=== PATIENT | male | born 1945 | race Caucasian/White ===

== ENCOUNTER 2016-10-03 06:54 | Inpatient (IN) | payer MEDICARE, BC ==
[2016-10-03] MEDS ORDERED: Thrombin (Bovine) 5,000 Unit Kit ONE (07:06)
[2016-10-03] MEDS ORDERED: Neostigmine Methylsulfate 1 MG/ML 5 ML Syringe ONE (07:30)
[2016-10-03] MEDS ORDERED: Rocuronium 50 MG/5 ML Vial ONE ×2 (07:30→09:53)
[2016-10-03] MEDS ORDERED: Propofol 200 MG/20 ML SDV ONE ×6 (07:30→14:09)
[2016-10-03] MEDS ORDERED: Lactated Ringers 1,000 ML IV SCH (07:30)
[2016-10-03] MEDS ORDERED: Dexamethasone 4 MG/ML SDV ONE (07:30)
[2016-10-03] MEDS ORDERED: Ondansetron 4 MG/2 ML SDV ONE (07:30)
[2016-10-03] MEDS ORDERED: ceFAZolin 2 GM in Premix Bag 1 BAG IV ONE (09:00)
[2016-10-03] MEDS ORDERED: Tranexamic Acid 3,000 MG, Sodium Chloride 0.9% 100 ML TOP SCH ×2 (09:00)
[2016-10-03] MEDS ORDERED: Ketamine 500 MG/5 ML MDV IV SCH (09:00)
[2016-10-03] MEDS ORDERED: ceFAZolin 2 GM in Sodium Chloride 0.9% 50 ML IV ONE (09:00)
[2016-10-03] MEDS ORDERED: Gentamicin 40 MG/ML 2 ML Vial ONE (09:49)
[2016-10-03] MEDS ORDERED: Ropivacaine 49.25 ML, Ketorolac 30 MG, EPINEPHrine 0.5 MG, cloNIDine 80 MCG, Sodium Chl... INJECT SCH ×5 (10:30)
[2016-10-03] MEDS ORDERED: Gelatin Sponge,Absorbable Pwd 1 GM Pkt ONE (11:00)
[2016-10-03] MEDS ORDERED: Succinylcholine 200 MG/10 ML MDV ONE (12:02)
[2016-10-03] MEDS ORDERED: Lactated Ringers 1,000 ML ONE ×2 (12:02)
[2016-10-03] MEDS ORDERED: fentaNYL 100 MCG/2 ML SDV ONE ×2 (12:31→14:17)
[2016-10-03] MEDS ORDERED: Sodium Chloride 0.9% 500 ML ONE (12:48)
[2016-10-03] MEDS ORDERED: Magnesium Hydroxide 400 MG/5 ML Susp 30 ML Cup PO PRN (16:00)
[2016-10-03] MEDS ORDERED: Sennosides 8.6 MG Tab PO PRN (16:00)
[2016-10-03] MEDS ORDERED: diphenhydrAMINE 25 MG Cap PO PRN (16:00)
[2016-10-03] MEDS ORDERED: Naloxone 0.4 MG/ML SDV IVPUSH PRN (16:00)
[2016-10-03] MEDS ORDERED: Morphine 4 MG/ML Syringe IVPUSH PRN (16:00)
[2016-10-03] MEDS ORDERED: ceFAZolin 1 GM in Sodium Chloride 0.9% 50 ML IV SCH (16:00)
--- NOTE | 2016-10-03 16:56 | OR ---
DATE OF PROCEDURE: 10/03/2016 PREOPERATIVE DIAGNOSES: 1. Lumbar stenosis, L3 through S1. 2. Lumbar radiculopathy, L3 through S1. 3. Spondylolisthesis, L4-L5. 4. Spondylolisthesis, L5-S1. POSTOPERATIVE DIAGNOSES: 1. Lumbar stenosis, L3 through S1. 2. Lumbar radiculopathy, L3 through S1. 3. Spondylolisthesis, L4-L5. 4. Spondylolisthesis, L5-S1. PROCEDURES: 1. Transforaminal lumbar interbody fusion, L3-L4, L4-L5, and L5-S1. 2. Segmental instrumentation, L3 through S1. 3. Lumbar laminectomy required in addition decompression for central stenosis at L3-L4, L4- L5, and L5-S1. 4. Interbody device placement at L3-L4, L4-L5, and L5-S1. 5. Use of fluoroscopy. 6. Autograft from laminectomy placed in the posterolateral gutter. 7. Magnify from Globus mixed with autograft placed to the posterolateral gutter as well as the interbody space for grafting. ANESTHESIA: General endotracheal intubation. FLUID: Lactated Ringer solution. ESTIMATED BLOOD LOSS: 1700 mL. COMPLICATIONS: None. SPECIMEN: None. DISCHARGE DISPOSITION: Stable to PACU. INSTRUMENTATION: Globus Creo AMP 7.5 x 50 mm screws at S1, L5, and L4. 7.5 x 50 mm screws at L3. Globus Rise implant 10 x 30, 10 to 17 at L3-L4 at L4-L5 and Rise implant 10 x 26, 15 degree at L5-S1. INDICATIONS: The patient is well known to me. He had been seen in clinic. He had failed nonoperative treatment. Preoperative imaging confirmed the above-mentioned diagnosis. Risks and benefits of the procedure were explained to the patient. Informed consent was obtained. DETAILS OF PROCEDURE: The patient was seen preoperatively by myself and the Anesthesia Staff in the preoperative holding area where the operative site was marked. He was brought to the operative suite by Anesthesia staff where general anesthesia was administered. A sterile Freire catheter was placed. The fluoroscopy unit was draped in a sterile manner. Neuromonitoring leads were placed. The patient was then placed into a prone position on a Marcin table. All extremities found to be well padded. Neuromonitoring leads were normal at baseline. The patient was prepped and draped in a sterile manner. Time-out was called after the correct patient, correct procedure, the correct site, and antibiotics had begun within appropriate period of time. The lateral fluoroscopy unit was used to ascertain the location of the L3 through S1 pedicles. Midline incision was made from the spinous process of L2, S1, and down to the deep fascia. Bleeding was controlled during the case with Bovie electrocautery, bipolar electrocautery, and Aquamantys 5.0 unit. Cerebellars were used for initial retraction. I then used a Eric elevator and an ENT Bovie tip and then went over the respective spinous processes of L3 through S1 the respective lamina and the transverse processes of L3, L4, and L5 as well as the ala at S1. I then inserted two 75 mm blades cephalad and then two 55 mm blades caudad and inserted my Versa-Trac frame. I then controlled any extra bleeding. I then cleared all the soft tissue as necessary to identify the transverse processes better on each side as well as the sacral ala. Screws were done on the left and then the right. Screw placement was done as follows by going mid point of the TP and drilling down the facets and then making a starting point and then using the PediGuard from spine guard to create a tract for the pedicle screws followed by pedicle probe confirmation that all four sites were good, followed by tap, followed by screw placement. At the sacrum, I did use lateral fluoroscopy to go and cut at the cephalad fashion through the pedicle. This was saved on the left side and then repeated the process on the right side and saved those pictures. After this had been performed, I concentrated on my laminectomy. I did this in an on-block manner by creating a trough along the lamina of L4, L5, and the cranial portion of S1, caudal portion of L3. I then used a Eric elevator to break this free removing the entire lamina on-block as well as a great deal of ligamentum flavum. After this had been accomplished, I then cleared out the posterolateral gutters using Kerrison and retracted using my suction tip or long ball to protect the dura. No durotomy was encountered during the procedure. After this had been accomplished, I worked at disk preparation. I placed the L3-L4, L4-L5, and then the L5-S1 interbody last technique for this was to identify the disk space using a Orange #4, then used a sharp blade to go through the annulus then inserted sequential gypsy from 7 to 10 removing the disk material with pituitary then used straight upgoing and downgoing curettes. I then cleaned it out again using a pituitary. I then used a bone funnel with bone graft allograft and autograft mixed together and then placed that anteriorly with a bone funnel and then under fluoroscopy, placed my implant anteriorly and then expanded the implant under fluoroscopy. This was performed at L3-L4 and L4-L5. I did do full facetectomies bilaterally at L5-S1 in anticipation that I could obtain a reduction, however, this was not possible. I had placed the rods on in anticipation that I could get a better reduction with the rods on but not yet torqued down. I inserted the final interbody at L5-S1 and expanded it. After this had been accomplished, we then torqued the screws down, I then copiously irrigated with 3 L of gentamicin infused irrigation. I then decorticated the dorsal aspects of the transverse processes at L3, L4, L5, and the sacral ala on the right. I then put the remainder of my graft to the posterolateral gutter. I then applied FloSeal in the epidural spaces and tamped any extra out with a 4x4. After this had been done, I closed the deep fascia with a #2 Vicryl in an interlocking fashion and a #2 Vicryl in a running fashion, followed by gentamicin irrigation, followed by deep 0 subcu Vicryl and then more superficial 2-0 subcu Vicryl and 2-0 Monocryl and Dermabond followed by sterile dressing. Neuromonitoring did show some mild changes in the SSEPs but these returned to normal. Motors were normal during the entire case. The patient was then flipped into the supine position on the hospital bed and taken to the recovery room in good condition. Jacob Canales DO /[id number]
--- NOTE | 2016-10-03 17:31 | PCM.PN ---
- General Info Date of Service: 10/03/16 Functional Status: Reports: Pain Controlled - Review of Systems Musculoskeletal: Reports: Back Pain Neurological: Denies: Paresthesia Systems Review Comment:: no acute events since surgery. Vital signs have been stable. Patient reports very minimal lower back pain at this time and much better than prior to surgery. No complaints of chest pain or shortness of breath. No paresthesias, numbness or tingling. No paresthesias, numbness or tingling in his lower extremities. - Patient Data Vitals - Most Recent: Last Vital Signs Temp 36.4 C 10/03/16 16:45 Pulse 64 10/03/16 16:45 Resp 16 10/03/16 16:45 BP 138/68 10/03/16 16:45 Pulse Ox 93 L 10/03/16 16:45 Weight - Most Recent: 126.297 kg Lab Results Last 24 Hours: Laboratory Results - last 24 hr 10/03/16 10/03/16 10/03/16 Range/Units 07:15 07:15 07:15 WBC 4.2 L (4.5-11.0) K/uL RBC 4.06 L (4.30-5.90) M/uL Hgb 10.1 L (12.0-15.0) g/dL Hct 33.8 L (40.0-54.0) % MCV 83 (80-98) fL MCH 25 L (27-31) pg MCHC 30 L (32-36) % Plt Count 222 (150-400) K/uL PT 11.5 (9.5-12.0) sec INR 1.07 (0.80-1.20) Blood Type O POSITIVE Gel Antibody Screen Negative Crossmatch See Detail Med Orders - Current: Current Medications Allopurinol (Zyloprim) 300 mg PO DAILY [facility] Amiodarone HCl (Cordarone) 200 mg PO DAILY [facility] Carvedilol (Coreg) 12.5 mg PO BID [facility] Diazepam (Valium) 5 mg IVPUSH Q6H PRN PRN Reason: Spasms Diphenhydramine HCl (Benadryl) 25 mg PO Q4H PRN PRN Reason: Itching Cefazolin Sodium/Dextrose 1 gm (/ Premix) 50 mls @ 100 mls/hr IV Q8H [facility] Stop: 10/04/16 09:29 Lactated Ringer's (Ringers, Lactated) 1,000 mls @ 100 mls/hr IV ASDIRECTED [facility] Lisinopril (Prinivil) 5 mg PO DAILY [facility] Magnesium Hydroxide (Milk Of Magnesia) 30 ml PO DAILY PRN PRN Reason: Constipation Metformin HCl (Glucophage) 500 mg PO BIDMEALS [facility] Morphine Sulfate (Morphine) 4 mg IVPUSH Q2H PRN PRN Reason: Pain Naloxone HCl (Narcan) 0.2 mg IVPUSH ONETIME PRN PRN Reason: Oversedation Oxycodone/Acetaminophen (Percocet 325-5 Mg) 1 tab PO Q4H PRN PRN Reason: Pain Senna (Senna) 8.6 mg PO BID PRN PRN Reason: Constipation Simvastatin (Zocor) 10 mg PO BEDTIME [facility] Tramadol HCl (Ultram) 50 mg PO Q6H PRN PRN Reason: Pain Triamcinolone Acetonide (Triamcinolone Acetonide 0.1% Crm) 0 gm TOP TID [facility] Discontinued Medications Allopurinol (Zyloprim) 300 mg PO DAILY [facility] Amiodarone HCl (Cordarone) 200 mg PO DAILY [facility] Carvedilol (Coreg) 12.5 mg PO BID [facility] Tranexamic Acid 3,000 mg/ (Sodium Chloride 100 ml) 0 mg TOP ASDIRECTED [facility] Stop: 10/03/16 09:01 Last Admin: 10/03/16 11:57 Dose: 1 bag Ropivacaine 49.25 ml/Ketorolac Tromethamine 30 mg/Epinephrine HCl 0.5 mg/ Clonidine HCl 80 mcg/ Sodium Chloride 48.45 ml 0 ml INJECT ASDIRECTED [facility] Stop: 10/03/16 10:31 Dexamethasone (Dexamethasone) Confirm Administered Dose 4 mg .ROUTE .STK-MED ONE Stop: 10/03/16 07:31 Fentanyl (Sublimaze) Confirm Administered Dose 100 mcg .ROUTE .STK-MED ONE Stop: 10/03/16 12:32 Fentanyl (Sublimaze) Confirm Administered Dose 100 mcg .ROUTE .STK-MED ONE Stop: 10/03/16 14:18 Fentanyl Citrate (Fentanyl 0.05 Mg/Ml Vial) Confirm Administered Dose 50 mcg .ROUTE .STK-MED ONE Stop: 10/03/16 07:34 Gelatin (Gelfoam) 2 gm .ROUTE .STK-MED ONE Stop: 10/03/16 11:01 Gentamicin Sulfate (Gentamicin) Confirm Administered Dose 240 mg .ROUTE .STK- MED ONE Stop: 10/03/16 09:50 Last Admin: 10/03/16 10:20 Dose: 240 mg Lactated Ringer's (Ringers, Lactated) 1,000 mls @ 0 mls/hr IV ASDIRECTED [facility] PRN Reason: KVO Last Admin: 10/03/16 08:15 Dose: 25 mls/hr Cefazolin Sodium 2 gm/ Sodium (Chloride) 50 mls @ 100 mls/hr IV ONETIME ONE Stop: 10/03/16 09:29 Last Admin: 10/03/16 09:18 Dose: 100 mls/hr Ketamine HCl 100 mg/ Sodium (Chloride) 100 mls @ 23 mls/hr IV ASDIRECTED [facility] Lactated Ringer's (Ringers, Lactated) Confirm Administered Dose 1,000 mls @ as directed .ROUTE .STK-MED ONE Stop: 10/03/16 12:03 Lactated Ringer's (Ringers, Lactated) Confirm Administered Dose 1,000 mls @ as directed .ROUTE .STK-MED ONE Stop: 10/03/16 12:03 Sodium Chloride (Normal Saline) Confirm Administered Dose 500 mls @ as directed .ROUTE .STK-MED ONE Stop: 10/03/16 12:49 Cefazolin Sodium 1 gm/ Sodium (Chloride) 50 mls @ 100 mls/hr IV Q8H [facility] Stop: 10/04/16 08:29 Ketamine HCl (Ketalar) 40 mg IV ASDIRECTED [facility] Lisinopril (Prinivil) 5 mg PO DAILY [facility] Metformin HCl (Glucophage) 500 mg PO BID [facility] Neostigmine Methylsulfate (Neostigmine) Confirm Administered Dose 5 mg .ROUTE .STK-MED ONE Stop: 10/03/16 07:31 Non-Formulary Medication (Simvastatin [Zocor]) 10 mg PO BEDTIME [facility] Ondansetron HCl (Zofran) Confirm Administered Dose 4 mg .ROUTE .STK-MED ONE Stop: 10/03/16 07:31 Propofol (Diprivan 20 Ml) Confirm Administered Dose 200 mg .ROUTE .STK-MED ONE Stop: 10/03/16 07:31 Propofol (Diprivan 20 Ml) Confirm Administered Dose 600 mg .ROUTE .STK-MED ONE Stop: 10/03/16 10:29 Propofol (Diprivan 20 Ml) Confirm Administered Dose 600 mg .ROUTE .STK-MED ONE Stop: 10/03/16 10:29 Propofol (Diprivan 20 Ml) Confirm Administered Dose 600 mg .ROUTE .STK-MED ONE Stop: 10/03/16 11:49 Propofol (Diprivan 20 Ml) Confirm Administered Dose 600 mg .ROUTE .STK-MED ONE Stop: 10/03/16 14:06 Propofol (Diprivan 20 Ml) Confirm Administered Dose 400 mg .ROUTE .STK-MED ONE Stop: 10/03/16 14:10 Rocuronium [place] (Zemuron) Confirm Administered Dose 50 mg .ROUTE .STK-MED ONE Stop: 10/03/16 07:31 Rocuronium [place] (Zemuron) Confirm Administered Dose 50 mg .ROUTE .STK-MED ONE Stop: 10/03/16 09:54 Succinylcholine Chloride (Quelicin) Confirm Administered Dose 200 mg .ROUTE .STK -MED ONE Stop: 10/03/16 12:03 Thrombin (Thrombin-Jmi) Confirm Administered Dose 15,000 unit .ROUTE .STK-MED ONE Stop: 10/03/16 07:07 Last Admin: 10/03/16 10:20 Dose: 15,000 unit - Exam Quality Assessment: No: Supplemental Oxygen General: Alert, Oriented, Cooperative, No Acute Distress HEENT: Other (eyelids are puffy) Neck: Supple Lungs: Clear to Auscultation, Normal Respiratory Effort Cardiovascular: Regular Rate, Regular Rhythm, No Murmurs GI/Abdominal Exam: Normal Bowel Sounds, Soft, Non-Tender, No Distention Extremities: Normal Inspection, No Pedal Edema. No: Increased Warmth Skin: Warm, Dry Psy/Mental Status: Alert, Normal Affect - Problem List & Annotations (1) Spinal stenosis of lumbar region SNOMED Code(s): 23842114 Code(s): M48.06 - SPINAL STENOSIS, LUMBAR REGION Status: Chronic Current Visit: No (2) Coronary artery disease SNOMED Code(s): 90001686 Code(s): I25.10 - ATHSCL HEART DISEASE OF [place] CORONARY ARTERY W/O ANG PCTRS Status: Chronic Current Visit: Yes Qualifiers: Coronary Disease-Associated Artery/Lesion type: [place] artery [place] vs. transplanted heart: [place] heart Associated angina: without angina Qualified Code(s): I25.10 - Atherosclerotic heart disease of [place] coronary artery without angina pectoris (3) Diabetes mellitus type 2 in obese SNOMED Code(s): 90476253 Code(s): E11.69 - TYPE 2 DIABETES MELLITUS WITH OTHER SPECIFIED COMPLICATION ; E66.9 - OBESITY, UNSPECIFIED Status: Chronic Current Visit: Yes (4) History of DVT (deep vein thrombosis) SNOMED Code(s): 872723251 Code(s): Z86.718 - PERSONAL HISTORY OF OTHER VENOUS THROMBOSIS AND EMBOLISM Status: Chronic Current Visit: Yes - Problem List Review Problem List Initiated/Reviewed/Updated: Yes - My Orders Last 24 Hours: My Active Orders 10/03/16 17:30 Lactated Ringers [Ringers, Lactated] 1,000 ml IV ASDIRECTED - Plan Plan:: Assessment and plan - Lumbar spinal stenosis - status post TLIF of L3-S1. He is clinically stable since surgery. There was moderate blood loss during the procedure but he also received compensatory blood transfusion. -Postop cares per surgical team -Continue IV fluids overnight -Careful monitoring of urine output History of DVT - remote history of DVT but fairly severe and he has been on chronic anticoagulation. At this time the risk of restarting anticoagulation quickly outweighs the potential benefits. -Restart warfarin tomorrow -Start bridging systemic anticoagulation on -Daily INR levels Type 2 diabetes mellitus - on only a single oral agent at this time. I plan to continue this medication and will check blood sugars only as needed if there are concerns. -Continue metformin Coronary artery disease - does have a history of a bypass surgery. No active anginal symptoms at this time. -Continue medical management Robby Cancino M.D.
[2016-10-03] MEDS: ceFAZolin 1 GM in Premix Bag 1 BAG IV SCH (17:34)
[2016-10-03] MEDS: metFORMIN 500 MG Tab PO SCH (17:35)
[2016-10-03] MEDS: Lactated Ringers 1,000 ML IV SCH (17:37)
[2016-10-03] MEDS: Acetaminophen/oxyCODONE 325-5 MG Tab PO PRN ×2 (18:24→22:35)
[2016-10-03] MEDS: traMADol 50 MG Tab PO PRN (18:24)
[2016-10-03] MEDS ORDERED: Non-Formulary Medication 1 Each (Simvastatin [Zocor] 10 MG) PO SCH (21:00)
[2016-10-03] MEDS ORDERED: Carvedilol 12.5 MG Tab PO SCH (21:00)
[2016-10-03] MEDS ORDERED: metFORMIN 500 MG Tab PO SCH (21:00)
[2016-10-03] MEDS: Carvedilol 12.5 MG Tab PO SCH (21:22)
[2016-10-03] MEDS: Simvastatin 20 MG Tab PO SCH (21:23)
[2016-10-03] MEDS: Triamcinolone Acetonide 0.1% Crm 15 GM Tube TOP SCH (21:24)
[2016-10-03] MEDS ORDERED: Lactated Ringers 500 ML IV SCH (22:15)
[2016-10-04] MEDS: ceFAZolin 1 GM in Premix Bag 1 BAG IV SCH ×2 (01:04→08:56)
[2016-10-04] MEDS ORDERED: Lactated Ringers 500 ML IV SCH (02:15)
[2016-10-04] MEDS: Acetaminophen/oxyCODONE 325-5 MG Tab PO PRN ×2 (02:32→21:55)
[2016-10-04] MEDS: Lactated Ringers 1,000 ML IV SCH ×2 (06:28→17:18)
[2016-10-04] MEDS: Allopurinol 300 MG Tab PO SCH (08:15)
[2016-10-04] MEDS: metFORMIN 500 MG Tab PO SCH ×2 (08:15→16:40)
[2016-10-04] MEDS: Amiodarone 200 MG Tab PO SCH (08:15)
[2016-10-04] MEDS: Triamcinolone Acetonide 0.1% Crm 15 GM Tube TOP SCH ×3 (08:18→21:42)
[2016-10-04] MEDS: Carvedilol 12.5 MG Tab PO SCH ×2 (08:26→20:24)
[2016-10-04] MEDS ORDERED: Allopurinol 300 MG Tab PO SCH (09:00)
[2016-10-04] MEDS ORDERED: Amiodarone 200 MG Tab PO SCH (09:00)
[2016-10-04] MEDS ORDERED: Lisinopril 5 MG Tab PO SCH (09:00)
[2016-10-04] MEDS: traMADol 50 MG Tab PO PRN ×2 (09:13→17:18)
--- NOTE | 2016-10-04 11:34 | PCM.PN ---
- General Info Date of Service: 10/04/16 Admission Dx/Problem (Free Text): Patient is status pod 2 of a lumbar fusion. He is doing well. He has some weakness in his lower extremities but has improvement. He does note some stiffness and pain in his lower back. Functional Status: Reports: Pain Controlled - Patient Data Vitals - Most Recent: Last Vital Signs Temp 38.0 C 10/04/16 08:10 Pulse 75 10/04/16 09:40 Resp 16 10/04/16 07:25 BP 102/70 10/04/16 10:30 Pulse Ox 95 10/04/16 07:25 Weight - Most Recent: 278 lb 7 oz I&O - Last 24 Hours: Intake & Output 10/03/16 10/04/16 10/04/16 22:59 06:59 14:59 Intake Total 920 2500 400 Output Total 165 190 74 Balance 755 2310 326 Lab Results Last 24 Hours: Laboratory Results - last 24 hr 10/03/16 10/04/16 10/04/16 Range/Units 07:15 06:40 06:40 WBC 8.5 (4.5-11.0) K/uL RBC 3.81 L (4.30-5.90) M/uL Hgb 10.5 L (12.0-15.0) g/dL Hct 32.4 L (40.0-54.0) % MCV 85 (80-98) fL MCH 28 (27-31) pg MCHC 32 (32-36) % Plt Count 183 (150-400) K/uL Neut % (Auto) 79 H (36-66) % Lymph % (Auto) 10 L (24-44) % Coleman % (Auto) 11 H (2-6) % Eos % (Auto) 0 L (2-4) % Baso % (Auto) 0 (0-1) % Sodium 138 L (140-148) mmol/L Potassium 5.2 (3.6-5.2) mmol/L Chloride 106 (100-108) mmol/L Carbon Dioxide 24 (21-32) mmol/L Anion Gap 13.2 (5.0-14.0) mmol/L BUN 18 (7-18) mg/dL Creatinine 1.5 H (0.8-1.3) mg/dL Est Cr Clr Drug Dosing 50.31 mL/min Estimated GFR (MDRD) 46 L (>60) Glucose 167 H (74-106) mg/dL Calcium 7.7 L (8.5-10.1) mg/dL Blood Type O POSITIVE Gel Antibody Screen Negative Crossmatch See Detail Med Orders - Current: Current Medications Allopurinol (Zyloprim) 300 mg PO DAILY [facility] Last Admin: 10/04/16 08:15 Dose: 300 mg Amiodarone HCl (Cordarone) 200 mg PO DAILY [facility] Last Admin: 10/04/16 08:15 Dose: 200 mg Carvedilol (Coreg) 12.5 mg PO BID [facility] Last Admin: 10/04/16 08:26 Dose: 12.5 mg Diazepam (Valium) 5 mg IVPUSH Q6H PRN PRN Reason: Spasms Diphenhydramine HCl (Benadryl) 25 mg PO Q4H PRN PRN Reason: Itching Lactated Ringer's (Ringers, Lactated) 1,000 mls @ 100 mls/hr IV ASDIRECTED [facility] Last Admin: 10/04/16 06:28 Dose: 100 mls/hr Lactated Ringer's (Ringers, Lactated) 500 mls @ 500 mls/hr IV .BOLUS [facility] Last Admin: 10/03/16 22:28 Dose: 500 mls/hr Lactated Ringer's (Ringers, Lactated) 500 mls @ 500 mls/hr IV .BOLUS [facility] Last Admin: 10/04/16 02:08 Dose: 500 mls/hr Lisinopril (Prinivil) 5 mg PO DAILY [facility] Magnesium Hydroxide (Milk Of Magnesia) 30 ml PO DAILY PRN PRN Reason: Constipation Metformin HCl (Glucophage) 500 mg PO BIDMEALS [facility] Last Admin: 10/04/16 08:15 Dose: 500 mg Morphine Sulfate (Morphine) 4 mg IVPUSH Q2H PRN PRN Reason: Pain Naloxone HCl (Narcan) 0.2 mg IVPUSH ONETIME PRN PRN Reason: Oversedation Oxycodone/Acetaminophen (Percocet 325-5 Mg) 1 tab PO Q4H PRN PRN Reason: Pain Last Admin: 10/04/16 02:32 Dose: 1 tab Senna (Senna) 8.6 mg PO BID PRN PRN Reason: Constipation Simvastatin (Zocor) 10 mg PO BEDTIME [facility] Last Admin: 10/03/16 21:23 Dose: 10 mg Tramadol HCl (Ultram) 50 mg PO Q6H PRN PRN Reason: Pain Last Admin: 10/04/16 09:13 Dose: 50 mg Triamcinolone Acetonide (Triamcinolone Acetonide 0.1% Crm) 0 gm TOP TID [facility] Last Admin: 10/04/16 08:18 Dose: Not Given Warfarin Sodium (Coumadin) 7.5 mg PO DAILY@1300 [facility] Discontinued Medications Allopurinol (Zyloprim) 300 mg PO DAILY [facility] Amiodarone HCl (Cordarone) 200 mg PO DAILY [facility] Carvedilol (Coreg) 12.5 mg PO BID [facility] Tranexamic Acid 3,000 mg/ (Sodium Chloride 100 ml) 0 mg TOP ASDIRECTED [facility] Stop: 10/03/16 09:01 Last Admin: 10/03/16 11:57 Dose: 1 bag Ropivacaine 49.25 ml/Ketorolac Tromethamine 30 mg/Epinephrine HCl 0.5 mg/ Clonidine HCl 80 mcg/ Sodium Chloride 48.45 ml 0 ml INJECT ASDIRECTED [facility] Stop: 10/03/16 10:31 Dexamethasone (Dexamethasone) Confirm Administered Dose 4 mg .ROUTE .STK-MED ONE Stop: 10/03/16 07:31 Fentanyl (Sublimaze) Confirm Administered Dose 100 mcg .ROUTE .STK-MED ONE Stop: 10/03/16 12:32 Fentanyl (Sublimaze) Confirm Administered Dose 100 mcg .ROUTE .STK-MED ONE Stop: 10/03/16 14:18 Fentanyl Citrate (Fentanyl 0.05 Mg/Ml Vial) Confirm Administered Dose 50 mcg .ROUTE .STK-MED ONE Stop: 10/03/16 07:34 Gelatin (Gelfoam) 2 gm .ROUTE .STK-MED ONE Stop: 10/03/16 11:01 Gentamicin Sulfate (Gentamicin) Confirm Administered Dose 240 mg .ROUTE .STK- MED ONE Stop: 10/03/16 09:50 Last Admin: 10/03/16 10:20 Dose: 240 mg Lactated Ringer's (Ringers, Lactated) 1,000 mls @ 0 mls/hr IV ASDIRECTED [facility] PRN Reason: KVO Last Admin: 10/03/16 08:15 Dose: 25 mls/hr Cefazolin Sodium 2 gm/ Sodium (Chloride) 50 mls @ 100 mls/hr IV ONETIME ONE Stop: 10/03/16 09:29 Last Admin: 10/03/16 09:18 Dose: 100 mls/hr Ketamine HCl 100 mg/ Sodium (Chloride) 100 mls @ 23 mls/hr IV ASDIRECTED [facility] Lactated Ringer's (Ringers, Lactated) Confirm Administered Dose 1,000 mls @ as directed .ROUTE .[facility] ONE Stop: 10/03/16 12:03 Lactated Ringer's (Ringers, Lactated) Confirm Administered Dose 1,000 mls @ as directed .ROUTE .[facility] ONE Stop: 10/03/16 12:03 Sodium Chloride (Normal Saline) Confirm Administered Dose 500 mls @ as directed .ROUTE .[facility] ONE Stop: 10/03/16 12:49 Cefazolin Sodium 1 gm/ Sodium (Chloride) 50 mls @ 100 mls/hr IV Q8H [facility] Stop: 10/04/16 08:29 Last Admin: 10/03/16 18:45 Dose: Not Given Cefazolin Sodium/Dextrose 1 gm (/ Premix) 50 mls @ 100 mls/hr IV Q8H [facility] Stop: 10/04/16 09:29 Last Admin: 10/04/16 08:56 Dose: 100 mls/hr Ketamine HCl (Ketalar) 40 mg IV ASDIRECTED [facility] Lisinopril (Prinivil) 5 mg PO DAILY [facility] Metformin HCl (Glucophage) 500 mg PO BID [facility] Neostigmine Methylsulfate (Neostigmine) Confirm Administered Dose 5 mg .ROUTE .[facility] ONE Stop: 10/03/16 07:31 Non-Formulary Medication (Simvastatin [Zocor]) 10 mg PO BEDTIME [facility] Ondansetron HCl (Zofran) Confirm Administered Dose 4 mg .ROUTE .ST-MED ONE Stop: 10/03/16 07:31 Propofol (Diprivan 20 Ml) Confirm Administered Dose 200 mg .ROUTE .ST-MED ONE Stop: 10/03/16 07:31 Propofol (Diprivan 20 Ml) Confirm Administered Dose 600 mg .ROUTE .ST-MED ONE Stop: 10/03/16 10:29 Propofol (Diprivan 20 Ml) Confirm Administered Dose 600 mg .ROUTE .ST-MED ONE Stop: 10/03/16 10:29 Propofol (Diprivan 20 Ml) Confirm Administered Dose 600 mg .ROUTE .STK-MED ONE Stop: 10/03/16 11:49 Propofol (Diprivan 20 Ml) Confirm Administered Dose 600 mg .ROUTE .STK-MED ONE Stop: 10/03/16 14:06 Propofol (Diprivan 20 Ml) Confirm Administered Dose 400 mg .ROUTE .STK-MED ONE Stop: 10/03/16 14:10 Rocuronium [place] (Zemuron) Confirm Administered Dose 50 mg .ROUTE .STK-MED ONE Stop: 10/03/16 07:31 Rocuronium [place] (Zemuron) Confirm Administered Dose 50 mg .ROUTE .STK-MED ONE Stop: 10/03/16 09:54 Succinylcholine Chloride (Quelicin) Confirm Administered Dose 200 mg .ROUTE .STK -MED ONE Stop: 10/03/16 12:03 Thrombin (Thrombin-Jmi) Confirm Administered Dose 15,000 unit .ROUTE .STK-MED ONE Stop: 10/03/16 07:07 Last Admin: 10/03/16 10:20 Dose: 15,000 unit - Exam General: Alert, Oriented Extremities: Normal Inspection Skin: Warm, Dry, Intact Wound/Incisions: Healing Well, Dressing Dry and Intact Neurological: No New Focal Deficit, Strength Equal Bilateral, Reflexes Equal Bilateral Psy/Mental Status: Alert - Problem List Review Problem List Initiated/Reviewed/Updated: Yes - Plan Plan:: Assessment and plan - Lumbar spinal stenosis - status post TLIF of L3-S1. He is doing well. Will continue with pain management. PT/OT to assess.
--- NOTE | 2016-10-04 12:15 | PCM.PN ---
- General Info Date of Service: 10/04/16 Functional Status: Reports: Pain Controlled, Tolerating Diet - Review of Systems Pulmonary: Denies: Shortness of Breath Musculoskeletal: Reports: Back Pain Systems Review Comment:: No acute events overnight. He did have urine output that was suboptimal and he did receive 2 500 mL boluses. Clinically he feels better today and is up out of bed and sitting in the chair. He is weak but able to bear weight on both legs. Low-grade temperature elevations probably related to atelectasis. Tolerating diet. Able to wiggle both ankles and toes without paresthesias. Left leg is a little weaker than the right. - Patient Data Vitals - Most Recent: Last Vital Signs Temp 36.4 C 10/04/16 11:53 Pulse 60 10/04/16 11:53 Resp 16 10/04/16 11:53 BP 113/65 10/04/16 11:53 Pulse Ox 96 10/04/16 11:53 Weight - Most Recent: 126.297 kg I&O - Last 24 Hours: Intake & Output 10/03/16 10/04/16 10/04/16 22:59 06:59 14:59 Intake Total 920 2500 1310 Output Total 165 190 143 Balance 755 2310 1167 Lab Results Last 24 Hours: Laboratory Results - last 24 hr 10/03/16 10/04/16 10/04/16 Range/Units 07:15 06:40 06:40 WBC 8.5 (4.5-11.0) K/uL RBC 3.81 L (4.30-5.90) M/uL Hgb 10.5 L (12.0-15.0) g/dL Hct 32.4 L (40.0-54.0) % MCV 85 (80-98) fL MCH 28 (27-31) pg MCHC 32 (32-36) % Plt Count 183 (150-400) K/uL Neut % (Auto) 79 H (36-66) % Lymph % (Auto) 10 L (24-44) % [place] % (Auto) 11 H (2-6) % Eos % (Auto) 0 L (2-4) % Baso % (Auto) 0 (0-1) % Sodium 138 L (140-148) mmol/L Potassium 5.2 (3.6-5.2) mmol/L Chloride 106 (100-108) mmol/L Carbon Dioxide 24 (21-32) mmol/L Anion Gap 13.2 (5.0-14.0) mmol/L BUN 18 (7-18) mg/dL Creatinine 1.5 H (0.8-1.3) mg/dL Est Cr Clr Drug Dosing 50.31 mL/min Estimated GFR (MDRD) 46 L (>60) Glucose 167 H (74-106) mg/dL Calcium 7.7 L (8.5-10.1) mg/dL Blood Type O POSITIVE Gel Antibody Screen Negative Crossmatch See Detail Med Orders - Current: Current Medications Allopurinol (Zyloprim) 300 mg PO DAILY [facility] Last Admin: 10/04/16 08:15 Dose: 300 mg Amiodarone HCl (Cordarone) 200 mg PO DAILY [facility] Last Admin: 10/04/16 08:15 Dose: 200 mg Carvedilol (Coreg) 12.5 mg PO BID [facility] Last Admin: 10/04/16 08:26 Dose: 12.5 mg Diazepam (Valium) 5 mg IVPUSH Q6H PRN PRN Reason: Spasms Diphenhydramine HCl (Benadryl) 25 mg PO Q4H PRN PRN Reason: Itching Lactated Ringer's (Ringers, Lactated) 1,000 mls @ 100 mls/hr IV ASDIRECTED [facility] Last Admin: 10/04/16 06:28 Dose: 100 mls/hr Lactated Ringer's (Ringers, Lactated) 500 mls @ 500 mls/hr IV .BOLUS [facility] Last Admin: 10/03/16 22:28 Dose: 500 mls/hr Lactated Ringer's (Ringers, Lactated) 500 mls @ 500 mls/hr IV .BOLUS [facility] Last Admin: 10/04/16 02:08 Dose: 500 mls/hr Lisinopril (Prinivil) 5 mg PO DAILY [facility] Magnesium Hydroxide (Milk Of Magnesia) 30 ml PO DAILY PRN PRN Reason: Constipation Metformin HCl (Glucophage) 500 mg PO BIDMEALS [facility] Last Admin: 10/04/16 08:15 Dose: 500 mg Morphine Sulfate (Morphine) 4 mg IVPUSH Q2H PRN PRN Reason: Pain Naloxone HCl (Narcan) 0.2 mg IVPUSH ONETIME PRN PRN Reason: Oversedation Oxycodone/Acetaminophen (Percocet 325-5 Mg) 1 tab PO Q4H PRN PRN Reason: Pain Last Admin: 10/04/16 02:32 Dose: 1 tab Senna (Senna) 8.6 mg PO BID PRN PRN Reason: Constipation Simvastatin (Zocor) 10 mg PO BEDTIME [facility] Last Admin: 10/03/16 21:23 Dose: 10 mg Tramadol HCl (Ultram) 50 mg PO Q6H PRN PRN Reason: Pain Last Admin: 10/04/16 09:13 Dose: 50 mg Triamcinolone Acetonide (Triamcinolone Acetonide 0.1% Crm) 0 gm TOP TID [facility] Last Admin: 10/04/16 08:18 Dose: Not Given Warfarin Sodium (Coumadin) 7.5 mg PO DAILY@1300 [facility] Discontinued Medications Allopurinol (Zyloprim) 300 mg PO DAILY [facility] Amiodarone HCl (Cordarone) 200 mg PO DAILY [facility] Carvedilol (Coreg) 12.5 mg PO BID [facility] Tranexamic Acid 3,000 mg/ (Sodium Chloride 100 ml) 0 mg TOP ASDIRECTED [facility] Stop: 10/03/16 09:01 Last Admin: 10/03/16 11:57 Dose: 1 bag Ropivacaine 49.25 ml/Ketorolac Tromethamine 30 mg/Epinephrine HCl 0.5 mg/ Clonidine HCl 80 mcg/ Sodium Chloride 48.45 ml 0 ml INJECT ASDIRECTED [facility] Stop: 10/03/16 10:31 Dexamethasone (Dexamethasone) Confirm Administered Dose 4 mg .ROUTE .STK-MED ONE Stop: 10/03/16 07:31 Fentanyl (Sublimaze) Confirm Administered Dose 100 mcg .ROUTE .STK-MED ONE Stop: 10/03/16 12:32 Fentanyl (Sublimaze) Confirm Administered Dose 100 mcg .ROUTE .STK-MED ONE Stop: 10/03/16 14:18 Fentanyl Citrate (Fentanyl 0.05 Mg/Ml Vial) Confirm Administered Dose 50 mcg .ROUTE .STK-MED ONE Stop: 10/03/16 07:34 Gelatin (Gelfoam) 2 gm .ROUTE .STK-MED ONE Stop: 10/03/16 11:01 Gentamicin Sulfate (Gentamicin) Confirm Administered Dose 240 mg .ROUTE .STK- MED ONE Stop: 10/03/16 09:50 Last Admin: 10/03/16 10:20 Dose: 240 mg Lactated Ringer's (Ringers, Lactated) 1,000 mls @ 0 mls/hr IV ASDIRECTED [facility] PRN Reason: KVO Last Admin: 10/03/16 08:15 Dose: 25 mls/hr Cefazolin Sodium 2 gm/ Sodium (Chloride) 50 mls @ 100 mls/hr IV ONETIME ONE Stop: 10/03/16 09:29 Last Admin: 10/03/16 09:18 Dose: 100 mls/hr Ketamine HCl 100 mg/ Sodium (Chloride) 100 mls @ 23 mls/hr IV ASDIRECTED [facility] Lactated Ringer's (Ringers, Lactated) Confirm Administered Dose 1,000 mls @ as directed .ROUTE .STK-MED ONE Stop: 10/03/16 12:03 Lactated Ringer's (Ringers, Lactated) Confirm Administered Dose 1,000 mls @ as directed .ROUTE .ST-MED ONE Stop: 10/03/16 12:03 Sodium Chloride (Normal Saline) Confirm Administered Dose 500 mls @ as directed .ROUTE .STK-MED ONE Stop: 10/03/16 12:49 Cefazolin Sodium 1 gm/ Sodium (Chloride) 50 mls @ 100 mls/hr IV Q8H [facility] Stop: 10/04/16 08:29 Last Admin: 10/03/16 18:45 Dose: Not Given Cefazolin Sodium/Dextrose 1 gm (/ Premix) 50 mls @ 100 mls/hr IV Q8H [facility] Stop: 10/04/16 09:29 Last Admin: 10/04/16 08:56 Dose: 100 mls/hr Ketamine HCl (Ketalar) 40 mg IV ASDIRECTED [facility] Lisinopril (Prinivil) 5 mg PO DAILY [facility] Metformin HCl (Glucophage) 500 mg PO BID [facility] Neostigmine Methylsulfate (Neostigmine) Confirm Administered Dose 5 mg .ROUTE .STK-MED ONE Stop: 10/03/16 07:31 Non-Formulary Medication (Simvastatin [Zocor]) 10 mg PO BEDTIME [facility] Ondansetron HCl (Zofran) Confirm Administered Dose 4 mg .ROUTE .ST-MED ONE Stop: 10/03/16 07:31 Propofol (Diprivan 20 Ml) Confirm Administered Dose 200 mg .ROUTE .STK-MED ONE Stop: 10/03/16 07:31 Propofol (Diprivan 20 Ml) Confirm Administered Dose 600 mg .ROUTE .STK-MED ONE Stop: 10/03/16 10:29 Propofol (Diprivan 20 Ml) Confirm Administered Dose 600 mg .ROUTE .STK-MED ONE Stop: 10/03/16 10:29 Propofol (Diprivan 20 Ml) Confirm Administered Dose 600 mg .ROUTE .STK-MED ONE Stop: 10/03/16 11:49 Propofol (Diprivan 20 Ml) Confirm Administered Dose 600 mg .ROUTE .STK-MED ONE Stop: 10/03/16 14:06 Propofol (Diprivan 20 Ml) Confirm Administered Dose 400 mg .ROUTE .STK-MED ONE Stop: 10/03/16 14:10 Rocuronium [place] (Zemuron) Confirm Administered Dose 50 mg .ROUTE .STK-MED ONE Stop: 10/03/16 07:31 Rocuronium [place] (Zemuron) Confirm Administered Dose 50 mg .ROUTE .STK-MED ONE Stop: 10/03/16 09:54 Succinylcholine Chloride (Quelicin) Confirm Administered Dose 200 mg .ROUTE .STK -MED ONE Stop: 10/03/16 12:03 Thrombin (Thrombin-Jmi) Confirm Administered Dose 15,000 unit .ROUTE .STK-MED ONE Stop: 10/03/16 07:07 Last Admin: 10/03/16 10:20 Dose: 15,000 unit - Exam Quality Assessment: No: Supplemental Oxygen General: Alert, Oriented, Cooperative, No Acute Distress Neck: Supple Lungs: Clear to Auscultation, Normal Respiratory Effort Cardiovascular: Regular Rate, Regular Rhythm. No: Murmurs GI/Abdominal Exam: Soft, No Distention Extremities: Pedal Edema (pitting bilateral edema to mid [place]), Other (mild edema both hands) Skin: Warm, Dry Psy/Mental Status: Alert, Normal Affect - Problem List & Annotations (1) Spinal stenosis of lumbar region SNOMED Code(s): 93824950 Code(s): M48.06 - SPINAL STENOSIS, LUMBAR REGION Status: Chronic Current Visit: No (2) Coronary artery disease SNOMED Code(s): 27856736 Code(s): I25.10 - ATHSCL HEART DISEASE OF [place] CORONARY ARTERY W/O ANG PCTRS Status: Chronic Current Visit: Yes Qualifiers: Coronary Disease-Associated Artery/Lesion type: [place] artery [place] vs. transplanted heart: [place] heart Associated angina: without angina Qualified Code(s): I25.10 - Atherosclerotic heart disease of [place] coronary artery without angina pectoris (3) Diabetes mellitus type 2 in obese SNOMED Code(s): 91105634 Code(s): E11.69 - TYPE 2 DIABETES MELLITUS WITH OTHER SPECIFIED COMPLICATION ; E66.9 - OBESITY, UNSPECIFIED Status: Chronic Current Visit: Yes (4) History of DVT (deep vein thrombosis) SNOMED Code(s): 368118035 Code(s): Z86.718 - PERSONAL HISTORY OF OTHER VENOUS THROMBOSIS AND EMBOLISM Status: Chronic Current Visit: Yes - Problem List Review Problem List Initiated/Reviewed/Updated: Yes - My Orders Last 24 Hours: My Active Orders 10/03/16 17:30 Lactated Ringers [Ringers, Lactated] 1,000 ml IV ASDIRECTED 10/03/16 22:15 Lactated Ringers [Ringers, Lactated] 500 ml IV .BOLUS 10/04/16 02:15 Lactated Ringers [Ringers, Lactated] 500 ml IV .BOLUS 10/04/16 13:00 Warfarin [Coumadin] 7.5 mg PO DAILY@1300 10/05/16 05:11 INR,PT,PROTHROMBIN TIME [COAG] AM 10/06/16 05:11 INR,PT,PROTHROMBIN TIME [COAG] AM 10/07/16 05:11 INR,PT,PROTHROMBIN TIME [COAG] AM - Plan Plan:: Assessment and plan - Lumbar spinal stenosis - status post TLIF of L3-S1. Pain is well-controlled and his strength is improving. He is a weak but does not have paresthesias. -Postop cares per surgical team -Continue IV fluids until urine output -Careful monitoring of urine output History of DVT - remote history of DVT but fairly severe and he has been on chronic anticoagulation. At this time the risk of restarting anticoagulation quickly outweighs the potential benefits. -Restart warfarin today -Start bridging systemic anticoagulation on -Daily INR levels Type 2 diabetes mellitus - on only a single oral agent at this time. He was started on parenteral steroids today. -Continue metformin -Accu-Cheks -Sliding-scale insulin Coronary artery disease - does have a history of a bypass surgery. No active anginal symptoms at this time. -Continue medical management Robby Cancino M.D.
[2016-10-04] MEDS: Warfarin 2.5 MG Tab PO SCH (12:35)
[2016-10-04] MEDS: Lisinopril 5 MG Tab PO SCH (13:25)
[2016-10-04] MEDS ORDERED: Dexamethasone 4 MG/ML SDV IVPUSH SCH (14:00)
[2016-10-04] MEDS: Acetaminophen 325 MG Tab PO PRN (14:09)
--- NOTE | 2016-10-04 14:28 | PCM.PN ---
- General Info Date of Service: 10/04/16 Functional Status: Reports: Pain Controlled - Review of Systems General: Reports: Weakness Musculoskeletal: Reports: Back Pain Neurological: Denies: Paresthesia - Patient Data Vitals - Most Recent: Last Vital Signs Temp 38.4 C H 10/04/16 14:09 Pulse 78 10/04/16 12:34 Resp 20 10/04/16 12:34 BP 129/55 L 10/04/16 12:34 Pulse Ox 96 10/04/16 12:34 Weight - Most Recent: 126.297 kg I&O - Last 24 Hours: Intake & Output 10/03/16 10/04/16 10/04/16 22:59 06:59 14:59 Intake Total 920 2500 1310 Output Total 165 190 160 Balance 755 2310 1150 Lab Results Last 24 Hours: Laboratory Results - last 24 hr 10/03/16 10/04/16 10/04/16 Range/Units 07:15 06:40 06:40 WBC 8.5 (4.5-11.0) K/uL RBC 3.81 L (4.30-5.90) M/uL Hgb 10.5 L (12.0-15.0) g/dL Hct 32.4 L (40.0-54.0) % MCV 85 (80-98) fL MCH 28 (27-31) pg MCHC 32 (32-36) % Plt Count 183 (150-400) K/uL Neut % (Auto) 79 H (36-66) % Lymph % (Auto) 10 L (24-44) % [place] % (Auto) 11 H (2-6) % Eos % (Auto) 0 L (2-4) % Baso % (Auto) 0 (0-1) % Sodium 138 L (140-148) mmol/L Potassium 5.2 (3.6-5.2) mmol/L Chloride 106 (100-108) mmol/L Carbon Dioxide 24 (21-32) mmol/L Anion Gap 13.2 (5.0-14.0) mmol/L BUN 18 (7-18) mg/dL Creatinine 1.5 H (0.8-1.3) mg/dL Est Cr Clr Drug Dosing 50.31 mL/min Estimated GFR (MDRD) 46 L (>60) Glucose 167 H (74-106) mg/dL Calcium 7.7 L (8.5-10.1) mg/dL Blood Type O POSITIVE Gel Antibody Screen Negative Crossmatch See Detail Med Orders - Current: Current Medications Acetaminophen (Tylenol) 650 mg PO Q4H PRN PRN Reason: Fever Last Admin: 10/04/16 14:09 Dose: 650 mg Allopurinol (Zyloprim) 300 mg PO DAILY [facility] Last Admin: 10/04/16 08:15 Dose: 300 mg Amiodarone HCl (Cordarone) 200 mg PO DAILY [facility] Last Admin: 10/04/16 08:15 Dose: 200 mg Carvedilol (Coreg) 12.5 mg PO BID [facility] Last Admin: 10/04/16 08:26 Dose: 12.5 mg Dexamethasone (Dexamethasone) 10 mg IVPUSH Q6H [facility] Stop: 10/05/16 08:01 Diazepam (Valium) 5 mg IVPUSH Q6H PRN PRN Reason: Spasms Diphenhydramine HCl (Benadryl) 25 mg PO Q4H PRN PRN Reason: Itching Lactated Ringer's (Ringers, Lactated) 1,000 mls @ 100 mls/hr IV ASDIRECTED [facility] Last Admin: 10/04/16 06:28 Dose: 100 mls/hr Lactated Ringer's (Ringers, Lactated) 500 mls @ 500 mls/hr IV .BOLUS [facility] Last Admin: 10/03/16 22:28 Dose: 500 mls/hr Lactated Ringer's (Ringers, Lactated) 500 mls @ 500 mls/hr IV .BOLUS [facility] Last Admin: 10/04/16 02:08 Dose: 500 mls/hr Lisinopril (Prinivil) 5 mg PO DAILY [facility] Last Admin: 10/04/16 13:25 Dose: Not Given Magnesium Hydroxide (Milk Of Magnesia) 30 ml PO DAILY PRN PRN Reason: Constipation Metformin HCl (Glucophage) 500 mg PO BIDMEALS [facility] Last Admin: 10/04/16 08:15 Dose: 500 mg Morphine Sulfate (Morphine) 4 mg IVPUSH Q2H PRN PRN Reason: Pain Naloxone HCl (Narcan) 0.2 mg IVPUSH ONETIME PRN PRN Reason: Oversedation Oxycodone/Acetaminophen (Percocet 325-5 Mg) 1 tab PO Q4H PRN PRN Reason: Pain Last Admin: 10/04/16 02:32 Dose: 1 tab Senna (Senna) 8.6 mg PO BID PRN PRN Reason: Constipation Simvastatin (Zocor) 10 mg PO BEDTIME [facility] Last Admin: 10/03/16 21:23 Dose: 10 mg Tramadol HCl (Ultram) 50 mg PO Q6H PRN PRN Reason: Pain Last Admin: 10/04/16 09:13 Dose: 50 mg Triamcinolone Acetonide (Triamcinolone Acetonide 0.1% Crm) 0 gm TOP TID [facility] Last Admin: 10/04/16 14:11 Dose: Not Given Warfarin Sodium (Coumadin) 7.5 mg PO DAILY@1300 [facility] Last Admin: 10/04/16 12:35 Dose: 7.5 mg Discontinued Medications Allopurinol (Zyloprim) 300 mg PO DAILY [facility] Amiodarone HCl (Cordarone) 200 mg PO DAILY [facility] Carvedilol (Coreg) 12.5 mg PO BID [facility] Tranexamic Acid 3,000 mg/ (Sodium Chloride 100 ml) 0 mg TOP ASDIRECTED [facility] Stop: 10/03/16 09:01 Last Admin: 10/03/16 11:57 Dose: 1 bag Ropivacaine 49.25 ml/Ketorolac Tromethamine 30 mg/Epinephrine HCl 0.5 mg/ Clonidine HCl 80 mcg/ Sodium Chloride 48.45 ml 0 ml INJECT ASDIRECTED [facility] Stop: 10/03/16 10:31 Dexamethasone (Dexamethasone) Confirm Administered Dose 4 mg .ROUTE .STK-MED ONE Stop: 10/03/16 07:31 Fentanyl (Sublimaze) Confirm Administered Dose 100 mcg .ROUTE .STK-MED ONE Stop: 10/03/16 12:32 Fentanyl (Sublimaze) Confirm Administered Dose 100 mcg .ROUTE .STK-MED ONE Stop: 10/03/16 14:18 Fentanyl Citrate (Fentanyl 0.05 Mg/Ml Vial) Confirm Administered Dose 50 mcg .ROUTE .STK-MED ONE Stop: 10/03/16 07:34 Gelatin (Gelfoam) 2 gm .ROUTE .STK-MED ONE Stop: 10/03/16 11:01 Gentamicin Sulfate (Gentamicin) Confirm Administered Dose 240 mg .ROUTE .STK- MED ONE Stop: 10/03/16 09:50 Last Admin: 10/03/16 10:20 Dose: 240 mg Lactated Ringer's (Ringers, Lactated) 1,000 mls @ 0 mls/hr IV ASDIRECTED [facility] PRN Reason: KVO Last Admin: 10/03/16 08:15 Dose: 25 mls/hr Cefazolin Sodium 2 gm/ Sodium (Chloride) 50 mls @ 100 mls/hr IV ONETIME ONE Stop: 10/03/16 09:29 Last Admin: 10/03/16 09:18 Dose: 100 mls/hr Ketamine HCl 100 mg/ Sodium (Chloride) 100 mls @ 23 mls/hr IV ASDIRECTED [facility] Lactated Ringer's (Ringers, Lactated) Confirm Administered Dose 1,000 mls @ as directed .ROUTE .[facility] ONE Stop: 10/03/16 12:03 Lactated Ringer's (Ringers, Lactated) Confirm Administered Dose 1,000 mls @ as directed .ROUTE .[facility] ONE Stop: 10/03/16 12:03 Sodium Chloride (Normal Saline) Confirm Administered Dose 500 mls @ as directed .ROUTE .ST-MED ONE Stop: 10/03/16 12:49 Cefazolin Sodium 1 gm/ Sodium (Chloride) 50 mls @ 100 mls/hr IV Q8H [facility] Stop: 10/04/16 08:29 Last Admin: 10/03/16 18:45 Dose: Not Given Cefazolin Sodium/Dextrose 1 gm (/ Premix) 50 mls @ 100 mls/hr IV Q8H [facility] Stop: 10/04/16 09:29 Last Admin: 10/04/16 08:56 Dose: 100 mls/hr Ketamine HCl (Ketalar) 40 mg IV ASDIRECTED [facility] Lisinopril (Prinivil) 5 mg PO DAILY [facility] Metformin HCl (Glucophage) 500 mg PO BID [facility] Neostigmine Methylsulfate (Neostigmine) Confirm Administered Dose 5 mg .ROUTE .ST-MED ONE Stop: 10/03/16 07:31 Non-Formulary Medication (Simvastatin [Zocor]) 10 mg PO BEDTIME [facility] Ondansetron HCl (Zofran) Confirm Administered Dose 4 mg .ROUTE .STK-MED ONE Stop: 10/03/16 07:31 Propofol (Diprivan 20 Ml) Confirm Administered Dose 200 mg .ROUTE .STK-MED ONE Stop: 10/03/16 07:31 Propofol (Diprivan 20 Ml) Confirm Administered Dose 600 mg .ROUTE .STK-MED ONE Stop: 10/03/16 10:29 Propofol (Diprivan 20 Ml) Confirm Administered Dose 600 mg .ROUTE .STK-MED ONE Stop: 10/03/16 10:29 Propofol (Diprivan 20 Ml) Confirm Administered Dose 600 mg .ROUTE .STK-MED ONE Stop: 10/03/16 11:49 Propofol (Diprivan 20 Ml) Confirm Administered Dose 600 mg .ROUTE .STK-MED ONE Stop: 10/03/16 14:06 Propofol (Diprivan 20 Ml) Confirm Administered Dose 400 mg .ROUTE .[facility]-MED ONE Stop: 10/03/16 14:10 Rocuronium [place] (Zemuron) Confirm Administered Dose 50 mg .ROUTE .STK-MED ONE Stop: 10/03/16 07:31 Rocuronium [place] (Zemuron) Confirm Administered Dose 50 mg .ROUTE .[facility]-MED ONE Stop: 10/03/16 09:54 Succinylcholine Chlor[place] (Quelicin) Confirm Administered Dose 200 mg .ROUTE .[facility] -MED ONE Stop: 10/03/16 12:03 Thrombin (Thrombin-Jmi) Confirm Administered Dose 15,000 unit .ROUTE .[facility]-MED ONE Stop: 10/03/16 07:07 Last Admin: 10/03/16 10:20 Dose: 15,000 unit - Exam Quality Assessment: No: Supplemental Oxygen General: Alert, Oriented, Cooperative, No Acute Distress Neck: Supple Lungs: Clear to Auscultation, Normal Respiratory Effort Cardiovascular: Regular Rate, Regular Rhythm, No Murmurs GI/Abdominal Exam: Soft, No Distention Extremities: Pedal Edema (mild pitting edema both lower legs). No: Increased Warmth Skin: Warm, Dry Psy/Mental Status: Alert, Normal Affect - Problem List & Annotations (1) Spinal stenosis of lumbar region SNOMED Code(s): 81585640 Code(s): M48.06 - SPINAL STENOSIS, LUMBAR REGION Status: Chronic Current Visit: No (2) Coronary artery disease SNOMED Code(s): 79969526 Code(s): I25.10 - ATHSCL HEART DISEASE OF [place] CORONARY ARTERY W/O ANG PCTRS Status: Chronic Current Visit: Yes Qualifiers: Coronary Disease-Associated Artery/Lesion type: [place] artery [place] vs. transplanted heart: [place] heart Associated angina: without angina Qualified Code(s): I25.10 - Atherosclerotic heart disease of [place] coronary artery without angina pectoris (3) Diabetes mellitus type 2 in obese SNOMED Code(s): 46603895 Code(s): E11.69 - TYPE 2 DIABETES MELLITUS WITH OTHER SPECIFIED COMPLICATION ; E66.9 - OBESITY, UNSPECIFIED Status: Chronic Current Visit: Yes (4) History of DVT (deep vein thrombosis) SNOMED Code(s): 206225373 Code(s): Z86.718 - PERSONAL HISTORY OF OTHER VENOUS THROMBOSIS AND EMBOLISM Status: Chronic Current Visit: Yes - My Orders Last 24 Hours: My Active Orders 10/03/16 17:30 Lactated Ringers [Ringers, Lactated] 1,000 ml IV ASDIRECTED 10/03/16 22:15 Lactated Ringers [Ringers, Lactated] 500 ml IV .BOLUS 10/04/16 02:15 Lactated Ringers [Ringers, Lactated] 500 ml IV .BOLUS 10/04/16 13:00 Warfarin [Coumadin] 7.5 mg PO DAILY@1300 10/04/16 13:54 POC Glucose [Blood Glucose Check, Bedside] [RC] QIDACANDBED 10/04/16 14:26 Discontinue Telemetry Monitoring [Cardiac Monitoring Discontinue] [RC] Click to Edit 10/04/16 16:30 GLUCOSE POC LAB TO COLLECT [POC] QIDACANDBED 10/04/16 21:00 GLUCOSE POC LAB TO COLLECT [POC] QIDACANDBED 10/05/16 05:00 BASIC METABOLIC PANEL,BMP [CHEM] Timed HGB [HEMOGLOBIN] [HEME] Timed 10/05/16 05:11 INR,PT,PROTHROMBIN TIME [COAG] AM 10/06/16 05:11 INR,PT,PROTHROMBIN TIME [COAG] AM 10/07/16 05:11 INR,PT,PROTHROMBIN TIME [COAG] AM - Plan Plan:: Assessment and plan - Lumbar spinal stenosis - status post TLIF of L3-S1. He is doing well. Will continue with pain management. PT/OT to assess.
[2016-10-04] MEDS: Dexamethasone 4 MG/ML 5 ML MDV IVPUSH SCH ×2 (14:52→20:23)
[2016-10-04] MEDS ORDERED: Furosemide 20 MG/2 ML VIAL IVPUSH ONE (16:36)
[2016-10-04] MEDS: Insulin Aspart 100 Units/ML 3 ML Pen SUBCUT SCH ×2 (16:40→21:55)
[2016-10-04] MEDS: Simvastatin 20 MG Tab PO SCH (20:25)
[2016-10-05] MEDS: Dexamethasone 4 MG/ML 5 ML MDV IVPUSH SCH ×2 (02:26→08:07)
[2016-10-05] MEDS: traMADol 50 MG Tab PO PRN ×3 (02:30→22:36)
[2016-10-05] MEDS: Acetaminophen 325 MG Tab PO PRN ×2 (02:30→22:36)
[2016-10-05] MEDS: Lactated Ringers 1,000 ML IV SCH (03:57)
[2016-10-05] MEDS: metFORMIN 500 MG Tab PO SCH ×2 (08:07→17:00)
[2016-10-05] MEDS: Carvedilol 12.5 MG Tab PO SCH ×2 (08:08→21:15)
[2016-10-05] MEDS: Amiodarone 200 MG Tab PO SCH (08:08)
[2016-10-05] MEDS: Allopurinol 300 MG Tab PO SCH (08:09)
[2016-10-05] MEDS: Lisinopril 5 MG Tab PO SCH (08:10)
[2016-10-05] MEDS: Triamcinolone Acetonide 0.1% Crm 15 GM Tube TOP SCH ×3 (08:10→21:13)
[2016-10-05] MEDS: Insulin Aspart 100 Units/ML 3 ML Pen SUBCUT SCH ×4 (08:13→21:14)
--- NOTE | 2016-10-05 09:05 | PCM.CONS ---
H&P History of Present Illness - General Date of Service: 10/05/16 Admit Problem/Dx: Patient is status pod 3 of a lumbar fusion. He is doing well. He has some weakness in his lower extremities but has improvement. He does note some stiffness and pain in his lower back. his urine output has improved and we'll DC the Freire today. Source of Information: Patient History Limitations: Reports: No Limitations Lower Back Pain Score (Numeric/FACES): 5 - Related Data Allergies/Adverse Reactions: Allergies Allergy/AdvReac Type Severity Reaction Status Date / Time Iodinated Contrast- Oral and Allergy Hives Verified 07/07/16 09:44 IV Dye [Iodinated Contrast Media - IV Dye] iodine AdvReac Nausea Verified 10/02/16 10:31 tape Allergy Rash Uncoded 08/04/15 06:56 Home Medications: Home Meds Allopurinol [Zyloprim] 300 mg PO DAILY 03/05/14 [History] Amiodarone HCl [Amiodarone HCl] 200 mg PO DAILY 03/05/14 [History] Aspirin 325 mg PO DAILY 03/05/14 [History] Carvedilol [Carvedilol] 12.5 mg PO BID 03/05/14 [History] Lisinopril [Lisinopril] 5 mg PO DAILY 03/05/14 [History] Simvastatin [Zocor] 10 mg PO BEDTIME 03/05/14 [History] Triamcinolone Acetonide [Triamcinolone Acetonide 0.1% Crm] 1 dose TOP TID [History] Warfarin Sodium [Warfarin Sodium] 5 mg PO ASDIRECTED 03/05/14 [History] Warfarin Sodium [Warfarin Sodium] 7.5 mg PO ASDIRECTED 03/05/14 [History] metFORMIN [Glucophage] 500 mg PO BID 03/05/14 [History] Enoxaparin Sodium [Lovenox] 120 mg SUBCUT Q12H 09/28/16 [History] Acetaminophen [Tylenol Extra Strength] 1,000 mg PO Q4HR PRN 10/03/16 [History] Past Medical History HEENT History: Reports: Cataract, Hard of Hearing, Impaired Vision Cardiovascular History: Reports: Automatic Implantable Cardioverter Defibrillators, Bypass, CAD, Heart Failure, High Cholesterol, Hypertension, Pacemaker, SOB on Exertion Gastrointestinal History: Reports: Other (See Below) Other Gastrointestinal History: 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 Genitourinary History: Reports: BPH Musculoskeletal History: Reports: Back Pain, Chronic, Gout, Osteoarthritis Other Musculoskeletal History: L hip pain Neurological History: Reports: Concussion Endocrine/Metabolic History: Reports: Diabetes, Type II, Obesity/BMI 30+ Oncologic (Cancer) History: Reports: Prostate - Infectious Disease History Infectious Disease History: Reports: Mumps - Past Surgical History HEENT Surgical History: Reports: Cataract Surgery Cardiovascular Surgical History: Reports: AICD, Coronary Artery Bypass, Pacer Male Surgical History: Reports: Prostate Biopsy Neurological Surgical History: Reports: None Oncologic Surgical History: Reports: None Dermatological Surgical History: Reports: None Social & Family History - Family History Family Medical History: Noncontributory - Tobacco Use Smoking Status *Q: Never Smoker Second Hand Smoke Exposure: No - Caffeine Use Caffeine Use: Reports: Coffee - Alcohol Use Days Per Week of Alcohol Use: 0 - Recreational Drug Use Recreational Drug Use: No H&P Review of Systems - Review of Systems: Review Of Systems: See Below Exam - Exam Exam: See Below - Vital Signs Vital Signs: Last Vital Signs Temp 36.6 C 10/05/16 07:05 Pulse 73 10/05/16 08:08 Resp 18 10/05/16 07:05 BP 126/60 10/05/16 08:08 Pulse Ox 99 10/05/16 07:05 Weight: 278 lb 6.995 oz - Exam General: Alert, Oriented Back Exam: Normal Inspection Extremities: Normal Inspection, Normal Range of Motion Skin: Warm, Dry, Intact Neurological: Cranial Nerves Intact, Reflexes Equal Bilateral, Strength Equal Bilateral Neuro Extensive - Mental Status: Alert, Oriented x3 Psychiatric: Alert - Patient Data Lab Results Last 24 hrs: Laboratory Results - last 24 hr 10/04/16 10/05/16 10/05/16 Range/Units 16:45 05:15 05:15 Hgb 9.8 L (12.0-15.0) g/dL PT 12.6 H (9.5-12.0) sec INR 1.17 (0.80-1.20) Sodium (140-148) mmol/L Potassium (3.6-5.2) mmol/L Chloride (100-108) mmol/L Carbon Dioxide (21-32) mmol/L Anion Gap (5.0-14.0) mmol/L BUN (7-18) mg/dL Creatinine (0.8-1.3) mg/dL Est Cr Clr Drug Dosing mL/min Estimated GFR (MDRD) (>60) Glucose (74-106) mg/dL Calcium (8.5-10.1) mg/dL Urine Color Yellow Urine Appearance Cloudy Urine pH 5.0 (4.5-8.0) Ur Specific [place] 1.200 H (1.008-1.030) Urine Protein Negative (NEGATIVE) mg/dL Urine Glucose (UA) 50 H (NEGATIVE) mg/dL Urine Ketones 15 H (NEGATIVE) mg/dL Urine Occult Blood Moderate (NEGATIVE) Urine Nitrite Negative (NEGAITVE) Urine Bilirubin Moderate (NEGATIVE) Urine Urobilinogen Normal (NORMAL) mg/dL Ur Leukocyte Esterase Moderate (NEGATIVE) Urine RBC 20-30 H (0-5) Urine WBC 5-10 H (0-5) Ur Epithelial Cells Moderate Amorphous Sediment Few Urine Bacteria Rare Urine Mucus Moderate // Range/Units 05:15 Hgb (12.0-15.0) g/dL PT (9.5-12.0) sec INR (0.80-1.20) Sodium 136 L (140-148) mmol/L Potassium 5.1 (3.6-5.2) mmol/L Chloride 103 (100-108) mmol/L Carbon Dioxide 23 (21-32) mmol/L Anion Gap 15.1 H (5.0-14.0) mmol/L BUN 20 H (7-18) mg/dL Creatinine 1.4 H (0.8-1.3) mg/dL Est Cr Clr Drug Dosing 53.64 mL/min Estimated GFR (MDRD) 50 L (>60) Glucose 272 H (74-106) mg/dL Calcium 8.2 L (8.5-10.1) mg/dL Urine Color Urine Appearance Urine pH (4.5-8.0) Ur Specific [place] (1.008-1.030) Urine Protein (NEGATIVE) mg/dL Urine Glucose (UA) (NEGATIVE) mg/dL Urine Ketones (NEGATIVE) mg/dL Urine Occult Blood (NEGATIVE) Urine Nitrite (NEGAITVE) Urine Bilirubin (NEGATIVE) Urine Urobilinogen (NORMAL) mg/dL Ur Leukocyte Esterase (NEGATIVE) Urine RBC (0-5) Urine WBC (0-5) Ur Epithelial Cells Amorphous Sediment Urine Bacteria Urine Mucus Result Diagrams: 10/05/16 05:15 10/05/16 05:15 Consult PN Assessment/Plan POD#: 3 Procedures: Procedures BLOOD TYPING SEROLOGIC ABO (09/07/16) BLOOD TYPING SEROLOGIC RH(D) (09/07/16) BONE IMAGING WHOLE BODY (04/23/14) COMPLETE CBC AUTOMATED (09/07/16) COMPLETE CBC W/AUTO DIFF WBC (03/05/14) COMPREHEN METABOLIC PANEL (09/07/16) CT ABD & PELV W/CONTRAST (04/22/14) CT LUMBAR SPINE W/O DYE (07/07/16) CULTURE OTHR SPECIMN AEROBIC (08/31/16) DIAGNOSTIC COLONOSCOPY (08/04/15) DRAIN/INJ JOINT/BURSA W/O US (07/13/16) ELECTROCARDIOGRAM TRACING (09/07/16) EMERGENCY DEPT VISIT (03/05/14) EXTREMITY STUDY (02/25/15) MYELOGRAPHY L-S SPINE (07/07/16) OFFICE/OUTPATIENT VISIT EST (07/13/16) ORTHOTIC MGMT AND TRAINING (09/07/16) PROTHROMBIN TIME (03/05/14) RBC ANTIBODY SCREEN (09/07/16) ROUTINE VENIPUNCTURE (09/07/16) SELF CARE MNGMENT TRAINING (09/07/16) THROMBOPLASTIN TIME PARTIAL (03/05/14) TTE W/DOPPLER COMPLETE (11/14/12) URINALYSIS AUTO W/O SCOPE (09/07/16) X-RAY EXAM HIP UNI 2-3 VIEWS (06/05/16) X-RAY EXAM L-2 SPINE 4/>VWS (06/22/16) X-RAY EXAM OF KNEE 3 (06/22/16) Problem List Initiated/Reviewed/Updated: Yes Plan: at this time we'll continue to encourage PT OT for strengthening. We'll see how he does. We'll plan to discharge him [place] tomorrow to a alf. Will continue to work on pain management.
--- NOTE | 2016-10-05 11:03 | CR ---
Pacer leads are evident on the right and left. There is a lead extending horizontally about the ches t which may be outside the patient correlate clinically. Heart size upper limits of normal. No focal consolidation.
[2016-10-05] MEDS: Warfarin 2.5 MG Tab PO SCH (13:56)
--- NOTE | 2016-10-05 16:03 | PCM.PN ---
- General Info Date of Service: 10/05/16 Functional Status: Reports: Pain Controlled, Tolerating Diet, Ambulating - Review of Systems General: Reports: Fever, Weakness Pulmonary: Denies: Shortness of Breath Musculoskeletal: Reports: Back Pain Systems Review Comment:: No acute events overnight. Urine output has been acceptable. Pain is better and strength is improving. He did have a fever yesterday afternoon but workup was negative and he has not had additional fevers. No paresthesias. - Patient Data Vitals - Most Recent: Last Vital Signs Temp 36.6 C 10/05/16 15:00 Pulse 75 10/05/16 15:00 Resp 16 10/05/16 15:00 BP 117/48 L 10/05/16 15:00 Pulse Ox 95 10/05/16 15:00 Weight - Most Recent: 126.297 kg I&O - Last 24 Hours: Intake & Output 10/05/16 10/05/16 10/05/16 06:59 14:59 22:59 Intake Total 1416 Output Total 1350 300 100 Balance 66 -300 -100 Lab Results Last 24 Hours: Laboratory Results - last 24 hr 10/04/16 10/05/16 10/05/16 Range/Units 16:45 05:15 05:15 Hgb 9.8 L (12.0-15.0) g/dL PT 12.6 H (9.5-12.0) sec INR 1.17 (0.80-1.20) Sodium (140-148) mmol/L Potassium (3.6-5.2) mmol/L Chloride (100-108) mmol/L Carbon Dioxide (21-32) mmol/L Anion Gap (5.0-14.0) mmol/L BUN (7-18) mg/dL Creatinine (0.8-1.3) mg/dL Est Cr Clr Drug Dosing mL/min Estimated GFR (MDRD) (>60) Glucose (74-106) mg/dL Calcium (8.5-10.1) mg/dL Urine Color Yellow Urine Appearance Cloudy Urine pH 5.0 (4.5-8.0) Ur Specific [place] 1.200 H (1.008-1.030) Urine Protein Negative (NEGATIVE) mg/dL Urine Glucose (UA) 50 H (NEGATIVE) mg/dL Urine Ketones 15 H (NEGATIVE) mg/dL Urine Occult Blood Moderate (NEGATIVE) Urine Nitrite Negative (NEGAITVE) Urine Bilirubin Moderate (NEGATIVE) Urine Urobilinogen Normal (NORMAL) mg/dL Ur Leukocyte Esterase Moderate (NEGATIVE) Urine RBC 20-30 H (0-5) Urine WBC 5-10 H (0-5) Ur Epithelial Cells Moderate Amorphous Sediment Few Urine Bacteria Rare Urine Mucus Moderate 10/05/16 Range/Units 05:15 Hgb (12.0-15.0) g/dL PT (9.5-12.0) sec INR (0.80-1.20) Sodium 136 L (140-148) mmol/L Potassium 5.1 (3.6-5.2) mmol/L Chloride 103 (100-108) mmol/L Carbon Dioxide 23 (21-32) mmol/L Anion Gap 15.1 H (5.0-14.0) mmol/L BUN 20 H (7-18) mg/dL Creatinine 1.4 H (0.8-1.3) mg/dL Est Cr Clr Drug Dosing 53.64 mL/min Estimated GFR (MDRD) 50 L (>60) Glucose 272 H (74-106) mg/dL Calcium 8.2 L (8.5-10.1) mg/dL Urine Color Urine Appearance Urine pH (4.5-8.0) Ur Specific [place] (1.008-1.030) Urine Protein (NEGATIVE) mg/dL Urine Glucose (UA) (NEGATIVE) mg/dL Urine Ketones (NEGATIVE) mg/dL Urine Occult Blood (NEGATIVE) Urine Nitrite (NEGAITVE) Urine Bilirubin (NEGATIVE) Urine Urobilinogen (NORMAL) mg/dL Ur Leukocyte Esterase (NEGATIVE) Urine RBC (0-5) Urine WBC (0-5) Ur Epithelial Cells Amorphous Sediment Urine Bacteria Urine Mucus Med Orders - Current: Current Medications Acetaminophen (Tylenol) 650 mg PO Q4H PRN PRN Reason: Fever Last Admin: 10/05/16 02:30 Dose: 650 mg Allopurinol (Zyloprim) 300 mg PO DAILY [facility] Last Admin: 10/05/16 08:09 Dose: 300 mg Amiodarone HCl (Cordarone) 200 mg PO DAILY [facility] Last Admin: 10/05/16 08:08 Dose: 200 mg Carvedilol (Coreg) 12.5 mg PO BID [facility] Last Admin: 10/05/16 08:08 Dose: 12.5 mg Diazepam (Valium) 5 mg IVPUSH Q6H PRN PRN Reason: Spasms Diphenhydramine HCl (Benadryl) 25 mg PO Q4H PRN PRN Reason: Itching Insulin Aspart (Novolog) 0 unit SUBCUT QIDACANDBED [facility] PRN Reason: Protocol Last Admin: 10/05/16 11:53 Dose: 9 units Lisinopril (Prinivil) 5 mg PO DAILY [facility] Last Admin: 10/05/16 08:10 Dose: Not Given Magnesium Hydroxide (Milk Of Magnesia) 30 ml PO DAILY PRN PRN Reason: Constipation Metformin HCl (Glucophage) 500 mg PO BIDMEALS [facility] Last Admin: 10/05/16 08:07 Dose: 500 mg Morphine Sulfate (Morphine) 4 mg IVPUSH Q2H PRN PRN Reason: Pain Naloxone HCl (Narcan) 0.2 mg IVPUSH ONETIME PRN PRN Reason: Oversedation Oxycodone/Acetaminophen (Percocet 325-5 Mg) 1 tab PO Q4H PRN PRN Reason: Pain Last Admin: 10/04/16 21:55 Dose: 1 tab Senna (Senna) 8.6 mg PO BID PRN PRN Reason: Constipation Simvastatin (Zocor) 10 mg PO BEDTIME [facility] Last Admin: 10/04/16 20:25 Dose: 10 mg Tramadol HCl (Ultram) 50 mg PO Q6H PRN PRN Reason: Pain Last Admin: 10/05/16 02:30 Dose: 50 mg Triamcinolone Acetonide (Triamcinolone Acetonide 0.1% Crm) 0 gm TOP TID [facility] Last Admin: 10/05/16 08:10 Dose: Not Given Warfarin Sodium (Coumadin) 7.5 mg PO DAILY@1300 [facility] Last Admin: 10/05/16 13:56 Dose: 7.5 mg Discontinued Medications Allopurinol (Zyloprim) 300 mg PO DAILY [facility] Amiodarone HCl (Cordarone) 200 mg PO DAILY [facility] Carvedilol (Coreg) 12.5 mg PO BID [facility] Tranexamic Acid 3,000 mg/ (Sodium Chloride 100 ml) 0 mg TOP ASDIRECTED [facility] Stop: 10/03/16 09:01 Ropivacaine 49.25 ml/Ketorolac Tromethamine 30 mg/Epinephrine HCl 0.5 mg/ Clonidine HCl 80 mcg/ Sodium Chloride 48.45 ml 0 ml INJECT ASDIRECTED [facility] Stop: 10/03/16 10:31 Dexamethasone (Dexamethasone) Confirm Administered Dose 4 mg .ROUTE .[facility] Stop: 10/03/16 07:31 Dexamethasone (Dexamethasone) 10 mg IVPUSH Q6H [facility] Stop: 10/05/16 08:01 Last Admin: 10/04/16 15:23 Dose: Not Given Dexamethasone (Dexamethasone) 10 mg IVPUSH Q6H [facility] Stop: 10/05/16 08:01 Last Admin: 10/05/16 08:07 Dose: 10 mg Fentanyl (Sublimaze) Confirm Administered Dose 100 mcg .ROUTE .[facility] Stop: 10/03/16 12:32 Fentanyl (Sublimaze) Confirm Administered Dose 100 mcg .ROUTE .[facility] Stop: 10/03/16 14:18 Fentanyl Citrate (Fentanyl 0.05 Mg/Ml Vial) Confirm Administered Dose 50 mcg .ROUTE .[facility] ONE Stop: 10/03/16 07:34 Furosemide (Lasix) 20 mg IVPUSH ONETIME ONE Stop: 10/04/16 16:37 Last Admin: 10/04/16 17:11 Dose: 20 mg Gelatin (Gelfoam) 2 gm .ROUTE .[facility] ONE Stop: 10/03/16 11:01 Gentamicin Sulfate (Gentamicin) Confirm Administered Dose 240 mg .ROUTE .[facility] Stop: 10/03/16 09:50 Last Admin: 10/03/16 10:20 Dose: 240 mg Lactated Ringer's (Ringers, Lactated) 1,000 mls @ 0 mls/hr IV ASDIRECTED [facility] PRN Reason: KVO Last Admin: 10/03/16 08:15 Dose: 25 mls/hr Cefazolin Sodium 2 gm/ Sodium (Chloride) 50 mls @ 100 mls/hr IV ONETIME ONE Stop: 10/03/16 09:29 Last Admin: 10/03/16 09:18 Dose: 100 mls/hr Ketamine HCl 100 mg/ Sodium (Chloride) 100 mls @ 23 mls/hr IV ASDIRECTED [facility] Lactated Ringer's (Ringers, Lactated) Confirm Administered Dose 1,000 mls @ as directed .ROUTE .[facility] Stop: 10/03/16 12:03 Lactated Ringer's (Ringers, Lactated) Confirm Administered Dose 1,000 mls @ as directed .ROUTE .[facility] ONE Stop: 10/03/16 12:03 Sodium Chloride (Normal Saline) Confirm Administered Dose 500 mls @ as directed .ROUTE .[facility] ONE Stop: 10/03/16 12:49 Cefazolin Sodium 1 gm/ Sodium (Chloride) 50 mls @ 100 mls/hr IV Q8H [facility] Stop: 10/04/16 08:29 Last Admin: 10/03/16 18:45 Dose: Not Given Cefazolin Sodium/Dextrose 1 gm (/ Premix) 50 mls @ 100 mls/hr IV Q8H [facility] Stop: 10/04/16 09:29 Last Admin: 10/04/16 08:56 Dose: 100 mls/hr Lactated Ringer's (Ringers, Lactated) 1,000 mls @ 100 mls/hr IV ASDIRECTED [facility] Last Admin: 10/05/16 03:57 Dose: 100 mls/hr Lactated Ringer's (Ringers, Lactated) 500 mls @ 500 mls/hr IV .BOLUS [facility] Last Admin: 10/03/16 22:28 Dose: 500 mls/hr Lactated Ringer's (Ringers, Lactated) 500 mls @ 500 mls/hr IV .BOLUS [facility] Last Admin: 10/04/16 02:08 Dose: 500 mls/hr Insulin Aspart (Novolog) 0 unit SUBCUT ASDIRECTED [facility] PRN Reason: Protocol Last Admin: 10/05/16 08:13 Dose: 3 units Ketamine HCl (Ketalar) 40 mg IV ASDIRECTED [facility] Lisinopril (Prinivil) 5 mg PO DAILY [facility] Metformin HCl (Glucophage) 500 mg PO BID [facility] Neostigmine Methylsulfate (Neostigmine) Confirm Administered Dose 5 mg .ROUTE .[facility] ONE Stop: 10/03/16 07:31 Non-Formulary Medication (Simvastatin [Zocor]) 10 mg PO BEDTIME [facility] Ondansetron HCl (Zofran) Confirm Administered Dose 4 mg .ROUTE .[facility] ONE Stop: 10/03/16 07:31 Propofol (Diprivan 20 Ml) Confirm Administered Dose 200 mg .ROUTE .[facility] ONE Stop: 10/03/16 07:31 Propofol (Diprivan 20 Ml) Confirm Administered Dose 600 mg .ROUTE .[facility] ONE Stop: 10/03/16 10:29 Propofol (Diprivan 20 Ml) Confirm Administered Dose 600 mg .ROUTE .[facility] ONE Stop: 10/03/16 10:29 Propofol (Diprivan 20 Ml) Confirm Administered Dose 600 mg .ROUTE .[facility] ONE Stop: 10/03/16 11:49 Propofol (Diprivan 20 Ml) Confirm Administered Dose 600 mg .ROUTE .[facility] ONE Stop: 10/03/16 14:06 Propofol (Diprivan 20 Ml) Confirm Administered Dose 400 mg .ROUTE .[facility] ONE Stop: 10/03/16 14:10 Rocuronium [place] (Zemuron) Confirm Administered Dose 50 mg .ROUTE .[facility] ONE Stop: 10/03/16 07:31 Rocuronium [place] (Zemuron) Confirm Administered Dose 50 mg .ROUTE .[facility] ONE Stop: 10/03/16 09:54 Succinylcholine Chloride (Quelicin) Confirm Administered Dose 200 mg .ROUTE .STK -[facility] ONE Stop: 10/03/16 12:03 Thrombin (Thrombin-Jmi) Confirm Administered Dose 15,000 unit .ROUTE .[facility] ONE Stop: 10/03/16 07:07 Last Admin: 10/03/16 10:20 Dose: 15,000 unit - Exam Quality Assessment: No: Supplemental Oxygen General: Alert, Oriented, Cooperative, No Acute Distress Neck: Supple Lungs: Normal Respiratory Effort Cardiovascular: Regular Rate, Regular Rhythm GI/Abdominal Exam: Soft, No Distention Extremities: No Pedal Edema Skin: Warm, Dry Psy/Mental Status: Alert, Normal Affect - Problem List & Annotations (1) Spinal stenosis of lumbar region SNOMED Code(s): 24951516 Code(s): M48.06 - SPINAL STENOSIS, LUMBAR REGION Status: Chronic Current Visit: No (2) Coronary artery disease SNOMED Code(s): 44015975 Code(s): I25.10 - ATHSCL HEART DISEASE OF [place] CORONARY ARTERY W/O ANG PCTRS Status: Chronic Current Visit: Yes Qualifiers: Coronary Disease-Associated Artery/Lesion type: [place] artery [place] vs. transplanted heart: [place] heart Associated angina: without angina Qualified Code(s): I25.10 - Atherosclerotic heart disease of [place] coronary artery without angina pectoris (3) Diabetes mellitus type 2 in obese SNOMED Code(s): 88070806 Code(s): E11.69 - TYPE 2 DIABETES MELLITUS WITH OTHER SPECIFIED COMPLICATION ; E66.9 - OBESITY, UNSPECIFIED Status: Chronic Current Visit: Yes (4) History of DVT (deep vein thrombosis) SNOMED Code(s): 506471245 Code(s): Z86.718 - PERSONAL HISTORY OF OTHER VENOUS THROMBOSIS AND EMBOLISM Status: Chronic Current Visit: Yes - Problem List Review Problem List Initiated/Reviewed/Updated: Yes - My Orders Last 24 Hours: My Active Orders 10/05/16 08:26 Communication Order [RC] PRN Communication Order [RC] PRN 10/05/16 11:00 Insulin Aspart [NovoLOG] See Protocol SUBCUT QIDACANDBED 10/05/16 14:04 Convert IV to Saline Lock [OM.PC] Routine 10/05/16 16:30 GLUCOSE POC LAB TO COLLECT [POC] QIDACANDBED 10/05/16 21:00 GLUCOSE POC LAB TO COLLECT [POC] QIDACANDBED 10/06/16 05:11 BASIC METABOLIC PANEL,BMP [CHEM] AM HGB [HEMOGLOBIN] [HEME] AM INR,PT,PROTHROMBIN TIME [COAG] AM 10/07/16 05:11 INR,PT,PROTHROMBIN TIME [COAG] AM - Plan Plan:: Assessment and plan - Lumbar spinal stenosis - status post TLIF of L3-S1. Pain is well-controlled and his strength is improving. Strength is improving. [place] catheter has been removed. -Postop cares per surgical team -Saline lock IV fluids -Careful monitoring of urine output History of DVT - remote history of DVT but fairly severe and he has been on chronic anticoagulation. Warfarin reinitiated today. -Restart warfarin today -Start bridging systemic anticoagulation -Daily INR levels Type 2 diabetes mellitus - on only a single oral agent at this time. He was started on parenteral steroids yesterday and sugars have risen. -Continue metformin -Accu-Cheks -High dose Sliding-scale insulin (recommend discharge with medium dose sliding scale while he is on steroids) Coronary artery disease - does have a history of a bypass surgery. No active anginal symptoms at this time. -Continue medical management Robby Cancino M.D.
[2016-10-05] MEDS: Enoxaparin 120 MG/0.8 ML Syringe SUBCUT SCH (21:12)
[2016-10-05] MEDS: Simvastatin 20 MG Tab PO SCH (21:15)
[2016-10-06] MEDS: Acetaminophen 325 MG Tab PO PRN (06:13)
[2016-10-06] MEDS: traMADol 50 MG Tab PO PRN (06:13)
[2016-10-06 07:00] VITALS: BP 118/60
[2016-10-06] MEDS: metFORMIN 500 MG Tab PO SCH (07:45)
[2016-10-06] MEDS: Insulin Aspart 100 Units/ML 3 ML Pen SUBCUT SCH (07:46)
[2016-10-06] MEDS: Amiodarone 200 MG Tab PO SCH (08:40)
[2016-10-06] MEDS: Allopurinol 300 MG Tab PO SCH (08:40)
[2016-10-06] MEDS: Carvedilol 12.5 MG Tab PO SCH (08:41)
[2016-10-06] MEDS: Enoxaparin 120 MG/0.8 ML Syringe SUBCUT SCH (08:42)
[2016-10-06] MEDS: Triamcinolone Acetonide 0.1% Crm 15 GM Tube TOP SCH (08:42)
[2016-10-06] MEDS ORDERED: Diazepam 5 MG Tab PO ONE (09:06)
[2016-10-06] MEDS: Acetaminophen/oxyCODONE 325-5 MG Tab PO PRN (09:42)
[2016-10-06] MEDS: Lisinopril 5 MG Tab PO SCH (09:43)
--- NOTE | 2016-10-12 08:49 | PCM.DCSUM1 ---
Discharge Summary - Discharge Data Discharge Date: 10/06/16 Discharge Disposition: Home, Self-Care 01 Condition: Good - Patient Summary/Data Consults: Consultations 10/03/16 16:00 Consult to Physician [CONS] Routine Consulting Provider: Robby Cancino Call Completed to Consulting Physician: text Reason for Consult: med management OT Evaluation and Treatment [CONS] Routine Please Evaluate and Treat. OT Reason for Consult: Strengthening This query below is only for informational purposes and is not editable. PT Evaluation and Treatment [CONS] Routine Please Evaluate and Treat. PT Reason for Consult: Strengthening This query below is only for informational purposes and is not editable. - Patient Instructions Diet: Usual Diet as Tolerated Activity: As Tolerated Driving: Do Not Drive Showering/Bathing: May Shower, No Showering, No Tub Bathing/Swimming Wound/Incision Care: Keep Operative Site/Wound Site Clean and Dry, Change Dressing Daily, Do NOT Change Dressing Notify Provider of: Fever, Increased Pain, Swelling and Redness, Drainage, Nausea and/or Vomiting - Discharge Plan Prescriptions/Med Rec: Acetaminophen/oxyCODONE [Percocet 325-5 MG] 1 tab PO Q4H PRN #90 tablet PRN Reason: Pain Diazepam [Valium] 5 mg PO BID PRN #20 tablet PRN Reason: Spasms Home Medications: Home Meds Allopurinol [Zyloprim] 300 mg PO DAILY 03/05/14 [History] Amiodarone HCl 200 mg PO DAILY 03/05/14 [History] Aspirin 325 mg PO DAILY 03/05/14 [History] Carvedilol 12.5 mg PO BID 03/05/14 [History] Lisinopril 5 mg PO DAILY 03/05/14 [History] Simvastatin [Zocor] 10 mg PO BEDTIME 03/05/14 [History] Triamcinolone Acetonide [Triamcinolone Acetonide 0.1% Crm] 1 dose TOP TID [History] Warfarin Sodium 5 mg PO ASDIRECTED 03/05/14 [History] Warfarin Sodium 7.5 mg PO ASDIRECTED 03/05/14 [History] metFORMIN [Glucophage] 500 mg PO BID 03/05/14 [History] Enoxaparin Sodium [Lovenox] 120 mg SUBCUT Q12H 09/28/16 [History] Acetaminophen [Tylenol Extra Strength] 1,000 mg PO Q4HR PRN 10/03/16 [History] Acetaminophen/oxyCODONE [Percocet 325-5 MG] 1 tab PO Q4H PRN #90 tablet [Rx] Diazepam [Valium] 5 mg PO BID PRN #20 tablet 10/06/16 [Rx] Referrals: Natalee Crowley, [facility] [employer] [Nurse Practitioner] - (1 month recheck) - Discharge Summary/Plan Comment DC Time >30 min.: Yes Discharge Summary/Plan Comment: Herbie is a pleasant 71-year-old male who is status postop day 3 of a lumbar fusion. History of very well. Patient states he has no pain at this time. Is ambulatory without any difficulties. Assessment: Patient is doing well. He has no pain upon palpation. He is equal strength in bilateral lower extremities. Incision is clean dry and intact at this time. Distal motor and sensory examinations grossly intact. Plan: At this time we will discharge patient home on Percocet and Valium. He will see us back in 1 month. He'll continue to wear the brace daily. He'll notify us if he has any other issues. - Patient Data Vitals - Most Recent: Last Vital Signs Temp 36.6 C 10/06/16 06:57 Pulse 75 10/06/16 08:41 Resp 16 10/06/16 06:57 BP 118/60 10/06/16 09:43 Pulse Ox 98 10/06/16 06:57 Weight - Most Recent: 278 lb 6.995 oz Med Orders - Current: Current Medications Discontinued Medications Acetaminophen (Tylenol) 650 mg PO Q4H PRN PRN Reason: Fever Last Admin: 10/06/16 06:13 Dose: 650 mg Allopurinol (Zyloprim) 300 mg PO DAILY [facility] Allopurinol (Zyloprim) 300 mg PO DAILY [facility] Last Admin: 10/06/16 08:40 Dose: 300 mg Amiodarone HCl (Cordarone) 200 mg PO DAILY [facility] Amiodarone HCl (Cordarone) 200 mg PO DAILY [facility] Last Admin: 10/06/16 08:40 Dose: 200 mg Carvedilol (Coreg) 12.5 mg PO BID [facility] Carvedilol (Coreg) 12.5 mg PO BID [facility] Last Admin: 10/06/16 08:41 Dose: 12.5 mg Tranexamic Acid 3,000 mg/ (Sodium Chloride 100 ml) 0 mg TOP ASDIRECTED [facility] Stop: 10/03/16 09:01 Ropivacaine 49.25 ml/Ketorolac Tromethamine 30 mg/Epinephrine HCl 0.5 mg/ Clonidine HCl 80 mcg/ Sodium Chloride 48.45 ml 0 ml INJECT ASDIRECTED [facility] Stop: 10/03/16 10:31 Dexamethasone (Dexamethasone) Confirm Administered Dose 4 mg .ROUTE .STK-MED ONE Stop: 10/03/16 07:31 Dexamethasone (Dexamethasone) 10 mg IVPUSH Q6H [facility] Stop: 10/05/16 08:01 Last Admin: 10/04/16 15:23 Dose: Not Given Dexamethasone (Dexamethasone) 10 mg IVPUSH Q6H [facility] Stop: 10/05/16 08:01 Last Admin: 10/05/16 08:07 Dose: 10 mg Diazepam (Valium) 5 mg IVPUSH Q6H PRN PRN Reason: Spasms Diazepam (Valium.) 5 mg PO ONETIME ONE Stop: 10/06/16 09:07 Last Admin: 10/06/16 09:22 Dose: 5 mg Diphenhydramine HCl (Benadryl) 25 mg PO Q4H PRN PRN Reason: Itching Enoxaparin Sodium (Lovenox) 120 mg SUBCUT Q12H [facility] Last Admin: 10/06/16 08:42 Dose: 120 mg Fentanyl (Sublimaze) Confirm Administered Dose 100 mcg .ROUTE .STK-MED ONE Stop: 10/03/16 12:32 Fentanyl (Sublimaze) Confirm Administered Dose 100 mcg .ROUTE .STK-MED ONE Stop: 10/03/16 14:18 Fentanyl Citrate (Fentanyl 0.05 Mg/Ml Vial) Confirm Administered Dose 50 mcg .ROUTE .STK-MED ONE Stop: 10/03/16 07:34 Furosemide (Lasix) 20 mg IVPUSH ONETIME ONE Stop: 10/04/16 16:37 Last Admin: 10/04/16 17:11 Dose: 20 mg Gelatin (Gelfoam) 2 gm .ROUTE .STK-MED ONE Stop: 10/03/16 11:01 Gentamicin Sulfate (Gentamicin) Confirm Administered Dose 240 mg .ROUTE .STK- MED ONE Stop: 10/03/16 09:50 Last Admin: 10/03/16 10:20 Dose: 240 mg Lactated Ringer's (Ringers, Lactated) 1,000 mls @ 0 mls/hr IV ASDIRECTED [facility] PRN Reason: KVO Last Admin: 10/03/16 08:15 Dose: 25 mls/hr Cefazolin Sodium 2 gm/ Sodium (Chloride) 50 mls @ 100 mls/hr IV ONETIME ONE Stop: 10/03/16 09:29 Last Admin: 10/03/16 09:18 Dose: 100 mls/hr Ketamine HCl 100 mg/ Sodium (Chloride) 100 mls @ 23 mls/hr IV ASDIRECTED [facility] Lactated Ringer's (Ringers, Lactated) Confirm Administered Dose 1,000 mls @ as directed .ROUTE .[facility] ONE Stop: 10/03/16 12:03 Lactated Ringer's (Ringers, Lactated) Confirm Administered Dose 1,000 mls @ as directed .ROUTE .[facility] ONE Stop: 10/03/16 12:03 Sodium Chloride (Normal Saline) Confirm Administered Dose 500 mls @ as directed .ROUTE .[facility] ONE Stop: 10/03/16 12:49 Cefazolin Sodium 1 gm/ Sodium (Chloride) 50 mls @ 100 mls/hr IV Q8H [facility] Stop: 10/04/16 08:29 Last Admin: 10/03/16 18:45 Dose: Not Given Cefazolin Sodium/Dextrose 1 gm (/ Premix) 50 mls @ 100 mls/hr IV Q8H [facility] Stop: 10/04/16 09:29 Last Admin: 10/04/16 08:56 Dose: 100 mls/hr Lactated Ringer's (Ringers, Lactated) 1,000 mls @ 100 mls/hr IV ASDIRECTED [facility] Last Admin: 10/05/16 03:57 Dose: 100 mls/hr Lactated Ringer's (Ringers, Lactated) 500 mls @ 500 mls/hr IV .[facility] Last Admin: 10/03/16 22:28 Dose: 500 mls/hr Lactated Ringer's (Ringers, Lactated) 500 mls @ 500 mls/hr IV .BOLUS [facility] Last Admin: 10/04/16 02:08 Dose: 500 mls/hr Insulin Aspart (Novolog) 0 unit SUBCUT ASDIRECTED [facility] PRN Reason: Protocol Last Admin: 10/05/16 08:13 Dose: 3 units Insulin Aspart (Novolog) 0 unit SUBCUT QIDACANDBED [facility] PRN Reason: Protocol Last Admin: 10/06/16 07:46 Dose: 3 units Ketamine HCl (Ketalar) 40 mg IV ASDIRECTED [facility] Lisinopril (Prinivil) 5 mg PO DAILY [facility] Lisinopril (Prinivil) 5 mg PO DAILY [facility] Last Admin: 10/06/16 09:43 Dose: 5 mg Magnesium Hydroxide (Milk Of Magnesia) 30 ml PO DAILY PRN PRN Reason: Constipation Metformin HCl (Glucophage) 500 mg PO BID [facility] Metformin HCl (Glucophage) 500 mg PO BIDMEALS [facility] Last Admin: 10/06/16 07:45 Dose: 500 mg Morphine Sulfate (Morphine) 4 mg IVPUSH Q2H PRN PRN Reason: Pain Naloxone HCl (Narcan) 0.2 mg IVPUSH ONETIME PRN PRN Reason: Oversedation Neostigmine Methylsulfate (Neostigmine) Confirm Administered Dose 5 mg .ROUTE .STK-MED ONE Stop: 10/03/16 07:31 Non-Formulary Medication (Simvastatin [Zocor]) 10 mg PO BEDTIME [facility] Ondansetron HCl (Zofran) Confirm Administered Dose 4 mg .ROUTE .STK-MED ONE Stop: 10/03/16 07:31 Oxycodone/Acetaminophen (Percocet 325-5 Mg) 1 tab PO Q4H PRN PRN Reason: Pain Last Admin: 10/06/16 09:42 Dose: 1 tab Propofol (Diprivan 20 Ml) Confirm Administered Dose 200 mg .ROUTE .STK-MED ONE Stop: 10/03/16 07:31 Propofol (Diprivan 20 Ml) Confirm Administered Dose 600 mg .ROUTE .STK-MED ONE Stop: 10/03/16 10:29 Propofol (Diprivan 20 Ml) Confirm Administered Dose 600 mg .ROUTE .STK-MED ONE Stop: 10/03/16 10:29 Propofol (Diprivan 20 Ml) Confirm Administered Dose 600 mg .ROUTE .STK-MED ONE Stop: 10/03/16 11:49 Propofol (Diprivan 20 Ml) Confirm Administered Dose 600 mg .ROUTE .STK-MED ONE Stop: 10/03/16 14:06 Propofol (Diprivan 20 Ml) Confirm Administered Dose 400 mg .ROUTE .STK-MED ONE Stop: 10/03/16 14:10 Rocuronium [place] (Zemuron) Confirm Administered Dose 50 mg .ROUTE .STK-MED ONE Stop: 10/03/16 07:31 Rocuronium [place] (Zemuron) Confirm Administered Dose 50 mg .ROUTE .STK-MED ONE Stop: 10/03/16 09:54 Senna (Senna) 8.6 mg PO BID PRN PRN Reason: Constipation Simvastatin (Zocor) 10 mg PO BEDTIME [facility] Last Admin: 10/05/16 21:15 Dose: 10 mg Succinylcholine Chloride (Quelicin) Confirm Administered Dose 200 mg .ROUTE .STK -MED ONE Stop: 10/03/16 12:03 Thrombin (Thrombin-Jmi) Confirm Administered Dose 15,000 unit .ROUTE .STK-MED ONE Stop: 10/03/16 07:07 Last Admin: 10/03/16 10:20 Dose: 15,000 unit Tramadol HCl (Ultram) 50 mg PO Q6H PRN PRN Reason: Pain Last Admin: 10/06/16 06:13 Dose: 50 mg Triamcinolone Acetonide (Triamcinolone Acetonide 0.1% Crm) 0 gm TOP TID [facility] Last Admin: 10/06/16 08:42 Dose: Not Given Warfarin Sodium (Coumadin) 7.5 mg PO DAILY@1300 [facility] Last Admin: 10/05/16 13:56 Dose: 7.5 mg *Q Meaningful Use (DIS) - VTE *Q VTE Criteria *Q: - Stroke *Q Stroke Criteria *Q: - AMI *Q AMI Criteria *Q:
== END 2016-10-06 10:51 | disposition home or self-care (01) | DRG 460 ==
LOC: JP.SDS 06:54 → JP.MS 06:54 → EDSTATUS 07:30 → JP.MS 16:20
PROVIDERS: ADMIT Orthopaedic Surgery; ATTEND Orthopaedic Surgery
PROC: 0SG10AJ Fusion of 2 or more Lumbar Vertebral Joints with Interbody Fusion Device, Posterior Approach, Anterior Column, Open Approach (ICD-10-PCS; principal; 2016-10-03)
PROC: 00NY0ZZ Release Lumbar Spinal Cord, Open Approach (ICD-10-PCS; principal; 2016-10-03)
PROC: 0SB20ZZ Excision of Lumbar Vertebral Disc, Open Approach (ICD-10-PCS; principal; 2016-10-03)
PROC: 30233N1 Transfusion of Nonautologous Red Blood Cells into Peripheral Vein, Percutaneous Approach (ICD-10-PCS; 2016-10-03)
DX: M48.06 Spinal stenosis, lumbar region (principal); M54.16 Radiculopathy, lumbar region; E11.69 Type 2 diabetes mellitus with other specified complication; E66.9 Obesity, unspecified; I50.9 Heart failure, unspecified; R06.02 Shortness of breath; M10.9 Gout, unspecified; H91.90 Unspecified hearing loss, unspecified ear; H54.7 Unspecified visual loss; M19.90 Unspecified osteoarthritis, unspecified site; D64.9 Anemia, unspecified; Z68.35 Body mass index [BMI] 35.0-35.9, adult; Z91.041 Radiographic dye allergy status; Z79.84 Long term (current) use of oral hypoglycemic drugs; Z79.82 Long term (current) use of aspirin; Z85.46 Personal history of malignant neoplasm of prostate; Z79.01 Long term (current) use of anticoagulants; Z91.048 Other nonmedicinal substance allergy status
CPT/HCPCS: 36415; 36430; 71010; 71010-26; 76001; 80048; 81001; 82962; 85018; 85025; 85027; 85610; 86850; 86900; 86901; 86920; 86922; 97110-GP; 97116-GP; 97162-GP; 97165-GO; 97530-GP; 97535-GP; A9270-GY; C1713; J0330; J0690; J1100; J1580; J1650; J1940; J2405; J2704; J2795; J3010; J7030; J7040; J7050; J7120; P9016

== ENCOUNTER 2016-11-04 22:32 | Inpatient (IN) | payer MEDICARE, BC ==
[2016-11-04] MEDS ORDERED: Piperacillin/Tazobactam 3.375 GM in Sodium Chloride 0.9% 50 ML IV SCH (22:45)
[2016-11-04] MEDS ORDERED: Lactated Ringers 1,000 ML IV SCH (22:45)
[2016-11-04] MEDS ORDERED: Sodium Chloride 0.9% 10 ML Syringe FLUSH PRN ×2 (22:56→22:57)
[2016-11-04] MEDS ORDERED: Ondansetron 4 MG/2 ML SDV IVPUSH ONE (23:01)
--- NOTE | 2016-11-04 23:02 | EDM.PDOC ---
ED HPI GENERAL MEDICAL PROBLEM - General Stated Complaint: ILLNESS Time Seen by Provider: 11/04/16 22:43 Source of Information: Reports: Patient, Family, Old Records, RN Notes Reviewed History Limitations: Reports: No Limitations - History of Present Illness INITIAL COMMENTS - FREE TEXT/NARRATIVE: 71-year-old gentleman presents emergency department day with chills and fever, he has been cefuroxime for one week had follow-up in clinic today had sensitivities to the urine culture were available . Greater than 100,000 Morganella morganii with sensitivities to both cephalosporins and Bactrim as well as Zosyn. He states he completed 1 week of the medication was started on Bactrim today has only taken 1 dose. He had chills in the clinic but then the fever started afterwards today he had one bout of emesis denies Pain Score (Numeric/FACES): 0 - Related Data Allergies Allergy/AdvReac Type Severity Reaction Status Date / Time Iodinated Contrast- Oral and Allergy Hives Verified 07/07/16 09:44 IV Dye [Iodinated Contrast Media - IV Dye] iodine AdvReac Nausea Verified 10/02/16 10:31 tape Allergy Rash Uncoded 08/04/15 06:56 Home Meds: Home Meds Allopurinol [Zyloprim] 300 mg PO DAILY 03/05/14 [History] Amiodarone HCl 200 mg PO DAILY 03/05/14 [History] Carvedilol 12.5 mg PO BID 03/05/14 [History] Lisinopril 5 mg PO DAILY 03/05/14 [History] Simvastatin [Zocor] 10 mg PO BEDTIME 03/05/14 [History] Triamcinolone Acetonide [Triamcinolone Acetonide 0.1% Crm] 1 dose TOP TID [History] Warfarin Sodium 5 mg PO DAILY 03/05/14 [History] metFORMIN [Glucophage] 1,000 mg PO BID 03/05/14 [History] Acetaminophen [Tylenol Extra Strength] 1,000 mg PO Q4HR PRN 10/03/16 [History] Aspirin 1 tab PO DAILY 11/04/16 [History] Cefuroxime Axetil [Cefuroxime] 1 tab PO DAILY 11/04/16 [History] Ferrous Sulfate [Feosol] 1 tab PO DAILY 11/04/16 [History] Finasteride [Finasteride] 1 tab PO DAILY 11/04/16 [History] Furosemide [Furosemide] 1 tab PO BID 11/04/16 [History] Pregabalin [Lyrica] 1 tab PO DAILY 11/04/16 [History] Sulfamethoxazole/Trimethoprim [Sulfamethoxazole-Tmp Ds Tablet] 1 cap PO BID 04/21 [History] Tamsulosin HCl [Tamsulosin HCl] 2 tab PO BEDTIME 11/04/16 [History] traMADol HCl [Tramadol HCl] 25 mg PO QID 11/04/16 [History] Past Medical History HEENT History: Reports: Cataract, Hard of Hearing, Impaired Vision Cardiovascular History: Reports: Automatic Implantable Cardioverter Defibrillators, Blood Clots/VTE/DVT, Bypass, CAD, Heart Failure, High Cholesterol, Hypertension, Pacemaker, SOB on Exertion Gastrointestinal History: Reports: Other (See Below) Other Gastrointestinal History: 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 Genitourinary History: Reports: BPH Musculoskeletal History: Reports: Back Pain, Chronic, Gout, Osteoarthritis Other Musculoskeletal History: L hip pain Neurological History: Reports: Concussion Endocrine/Metabolic History: Reports: Diabetes, Type II, Obesity/BMI 30+ Oncologic (Cancer) History: Reports: Prostate - Infectious Disease History Infectious Disease History: Reports: Mumps - Past Surgical History HEENT Surgical History: Reports: Cataract Surgery Cardiovascular Surgical History: Reports: AICD, Coronary Artery Bypass, Pacer Male Surgical History: Reports: Prostate Biopsy Neurological Surgical History: Reports: None Oncologic Surgical History: Reports: None Dermatological Surgical History: Reports: None Social & Family History - Family History Family Medical History: Noncontributory - Tobacco Use Smoking Status *Q: Never Smoker Second Hand Smoke Exposure: No - Caffeine Use Caffeine Use: Reports: Coffee - Alcohol Use Days Per Week of Alcohol Use: 0 - Recreational Drug Use Recreational Drug Use: No ED ROS GENERAL - Review of Systems Review Of Systems: See Below Constitutional: Reports: Fever, Chills, Night Sweats, Diaphoresis HEENT: Reports: No Symptoms Respiratory: Reports: No Symptoms Cardiovascular: Reports: No Symptoms GI/Abdominal: Reports: Abdominal Pain (Suprapubic tenderness), Nausea : Reports: Dysuria Musculoskeletal: Reports: No Symptoms Skin: Reports: No Symptoms Neurological: Reports: No Symptoms ED EXAM, RENAL/ - Physical Exam Exam: See Below Exam Limited By: No Limitations General Appearance: Alert, Moderate Distress Eye Exam: Bilateral Eye: Normal Inspection Throat/Mouth: Normal Inspection, No Airway Compromise Head: Atraumatic Neck: Normal Inspection, Supple, Non-Tender, Full Range of Motion Respiratory/Chest: No Respiratory Distress, Lungs Clear, Normal Breath Sounds, No Accessory Muscle Use Cardiovascular: Regular Rate, Rhythm, No Murmur GI/Abdominal: Soft, Non-Tender Neurological: Confused Course - Vital Signs Last Recorded V/S: Last Vital Signs Temp 100.1 F 11/07/16 02:00 Pulse 84 11/06/16 06:00 Resp 19 11/07/16 06:00 BP 149/66 H 11/07/16 06:00 Pulse Ox 97 11/07/16 06:00 - Orders/Labs/Meds Orders: Medication Orders Acetaminophen (Tylenol) 650 mg PO Q4H PRN PRN Reason: Pain (Mild 1-3)/fever Last Admin: 11/07/16 02:05 Dose: 650 mg Admin: 11/06/16 16:08 Dose: 650 mg Albuterol (Proventil Neb Soln) 2.5 mg NEB Q4H PRN PRN Reason: Shortness Of Breath/wheezing Amiodarone HCl (Cordarone) 200 mg PO DAILY [facility] Last Admin: 11/06/16 09:11 Dose: 200 mg Admin: 11/05/16 09:04 Dose: 200 mg Aspirin (Aspirin) 81 mg PO DAILY [facility] Last Admin: 11/06/16 09:11 Dose: 81 mg Admin: 11/05/16 09:04 Dose: 81 mg Finasteride (Proscar) 5 mg PO DAILY [facility] Last Admin: 11/06/16 09:12 Dose: 5 mg Admin: 11/05/16 09:04 Dose: 5 mg Furosemide (Lasix) 40 mg PO BIDDIURETIC [facility] Last Admin: 11/06/16 13:41 Dose: 40 mg Admin: 11/06/16 09:11 Dose: 40 mg Sodium Chloride (Normal Saline) 1,000 mls @ 125 mls/hr IV ASDIRECTED [facility] Last Admin: 11/07/16 01:58 Dose: 125 mls/hr Infusion: 11/07/16 01:19 Dose: 125 mls/hr Admin: 11/06/16 17:19 Dose: 125 mls/hr Infusion: 11/06/16 12:37 Dose: 125 mls/hr Admin: 11/06/16 04:37 Dose: 125 mls/hr Infusion: 11/06/16 04:05 Dose: 125 mls/hr Admin: 11/05/16 20:05 Dose: 125 mls/hr Infusion: 11/05/16 20:05 Dose: 125 mls/hr Admin: 11/05/16 12:42 Dose: 125 mls/hr Infusion: 11/05/16 12:42 Dose: 125 mls/hr Admin: 11/05/16 10:27 Dose: 125 mls/hr Infusion: 11/05/16 09:50 Dose: 125 mls/hr Admin: 11/05/16 01:50 Dose: 125 mls/hr Piperacillin Sod/Tazobactam (Sod 2.25 gm/ Sodium Chloride) 50 mls @ 100 mls/hr IV Q6H [facility] Last Admin: 11/07/16 05:35 Dose: 100 mls/hr Admin: 11/06/16 23:16 Dose: 100 mls/hr Admin: 11/06/16 17:20 Dose: 100 mls/hr Insulin Aspart (Novolog) 0 unit SUBCUT QIDACANDBED CLIFF PRN Reason: Protocol Last Admin: 11/06/16 20:34 Dose: 1 units Admin: 11/06/16 17:28 Dose: 1 units Admin: 11/06/16 11:35 Dose: Not Given Admin: 11/06/16 07:55 Dose: Not Given Admin: 11/05/16 20:18 Dose: 1 units Admin: 11/05/16 16:37 Dose: 2 units Admin: 11/05/16 11:25 Dose: 1 units Admin: 11/05/16 08:36 Dose: 2 units Lorazepam (Ativan) 0.5 - 1 mg IVPUSH Q4H PRN PRN Reason: Nausea/Vomiting Last Admin: 11/07/16 02:06 Dose: 0.5 mg Admin: 11/06/16 01:24 Dose: 0.5 mg Ondansetron HCl (Zofran Odt) 4 mg PO Q6H PRN PRN Reason: Nausea able to take PO Ondansetron HCl (Zofran) 4 mg IV Q6H PRN PRN Reason: Nausea/Vomiting Pantoprazole Sodium (Protonix) 40 mg PO ACBREAKFAST [facility] Last Admin: 11/06/16 09:11 Dose: 40 mg Admin: 11/05/16 09:04 Dose: 40 mg Polyethylene Glycol (Miralax) 17 gm PO DAILY PRN PRN Reason: Constipation Senna/Docusate Sodium (Senna Plus) 1 tab PO BID PRN PRN Reason: Constipation Sodium Chloride (Saline Flush) 10 ml FLUSH ASDIRECTED PRN PRN Reason: Keep Vein Open Last Admin: 11/05/16 01:57 Dose: 10 ml Tamsulosin HCl (Flomax) 0.8 mg PO BEDTIME [facility] Last Admin: 11/06/16 20:34 Dose: 0.8 mg Admin: 11/05/16 20:18 Dose: 0.8 mg Tramadol HCl (Ultram) 50 mg PO Q4H PRN PRN Reason: Pain Warfarin Sodium (Coumadin) 5 mg PO DAILY@1300 [facility] Last Admin: 11/06/16 13:41 Dose: 5 mg Admin: 11/05/16 13:36 Dose: 5 mg Labs: Laboratory Tests 11/04/16 11/04/16 11/04/16 Range/Units 22:30 22:30 22:30 WBC 18.1 H (4.5-11.0) K/uL RBC 4.14 L (4.30-5.90) M/uL Hgb 11.5 L D (12.0-15.0) g/dL Hct 35.6 L (40.0-54.0) % MCV 86 (80-98) fL MCH 28 (27-31) pg MCHC 32 (32-36) % Plt Count 307 (150-400) K/uL Neut % (Auto) 94 H (36-66) % Lymph % (Auto) 3 L (24-44) % Wolfe % (Auto) 2 (2-6) % Eos % (Auto) 0 L (2-4) % Baso % (Auto) 0 (0-1) % PT (9.5-12.0) sec INR (0.80-1.20) Sodium 135 L (140-148) mmol/L Potassium 5.2 (3.6-5.2) mmol/L Chloride 101 (100-108) mmol/L Carbon Dioxide 14 L (21-32) mmol/L Anion Gap 25.2 H (5.0-14.0) mmol/L BUN 32 H (7-18) mg/dL Creatinine 2.6 H D (0.8-1.3) mg/dL Est Cr Clr Drug Dosing 28.88 mL/min Estimated GFR (MDRD) 24 L (>60) Glucose 251 H (74-106) mg/dL Lactic Acid 8.1 H (0.4-2.0) mmol/L Calcium 8.7 (8.5-10.1) mg/dL Total Bilirubin 0.6 (0.2-1.0) mg/dL AST 14 L (15-37) U/L ALT 14 (12-78) U/L Alkaline Phosphatase 180 H D (46-116) U/L Troponin I (0.000-0.056) ng/mL C-Reactive Protein (0.0-0.3) mg/dL Total Protein 7.4 (6.4-8.2) g/dL Albumin 2.3 L (3.4-5.0) g/dL Globulin 5.1 H (2.3-3.5) g/dL Albumin/Globulin Ratio 0.5 L (1.2-2.2) 11/04/16 11/04/16 11/04/16 Range/Units 22:30 22:30 22:30 WBC (4.5-11.0) K/uL RBC (4.30-5.90) M/uL Hgb (12.0-15.0) g/dL Hct (40.0-54.0) % MCV (80-98) fL MCH (27-31) pg MCHC (32-36) % Plt Count (150-400) K/uL Neut % (Auto) (36-66) % Lymph % (Auto) (24-44) % Wolfe % (Auto) (2-6) % Eos % (Auto) (2-4) % Baso % (Auto) (0-1) % PT 23.6 H (9.5-12.0) sec INR 2.14 H (0.80-1.20) Sodium (140-148) mmol/L Potassium (3.6-5.2) mmol/L Chloride (100-108) mmol/L Carbon Dioxide (21-32) mmol/L Anion Gap (5.0-14.0) mmol/L BUN (7-18) mg/dL Creatinine (0.8-1.3) mg/dL Est Cr Clr Drug Dosing mL/min Estimated GFR (MDRD) (>60) Glucose (74-106) mg/dL Lactic Acid (0.4-2.0) mmol/L Calcium (8.5-10.1) mg/dL Total Bilirubin (0.2-1.0) mg/dL AST (15-37) U/L ALT (12-78) U/L Alkaline Phosphatase (46-116) U/L Troponin I 0.035 (0.000-0.056) ng/mL C-Reactive Protein 17.53 H (0.0-0.3) mg/dL Total Protein (6.4-8.2) g/dL Albumin (3.4-5.0) g/dL Globulin (2.3-3.5) g/dL Albumin/Globulin Ratio (1.2-2.2) Meds: Medications Generic Name Dose Route Start Last Admin Trade Name Freq PRN Reason Stop Dose Admin Acetaminophen 650 mg 11/05/16 01:35 11/07/16 02:05 Tylenol PO 650 mg Q4H PRN Administration Pain (Mild 1-3)/fever Albuterol 2.5 mg 11/05/16 01:35 Proventil Neb Soln NEB Q4H PRN Shortness Of Breath/wheezing Amiodarone HCl 200 mg 11/05/16 09:00 11/06/16 09:11 Cordarone PO 200 mg DAILY CLIFF Administration Aspirin 81 mg 11/05/16 09:00 11/06/16 09:11 Aspirin PO 81 mg DAILY CLIFF Administration Finasteride 5 mg 11/05/16 09:00 11/06/16 09:12 Proscar PO 5 mg DAILY CLIFF Administration Furosemide 40 mg 11/06/16 08:00 11/06/16 13:41 Lasix PO 40 mg BIDDIURETIC CLIFF Administration Sodium Chloride 1,000 mls @ 125 mls/hr 11/05/16 01:35 11/07/16 01:58 Normal Saline IV 125 mls/hr ASDIRECTED CLIFF Administration Piperacillin Sod/Tazobactam 50 mls @ 100 mls/hr 11/06/16 17:00 11/07/16 05:35 Sod 2.25 gm/ Sodium Chloride IV 100 mls/hr Q6H CLIFF Administration Insulin Aspart 0 unit 11/05/16 07:00 11/06/16 20:34 Novolog SUBCUT 1 units QIDACANDBED CLIFF Administration Protocol Lorazepam 0.5 - 1 mg 11/05/16 01:35 11/07/16 02:06 Ativan IVPUSH 0.5 mg Q4H PRN Administration Nausea/Vomiting Ondansetron HCl 4 mg 11/05/16 01:35 Zofran Odt PO Q6H PRN Nausea able to take PO Ondansetron HCl 4 mg 11/05/16 01:35 Zofran IV Q6H PRN Nausea/Vomiting Pantoprazole Sodium 40 mg 11/05/16 07:30 11/06/16 09:11 Protonix PO 40 mg ACBREAKFAST CLIFF Administration Polyethylene Glycol 17 gm 11/05/16 01:35 Miralax PO DAILY PRN Constipation Senna/Docusate Sodium 1 tab 11/05/16 01:35 Senna Plus PO BID PRN Constipation Sodium Chloride 10 ml 11/04/16 22:56 11/05/16 01:57 Saline Flush FLUSH 10 ml ASDIRECTED PRN Administration Keep Vein Open Tamsulosin HCl 0.8 mg 11/05/16 21:00 11/06/16 20:34 Flomax PO 0.8 mg BEDTIME CLIFF Administration Tramadol HCl 50 mg 11/05/16 01:35 Ultram PO Q4H PRN Pain Warfarin Sodium 5 mg 11/05/16 13:00 11/06/16 13:41 Coumadin PO 5 mg DAILY@1300 [facility] Administration Discontinued Medications Generic Name Dose Route Start Last Admin Trade Name Freq PRN Reason Stop Dose Admin Acetaminophen 650 mg 11/04/16 23:29 11/04/16 23:47 Tylenol PO 11/04/16 23:30 650 mg NOW ONE Administration Furosemide 40 mg 11/06/16 08:00 Lasix PO BIDDIURETIC CLIFF Hydrocortisone Sodium Succinate 100 mg 11/05/16 01:35 11/05/16 01:58 Solu-Cortef IVPUSH 11/05/16 01:36 100 mg ONETIME ONE Administration Hydrocortisone Sodium Succinate 100 mg 11/05/16 10:45 11/05/16 11:21 Solu-Cortef IVPUSH 11/05/16 10:46 100 mg ONETIME ONE Administration Lactated Ringer's 1,000 mls @ 999 mls/hr 11/04/16 22:45 11/04/16 23:14 Ringers, Lactated IV 999 mls/hr ASDIRECTED CLIFF Administration Piperacillin Sod/Tazobactam 50 mls @ 100 mls/hr 11/04/16 22:45 11/04/16 23:27 Sod 3.375 gm/ Sodium Chloride IV 100 mls/hr Q6H CLIFF Administration Sodium Chloride 1,000 mls @ 999 mls/hr 11/05/16 00:15 11/05/16 00:15 Normal Saline IV 11/05/16 02:16 999 mls/hr ASDIRECTED CLIFF Administration Sodium Chloride 1,000 mls @ 999 mls/hr 11/05/16 01:30 11/05/16 01:49 Normal Saline IV 999 mls/hr ASDIRECTED CLIFF Administration Piperacillin Sod/Tazobactam 50 mls @ 100 mls/hr 11/05/16 05:00 11/05/16 04:40 Sod 2.25 gm/ Sodium Chloride IV 100 mls/hr Q6H CLIFF Administration Sodium Chloride Confirm 11/05/16 04:23 11/05/16 04:40 Normal Saline Administered 11/05/16 04:24 Not Given Dose 50 mls @ as directed .ROUTE .STK-MED ONE Piperacillin Sod/Tazobactam 50 mls @ 100 mls/hr 11/05/16 11:00 Sod 2.25 gm/ Sodium Chloride IV Q6H CLIFF Piperacillin/Tazobactam/ 50 mls @ 100 mls/hr 11/05/16 11:00 Dextrose 2.25 gm/ Premix IV Q6H CLIFF Piperacillin/Tazobactam/ 50 mls @ 100 mls/hr 11/05/16 11:00 11/06/16 11:37 Dextrose 2.25 gm/ Premix IV 100 mls/hr Q6H CLIFF Administration Sodium Chloride 500 mls @ 500 mls/hr 11/05/16 10:15 11/05/16 10:28 Normal Saline IV 500 mls/hr ASDIRECTED CLIFF Administration Piperacillin Sod/Tazobactam 50 mls @ 100 mls/hr 11/06/16 11:30 Sod 2.25 gm/ Sodium Chloride IV Q6H CLIFF Lidocaine HCl Confirm 11/06/16 13:22 11/06/16 15:46 Xylocaine 2% Jelly Administered 11/06/16 13:23 Not Given Dose 10 ml .ROUTE .STK-MED ONE Lidocaine HCl 10 ml 11/06/16 13:52 11/06/16 15:46 Xylocaine 2% Jelly MUCMEM 11/06/16 13:53 10 ml ONETIME ONE Administration Ondansetron HCl 4 mg 11/04/16 23:01 11/04/16 23:15 Zofran IVPUSH 11/04/16 23:02 4 mg ONETIME ONE Administration Pantoprazole Sodium 40 mg 11/05/16 01:35 11/05/16 01:57 Protonix Iv IV 11/05/16 01:36 40 mg ONETIME ONE Administration Sodium Chloride 10 ml 11/04/16 22:57 Saline Flush FLUSH ASDIRECTED PRN Keep Vein Open Departure - Departure Time of Disposition: 07:09 Disposition: Admitted As Inpatient 65 Condition: Fair Clinical Impression: Sepsis due to urinary tract infection - Discharge Information - Assessment/Plan Plan: Assessment Acuity = acute Site and laterality = sepsis from urine source complicated patient with known history coronary artery disease, diabetes mellitus type 2 and a history of DVT on chronic anticoagulation Etiology = bacterial source probable Morganella Morganii Manifestations = hypotensive, tachycardic, hypoxic Location of injury = Home Lab values = WBC elevated 18.1 consistent leukocytosis hemoglobin low 11.5 consistent normochromic anemia INR therapeutic at 2.14 sodium low at 135 consistent hyponatremia creatinine elevated at 2.6 acute renal failure stage G for baseline is 135 week ago glucose elevated 251 consistent hyperglycemia lactic acid elevated at 8.1 consistent lactic acidosis CRP elevated at 17.3 albumin low at 2.3 consistent hypoalbuminemia chest x-ray I did review films myself I cannot appreciate any acute process, the official read from radiology is pending Plan Called discussed case with hospitalist automotive production worker he agreed to evaluate the patient in the ED for admission, antibiotics and fluids were started in the emergency department Patient was in agreement with the plan all questions were answered, This note was dictated using [email or web address] voice recognition software please call with any questions.
[2016-11-04] MEDS ORDERED: Acetaminophen 325 MG Tab PO ONE (23:29)
[2016-11-05] MEDS ORDERED: Sodium Chloride 0.9% 1,000 ML IV SCH ×2 (00:15→01:30)
--- NOTE | 2016-11-05 00:52 | PCM.HP ---
H&P History of Present Illness - General Date of Service: 11/05/16 Admit Problem/Dx: Admission Diagnosis/Problem Admission Diagnosis/Problem Complicated urinary tract infection Source of Information: Patient, Family, Provider History Limitations: Reports: Altered Mental Status (Patient is confused) - History of Present Illness Initial Comments - Free Text/Narative: Herbie presents to the emergency room today with approximately one week of dysuria and increased urinary frequency. Several days ago he was diagnosed with a urinary tract infection and empirically started on Ceftin. Despite the antibiotics he has not been getting better and thinks he's been getting worse. The dysuria has not improved any. Today he started having episodes of shaking chills as well as subjective fevers. He was seen in the walk-in clinic and his urine culture was reviewed and antibiotics were changed to Bactrim. After returning home he had additional episodes of chilling which seemed to be getting worse. He did take his evening dose of antibiotics but vomited shortly thereafter. He has had progressive weakness and anorexia. He was so weak that he was unable to get from the house to the car without 3 people helping him. He reports mild to moderate crampy lower abdominal pain. This comes and goes in waves. Pain pills have not been helping. Moving around makes the pain worse. He has not found anything that makes the pain better. He was discharged from acute rehabilitation approximately 10 days ago and did require straight catheterization while he was there. Workup in the emergency room revealed evidence for sepsis likely secondary to a complicated urinary tract infection, urine sample has not been obtained as of yet. There is no other obvious source of infection. The urine culture from his clinic visit is growing Morganella but this was resistant to early generation cephalosporins. He has received part of his IV fluid bolus for sepsis and has been given antibiotics. Cultures have been obtained. He will be admitted to the intensive care unit for management. - Related Data Allergies/Adverse Reactions: Allergies Allergy/AdvReac Type Severity Reaction Status Date / Time Iodinated Contrast- Oral and Allergy Hives Verified 07/07/16 09:44 IV Dye [Iodinated Contrast Media - IV Dye] iodine AdvReac Nausea Verified 10/02/16 10:31 tape Allergy Rash Uncoded 08/04/15 06:56 Home Medications: Home Meds Allopurinol [Zyloprim] 300 mg PO DAILY 03/05/14 [History] Amiodarone HCl 200 mg PO DAILY 03/05/14 [History] Carvedilol 12.5 mg PO BID 03/05/14 [History] Lisinopril 5 mg PO DAILY 03/05/14 [History] Simvastatin [Zocor] 10 mg PO BEDTIME 03/05/14 [History] Triamcinolone Acetonide [Triamcinolone Acetonide 0.1% Crm] 1 dose TOP TID [History] Warfarin Sodium 5 mg PO DAILY 03/05/14 [History] metFORMIN [Glucophage] 1,000 mg PO BID 03/05/14 [History] Acetaminophen [Tylenol Extra Strength] 1,000 mg PO Q4HR PRN 10/03/16 [History] Aspirin 1 tab PO DAILY 11/04/16 [History] Cefuroxime Axetil [Cefuroxime] 1 tab PO DAILY 11/04/16 [History] Ferrous Sulfate [Feosol] 1 tab PO DAILY 11/04/16 [History] Finasteride [Finasteride] 1 tab PO DAILY 11/04/16 [History] Furosemide [Furosemide] 1 tab PO BID 11/04/16 [History] Pregabalin [Lyrica] 1 tab PO DAILY 11/04/16 [History] Sulfamethoxazole/Trimethoprim [Sulfamethoxazole-Tmp Ds Tablet] 1 cap PO BID 04/21 [History] Tamsulosin HCl [Tamsulosin HCl] 2 tab PO BEDTIME 11/04/16 [History] traMADol HCl [Tramadol HCl] 25 mg PO QID 11/04/16 [History] Past Medical History HEENT History: Reports: Cataract, Hard of Hearing, Impaired Vision Cardiovascular History: Reports: Automatic Implantable Cardioverter Defibrillators, Blood Clots/VTE/DVT, Bypass, CAD, Heart Failure, High Cholesterol, Hypertension, Pacemaker, SOB on Exertion Gastrointestinal History: Reports: Other (See Below) Other Gastrointestinal History: 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 Genitourinary History: Reports: BPH Musculoskeletal History: Reports: Back Pain, Chronic, Gout, Osteoarthritis Other Musculoskeletal History: L hip pain Neurological History: Reports: Concussion Endocrine/Metabolic History: Reports: Diabetes, Type II, Obesity/BMI 30+ Oncologic (Cancer) History: Reports: Prostate - Infectious Disease History Infectious Disease History: Reports: Mumps - Past Surgical History HEENT Surgical History: Reports: Cataract Surgery Cardiovascular Surgical History: Reports: AICD, Coronary Artery Bypass, Pacer Male Surgical History: Reports: Prostate Biopsy Neurological Surgical History: Reports: None Oncologic Surgical History: Reports: None Dermatological Surgical History: Reports: None Social & Family History - Family History Family Medical History: Noncontributory - Tobacco Use Smoking Status *Q: Never Smoker Second Hand Smoke Exposure: No - Caffeine Use Caffeine Use: Reports: Coffee - Alcohol Use Days Per Week of Alcohol Use: 0 - Recreational Drug Use Recreational Drug Use: No H&P Review of Systems - Review of Systems: Review Of Systems: See Below Free Text/Narrative: A complete 12 point review of systems was obtained. Pertinent positives and negatives are noted in the history of present illness. All other systems were reviewed and were negative except as noted. Exam - Exam Exam: See Below - Vital Signs Vital Signs: Last Vital Signs Temp 39.5 C H 11/05/16 00:19 Pulse 93 11/05/16 00:19 Resp 24 H 11/05/16 00:19 BP 99/37 L 11/05/16 00:19 Pulse Ox 95 11/04/16 23:45 Weight: 126 kg - Exam Quality Assessment: Supplemental Oxygen General: Alert, Cooperative, Mild Distress. No: Oriented HEENT: Conjunctiva Clear. No: Mucosa Moist & [place] (dry), Scleral Icterus Neck: Supple, Trachea Midline. No: Lymphadenopathy Lungs: Clear to Auscultation, Normal Respiratory Effort Cardiovascular: Regular Rate, Regular Rhythm, Normal S1, Normal S2. No: Systolic Murmur GI/Abdominal Exam: Normal Bowel Sounds, Soft, No Distention, Tender (Mild to moderate suprapubic tenderness with no guarding) Extremities: Pedal Edema (Bilateral edema, right greater than left). No: Increased Warmth Peripheral Pulses: 2+: Dorsalis Pedis (L), Dorsalis Pedis (R) Skin: Warm, Dry, Intact. No: Rash Neuro Extensive - Mental Status: Alert, Nl Response to Commands. No: Oriented x3 Neuro Extensive - Motor, Sensory, Reflexes: CN II-XII Intact, Dysarthria (Mild) . No: Abnormal Motor, Tremor Psychiatric: Alert, Normal Affect, Other (Lethargic) - Patient Data Lab Results Last 24 hrs: Laboratory Results - last 24 hr 09/02/17 09/02/17 09/02/17 Range/Units 22:30 22:30 22:30 WBC 18.1 H (4.5-11.0) K/uL RBC 4.14 L (4.30-5.90) M/uL Hgb 11.5 L D (12.0-15.0) g/dL Hct 35.6 L (40.0-54.0) % MCV 86 (80-98) fL MCH 28 (27-31) pg MCHC 32 (32-36) % Plt Count 307 (150-400) K/uL Neut % (Auto) 94 H (36-66) % Lymph % (Auto) 3 L (24-44) % [place] % (Auto) 2 (2-6) % Eos % (Auto) 0 L (2-4) % Baso % (Auto) 0 (0-1) % PT (9.5-12.0) sec INR (0.80-1.20) Sodium 135 L (140-148) mmol/L Potassium 5.2 (3.6-5.2) mmol/L Chloride 101 (100-108) mmol/L Carbon Dioxide 14 L (21-32) mmol/L Anion Gap 25.2 H (5.0-14.0) mmol/L BUN 32 H (7-18) mg/dL Creatinine 2.6 H D (0.8-1.3) mg/dL Est Cr Clr Drug Dosing 28.88 mL/min Estimated GFR (MDRD) 24 L (>60) Glucose 251 H (74-106) mg/dL Lactic Acid 8.1 H (0.4-2.0) mmol/L Calcium 8.7 (8.5-10.1) mg/dL Total Bilirubin 0.6 (0.2-1.0) mg/dL AST 14 L (15-37) U/L ALT 14 (12-78) U/L Alkaline Phosphatase 180 H D (46-116) U/L Troponin I (0.000-0.056) ng/mL C-Reactive Protein (0.0-0.3) mg/dL Total Protein 7.4 (6.4-8.2) g/dL Albumin 2.3 L (3.4-5.0) g/dL Globulin 5.1 H (2.3-3.5) g/dL Albumin/Globulin Ratio 0.5 L (1.2-2.2) 11/04/16 11/04/16 11/04/16 Range/Units 22:30 22:30 22:30 WBC (4.5-11.0) K/uL RBC (4.30-5.90) M/uL Hgb (12.0-15.0) g/dL Hct (40.0-54.0) % MCV (80-98) fL MCH (27-31) pg MCHC (32-36) % Plt Count (150-400) K/uL Neut % (Auto) (36-66) % Lymph % (Auto) (24-44) % [place] % (Auto) (2-6) % Eos % (Auto) (2-4) % Baso % (Auto) (0-1) % PT 23.6 H (9.5-12.0) sec INR 2.14 H (0.80-1.20) Sodium (140-148) mmol/L Potassium (3.6-5.2) mmol/L Chloride (100-108) mmol/L Carbon Dioxide (21-32) mmol/L Anion Gap (5.0-14.0) mmol/L BUN (7-18) mg/dL Creatinine (0.8-1.3) mg/dL Est Cr Clr Drug Dosing mL/min Estimated GFR (MDRD) (>60) Glucose (74-106) mg/dL Lactic Acid (0.4-2.0) mmol/L Calcium (8.5-10.1) mg/dL Total Bilirubin (0.2-1.0) mg/dL AST (15-37) U/L ALT (12-78) U/L Alkaline Phosphatase (46-116) U/L Troponin I 0.035 (0.000-0.056) ng/mL C-Reactive Protein 17.53 H (0.0-0.3) mg/dL Total Protein (6.4-8.2) g/dL Albumin (3.4-5.0) g/dL Globulin (2.3-3.5) g/dL Albumin/Globulin Ratio (1.2-2.2) Result Diagrams: 11/04/16 22:30 11/04/16 22:30 Imaging Impressions Last 24 hrs: Chest x-ray - images personally reviewed - chest appears clear with no definite mass, infiltrate or effusion. Heart size appears normal at this time. *Q Meaningful Use (ADM) - VTE *Q VTE Criteria *Q: - VTE Risk Assess *Q Each Risk Factor Represents 1 Point: Swollen Legs, Current, Obesity (BMI greater than 30) Total Score 1 Point Risk Factors: 2 Each Risk Factor Represents 2 Points: Age 60 - 74 Years Total Score 2 Point Risk Factors: 2 Each Risk Factor Represents 3 Points: History Superficial Venous Thrombosis, DVT or PE Total Score 3 Point Risk Factors: 3 Each Risk Factor Represents 5 Points: None Total Score 5 Point Risk Factors: 0 Venous Thromboembolism Risk Factor Score *Q: 7 - Stroke *Q Stroke Criteria *Q: - AMI *Q AMI Criteria *Q: - Problem List (1) Complicated urinary tract infection SNOMED Code(s): 04697140 ICD Code: N39.0 - URINARY TRACT INFECTION, SITE NOT SPECIFIED Status: Acute Current Visit: Yes (2) Sepsis SNOMED Code(s): 39296376 ICD Code: A41.9 - SEPSIS, UNSPECIFIED ORGANISM Status: Acute Current Visit: Yes Qualifiers: Sepsis type: sepsis due to unspecified organism Qualified Code(s): A41.9 - Sepsis, unspecified organism (3) Acute kidney injury SNOMED Code(s): 88830017 ICD Code: N17.9 - ACUTE KIDNEY FAILURE, UNSPECIFIED Status: Acute Current Visit: Yes (4) Coronary artery disease SNOMED Code(s): 12998283 ICD Code: I25.10 - ATHSCL HEART DISEASE OF [place] CORONARY ARTERY W/O ANG PCTRS Status: Chronic Current Visit: No Qualifiers: Coronary Disease-Associated Artery/Lesion type: [place] artery [place] vs. transplanted heart: [place] heart Associated angina: without angina Qualified Code(s): I25.10 - Atherosclerotic heart disease of [place] coronary artery without angina pectoris (5) Diabetes mellitus type 2 in obese SNOMED Code(s): 38590830 ICD Code: E11.69 - TYPE 2 DIABETES MELLITUS WITH OTHER SPECIFIED COMPLICATION ; E66.9 - OBESITY, UNSPECIFIED Status: Chronic Current Visit: No Problem List Initiated/Reviewed/Updated: Yes Orders Last 24hrs: Active Orders 24 hr Category Date Time Status Patient Status Manage Transfer [TRANSFER] Routine ADT 11/05/16 00:36 Ordered Peripheral IV Care [RC] . DIRECTED Care 11/04/16 22:56 Active Peripheral IV Care [RC] . DIRECTED Care 11/04/16 22:57 Active Vital Signs [RC] Q1H Care 11/04/16 22:44 Active Chest 1V Frontal [CR] Urgent Exams 11/04/16 23:02 Taken CULTURE BLOOD [BC] Urgent Lab 11/04/16 22:30 Received CULTURE BLOOD [BC] Urgent Lab 11/04/16 22:48 Received CULTURE URINE [RM] Stat Lab 11/05/16 00:33 Uncollected UA W/MICROSCOPIC [URIN] Stat Lab 11/05/16 00:33 Uncollected Lactated Ringers [Ringers, Lactated] 1,000 ml Med 11/04/16 22:45 Active IV ASDIRECTED Piperacillin/Tazobactam [Zosyn] 3.375 gm Med 11/04/16 22:45 Active Sodium Chloride 0.9% [Normal Saline] 50 ml IV Q6H Sodium Chloride 0.9% [Normal Saline] 1,000 ml Med 11/05/16 00:15 Active IV ASDIRECTED Sodium Chloride 0.9% [Saline Flush] Med 11/04/16 22:56 Active 10 ml FLUSH ASDIRECTED PRN Sodium Chloride 0.9% [Saline Flush] Med 11/04/16 22:57 Active 10 ml FLUSH ASDIRECTED PRN Blood Culture x2 Reflex Set [OM.PC] Urgent Oth 11/04/16 22:42 Ordered Blood Culture x2 Reflex Set [OM.PC] Urgent Oth 11/04/16 22:44 Ordered Peripheral IV Insertion Adult [OM.PC] Routine Oth 11/04/16 22:57 Ordered Peripheral IV Insertion Adult [OM.PC] Urgent Oth 11/04/16 22:56 Ordered Resuscitation Status Routine Resus Stat 11/05/16 00:38 Ordered Medication Orders Lactated Ringer's (Ringers, Lactated) 1,000 mls @ 999 mls/hr IV ASDIRECTED CLIFF Last Admin: 11/04/16 23:14 Dose: 999 mls/hr Piperacillin Sod/Tazobactam (Sod 3.375 gm/ Sodium Chloride) 50 mls @ 100 mls/ hr IV Q6H [facility] Last Admin: 11/04/16 23:27 Dose: 100 mls/hr Sodium Chloride (Normal Saline) 1,000 mls @ 999 mls/hr IV ASDIRECTED CLIFF Stop: 11/05/16 02:16 Last Admin: 11/05/16 00:15 Dose: 999 mls/hr Sodium Chloride (Saline Flush) 10 ml FLUSH ASDIRECTED PRN PRN Reason: Keep Vein Open Sodium Chloride (Saline Flush) 10 ml FLUSH ASDIRECTED PRN PRN Reason: Keep Vein Open Assessment/Plan Comment:: Assessment and plan - Complicated urinary tract infection with sepsis - recent straight catheterization during acute rehabilitation is the likely source. Unfortunately the Morganella was resistant to cephalosporin that he was prescribed. Evidence for sepsis including tachycardia, confusion, acute kidney injury and lactic acidosis. He is receiving his fluid challenge. I believe that 3 L should be a sufficient initial bolus which is slightly shy of the 30 mL/kg. He does have a history of volume overload and we will need to be careful to avoid this. He has recently been on steroids and could benefit from a dose of hydrocortisone. -Complete 3 L bolus -Additional IV fluids after the bolus is complete -Continue Pip/Tazo -Repeat lactic acid at 6 hours -Cardiac monitoring -Repeat urine sample and culture -Follow-up blood cultures -Hold antihypertensives Acute kidney injury - Secondary to sepsis. Should respond to IV fluids. -Management as above with repeat labs in the morning History of upper extremity DVT - chronically anticoagulated. INR is currently therapeutic. -Daily INR and warfarin 5 mg daily Diabetes mellitus type 2 - On only metformin at home. With acute kidney injury metformin is contraindicated. -Low-dose sliding scale insulin -Hold metformin Coronary artery disease - No active coronary symptoms at this time. Medical management will be on hold with hypotension as discussed above. -Continue aspirin -Restart beta gregg and PREICO inhibitor as blood pressure allows Maintenance issues - - DVT prophylaxis - warfarin - GI prophylaxis - PPI - Nutrition - clear liquids - [place] catheter - not indicated CODE STATUS - full code Admission justification - This patient will be admitted for inpatient services and is medically appropriate meeting medical necessity for inpatient admission as outlined in my documentation. I reasonably expect the patient will require inpatient services that span a period time over 2 midnights. I reasonably expect this patient to be discharged or transferred within 96 hours [facility]. Disposition - anticipate discharge to home versus subacute rehabilitation after the hospital stay Primary care physician - Dr Jose Angel Cancino M.D.
[2016-11-05] MEDS ORDERED: Hydrocortisone Sodium Succinate 100 MG/2 ML SDV IVPUSH ONE ×2 (01:35→10:45)
[2016-11-05] MEDS ORDERED: Pantoprazole 40 MG Vial IV ONE (01:35)
[2016-11-05] MEDS ORDERED: Albuterol 0.083% 2.5 MG/3 ML Neb Soln NEB PRN (01:35)
[2016-11-05] MEDS ORDERED: Polyethylene Glycol 3350 Powder 17 GM Packet PO PRN (01:35)
[2016-11-05] MEDS ORDERED: Ondansetron 4 MG Tab.DIS PO PRN (01:35)
[2016-11-05] MEDS ORDERED: Ondansetron 4 MG/2 ML SDV IV PRN (01:35)
[2016-11-05] MEDS ORDERED: traMADol 50 MG Tab PO PRN (01:35)
[2016-11-05] MEDS: Sodium Chloride 0.9% 1,000 ML IV SCH ×4 (01:50→20:05)
[2016-11-05] MEDS ORDERED: Sodium Chloride 0.9% 50 ML ONE (04:23)
[2016-11-05] MEDS ORDERED: Piperacillin/Tazobactam 2.25 GM in Sodium Chloride 0.9% 50 ML IV SCH ×2 (05:00→11:00)
[2016-11-05] MEDS: Insulin Aspart 100 Units/ML 3 ML Pen SUBCUT SCH ×4 (08:36→20:18)
[2016-11-05] MEDS: Pantoprazole 40 MG Tab.CR PO SCH (09:04)
[2016-11-05] MEDS: Aspirin 81 MG Tab.Chew PO SCH (09:04)
[2016-11-05] MEDS: Finasteride 5 MG Tab PO SCH (09:04)
[2016-11-05] MEDS: Amiodarone 200 MG Tab PO SCH (09:04)
--- NOTE | 2016-11-05 09:38 | PCM.PN ---
- General Info Date of Service: 11/05/16 Functional Status: Reports: Pain Controlled, Tolerating Diet, Urinating. Denies : Ambulating - Review of Systems General: Reports: Fever, Weakness Gastrointestinal: Reports: Abdominal Pain Genitourinary: Reports: Dysuria Systems Review Comment:: Herbie was admitted last night for management of sepsis secondary to a complicated urinary tract infection. He has been hypotensive throughout the night but has been responding to IV fluid challenges. Blood pressures are on the low side of normal this morning. He feels better with improved energy and his mental status is more clear. Appetite has returned a little bit. Urine output has been on the low side. All 4 of his blood cultures are now positive with a gram-negative lalo. Lower abdominal pain is little better this morning. - Patient Data Vitals - Most Recent: Last Vital Signs Temp 36.7 C 11/05/16 08:00 Pulse 82 11/05/16 02:17 Resp 18 11/05/16 09:00 BP 112/41 L 11/05/16 09:00 Pulse Ox 97 11/05/16 09:00 Weight - Most Recent: 116.165 kg I&O - Last 24 Hours: Intake & Output 11/04/16 11/05/16 11/05/16 22:59 06:59 14:59 Intake Total 3435 Balance 3435 Lab Results Last 24 Hours: Laboratory Results - last 24 hr 11/05/16 11/05/16 11/05/16 Range/Units 05:37 05:37 05:37 WBC 27.2 H (4.5-11.0) K/uL RBC 3.62 L (4.30-5.90) M/uL Hgb 9.8 L (12.0-15.0) g/dL Hct 32.0 L (40.0-54.0) % MCV 88 (80-98) fL MCH 27 (27-31) pg MCHC 31 L (32-36) % Plt Count 246 (150-400) K/uL PT 23.4 H (9.5-12.0) sec INR 2.12 H (0.80-1.20) Sodium 138 L (140-148) mmol/L Potassium 5.7 H (3.6-5.2) mmol/L Chloride 103 (100-108) mmol/L Carbon Dioxide 15 L (21-32) mmol/L Anion Gap 25.7 H (5.0-14.0) mmol/L BUN 35 H (7-18) mg/dL Creatinine 3.4 H (0.8-1.3) mg/dL Est Cr Clr Drug Dosing 22.83 mL/min Estimated GFR (MDRD) 18 L (>60) Glucose 240 H (74-106) mg/dL Lactic Acid (0.4-2.0) mmol/L Calcium 8.1 L (8.5-10.1) mg/dL Urine Color Urine Appearance Urine pH (4.5-8.0) Ur Specific [place] (1.008-1.030) Urine Protein (NEGATIVE) mg/dL Urine Glucose (UA) (NEGATIVE) mg/dL Urine Ketones (NEGATIVE) mg/dL Urine Occult Blood (NEGATIVE) Urine Nitrite (NEGAITVE) Urine Bilirubin (NEGATIVE) Urine Urobilinogen (NORMAL) mg/dL Ur Leukocyte Esterase (NEGATIVE) Urine RBC (0-5) Urine WBC (0-5) Ur Epithelial Cells Amorphous Sediment Urine Bacteria Urine Mucus 11/05/16 11/05/16 Range/Units 05:37 06:29 WBC (4.5-11.0) K/uL RBC (4.30-5.90) M/uL Hgb (12.0-15.0) g/dL Hct (40.0-54.0) % MCV (80-98) fL MCH (27-31) pg MCHC (32-36) % Plt Count (150-400) K/uL PT (9.5-12.0) sec INR (0.80-1.20) Sodium (140-148) mmol/L Potassium (3.6-5.2) mmol/L Chloride (100-108) mmol/L Carbon Dioxide (21-32) mmol/L Anion Gap (5.0-14.0) mmol/L BUN (7-18) mg/dL Creatinine (0.8-1.3) mg/dL Est Cr Clr Drug Dosing mL/min Estimated GFR (MDRD) (>60) Glucose (74-106) mg/dL Lactic Acid 7.9 H (0.4-2.0) mmol/L Calcium (8.5-10.1) mg/dL Urine Color Red Urine Appearance Cloudy Urine pH 8.0 (4.5-8.0) Ur Specific [place] 1.010 (1.008-1.030) Urine Protein 30 H (NEGATIVE) mg/dL Urine Glucose (UA) Normal (NEGATIVE) mg/dL Urine Ketones Negative (NEGATIVE) mg/dL Urine Occult Blood Large (NEGATIVE) Urine Nitrite Positive H (NEGAITVE) Urine Bilirubin Negative (NEGATIVE) Urine Urobilinogen Normal (NORMAL) mg/dL Ur Leukocyte Esterase Large (NEGATIVE) Urine RBC Packed H (0-5) Urine WBC Semi-packed H (0-5) Ur Epithelial Cells Moderate Amorphous Sediment Few Urine Bacteria Many Urine Mucus Few Med Orders - Current: Current Medications Acetaminophen (Tylenol) 650 mg PO Q4H PRN PRN Reason: Pain (Mild 1-3)/fever Albuterol (Proventil Neb Soln) 2.5 mg NEB Q4H PRN PRN Reason: Shortness Of Breath/wheezing Amiodarone HCl (Cordarone) 200 mg PO DAILY [facility] Last Admin: 11/05/16 09:04 Dose: 200 mg Aspirin (Aspirin) 81 mg PO DAILY [facility] Last Admin: 11/05/16 09:04 Dose: 81 mg Finasteride (Proscar) 5 mg PO DAILY [facility] Last Admin: 11/05/16 09:04 Dose: 5 mg Sodium Chloride (Normal Saline) 1,000 mls @ 999 mls/hr IV ASDIRECTED [facility] Last Admin: 11/05/16 01:49 Dose: 999 mls/hr Sodium Chloride (Normal Saline) 1,000 mls @ 125 mls/hr IV ASDIRECTED [facility] Last Admin: 11/05/16 01:50 Dose: 125 mls/hr Piperacillin/Tazobactam/ (Dextrose 2.25 gm/ Premix) 50 mls @ 100 mls/hr IV Q6H [facility] Insulin Aspart (Novolog) 0 unit SUBCUT QIDACANDBED [facility] PRN Reason: Protocol Last Admin: 11/05/16 08:36 Dose: 2 units Lorazepam (Ativan) 0.5 - 1 mg IVPUSH Q4H PRN PRN Reason: Nausea/Vomiting Ondansetron HCl (Zofran Odt) 4 mg PO Q6H PRN PRN Reason: Nausea able to take PO Ondansetron HCl (Zofran) 4 mg IV Q6H PRN PRN Reason: Nausea/Vomiting Pantoprazole Sodium (Protonix) 40 mg PO ACBREAKFAST [facility] Last Admin: 11/05/16 09:04 Dose: 40 mg Polyethylene Glycol (Miralax) 17 gm PO DAILY PRN PRN Reason: Constipation Senna/Docusate Sodium (Senna Plus) 1 tab PO BID PRN PRN Reason: Constipation Sodium Chloride (Saline Flush) 10 ml FLUSH ASDIRECTED PRN PRN Reason: Keep Vein Open Last Admin: 11/05/16 01:57 Dose: 10 ml Tamsulosin HCl (Flomax) 0.8 mg PO BEDTIME [facility] Tramadol HCl (Ultram) 50 mg PO Q4H PRN PRN Reason: Pain Warfarin Sodium (Coumadin) 5 mg PO DAILY@1300 [facility] Discontinued Medications Acetaminophen (Tylenol) 650 mg PO NOW ONE Stop: 11/04/16 23:30 Last Admin: 11/04/16 23:47 Dose: 650 mg Hydrocortisone Sodium Succinate (Solu-Cortef) 100 mg IVPUSH ONETIME ONE Stop: 11/05/16 01:36 Last Admin: 11/05/16 01:58 Dose: 100 mg Lactated Ringer's (Ringers, Lactated) 1,000 mls @ 999 mls/hr IV ASDIRECTED [facility] Last Admin: 11/04/16 23:14 Dose: 999 mls/hr Piperacillin Sod/Tazobactam (Sod 3.375 gm/ Sodium Chloride) 50 mls @ 100 mls/ hr IV Q6H [facility] Last Admin: 11/04/16 23:27 Dose: 100 mls/hr Sodium Chloride (Normal Saline) 1,000 mls @ 999 mls/hr IV ASDIRECTED [facility] Stop: 11/05/16 02:16 Last Admin: 11/05/16 00:15 Dose: 999 mls/hr Piperacillin Sod/Tazobactam (Sod 2.25 gm/ Sodium Chloride) 50 mls @ 100 mls/hr IV Q6H [facility] Last Admin: 11/05/16 04:40 Dose: 100 mls/hr Sodium Chloride (Normal Saline) Confirm Administered Dose 50 mls @ as directed .ROUTE .STK-MED ONE Stop: 11/05/16 04:24 Last Admin: 11/05/16 04:40 Dose: Not Given Piperacillin Sod/Tazobactam (Sod 2.25 gm/ Sodium Chloride) 50 mls @ 100 mls/hr IV Q6H [facility] Piperacillin/Tazobactam/ (Dextrose 2.25 gm/ Premix) 50 mls @ 100 mls/hr IV Q6H [facility] Ondansetron HCl (Zofran) 4 mg IVPUSH ONETIME ONE Stop: 11/04/16 23:02 Last Admin: 11/04/16 23:15 Dose: 4 mg Pantoprazole Sodium (Protonix Iv) 40 mg IV ONETIME ONE Stop: 11/05/16 01:36 Last Admin: 11/05/16 01:57 Dose: 40 mg Sodium Chloride (Saline Flush) 10 ml FLUSH ASDIRECTED PRN PRN Reason: Keep Vein Open - Exam Quality Assessment: Supplemental Oxygen General: Alert, Oriented, Cooperative, No Acute Distress HEENT: Pupils Equal Neck: Supple Lungs: Clear to Auscultation, Normal Respiratory Effort Cardiovascular: Regular Rate, Regular Rhythm, No Murmurs GI/Abdominal Exam: Normal Bowel Sounds, Soft, No Distention Extremities: Pedal Edema (pitting edema both lower legs). No: Increased Warmth Skin: Warm, Dry Psy/Mental Status: Alert, Normal Affect - Problem List & Annotations (1) Complicated urinary tract infection SNOMED Code(s): 52926515 Code(s): N39.0 - URINARY TRACT INFECTION, SITE NOT SPECIFIED Status: Acute Current Visit: Yes (2) Sepsis SNOMED Code(s): 72282459 Code(s): A41.9 - SEPSIS, UNSPECIFIED ORGANISM Status: Acute Current Visit : Yes Qualifiers: Sepsis type: sepsis due to unspecified organism Qualified Code(s): A41.9 - Sepsis, unspecified organism (3) Acute kidney injury SNOMED Code(s): 35186413 Code(s): N17.9 - ACUTE KIDNEY FAILURE, UNSPECIFIED Status: Acute Current Visit: Yes (4) Coronary artery disease SNOMED Code(s): 05438982 Code(s): I25.10 - ATHSCL HEART DISEASE OF [place] CORONARY ARTERY W/O ANG PCTRS Status: Chronic Current Visit: No Qualifiers: Coronary Disease-Associated Artery/Lesion type: [place] artery [place] vs. transplanted heart: [place] heart Associated angina: without angina Qualified Code(s): I25.10 - Atherosclerotic heart disease of [place] coronary artery without angina pectoris (5) Diabetes mellitus type 2 in obese SNOMED Code(s): 98637969 Code(s): E11.69 - TYPE 2 DIABETES MELLITUS WITH OTHER SPECIFIED COMPLICATION ; E66.9 - OBESITY, UNSPECIFIED Status: Chronic Current Visit: No - Problem List Review Problem List Initiated/Reviewed/Updated: Yes - My Orders Last 24 Hours: My Active Orders 11/05/16 00:38 Resuscitation Status Routine 11/05/16 01:30 Sodium Chloride 0.9% [Normal Saline] 1,000 ml IV ASDIRECTED 11/05/16 01:35 Patient Status [ADT] Routine Bedrest Bedside Commode [RC] ASDIRECTED Blood Glucose Check, Bedside [RC] QIDACANDBED Cardiac Monitoring [RC] Q6H Communication Order [RC] Q12H Communication Order [RC] Q12H Diabetes Education [RC] Click to Edit Intake and Output [RC] QSHIFT Notify Provider Vital Signs [RC] Q12H Notify Provider [RC] PRN Oxygen Therapy [RC] Q12H Pulse Oximetry [RC] CONTINUOUS RT Aerosol Therapy [RC] ASDIRECTED Up With Assistance [RC] ASDIRECTED VTE/DVT Education [RC] Per Unit Routine Vital Signs [RC] Q1HR Acetaminophen [Tylenol] 650 mg PO Q4H PRN Albuterol [Proventil Neb Soln] 2.5 mg NEB Q4H PRN Docusate Sodium/Sennosides [Senna Plus] 1 tab PO BID PRN LORazepam [Ativan] 0.5 - 1 mg IVPUSH Q4H PRN Ondansetron [Zofran ODT] 4 mg PO Q6H PRN Ondansetron [Zofran] 4 mg IV Q6H PRN Polyethylene Glycol 3350 [MiraLAX] 17 gm PO DAILY PRN Sodium Chloride 0.9% [Normal Saline] 1,000 ml IV ASDIRECTED traMADol [Ultram] 50 mg PO Q4H PRN Antiembolic Hose [OM.PC] Per Unit Routine 11/05/16 07:00 Insulin Aspart [NovoLOG] See Protocol SUBCUT QIDACANDBED 11/05/16 07:30 Pantoprazole [ProTONIX] 40 mg PO ACBREAKFAST 11/05/16 11:00 LACTIC ACID [CHEM] Q6H Piperacillin/Tazobactam/Dext [Zosyn in Dextrose Iso-Osmotic] 2.25 gm Premix Bag 1 bag IV Q6H 11/05/16 17:00 HEMOGLOBIN [HEME] Timed LACTIC ACID [CHEM] Q6H POTASSIUM,K [CHEM] Timed 11/05/16 Lunch Consistent Carbohydrate Diet [DIET] 11/06/16 05:00 BASIC METABOLIC PANEL,BMP [CHEM] Timed CBC W/O DIFF,HEMOGRAM [HEME] Timed (1) - Plan Plan:: Assessment and plan - Complicated urinary tract infection with severe sepsis - still hypotensive but improving. Lactic acid level slightly better this morning. Four blood cultures are positive for gram-negative rods. Urine cultures pending at this time. Tolerating current antibiotics and clinically looks better. He remains hypotensive but is on the low side of normal. -Continue IV fluids -Continue Pip/Tazo -Repeat lactic acid at 6 hours -Cardiac monitoring -Follow-up cultures -Follow-up blood cultures -Hold antihypertensives Acute kidney injury - Secondary to sepsis. Creatinine level has risen from admission to this morning but I would anticipate improvement following adequate volume resuscitation. -Management as above with repeat labs in the morning History of upper extremity DVT - chronically anticoagulated. INR is currently therapeutic. -Daily INR and warfarin 5 mg daily Diabetes mellitus type 2 - On only metformin at home. With acute kidney injury metformin is contraindicated. -Low-dose sliding scale insulin -Hold metformin Coronary artery disease - No active coronary symptoms at this time. Medical management will be on hold with hypotension as discussed above. -Continue aspirin -Restart beta gregg and PERICO inhibitor as blood pressure allows Maintenance issues - - DVT prophylaxis - warfarin - GI prophylaxis - PPI - Nutrition - clear liquids - Freire catheter - not indicated Disposition - anticipate discharge to home versus subacute rehabilitation after the hospital stay Primary care physician - Dr Jose Angel Cancino M.D.
[2016-11-05] MEDS ORDERED: Sodium Chloride 0.9% 500 ML IV SCH (10:15)
[2016-11-05] MEDS ORDERED: Piperacillin/Tazobactam/Dext 2.25 GM in Premix Bag 1 BAG IV SCH (11:00)
[2016-11-05] MEDS: Piperacillin/Tazobactam/Dext 2.25 GM in Premix Bag 1 BAG IV SCH ×3 (11:22→23:30)
[2016-11-05] MEDS: Warfarin 5 MG Tab PO SCH (13:36)
[2016-11-05] MEDS: Tamsulosin 0.4 MG Cap.ER PO SCH (20:18)
[2016-11-06] MEDS: LORazepam 2 MG/ML MDV IVPUSH PRN (01:24)
[2016-11-06] MEDS: Sodium Chloride 0.9% 1,000 ML IV SCH ×2 (04:37→17:19)
[2016-11-06] MEDS: Piperacillin/Tazobactam/Dext 2.25 GM in Premix Bag 1 BAG IV SCH ×2 (04:39→11:37)
[2016-11-06] MEDS: Insulin Aspart 100 Units/ML 3 ML Pen SUBCUT SCH ×4 (07:55→20:34)
[2016-11-06] MEDS ORDERED: Furosemide 20 MG Tab PO SCH (08:00)
[2016-11-06] MEDS: Aspirin 81 MG Tab.Chew PO SCH (09:11)
[2016-11-06] MEDS: Furosemide 40 MG Tab PO SCH ×2 (09:11→13:41)
[2016-11-06] MEDS: Pantoprazole 40 MG Tab.CR PO SCH (09:11)
[2016-11-06] MEDS: Amiodarone 200 MG Tab PO SCH (09:11)
[2016-11-06] MEDS: Finasteride 5 MG Tab PO SCH (09:12)
--- NOTE | 2016-11-06 10:55 | PCM.PN ---
- General Info Date of Service: 11/06/16 Functional Status: Reports: Pain Controlled, Tolerating Diet, Urinating - Review of Systems General: Reports: Weakness. Denies: Fever, Chills Pulmonary: Reports: No Symptoms Cardiovascular: Reports: No Symptoms Gastrointestinal: Reports: No Symptoms Systems Review Comment:: Mr. Winchester has been stable since yesterday evening. Blood pressures been good and urine output seems to be picking up although there is some question of possible hematuria. Denies significant pain this morning and over the past several hours has been hemodynamically stable and afebrile. - Patient Data Vitals - Most Recent: Last Vital Signs Temp 97.8 F 11/06/16 08:00 Pulse 84 11/06/16 06:00 Resp 18 11/06/16 10:51 BP 103/50 L 11/06/16 10:51 Pulse Ox 97 11/06/16 10:51 Weight - Most Recent: 256 lb 1.6 oz I&O - Last 24 Hours: Intake & Output 11/05/16 11/06/16 11/06/16 22:59 06:59 14:59 Intake Total 2493 2190 520 Output Total 475 200 Balance 2017 Lab Results Last 24 Hours: Laboratory Results - last 24 hr 11/05/16 11/05/16 11/05/16 Range/Units 11:00 17:00 17:00 WBC (4.5-11.0) K/uL RBC (4.30-5.90) M/uL Hgb 9.4 L (12.0-15.0) g/dL Hct (40.0-54.0) % MCV (80-98) fL MCH (27-31) pg MCHC (32-36) % Plt Count (150-400) K/uL PT (9.5-12.0) sec INR (0.80-1.20) Sodium (140-148) mmol/L Potassium 5.9 H (3.6-5.2) mmol/L Chloride (100-108) mmol/L Carbon Dioxide (21-32) mmol/L Anion Gap (5.0-14.0) mmol/L BUN (7-18) mg/dL Creatinine (0.8-1.3) mg/dL Est Cr Clr Drug Dosing mL/min Estimated GFR (MDRD) (>60) Glucose (74-106) mg/dL Lactic Acid 8.2 H (0.4-2.0) mmol/L Calcium (8.5-10.1) mg/dL 11/05/16 11/06/16 11/06/16 Range/Units 17:00 05:00 05:56 WBC 21.0 H (4.5-11.0) K/uL RBC 3.60 L (4.30-5.90) M/uL Hgb 9.9 L (12.0-15.0) g/dL Hct 31.1 L (40.0-54.0) % MCV 86 (80-98) fL MCH 28 (27-31) pg MCHC 32 (32-36) % Plt Count 268 (150-400) K/uL PT 26.1 H (9.5-12.0) sec INR 2.35 H (0.80-1.20) Sodium (140-148) mmol/L Potassium (3.6-5.2) mmol/L Chloride (100-108) mmol/L Carbon Dioxide (21-32) mmol/L Anion Gap (5.0-14.0) mmol/L BUN (7-18) mg/dL Creatinine (0.8-1.3) mg/dL Est Cr Clr Drug Dosing mL/min Estimated GFR (MDRD) (>60) Glucose (74-106) mg/dL Lactic Acid 7.3 H (0.4-2.0) mmol/L Calcium (8.5-10.1) mg/dL 11/06/16 11/06/16 Range/Units 05:56 05:56 WBC (4.5-11.0) K/uL RBC (4.30-5.90) M/uL Hgb (12.0-15.0) g/dL Hct (40.0-54.0) % MCV (80-98) fL MCH (27-31) pg MCHC (32-36) % Plt Count (150-400) K/uL PT (9.5-12.0) sec INR (0.80-1.20) Sodium 140 (140-148) mmol/L Potassium 4.8 (3.6-5.2) mmol/L Chloride 106 (100-108) mmol/L Carbon Dioxide 17 L (21-32) mmol/L Anion Gap 21.8 H (5.0-14.0) mmol/L BUN 54 H D (7-18) mg/dL Creatinine 4.2 H* (0.8-1.3) mg/dL Est Cr Clr Drug Dosing 18.48 mL/min Estimated GFR (MDRD) 14 L (>60) Glucose 142 H (74-106) mg/dL Lactic Acid 4.0 H (0.4-2.0) mmol/L Calcium 8.0 L (8.5-10.1) mg/dL Joni Results Last 24 Hours: Microbiology 11/05/16 06:29 Urine Culture - Preliminary Urine, Clean Catch Med Orders - Current: Current Medications Acetaminophen (Tylenol) 650 mg PO Q4H PRN PRN Reason: Pain (Mild 1-3)/fever Albuterol (Proventil Neb Soln) 2.5 mg NEB Q4H PRN PRN Reason: Shortness Of Breath/wheezing Amiodarone HCl (Cordarone) 200 mg PO DAILY [facility] Last Admin: 11/06/16 09:11 Dose: 200 mg Aspirin (Aspirin) 81 mg PO DAILY [facility] Last Admin: 11/06/16 09:11 Dose: 81 mg Finasteride (Proscar) 5 mg PO DAILY [facility] Last Admin: 11/06/16 09:12 Dose: 5 mg Furosemide (Lasix) 40 mg PO BIDDIURETIC [facility] Last Admin: 11/06/16 09:11 Dose: 40 mg Sodium Chloride (Normal Saline) 1,000 mls @ 125 mls/hr IV ASDIRECTED [facility] Last Admin: 11/06/16 04:37 Dose: 125 mls/hr Piperacillin/Tazobactam/ (Dextrose 2.25 gm/ Premix) 50 mls @ 100 mls/hr IV Q6H [facility] Last Admin: 11/06/16 04:39 Dose: 100 mls/hr Insulin Aspart (Novolog) 0 unit SUBCUT QIDACANDBED [facility] PRN Reason: Protocol Last Admin: 11/06/16 07:55 Dose: Not Given Lorazepam (Ativan) 0.5 - 1 mg IVPUSH Q4H PRN PRN Reason: Nausea/Vomiting Last Admin: 11/06/16 01:24 Dose: 0.5 mg Ondansetron HCl (Zofran Odt) 4 mg PO Q6H PRN PRN Reason: Nausea able to take PO Ondansetron HCl (Zofran) 4 mg IV Q6H PRN PRN Reason: Nausea/Vomiting Pantoprazole Sodium (Protonix) 40 mg PO ACBREAKFAST [facility] Last Admin: 11/06/16 09:11 Dose: 40 mg Polyethylene Glycol (Miralax) 17 gm PO DAILY PRN PRN Reason: Constipation Senna/Docusate Sodium (Senna Plus) 1 tab PO BID PRN PRN Reason: Constipation Sodium Chloride (Saline Flush) 10 ml FLUSH ASDIRECTED PRN PRN Reason: Keep Vein Open Last Admin: 11/05/16 01:57 Dose: 10 ml Tamsulosin HCl (Flomax) 0.8 mg PO BEDTIME [facility] Last Admin: 11/05/16 20:18 Dose: 0.8 mg Tramadol HCl (Ultram) 50 mg PO Q4H PRN PRN Reason: Pain Warfarin Sodium (Coumadin) 5 mg PO DAILY@1300 [facility] Last Admin: 11/05/16 13:36 Dose: 5 mg Discontinued Medications Acetaminophen (Tylenol) 650 mg PO NOW ONE Stop: 11/04/16 23:30 Last Admin: 11/04/16 23:47 Dose: 650 mg Furosemide (Lasix) 40 mg PO BIDDIURETIC [facility] Hydrocortisone Sodium Succinate (Solu-Cortef) 100 mg IVPUSH ONETIME ONE Stop: 11/05/16 01:36 Last Admin: 11/05/16 01:58 Dose: 100 mg Hydrocortisone Sodium Succinate (Solu-Cortef) 100 mg IVPUSH ONETIME ONE Stop: 11/05/16 10:46 Last Admin: 11/05/16 11:21 Dose: 100 mg Lactated Ringer's (Ringers, Lactated) 1,000 mls @ 999 mls/hr IV ASDIRECTED [facility] Last Admin: 11/04/16 23:14 Dose: 999 mls/hr Piperacillin Sod/Tazobactam (Sod 3.375 gm/ Sodium Chloride) 50 mls @ 100 mls/ hr IV Q6H [facility] Last Admin: 11/04/16 23:27 Dose: 100 mls/hr Sodium Chloride (Normal Saline) 1,000 mls @ 999 mls/hr IV ASDIRECTED [facility] Stop: 11/05/16 02:16 Last Admin: 11/05/16 00:15 Dose: 999 mls/hr Sodium Chloride (Normal Saline) 1,000 mls @ 999 mls/hr IV ASDIRECTED [facility] Last Admin: 11/05/16 01:49 Dose: 999 mls/hr Piperacillin Sod/Tazobactam (Sod 2.25 gm/ Sodium Chloride) 50 mls @ 100 mls/hr IV Q6H [facility] Last Admin: 11/05/16 04:40 Dose: 100 mls/hr Sodium Chloride (Normal Saline) Confirm Administered Dose 50 mls @ as directed .ROUTE .STK-MED ONE Stop: 11/05/16 04:24 Last Admin: 11/05/16 04:40 Dose: Not Given Piperacillin Sod/Tazobactam (Sod 2.25 gm/ Sodium Chloride) 50 mls @ 100 mls/hr IV Q6H [facility] Piperacillin/Tazobactam/ (Dextrose 2.25 gm/ Premix) 50 mls @ 100 mls/hr IV Q6H [facility] Sodium Chloride (Normal Saline) 500 mls @ 500 mls/hr IV ASDIRECTED [facility] Last Admin: 11/05/16 10:28 Dose: 500 mls/hr Ondansetron HCl (Zofran) 4 mg IVPUSH ONETIME ONE Stop: 11/04/16 23:02 Last Admin: 11/04/16 23:15 Dose: 4 mg Pantoprazole Sodium (Protonix Iv) 40 mg IV ONETIME ONE Stop: 11/05/16 01:36 Last Admin: 11/05/16 01:57 Dose: 40 mg Sodium Chloride (Saline Flush) 10 ml FLUSH ASDIRECTED PRN PRN Reason: Keep Vein Open - Exam Quality Assessment: DVT Prophylaxis General: Alert, Oriented, Cooperative, No Acute Distress Lungs: Clear to Auscultation, Normal Respiratory Effort Cardiovascular: Regular Rate, Regular Rhythm, No Murmurs GI/Abdominal Exam: Normal Bowel Sounds, Soft, Non-Tender, No Distention Extremities: Pedal Edema Skin: Warm, Dry, Intact - Problem List Review Problem List Initiated/Reviewed/Updated: Yes - My Orders Last 24 Hours: My Active Orders 11/07/16 05:00 BASIC METABOLIC PANEL,BMP [CHEM] Timed CBC WITH AUTO DIFF [HEME] Timed INR,PT,PROTHROMBIN TIME [COAG] Timed MAGNESIUM [CHEM] Timed - Plan Plan:: Assessment and plan - Complicated urinary tract infection with severe sepsis - significant improvement over the past 24 hours, blood pressure has been adequate and he has been afebrile. Lactic acid level remains elevated but has improved significantly since yesterday. -Continue IV fluids -Continue Pip/Tazo -Repeat lactic acid in a.m. -Cardiac monitoring -Follow-up cultures -Follow-up blood cultures -Hold antihypertensives Acute kidney injury - Secondary to sepsis. Creatinine level has risen from admission to this morning but I would anticipate improvement following adequate volume resuscitation. Creatinine further elevated this morning, urine output has improved over the past several hours. -Management as above with repeat labs in the morning History of upper extremity DVT - chronically anticoagulated. INR is currently therapeutic. -Daily INR and warfarin 5 mg daily Diabetes mellitus type 2 - On only metformin at home. With acute kidney injury metformin is contraindicated. -Low-dose sliding scale insulin -Hold metformin Coronary artery disease - No active coronary symptoms at this time. Medical management will be on hold with hypotension as discussed above. -Continue aspirin -Restart beta gregg and PERICO inhibitor as blood pressure allows Maintenance issues - - DVT prophylaxis - warfarin - GI prophylaxis - PPI - Nutrition - clear liquids - Freire catheter - not indicated Disposition - anticipate discharge to home versus subacute rehabilitation after the hospital stay Primary care physician - Dr Walter
[2016-11-06] MEDS ORDERED: Piperacillin/Tazobactam 2.25 GM in Sodium Chloride 0.9% 50 ML IV SCH (11:30)
[2016-11-06] MEDS ORDERED: Lidocaine 2% Jelly 10 ML Urojet ONE (13:22)
[2016-11-06] MEDS: Warfarin 5 MG Tab PO SCH (13:41)
[2016-11-06] MEDS ORDERED: Lidocaine 2% Jelly 10 ML Urojet MUCMEM ONE (13:52)
[2016-11-06] MEDS: Acetaminophen 325 MG Tab PO PRN (16:08)
[2016-11-06] MEDS: Piperacillin/Tazobactam 2.25 GM in Sodium Chloride 0.9% 50 ML IV SCH ×2 (17:20→23:16)
[2016-11-06] MEDS: Tamsulosin 0.4 MG Cap.ER PO SCH (20:34)
[2016-11-07] MEDS: Sodium Chloride 0.9% 1,000 ML IV SCH (01:58)
[2016-11-07] MEDS: Acetaminophen 325 MG Tab PO PRN (02:05)
[2016-11-07] MEDS: LORazepam 2 MG/ML MDV IVPUSH PRN (02:06)
[2016-11-07] MEDS: Piperacillin/Tazobactam 2.25 GM in Sodium Chloride 0.9% 50 ML IV SCH ×3 (05:35→16:36)
[2016-11-07] MEDS: Insulin Aspart 100 Units/ML 3 ML Pen SUBCUT SCH ×4 (08:05→21:29)
[2016-11-07] MEDS: Pantoprazole 40 MG Tab.CR PO SCH (08:05)
[2016-11-07] MEDS: Furosemide 40 MG Tab PO SCH ×2 (08:05→13:18)
--- NOTE | 2016-11-07 08:37 | CR ---
Chest 1V Frontal HISTORY: Fever COMPARISON: Chest x-ray 10/04/2016. FINDINGS: Left-sided pacemaker. Prior median sternotomy. No focal infiltrates. No acute congestive ch eli.
[2016-11-07] MEDS: Aspirin 81 MG Tab.Chew PO SCH (09:00)
[2016-11-07] MEDS: Finasteride 5 MG Tab PO SCH (09:00)
[2016-11-07] MEDS: Amiodarone 200 MG Tab PO SCH (09:00)
[2016-11-07] MEDS: Magnesium Oxide 400 MG Tab PO SCH ×2 (09:00→22:10)
[2016-11-07] MEDS: Magnesium Sulfate/Water 2 GM in Premix Bag 1 BAG IV SCH ×4 (09:02→22:11)
--- NOTE | 2016-11-07 10:13 | PCM.PN ---
- General Info Date of Service: 11/07/16 Functional Status: Reports: Pain Controlled, Tolerating Diet. Denies: Urinating - Review of Systems General: Reports: Weakness. Denies: Fever, Chills Pulmonary: Reports: No Symptoms Cardiovascular: Reports: No Symptoms Gastrointestinal: Reports: No Symptoms Genitourinary: Reports: Retention Psychiatric: Reports: Confusion Systems Review Comment:: Mr. Winchester has been fairly stable since yesterday, he was found to have significant urinary retention so a Freire catheter is been placed. He is already on Proscar and Flomax, will need to see a urologist as an outpatient. He is very weak, otherwise has been hemodynamically stable and afebrile. - Patient Data Vitals - Most Recent: Last Vital Signs Temp 98.3 F 11/07/16 08:00 Pulse 89 11/07/16 09:57 Resp 17 11/07/16 09:57 BP 134/54 L 11/07/16 09:57 Pulse Ox 97 11/07/16 09:57 Weight - Most Recent: 256 lb 1.6 oz I&O - Last 24 Hours: Intake & Output 11/06/16 11/07/16 11/07/16 22:59 06:59 14:59 Intake Total 1680 1507 400 Output Total 2825 1625 600 Balance -1145 -118 -200 Lab Results Last 24 Hours: Laboratory Results - last 24 hr 11/06/16 11/06/16 11/07/16 Range/Units 16:56 16:56 05:00 WBC 10.3 (4.5-11.0) K/uL RBC 3.48 L (4.30-5.90) M/uL Hgb 9.3 L (12.0-15.0) g/dL Hct 29.7 L (40.0-54.0) % MCV 85 (80-98) fL MCH 27 (27-31) pg MCHC 31 L (32-36) % Plt Count 213 (150-400) K/uL Neut % (Auto) 89 H (36-66) % Lymph % (Auto) 5 L (24-44) % [place] % (Auto) 6 (2-6) % Eos % (Auto) 1 L (2-4) % Baso % (Auto) 0 (0-1) % PT (9.5-12.0) sec INR (0.80-1.20) Sodium 140 (140-148) mmol/L Potassium 4.1 (3.6-5.2) mmol/L Chloride 107 (100-108) mmol/L Carbon Dioxide 21 (21-32) mmol/L Anion Gap 12.4 (5.0-14.0) mmol/L BUN 54 H (7-18) mg/dL Creatinine 3.4 H (0.8-1.3) mg/dL Est Cr Clr Drug Dosing 22.83 mL/min Estimated GFR (MDRD) 18 L (>60) Glucose 136 H (74-106) mg/dL Lactic Acid 1.9 (0.4-2.0) mmol/L Calcium 7.9 L (8.5-10.1) mg/dL Magnesium (1.8-2.4) mg/dL 11/07/16 11/07/16 11/07/16 Range/Units 05:00 05:00 05:00 WBC (4.5-11.0) K/uL RBC (4.30-5.90) M/uL Hgb (12.0-15.0) g/dL Hct (40.0-54.0) % MCV (80-98) fL MCH (27-31) pg MCHC (32-36) % Plt Count (150-400) K/uL Neut % (Auto) (36-66) % Lymph % (Auto) (24-44) % [place] % (Auto) (2-6) % Eos % (Auto) (2-4) % Baso % (Auto) (0-1) % PT 33.2 H (9.5-12.0) sec INR 2.97 H (0.80-1.20) Sodium 141 (140-148) mmol/L Potassium 4.0 (3.6-5.2) mmol/L Chloride 108 (100-108) mmol/L Carbon Dioxide 22 (21-32) mmol/L Anion Gap 10.7 (5.0-14.0) mmol/L BUN 49 H (7-18) mg/dL Creatinine 2.9 H (0.8-1.3) mg/dL Est Cr Clr Drug Dosing 26.77 mL/min Estimated GFR (MDRD) 21 L (>60) Glucose 129 H (74-106) mg/dL Lactic Acid 1.3 (0.4-2.0) mmol/L Calcium 7.3 L (8.5-10.1) mg/dL Magnesium 1.5 L (1.8-2.4) mg/dL Joni Results Last 24 Hours: Microbiology 11/05/16 06:29 Urine Culture - Final Urine, Clean Catch Morganella Morganii [facility] Med Orders - Current: Current Medications Acetaminophen (Tylenol) 650 mg PO Q4H PRN PRN Reason: Pain (Mild 1-3)/fever Last Admin: 11/07/16 02:05 Dose: 650 mg Albuterol (Proventil Neb Soln) 2.5 mg NEB Q4H PRN PRN Reason: Shortness Of Breath/wheezing Amiodarone HCl (Cordarone) 200 mg PO DAILY [facility] Last Admin: 11/07/16 09:00 Dose: 200 mg Aspirin (Aspirin) 81 mg PO DAILY [facility] Last Admin: 11/07/16 09:00 Dose: 81 mg Finasteride (Proscar) 5 mg PO DAILY [facility] Last Admin: 11/07/16 09:00 Dose: 5 mg Furosemide (Lasix) 40 mg PO BIDDIURETIC [facility] Last Admin: 11/07/16 08:05 Dose: 40 mg Piperacillin Sod/Tazobactam (Sod 2.25 gm/ Sodium Chloride) 50 mls @ 100 mls/hr IV Q6H [facility] Last Admin: 11/07/16 05:35 Dose: 100 mls/hr Magnesium Sulfate 2 gm/ Premix 50 mls @ 25 mls/hr IV Q6H [facility] Stop: 11/07/16 22:59 Last Admin: 11/07/16 09:02 Dose: 25 mls/hr Insulin Aspart (Novolog) 0 unit SUBCUT QIDACANDBED [facility] PRN Reason: Protocol Last Admin: 11/07/16 08:05 Dose: Not Given Magnesium Oxide (Magnesium Oxide) 400 mg PO BID [facility] Last Admin: 11/07/16 09:00 Dose: 400 mg Melatonin (Melatonin) 9 mg PO BEDTIME [facility] Ondansetron HCl (Zofran) 4 mg IV Q6H PRN PRN Reason: Nausea/Vomiting Pantoprazole Sodium (Protonix) 40 mg PO ACBREAKFAST [facility] Last Admin: 11/07/16 08:05 Dose: 40 mg Polyethylene Glycol (Miralax) 17 gm PO DAILY PRN PRN Reason: Constipation Senna/Docusate Sodium (Senna Plus) 1 tab PO BID PRN PRN Reason: Constipation Sodium Chloride (Saline Flush) 10 ml FLUSH ASDIRECTED PRN PRN Reason: Keep Vein Open Last Admin: 11/05/16 01:57 Dose: 10 ml Tamsulosin HCl (Flomax) 0.8 mg PO BEDTIME [facility] Last Admin: 11/06/16 20:34 Dose: 0.8 mg Tramadol HCl (Ultram) 50 mg PO Q4H PRN PRN Reason: Pain Warfarin Sodium (Coumadin) 2.5 mg PO ONETIME ONE Stop: 11/07/16 10:06 Discontinued Medications Acetaminophen (Tylenol) 650 mg PO NOW ONE Stop: 11/04/16 23:30 Last Admin: 11/04/16 23:47 Dose: 650 mg Furosemide (Lasix) 40 mg PO BIDDIURETIC [facility] Hydrocortisone Sodium Succinate (Solu-Cortef) 100 mg IVPUSH ONETIME ONE Stop: 11/05/16 01:36 Last Admin: 11/05/16 01:58 Dose: 100 mg Hydrocortisone Sodium Succinate (Solu-Cortef) 100 mg IVPUSH ONETIME ONE Stop: 11/05/16 10:46 Last Admin: 11/05/16 11:21 Dose: 100 mg Lactated Ringer's (Ringers, Lactated) 1,000 mls @ 999 mls/hr IV ASDIRECTED [facility] Last Admin: 11/04/16 23:14 Dose: 999 mls/hr Piperacillin Sod/Tazobactam (Sod 3.375 gm/ Sodium Chloride) 50 mls @ 100 mls/ hr IV Q6H [facility] Last Admin: 11/04/16 23:27 Dose: 100 mls/hr Sodium Chloride (Normal Saline) 1,000 mls @ 999 mls/hr IV ASDIRECTED [facility] Stop: 11/05/16 02:16 Last Admin: 11/05/16 00:15 Dose: 999 mls/hr Sodium Chloride (Normal Saline) 1,000 mls @ 999 mls/hr IV ASDIRECTED [facility] Last Admin: 11/05/16 01:49 Dose: 999 mls/hr Piperacillin Sod/Tazobactam (Sod 2.25 gm/ Sodium Chloride) 50 mls @ 100 mls/hr IV Q6H [facility] Last Admin: 11/05/16 04:40 Dose: 100 mls/hr Sodium Chloride (Normal Saline) 1,000 mls @ 125 mls/hr IV ASDIRECTED [facility] Last Admin: 11/07/16 01:58 Dose: 125 mls/hr Sodium Chloride (Normal Saline) Confirm Administered Dose 50 mls @ as directed .ROUTE .[facility] ONE Stop: 11/05/16 04:24 Last Admin: 11/05/16 04:40 Dose: Not Given Piperacillin Sod/Tazobactam (Sod 2.25 gm/ Sodium Chloride) 50 mls @ 100 mls/hr IV Q6H [facility] Piperacillin/Tazobactam/ (Dextrose 2.25 gm/ Premix) 50 mls @ 100 mls/hr IV Q6H [facility] Piperacillin/Tazobactam/ (Dextrose 2.25 gm/ Premix) 50 mls @ 100 mls/hr IV Q6H [facility] Last Admin: 11/06/16 11:37 Dose: 100 mls/hr Sodium Chloride (Normal Saline) 500 mls @ 500 mls/hr IV ASDIRECTED [facility] Last Admin: 11/05/16 10:28 Dose: 500 mls/hr Piperacillin Sod/Tazobactam (Sod 2.25 gm/ Sodium Chloride) 50 mls @ 100 mls/hr IV Q6H [facility] Lidocaine HCl (Xylocaine 2% Jelly) Confirm Administered Dose 10 ml .ROUTE .[facility] ONE Stop: 11/06/16 13:23 Last Admin: 11/06/16 15:46 Dose: Not Given Lidocaine HCl (Xylocaine 2% Jelly) 10 ml MUCMEM ONETIME ONE Stop: 11/06/16 13:53 Last Admin: 11/06/16 15:46 Dose: 10 ml Lorazepam (Ativan) 0.5 - 1 mg IVPUSH Q4H PRN PRN Reason: Nausea/Vomiting Last Admin: 11/07/16 02:06 Dose: 0.5 mg Ondansetron HCl (Zofran) 4 mg IVPUSH ONETIME ONE Stop: 11/04/16 23:02 Last Admin: 11/04/16 23:15 Dose: 4 mg Ondansetron HCl (Zofran Odt) 4 mg PO Q6H PRN PRN Reason: Nausea able to take PO Pantoprazole Sodium (Protonix Iv) 40 mg IV ONETIME ONE Stop: 11/05/16 01:36 Last Admin: 11/05/16 01:57 Dose: 40 mg Sodium Chloride (Saline Flush) 10 ml FLUSH ASDIRECTED PRN PRN Reason: Keep Vein Open Warfarin Sodium (Coumadin) 5 mg PO DAILY@1300 [facility] Last Admin: 11/06/16 13:41 Dose: 5 mg - Exam Quality Assessment: Urine Catheter, DVT Prophylaxis General: Alert, Cooperative, No Acute Distress Lungs: Clear to Auscultation, Normal Respiratory Effort Cardiovascular: Regular Rate, Regular Rhythm, No Murmurs GI/Abdominal Exam: Normal Bowel Sounds, Soft, Non-Tender, No Distention Extremities: Normal Inspection, No Pedal Edema Skin: Warm, Dry, Intact - Problem List Review Problem List Initiated/Reviewed/Updated: Yes - My Orders Last 24 Hours: My Active Orders 11/06/16 14:00 Insert Urinary Catheter [OM.PC] Q24H 11/07/16 09:00 Magnesium Oxide 400 mg PO BID Magnesium Sulfate/Water [Magnesium Sulfate 2 GM in Water 50 ML] 2 gm Premix Bag 1 bag IV Q6H 11/07/16 09:57 Consult to Physical Therapy [PT Evaluation and Treatment] [CONS] Routine 11/07/16 10:05 Warfarin [Coumadin] 2.5 mg PO ONETIME ONE 11/07/16 10:08 Vital Signs [RC] Q4H 11/07/16 10:15 Melatonin 9 mg PO BEDTIME 11/08/16 05:00 BASIC METABOLIC PANEL,BMP [CHEM] Timed CBC WITH AUTO DIFF [HEME] Timed MAGNESIUM [CHEM] Timed 11/08/16 05:11 INR,PT,PROTHROMBIN TIME [COAG] AM 11/09/16 05:11 INR,PT,PROTHROMBIN TIME [COAG] AM 11/10/16 05:11 INR,PT,PROTHROMBIN TIME [COAG] AM 11/11/16 05:11 INR,PT,PROTHROMBIN TIME [COAG] AM - Plan Plan:: Assessment and plan - Complicated urinary tract infection with severe sepsis - blood pressure has been adequate and he has been afebrile. Lactic acid level has normalized. -Saline lock IV -Continue Pip/Tazo pending culture results -Follow-up cultures Acute kidney injury - creatinine has improved following hydration and resolution of sepsis -Recheck labs in a.m. History of upper extremity DVT - chronically anticoagulated. INR is currently at the upper range of normal -Daily INR and warfarin 2.5 mg today Diabetes mellitus type 2 - On only metformin at home. With acute kidney injury metformin is contraindicated. -Low-dose sliding scale insulin -Hold metformin Coronary artery disease - No active coronary symptoms at this time. Medical management will be on hold with hypotension as discussed above. -Continue aspirin -Restart beta gregg today, continue to hold PERICO inhibitor Maintenance issues - - DVT prophylaxis - warfarin - GI prophylaxis - PPI - Nutrition - clear liquids - Freire catheter - not indicated Disposition - anticipate discharge to home versus subacute rehabilitation after the hospital stay Primary care physician - Dr Walter
[2016-11-07] MEDS ORDERED: Warfarin 2.5 MG Tab PO ONE (11:00)
[2016-11-07] MEDS: Carvedilol 12.5 MG Tab PO SCH ×2 (11:32→22:08)
[2016-11-07] MEDS: Tamsulosin 0.4 MG Cap.ER PO SCH (22:10)
[2016-11-07] MEDS: Melatonin 3 MG Tab PO SCH (22:11)
[2016-11-07] MEDS: Simvastatin 20 MG Tab PO SCH (22:12)
[2016-11-08] MEDS: Piperacillin/Tazobactam 2.25 GM in Sodium Chloride 0.9% 50 ML IV SCH ×3 (00:16→11:47)
[2016-11-08] MEDS: Amiodarone 200 MG Tab PO SCH (08:35)
[2016-11-08] MEDS: Aspirin 81 MG Tab.Chew PO SCH (08:35)
[2016-11-08] MEDS: Pantoprazole 40 MG Tab.CR PO SCH (08:35)
[2016-11-08] MEDS: Magnesium Oxide 400 MG Tab PO SCH ×2 (08:35→21:01)
[2016-11-08] MEDS: Furosemide 40 MG Tab PO SCH ×2 (08:35→14:25)
[2016-11-08] MEDS: Carvedilol 12.5 MG Tab PO SCH ×2 (08:36→21:01)
[2016-11-08] MEDS: Insulin Aspart 100 Units/ML 3 ML Pen SUBCUT SCH ×4 (08:36→20:59)
[2016-11-08] MEDS: Finasteride 5 MG Tab PO SCH (08:36)
--- NOTE | 2016-11-08 11:24 | CR ---
Lumbar Spine 2 or 3V HISTORY: Postop lumbar fusion. COMPARISON: CT scan 07/07/2016. FINDINGS: Postoperative lumbar fusion with bilateral pedicle screws L3-S1. Intravertebral body disc f usion prosthesis at L3-L4, L4-L5 and L5-S1. The previously seen anterior subluxation of L4 and L5 and L5 on S1 has significantly improved postoperatively. No acute fracture or new anterior subluxation.
--- NOTE | 2016-11-08 13:10 | PCM.PN ---
- General Info Date of Service: 11/08/16 Functional Status: Reports: Pain Controlled, Tolerating Diet, Ambulating - Review of Systems General: Reports: Weakness. Denies: Fever, Chills Pulmonary: Reports: No Symptoms Cardiovascular: Reports: No Symptoms Gastrointestinal: Reports: Hematochezia. Denies: Abdominal Pain, Diarrhea, Difficulty Swallowing Systems Review Comment:: Mr. Winchester is done well since yesterday, vital signs have been good and he has remained afebrile. Renal function continues to slowly improve, creatinine is down to 2.0 today. Urine output has been adequate and he denies significant shortness of breath. Oral intake has improved and he is walking short distances in the hallways with standby assistance. He has had some blood in his stool he states this is a long-standing intermittent problem which has been thought secondary to hemorrhoids. He last had a colonoscopy one year ago. - Patient Data Vitals - Most Recent: Last Vital Signs Temp 98.5 F 11/08/16 08:58 Pulse 78 11/08/16 08:58 Resp 18 11/08/16 08:58 BP 128/71 11/08/16 09:17 Pulse Ox 96 11/08/16 08:58 Weight - Most Recent: 256 lb 1.6 oz I&O - Last 24 Hours: Intake & Output 11/07/16 11/08/16 11/08/16 22:59 06:59 14:59 Intake Total 750 498 Output Total 2350 650 Balance -1600 -152 Lab Results Last 24 Hours: Laboratory Results - last 24 hr 11/08/16 11/08/16 11/08/16 Range/Units 06:04 06:04 06:04 WBC 8.7 (4.5-11.0) K/uL RBC 3.51 L (4.30-5.90) M/uL Hgb 9.3 L (12.0-15.0) g/dL Hct 30.3 L (40.0-54.0) % MCV 86 (80-98) fL MCH 27 (27-31) pg MCHC 31 L (32-36) % Plt Count 214 (150-400) K/uL Neut % (Auto) 86 H (36-66) % Lymph % (Auto) 6 L (24-44) % [place] % (Auto) 7 H (2-6) % Eos % (Auto) 1 L (2-4) % Baso % (Auto) 0 (0-1) % PT 42.8 H (9.5-12.0) sec INR 3.78 H (0.80-1.20) Sodium 142 (140-148) mmol/L Potassium 3.6 (3.6-5.2) mmol/L Chloride 108 (100-108) mmol/L Carbon Dioxide 24 (21-32) mmol/L Anion Gap 10.4 (5.0-14.0) mmol/L BUN 34 H (7-18) mg/dL Creatinine 2.0 H (0.8-1.3) mg/dL Est Cr Clr Drug Dosing 38.83 mL/min Estimated GFR (MDRD) 33 L (>60) Glucose 143 H (74-106) mg/dL Calcium 7.9 L (8.5-10.1) mg/dL Magnesium 2.4 (1.8-2.4) mg/dL Med Orders - Current: Current Medications Acetaminophen (Tylenol) 650 mg PO Q4H PRN PRN Reason: Pain (Mild 1-3)/fever Last Admin: 11/07/16 02:05 Dose: 650 mg Albuterol (Proventil Neb Soln) 2.5 mg NEB Q4H PRN PRN Reason: Shortness Of Breath/wheezing Amiodarone HCl (Cordarone) 200 mg PO DAILY [facility] Last Admin: 11/08/16 08:35 Dose: 200 mg Aspirin (Aspirin) 81 mg PO DAILY [facility] Last Admin: 11/08/16 08:35 Dose: 81 mg Carvedilol (Coreg) 12.5 mg PO BID [facility] Last Admin: 11/08/16 08:36 Dose: 12.5 mg Finasteride (Proscar) 5 mg PO DAILY [facility] Last Admin: 11/08/16 08:36 Dose: 5 mg Furosemide (Lasix) 40 mg PO BIDDIURETIC [facility] Last Admin: 11/08/16 08:35 Dose: 40 mg Piperacillin Sod/Tazobactam (Sod 2.25 gm/ Sodium Chloride) 50 mls @ 100 mls/hr IV Q6H [facility] Last Admin: 11/08/16 11:47 Dose: 100 mls/hr Insulin Aspart (Novolog) 0 unit SUBCUT QIDACANDBED [facility] PRN Reason: Protocol Last Admin: 11/08/16 11:55 Dose: 3 units Magnesium Oxide (Magnesium Oxide) 400 mg PO BID [facility] Last Admin: 11/08/16 08:35 Dose: 400 mg Melatonin (Melatonin) 9 mg PO BEDTIME [facility] Last Admin: 11/07/16 22:11 Dose: 9 mg Ondansetron HCl (Zofran) 4 mg IV Q6H PRN PRN Reason: Nausea/Vomiting Pantoprazole Sodium (Protonix) 40 mg PO ACBREAKFAST [facility] Last Admin: 11/08/16 08:35 Dose: 40 mg Polyethylene Glycol (Miralax) 17 gm PO DAILY PRN PRN Reason: Constipation Senna/Docusate Sodium (Senna Plus) 1 tab PO BID PRN PRN Reason: Constipation Simvastatin (Zocor) 10 mg PO BEDTIME [facility] Last Admin: 11/07/16 22:12 Dose: 10 mg Sodium Chloride (Saline Flush) 10 ml FLUSH ASDIRECTED PRN PRN Reason: Keep Vein Open Last Admin: 11/05/16 01:57 Dose: 10 ml Tamsulosin HCl (Flomax) 0.8 mg PO BEDTIME [facility] Last Admin: 11/07/16 22:10 Dose: 0.8 mg Tramadol HCl (Ultram) 50 mg PO Q4H PRN PRN Reason: Pain Discontinued Medications Acetaminophen (Tylenol) 650 mg PO NOW ONE Stop: 11/04/16 23:30 Last Admin: 11/04/16 23:47 Dose: 650 mg Furosemide (Lasix) 40 mg PO BIDDIURETIC [facility] Hydrocortisone Sodium Succinate (Solu-Cortef) 100 mg IVPUSH ONETIME ONE Stop: 11/05/16 01:36 Last Admin: 11/05/16 01:58 Dose: 100 mg Hydrocortisone Sodium Succinate (Solu-Cortef) 100 mg IVPUSH ONETIME ONE Stop: 11/05/16 10:46 Last Admin: 11/05/16 11:21 Dose: 100 mg Lactated Ringer's (Ringers, Lactated) 1,000 mls @ 999 mls/hr IV ASDIRECTED [facility] Last Admin: 11/04/16 23:14 Dose: 999 mls/hr Piperacillin Sod/Tazobactam (Sod 3.375 gm/ Sodium Chloride) 50 mls @ 100 mls/ hr IV Q6H [facility] Last Admin: 11/04/16 23:27 Dose: 100 mls/hr Sodium Chloride (Normal Saline) 1,000 mls @ 999 mls/hr IV ASDIRECTED [facility] Stop: 11/05/16 02:16 Last Admin: 11/05/16 00:15 Dose: 999 mls/hr Sodium Chloride (Normal Saline) 1,000 mls @ 999 mls/hr IV ASDIRECTED [facility] Last Admin: 11/05/16 01:49 Dose: 999 mls/hr Piperacillin Sod/Tazobactam (Sod 2.25 gm/ Sodium Chloride) 50 mls @ 100 mls/hr IV Q6H [facility] Last Admin: 11/05/16 04:40 Dose: 100 mls/hr Sodium Chloride (Normal Saline) 1,000 mls @ 125 mls/hr IV ASDIRECTED [facility] Last Admin: 11/07/16 01:58 Dose: 125 mls/hr Sodium Chloride (Normal Saline) Confirm Administered Dose 50 mls @ as directed .ROUTE .[facility] ONE Stop: 11/05/16 04:24 Last Admin: 11/05/16 04:40 Dose: Not Given Piperacillin Sod/Tazobactam (Sod 2.25 gm/ Sodium Chloride) 50 mls @ 100 mls/hr IV Q6H [facility] Piperacillin/Tazobactam/ (Dextrose 2.25 gm/ Premix) 50 mls @ 100 mls/hr IV Q6H [facility] Piperacillin/Tazobactam/ (Dextrose 2.25 gm/ Premix) 50 mls @ 100 mls/hr IV Q6H [facility] Last Admin: 11/06/16 11:37 Dose: 100 mls/hr Sodium Chloride (Normal Saline) 500 mls @ 500 mls/hr IV ASDIRECTED [facility] Last Admin: 11/05/16 10:28 Dose: 500 mls/hr Piperacillin Sod/Tazobactam (Sod 2.25 gm/ Sodium Chloride) 50 mls @ 100 mls/hr IV Q6H [facility] Magnesium Sulfate 2 gm/ Premix 50 mls @ 25 mls/hr IV Q6H [facility] Stop: 11/07/16 22:59 Last Admin: 11/07/16 22:11 Dose: 25 mls/hr Lidocaine HCl (Xylocaine 2% Jelly) Confirm Administered Dose 10 ml .ROUTE .[facility]- [facility] ONE Stop: 11/06/16 13:23 Last Admin: 11/06/16 15:46 Dose: Not Given Lidocaine HCl (Xylocaine 2% Jelly) 10 ml MUCMEM ONETIME ONE Stop: 11/06/16 13:53 Last Admin: 11/06/16 15:46 Dose: 10 ml Lorazepam (Ativan) 0.5 - 1 mg IVPUSH Q4H PRN PRN Reason: Nausea/Vomiting Last Admin: 11/07/16 02:06 Dose: 0.5 mg Ondansetron HCl (Zofran) 4 mg IVPUSH ONETIME ONE Stop: 11/04/16 23:02 Last Admin: 11/04/16 23:15 Dose: 4 mg Ondansetron HCl (Zofran Odt) 4 mg PO Q6H PRN PRN Reason: Nausea able to take PO Pantoprazole Sodium (Protonix Iv) 40 mg IV ONETIME ONE Stop: 11/05/16 01:36 Last Admin: 11/05/16 01:57 Dose: 40 mg Sodium Chloride (Saline Flush) 10 ml FLUSH ASDIRECTED PRN PRN Reason: Keep Vein Open Warfarin Sodium (Coumadin) 5 mg PO DAILY@1300 [facility] Last Admin: 11/06/16 13:41 Dose: 5 mg Warfarin Sodium (Coumadin) 2.5 mg PO ONETIME ONE Stop: 11/07/16 11:01 Last Admin: 11/07/16 11:32 Dose: 2.5 mg - Exam General: Alert, Oriented, Cooperative, No Acute Distress Lungs: Clear to Auscultation, Normal Respiratory Effort Cardiovascular: Regular Rate, Regular Rhythm, No Murmurs GI/Abdominal Exam: Normal Bowel Sounds, Soft, Non-Tender, No Distention Extremities: Normal Inspection, No Pedal Edema Skin: Warm, Dry, Intact - Problem List Review Problem List Initiated/Reviewed/Updated: Yes - My Orders Last 24 Hours: My Active Orders 11/07/16 21:00 Melatonin 9 mg PO BEDTIME Simvastatin [Zocor] 10 mg PO BEDTIME 11/08/16 16:30 GLUCOSE POC LAB TO COLLECT [POC] Stat 11/08/16 21:00 GLUCOSE POC LAB TO COLLECT [POC] Stat 11/09/16 05:00 BASIC METABOLIC PANEL,BMP [CHEM] Timed CBC WITH AUTO DIFF [HEME] Timed INR,PT,PROTHROMBIN TIME [COAG] Timed 11/09/16 05:11 INR,PT,PROTHROMBIN TIME [[facility]AG] AM 11/09/16 07:30 GLUCOSE POC LAB TO COLLECT [POC] QIDACANDBED 11/09/16 11:30 GLUCOSE POC LAB TO COLLECT [POC] QIDACANDBED 11/09/16 16:30 GLUCOSE POC LAB TO COLLECT [POC] QIDACANDBED 11/09/16 21:00 GLUCOSE POC LAB TO COLLECT [POC] QIDACANDBED 11/10/16 05:11 INR,PT,PROTHROMBIN TIME [COAG] AM 11/10/16 07:30 GLUCOSE POC LAB TO COLLECT [POC] QIDACANDBED 11/10/16 11:30 GLUCOSE POC LAB TO COLLECT [POC] QIDACANDBED 11/10/16 16:30 GLUCOSE POC LAB TO COLLECT [POC] QIDACANDBED 11/10/16 21:00 GLUCOSE POC LAB TO COLLECT [POC] QIDACANDBED 11/11/16 05:11 INR,PT,PROTHROMBIN TIME [COAG] AM 11/11/16 07:30 GLUCOSE POC LAB TO COLLECT [POC] QIDACANDBED 11/11/16 11:30 GLUCOSE POC LAB TO COLLECT [POC] QIDACANDBED 11/11/16 16:30 GLUCOSE POC LAB TO COLLECT [POC] QIDACANDBED 11/11/16 21:00 GLUCOSE POC LAB TO COLLECT [POC] QIDACANDBED 11/12/16 07:30 GLUCOSE POC LAB TO COLLECT [POC] QIDACANDBED 11/12/16 11:30 GLUCOSE POC LAB TO COLLECT [POC] QIDACANDBED 11/12/16 16:30 GLUCOSE POC LAB TO COLLECT [POC] QIDACANDBED 11/12/16 21:00 GLUCOSE POC LAB TO COLLECT [POC] QIDACANDBED 11/13/16 07:30 GLUCOSE POC LAB TO COLLECT [POC] QIDACANDBED 11/13/16 11:30 GLUCOSE POC LAB TO COLLECT [POC] QIDACANDBED 11/13/16 16:30 GLUCOSE POC LAB TO COLLECT [POC] QIDACANDBED 11/13/16 21:00 GLUCOSE POC LAB TO COLLECT [POC] QIDACANDBED 11/14/16 07:30 GLUCOSE POC LAB TO COLLECT [POC] QIDACANDBED 11/14/16 11:30 GLUCOSE POC LAB TO COLLECT [POC] QIDACANDBED 11/14/16 16:30 GLUCOSE POC LAB TO COLLECT [POC] QIDACANDBED 11/14/16 21:00 GLUCOSE POC LAB TO COLLECT [POC] QIDACANDBED 11/15/16 07:30 GLUCOSE POC LAB TO COLLECT [POC] QIDACANDBED 11/15/16 11:30 GLUCOSE POC LAB TO COLLECT [POC] QIDACANDBED 11/15/16 16:30 GLUCOSE POC LAB TO COLLECT [POC] QIDACANDBED 11/15/16 21:00 GLUCOSE POC LAB TO COLLECT [POC] QIDACANDBED 11/16/16 07:30 GLUCOSE POC LAB TO COLLECT [POC] QIDACANDBED 11/16/16 11:30 GLUCOSE POC LAB TO COLLECT [POC] QIDACANDBED 11/16/16 16:30 GLUCOSE POC LAB TO COLLECT [POC] QIDACANDBED 11/16/16 21:00 GLUCOSE POC LAB TO COLLECT [POC] QIDACANDBED 11/17/16 07:30 GLUCOSE POC LAB TO COLLECT [POC] QIDACANDBED - Plan Plan:: Assessment and plan - Complicated urinary tract infection with severe sepsis - blood pressure has been adequate and he has been afebrile. Lactic acid level has normalized. -Saline lock IV -Continue Pip/Tazo pending culture results -Follow-up cultures Acute kidney injury - creatinine has improved following hydration and resolution of sepsis -Recheck labs in a.m. History of upper extremity DVT - INR today is supratherapeutic -Hold warfarin today -Daily INR Diabetes mellitus type 2 - On only metformin at home. With acute kidney injury metformin is contraindicated. -Low-dose sliding scale insulin -Hold metformin, plan to resume with further improvement in renal function Coronary artery disease - No active coronary symptoms at this time. Medical management will be on hold with hypotension as discussed above. -Continue aspirin -Restart beta gregg today, continue to hold PERICO inhibitor Maintenance issues - - DVT prophylaxis - warfarin - GI prophylaxis - PPI - Nutrition - clear liquids - Freire catheter - not indicated Disposition - anticipate discharge to home versus subacute rehabilitation after the hospital stay Primary care physician - Dr Walter
[2016-11-08] MEDS: Piperacillin/Tazobactam/Dext 2.25 GM in Premix Bag 1 BAG IV SCH ×2 (17:12→21:06)
[2016-11-08] MEDS: Simvastatin 20 MG Tab PO SCH (21:01)
[2016-11-08] MEDS: Melatonin 3 MG Tab PO SCH (21:01)
[2016-11-08] MEDS: Tamsulosin 0.4 MG Cap.ER PO SCH (21:02)
[2016-11-09] MEDS: Piperacillin/Tazobactam/Dext 2.25 GM in Premix Bag 1 BAG IV SCH (03:33)
--- NOTE | 2016-11-09 06:20 | PCM.SN ---
- Free Text/Narrative Note: time 0545am call from [address] [place] [address]. o; lab; INR 4.13 a; elevated INR p; continue to hold Coumadin. recheck INR tomorrow am.
[2016-11-09] MEDS: Insulin Aspart 100 Units/ML 3 ML Pen SUBCUT SCH ×2 (07:36→11:51)
[2016-11-09] MEDS: Pantoprazole 40 MG Tab.CR PO SCH (07:37)
[2016-11-09] MEDS: Furosemide 40 MG Tab PO SCH (07:38)
[2016-11-09] MEDS: Aspirin 81 MG Tab.Chew PO SCH (08:29)
[2016-11-09] MEDS: Finasteride 5 MG Tab PO SCH (08:30)
[2016-11-09] MEDS: Magnesium Oxide 400 MG Tab PO SCH (08:30)
[2016-11-09] MEDS: Amiodarone 200 MG Tab PO SCH (08:31)
[2016-11-09] MEDS: Carvedilol 12.5 MG Tab PO SCH (08:31)
[2016-11-09 08:35] VITALS: BP 116/61
[2016-11-09] MEDS ORDERED: Cefdinir 300 MG Cap PO SCH (09:00)
[2016-11-09] MEDS: Acetaminophen 325 MG Tab PO PRN (09:55)
--- NOTE | 2016-11-09 10:34 | PCM.DCSUM1 ---
Discharge Summary - Hospital Course Brief History: Mr. Winchester is a 71-year-old gentleman who presented to the emergency department with fever and profound weakness. On evaluation was felt to have urinary tract infection with significant sepsis. - Discharge Data Discharge Date: 11/09/16 Discharge Disposition: Home, Self-Care 01 Condition: Stable - Discharge Diagnosis/Problem(s) (1) CKD (chronic kidney disease) stage 3, GFR 30-59 ml/min SNOMED Code(s): 971253293 ICD Code: N18.3 - CHRONIC KIDNEY DISEASE, STAGE 3 (MODERATE) Status: Acute Current Visit: Yes (2) Urinary retention due to benign prostatic hyperplasia SNOMED Code(s): 935450870 ICD Code: N40.1 - BENIGN PROSTATIC HYPERPLASIA WITH LOWER URINARY TRACT SYMP ; R33.8 - OTHER RETENTION OF URINE Status: Acute Current Visit: Yes (3) Complicated urinary tract infection SNOMED Code(s): 80768379 ICD Code: N39.0 - URINARY TRACT INFECTION, SITE NOT SPECIFIED Status: Acute Current Visit: Yes (4) Acute kidney injury SNOMED Code(s): 84237142 ICD Code: N17.9 - ACUTE KIDNEY FAILURE, UNSPECIFIED Status: Acute Current Visit: Yes (5) Sepsis due to urinary tract infection SNOMED Code(s): 390922309 ICD Code: A41.9 - SEPSIS, UNSPECIFIED ORGANISM; N39.0 - URINARY TRACT INFECTION, SITE NOT SPECIFIED Status: Acute Current Visit: Yes (6) Diabetes mellitus type 2 in obese SNOMED Code(s): 63708161 ICD Code: E11.69 - TYPE 2 DIABETES MELLITUS WITH OTHER SPECIFIED COMPLICATION ; E66.9 - OBESITY, UNSPECIFIED Status: Chronic Current Visit: No (7) History of DVT (deep vein thrombosis) SNOMED Code(s): 337968305 ICD Code: Z86.718 - PERSONAL HISTORY OF OTHER VENOUS THROMBOSIS AND EMBOLISM Status: Chronic Current Visit: No - Patient Summary/Data Consults: Consultations 11/07/16 09:57 Consult to Physical Therapy [PT Evaluation and Treatment] [CONS] Routine Please Evaluate and Treat. PT Reason for Consult: Strengthening This query below is only for informational purposes and is not editable. Admission Diagnosis/Problem: Complicated urinary tract infection Hospital Course: Mr. Winchester is a 71-year-old gentleman who developed symptoms of possible urinary tract infection and was seen and evaluated at the clinic. He was started on oral antibiotic therapy, but unfortunately developed progressive symptoms with fever and severe weakness. He does have a known history of BPH with urinary retention. On admission had obvious urinary tract infection, elevated white count, and hypotension with tachycardia consistent with sepsis. He was also found to have significant elevation in his lactic acid level at 8. Blood and urine cultures were obtained at the time of admission. He was given aggressive IV fluid replacement as well as IV steroids with hydrocortisone. Over the next 24 hours he became more stable. He was started on broad-spectrum IV antibiotic therapy with Zosyn because of recent antibiotics use for UTI. He was also found to have cute kidney injury on his chronic kidney disease stage III. Creatinine peaked at 4.2 but with IV hydration had improved to baseline by the time of discharge. He did develop some fluid overload and was given aggressive diuretic therapy and diuresed nicely but still did have some peripheral edema by the time of discharge. He will be discharged to jail on increased dose of furosemide 40 mg twice daily. Blood glucose levels were monitored throughout his hospital stay, metformin was held because of his acute kidney injury. He was treated with subcutaneous short acting insulins via sliding scale. He has a history of deep vein thrombosis involving upper extremity and he is on long- term oral anticoagulation with warfarin. INR was therapeutic but then did become supratherapeutic during the 2 days prior to discharge. At the time of discharge warfarin and been held for 2 days and his INR was 4.2. Follow-up INR will be obtained tomorrow on November 10. Follow-up lab with the MP and CBC as well as magnesium level will be obtained in one week. Blood and urine cultures grew out Morganella, resistant to self and first generation cephalosporins as well as penicillins. He will be discharged to the jail on an additional week of oral antibiotic therapy with Omnicef 300 mg twice daily. Was very weak following his recent infection as well as recent lumbar spinal surgery and will be discharged to jail for restorative physical therapy and occupational therapy. Activity will be as tolerated and he will be on a low-sodium diabetic diet. Follow-up with primary care will be as needed at the jail. Appointment with urology will be scheduled in [place] so hopefully he can see them when he is at the jail in [place]. Sleep study will also be ordered for evaluation of probable sleep apnea and he will remain on oxygen at night 2 L/m via nasal cannula. - Patient Instructions Diet: Low Sodium, Diabetic Diet Activity: As Tolerated Other/Special Instructions: Daily physical therapy and occupational therapy while at the jail. Obtain lab tomorrow November 10. Obtain follow- up lab in 1 week, BMP, magnesium, and CBC. Schedule outpatient appointment in [place] with urology for further evaluation and management of urinary retention secondary to BPH. Schedule outpatient sleep study in [place] to evaluate for probable sleep apnea. Oxygen at night 2 L/m via nasal cannula. - Discharge Plan Prescriptions/Med Rec: Cefdinir [IJD: Cefdinir] 300 mg PO BID #14 capsule Furosemide [Lasix] 40 mg PO BIDDIURETIC #60 tablet Magnesium Oxide 400 mg PO BID #60 tablet Home Medications: Home Meds Allopurinol [Zyloprim] 300 mg PO DAILY 03/05/14 [History] Amiodarone HCl 200 mg PO DAILY 03/05/14 [History] Carvedilol 12.5 mg PO BID 03/05/14 [History] Lisinopril 5 mg PO DAILY 03/05/14 [History] Simvastatin [Zocor] 10 mg PO BEDTIME 03/05/14 [History] Triamcinolone Acetonide [Triamcinolone Acetonide 0.1% Crm] 1 dose TOP TID [History] Warfarin Sodium 5 mg PO DAILY 03/05/14 [History] metFORMIN [Glucophage] 1,000 mg PO BID 03/05/14 [History] Acetaminophen [Tylenol Extra Strength] 1,000 mg PO Q4HR PRN 10/03/16 [History] Aspirin 1 tab PO DAILY 11/04/16 [History] Ferrous Sulfate [Feosol] 1 tab PO DAILY 11/04/16 [History] Finasteride 1 tab PO DAILY 11/04/16 [History] Pregabalin [Lyrica] 1 tab PO DAILY 11/04/16 [History] Tamsulosin HCl 2 tab PO BEDTIME 11/04/16 [History] traMADol HCl [Tramadol HCl] 25 mg PO QID 11/04/16 [History] Cefdinir [IJD: Cefdinir] 300 mg PO BID #14 capsule 11/09/16 [Rx] Cyanocobalamin (Vitamin B-12) [Cyanocobalamin Injection] 1,000 mcg IM WEEKLY 09/18 [History] Furosemide [Lasix] 40 mg PO BIDDIURETIC #60 tablet 11/09/16 [Rx] Magnesium Oxide 400 mg PO BID #60 tablet 11/09/16 [Rx] Referrals: Jimenez Walter MD [Primary Care Provider] - - Patient Data Vitals - Most Recent: Last Vital Signs Temp 98.2 F 11/09/16 07:26 Pulse 79 11/09/16 08:31 Resp 16 11/09/16 07:26 BP 116/61 11/09/16 08:31 Pulse Ox 96 11/09/16 07:26 Weight - Most Recent: 256 lb 1.6 oz I&O - Last 24 hours: Intake & Output 11/08/16 11/09/16 11/09/16 22:59 06:59 14:59 Intake Total 150 450 163 Output Total 900 950 Balance -750 -500 163 Lab Results - Last 24 hrs: Laboratory Results - last 24 hr 11/09/16 11/09/16 11/09/16 Range/Units 05:00 05:00 05:00 WBC 8.4 (4.5-11.0) K/uL RBC 3.35 L (4.30-5.90) M/uL Hgb 9.4 L (12.0-15.0) g/dL Hct 29.0 L (40.0-54.0) % MCV 87 (80-98) fL MCH 28 (27-31) pg MCHC 32 (32-36) % Plt Count 230 (150-400) K/uL Neut % (Auto) 83 H (36-66) % Lymph % (Auto) 8 L (24-44) % [place] % (Auto) 8 H (2-6) % Eos % (Auto) 1 L (2-4) % Baso % (Auto) 0 (0-1) % PT 46.9 H (9.5-12.0) sec INR 4.13 H* (0.80-1.20) Sodium 140 (140-148) mmol/L Potassium 3.6 (3.6-5.2) mmol/L Chloride 105 (100-108) mmol/L Carbon Dioxide 24 (21-32) mmol/L Anion Gap 10.6 (5.0-14.0) mmol/L BUN 27 H (7-18) mg/dL Creatinine 1.7 H (0.8-1.3) mg/dL Est Cr Clr Drug Dosing 45.69 mL/min Estimated GFR (MDRD) 40 L (>60) Glucose 152 H (74-106) mg/dL Calcium 7.9 L (8.5-10.1) mg/dL Med Orders - Current: Current Medications Acetaminophen (Tylenol) 650 mg PO Q4H PRN PRN Reason: Pain (Mild 1-3)/fever Last Admin: 11/09/16 09:55 Dose: 650 mg Albuterol (Proventil Neb Soln) 2.5 mg NEB Q4H PRN PRN Reason: Shortness Of Breath/wheezing Amiodarone HCl (Cordarone) 200 mg PO DAILY [facility] Last Admin: 11/09/16 08:31 Dose: 200 mg Aspirin (Aspirin) 81 mg PO DAILY [facility] Last Admin: 11/09/16 08:29 Dose: 81 mg Carvedilol (Coreg) 12.5 mg PO BID [facility] Last Admin: 11/09/16 08:31 Dose: 12.5 mg Cefdinir (Omnicef) 300 mg PO BID [facility] Last Admin: 11/09/16 09:53 Dose: 300 mg Cyanocobalamin (Vitamin B12) 1,000 mcg IM ONETIME ONE Stop: 11/09/16 10:24 Finasteride (Proscar) 5 mg PO DAILY [facility] Last Admin: 11/09/16 08:30 Dose: 5 mg Furosemide (Lasix) 40 mg PO BIDDIURETIC [facility] Last Admin: 11/09/16 07:38 Dose: 40 mg Insulin Aspart (Novolog) 0 unit SUBCUT QIDACANDBED [facility] PRN Reason: Protocol Last Admin: 11/09/16 07:36 Dose: Not Given Magnesium Oxide (Magnesium Oxide) 400 mg PO BID [facility] Last Admin: 11/09/16 08:30 Dose: 400 mg Melatonin (Melatonin) 9 mg PO BEDTIME [facility] Last Admin: 11/08/16 21:01 Dose: 9 mg Ondansetron HCl (Zofran) 4 mg IV Q6H PRN PRN Reason: Nausea/Vomiting Pantoprazole Sodium (Protonix) 40 mg PO ACBREAKFAST [facility] Last Admin: 11/09/16 07:37 Dose: 40 mg Polyethylene Glycol (Miralax) 17 gm PO DAILY PRN PRN Reason: Constipation Senna/Docusate Sodium (Senna Plus) 1 tab PO BID PRN PRN Reason: Constipation Simvastatin (Zocor) 10 mg PO BEDTIME [facility] Last Admin: 11/08/16 21:01 Dose: 10 mg Sodium Chloride (Saline Flush) 10 ml FLUSH ASDIRECTED PRN PRN Reason: Keep Vein Open Last Admin: 11/05/16 01:57 Dose: 10 ml Tamsulosin HCl (Flomax) 0.8 mg PO BEDTIME [facility] Last Admin: 11/08/16 21:02 Dose: 0.8 mg Tramadol HCl (Ultram) 50 mg PO Q4H PRN PRN Reason: Pain Discontinued Medications Acetaminophen (Tylenol) 650 mg PO NOW ONE Stop: 11/04/16 23:30 Last Admin: 11/04/16 23:47 Dose: 650 mg Furosemide (Lasix) 40 mg PO BIDDIURETIC [place] Hydrocortisone Sodium Succinate (Solu-Cortef) 100 mg IVPUSH ONETIME ONE Stop: 11/05/16 01:36 Last Admin: 11/05/16 01:58 Dose: 100 mg Hydrocortisone Sodium Succinate (Solu-Cortef) 100 mg IVPUSH ONETIME ONE Stop: 11/05/16 10:46 Last Admin: 11/05/16 11:21 Dose: 100 mg Lactated Ringer's (Ringers, Lactated) 1,000 mls @ 999 mls/hr IV ASDIRECTED [facility] Last Admin: 11/04/16 23:14 Dose: 999 mls/hr Piperacillin Sod/Tazobactam (Sod 3.375 gm/ Sodium Chloride) 50 mls @ 100 mls/ hr IV Q6H [facility] Last Admin: 11/04/16 23:27 Dose: 100 mls/hr Sodium Chloride (Normal Saline) 1,000 mls @ 999 mls/hr IV ASDIRECTED [facility] Stop: 11/05/16 02:16 Last Admin: 11/05/16 00:15 Dose: 999 mls/hr Sodium Chloride (Normal Saline) 1,000 mls @ 999 mls/hr IV ASDIRECTED [facility] Last Admin: 11/05/16 01:49 Dose: 999 mls/hr Piperacillin Sod/Tazobactam (Sod 2.25 gm/ Sodium Chloride) 50 mls @ 100 mls/hr IV Q6H [facility] Last Admin: 11/05/16 04:40 Dose: 100 mls/hr Sodium Chloride (Normal Saline) 1,000 mls @ 125 mls/hr IV ASDIRECTED [facility] Last Admin: 11/07/16 01:58 Dose: 125 mls/hr Sodium Chloride (Normal Saline) Confirm Administered Dose 50 mls @ as directed .ROUTE .STK-MED ONE Stop: 11/05/16 04:24 Last Admin: 11/05/16 04:40 Dose: Not Given Piperacillin/Tazobactam/ (Dextrose 2.25 gm/ Premix) 50 mls @ 100 mls/hr IV Q6H [facility] Last Admin: 11/06/16 11:37 Dose: 100 mls/hr Sodium Chloride (Normal Saline) 500 mls @ 500 mls/hr IV ASDIRECTED [facility] Last Admin: 11/05/16 10:28 Dose: 500 mls/hr Piperacillin Sod/Tazobactam (Sod 2.25 gm/ Sodium Chloride) 50 mls @ 100 mls/hr IV Q6H [facility] Last Admin: 11/08/16 11:47 Dose: 100 mls/hr Magnesium Sulfate 2 gm/ Premix 50 mls @ 25 mls/hr IV Q6H [facility] Stop: 11/07/16 22:59 Last Admin: 11/07/16 22:11 Dose: 25 mls/hr Piperacillin/Tazobactam/ (Dextrose 2.25 gm/ Premix) 50 mls @ 100 mls/hr IV Q6H [facility] Last Admin: 11/09/16 03:33 Dose: 100 mls/hr Lidocaine HCl (Xylocaine 2% Jelly) Confirm Administered Dose 10 ml .ROUTE .STK- MED ONE Stop: 11/06/16 13:23 Last Admin: 11/06/16 15:46 Dose: Not Given Lidocaine HCl (Xylocaine 2% Jelly) 10 ml MUCMEM ONETIME ONE Stop: 11/06/16 13:53 Last Admin: 11/06/16 15:46 Dose: 10 ml Lorazepam (Ativan) 0.5 - 1 mg IVPUSH Q4H PRN PRN Reason: Nausea/Vomiting Last Admin: 11/07/16 02:06 Dose: 0.5 mg Ondansetron HCl (Zofran) 4 mg IVPUSH ONETIME ONE Stop: 11/04/16 23:02 Last Admin: 11/04/16 23:15 Dose: 4 mg Ondansetron HCl (Zofran Odt) 4 mg PO Q6H PRN PRN Reason: Nausea able to take PO Pantoprazole Sodium (Protonix Iv) 40 mg IV ONETIME ONE Stop: 11/05/16 01:36 Last Admin: 11/05/16 01:57 Dose: 40 mg Sodium Chloride (Saline Flush) 10 ml FLUSH ASDIRECTED PRN PRN Reason: Keep Vein Open Warfarin Sodium (Coumadin) 5 mg PO DAILY@1300 CLIFF Last Admin: 11/06/16 13:41 Dose: 5 mg Warfarin Sodium (Coumadin) 2.5 mg PO ONETIME ONE Stop: 11/07/16 11:01 Last Admin: 11/07/16 11:32 Dose: 2.5 mg *Q Meaningful Use (DIS) - VTE *Q VTE Criteria *Q: - Stroke *Q Stroke Criteria *Q: - AMI *Q AMI Criteria *Q:
[2016-11-09] MEDS ORDERED: Cyanocobalamin (Vitamin B12) 1,000 MCG/ML SDV IM ONE (11:00)
== END 2016-11-09 12:45 | DRG 872 ==
LOC: JP.ED 22:32 → JP.ICU 11-05 00:36 → JP.MS 11-07 11:48
PROVIDERS: ADMIT Internal Medicine; ATTEND Hospitalist
DX: A41.9 Sepsis, unspecified organism (principal); N39.0 Urinary tract infection, site not specified; I13.0 Hypertensive heart and chronic kidney disease with heart failure and stage 1 through stage 4 chronic kidney disease, or unspecified chronic kidney disease; N17.9 Acute kidney failure, unspecified; E87.2 Acidosis; R65.20 Severe sepsis without septic shock; B96.89 Other specified bacterial agents as the cause of diseases classified elsewhere; I50.9 Heart failure, unspecified; E11.22 Type 2 diabetes mellitus with diabetic chronic kidney disease; Z86.718 Personal history of other venous thrombosis and embolism; I25.10 Atherosclerotic heart disease of native coronary artery without angina pectoris; Z79.84 Long term (current) use of oral hypoglycemic drugs; N18.3 Chronic kidney disease, stage 3 (moderate); Z16.19 Resistance to other specified beta lactam antibiotics; Z16.11 Resistance to penicillins; E66.9 Obesity, unspecified; R50.9 Fever, unspecified; R53.1 Weakness; R30.0 Dysuria; Z68.36 Body mass index [BMI] 36.0-36.9, adult; N40.1 Benign prostatic hyperplasia with lower urinary tract symptoms; R79.1 Abnormal coagulation profile; E87.70 Fluid overload, unspecified; Z98.1 Arthrodesis status; M54.9 Dorsalgia, unspecified; G89.29 Other chronic pain; Z95.0 Presence of cardiac pacemaker; E78.00 Pure hypercholesterolemia, unspecified; Z95.1 Presence of aortocoronary bypass graft; Z85.46 Personal history of malignant neoplasm of prostate; H91.90 Unspecified hearing loss, unspecified ear; H54.7 Unspecified visual loss; M19.90 Unspecified osteoarthritis, unspecified site; Z91.041 Radiographic dye allergy status; Z79.82 Long term (current) use of aspirin; Z79.01 Long term (current) use of anticoagulants; Z91.048 Other nonmedicinal substance allergy status; R33.8 Other retention of urine
CPT/HCPCS: 36415; 71010 ×2; 80053; 83605; 84484; 85025; 85610; 86140; 87040 ×2; 96361; 96365; 96375; 96376; 99284; A9270; J2405; J2543; J7040; J7050; J7120; 72100; 72100-26; 80048; 81001; 82962; 83735; 84132; 85018; 85027; 87077; 87086; 87088; 87186; 97110-GP; 97162-GP; 97530-GP; 97535-GP; 99285; C9113; J1720; J2060; J3420; J3475

== ENCOUNTER 2016-11-29 16:11 | Emergency (ER) | payer MEDICARE, BC ==
[2016-11-29 16:26] VITALS: BP 102/60
--- NOTE | 2016-11-29 17:58 | EDM.PDOC ---
ED HPI GENERAL MEDICAL PROBLEM - General Chief Complaint: Genitourinary Problem Stated Complaint: PAIN/BLADDER Time Seen by Provider: 11/29/16 16:45 Source of Information: Reports: Patient, Family History Limitations: Reports: No Limitations - History of Present Illness INITIAL COMMENTS - FREE TEXT/NARRATIVE: 71-year-old male who has had an indwelling Freire catheter for nearly a month, his noticed that he has some purulent material coming out of the urethra and meatus area of the penis. The catheter itself is working normally and the urine looks clear. The patient himself has no new symptoms, but he has a history of sepsis from a urological source so she is very concerned. Onset: Gradual (Over the past 24-48 hours she's noticed the exudate) Location: Reports: Other (Around the meatus and urethral opening) Associated Symptoms: Denies: Fever/Chills, Nausea/Vomiting - Related Data Allergies Allergy/AdvReac Type Severity Reaction Status Date / Time Iodinated Contrast- Oral and Allergy Hives Verified 07/07/16 09:44 IV Dye [Iodinated Contrast Media - IV Dye] iodine AdvReac Nausea Verified 10/02/16 10:31 tape Allergy Rash Uncoded 08/04/15 06:56 Home Meds: Home Meds Allopurinol [Zyloprim] 300 mg PO DAILY 03/05/14 [History] Amiodarone HCl 200 mg PO DAILY 03/05/14 [History] Carvedilol 12.5 mg PO BID 03/05/14 [History] Lisinopril 5 mg PO DAILY 03/05/14 [History] Simvastatin [Zocor] 10 mg PO BEDTIME 03/05/14 [History] Triamcinolone Acetonide [Triamcinolone Acetonide 0.1% Crm] 1 dose TOP TID [History] Warfarin Sodium 5 mg PO DAILY 03/05/14 [History] metFORMIN [Glucophage] 1,000 mg PO BID 03/05/14 [History] Acetaminophen [Tylenol Extra Strength] 1,000 mg PO Q4HR PRN 10/03/16 [History] Aspirin 1 tab PO DAILY 11/04/16 [History] Ferrous Sulfate [Feosol] 1 tab PO DAILY 11/04/16 [History] Finasteride 1 tab PO DAILY 11/04/16 [History] Pregabalin [Lyrica] 1 tab PO DAILY 11/04/16 [History] Tamsulosin HCl 2 tab PO BEDTIME 11/04/16 [History] Cyanocobalamin (Vitamin B-12) [Cyanocobalamin Injection] 1,000 mcg IM WEEKLY 09/18 [History] Furosemide [Lasix] 40 mg PO BIDDIURETIC #60 tablet 11/09/16 [Rx] Magnesium Oxide 400 mg PO BID #60 tablet 11/09/16 [Rx] Past Medical History HEENT History: Reports: Cataract, Hard of Hearing, Impaired Vision Cardiovascular History: Reports: Automatic Implantable Cardioverter Defibrillators, Blood Clots/VTE/DVT, Bypass, CAD, Heart Failure, High Cholesterol, Hypertension, Pacemaker, SOB on Exertion Gastrointestinal History: Reports: Other (See Below) Other Gastrointestinal History: 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 Genitourinary History: Reports: BPH Musculoskeletal History: Reports: Back Pain, Chronic, Gout, Osteoarthritis Other Musculoskeletal History: L hip pain Neurological History: Reports: Concussion Endocrine/Metabolic History: Reports: Diabetes, Type II, Obesity/BMI 30+ Hematologic History: Reports: Anticoagulation Therapy Oncologic (Cancer) History: Reports: Prostate - Infectious Disease History Infectious Disease History: Reports: Mumps - Past Surgical History HEENT Surgical History: Reports: Cataract Surgery Male Surgical History: Reports: Prostate Biopsy Neurological Surgical History: Reports: None Musculoskeletal Surgical History: Reports: Other (See Below) Other Musculoskeletal Surgeries/Procedures:: back surgery Oncologic Surgical History: Reports: None Dermatological Surgical History: Reports: None Social & Family History - Family History Family Medical History: Noncontributory - Tobacco Use Smoking Status *Q: Never Smoker Second Hand Smoke Exposure: No - Caffeine Use Caffeine Use: Reports: Coffee - Alcohol Use Days Per Week of Alcohol Use: 0 - Recreational Drug Use Recreational Drug Use: No ED ROS GENERAL - Review of Systems Review Of Systems: See Below Constitutional: Denies: Fever, Chills Respiratory: Denies: Shortness of Breath GI/Abdominal: Denies: Abdominal Pain, Nausea, Vomiting : Reports: Other (Patient is not circumcised.) Psychiatric: Reports: No Symptoms ED EXAM, RENAL/ - Physical Exam Exam: See Below Exam Limited By: No Limitations General Appearance: Alert, No Apparent Distress Respiratory/Chest: No Respiratory Distress, Lungs Clear Cardiovascular: Regular Rate, Rhythm (Male) Exam: Other (There is very purulent material coming from the head of the penis, possibly from under the foreskin and possibly urethral. There is no tenderness to palpation, no hernia and no testicular tenderness) Course - Vital Signs Last Recorded V/S: Last Vital Signs Temp 98.4 F 11/29/16 16:33 Pulse 84 11/29/16 16:33 Resp 16 11/29/16 16:33 BP 102/60 11/29/16 16:33 Pulse Ox 94 L 11/29/16 16:33 - Orders/Labs/Meds Orders: Active Orders 24 hr Category Date Time Status CULTURE BODY FLUID + SMEAR [RM] Routine Lab 11/29/16 18:12 Results CULTURE URINE [RM] Stat Lab 11/29/16 18:15 Results Labs: Laboratory Tests 11/29/16 Range/Units 17:48 Urine Color Yellow Urine Appearance Cloudy Urine pH 8.0 (4.5-8.0) Ur Specific [place] 1.015 (1.008-1.030) Urine Protein Negative (NEGATIVE) mg/dL Urine Glucose (UA) Normal (NEGATIVE) mg/dL Urine Ketones Negative (NEGATIVE) mg/dL Urine Occult Blood Moderate (NEGATIVE) Urine Nitrite Positive H (NEGAITVE) Urine Bilirubin Negative (NEGATIVE) Urine Urobilinogen Normal (NORMAL) mg/dL Ur Leukocyte Esterase Large (NEGATIVE) Urine RBC 5-10 H (0-5) Urine WBC Packed H (0-5) Ur Epithelial Cells Few Amorphous Sediment Moderate Urine Bacteria Many Urine Mucus Few Urine Other See note - Re-Assessments/Exams Free Text/Narrative Re-Assessment/Exam: 11/29/16 17:58 The Freire was clamped for an extended period of time but no significant urine was obtained. A UA was then obtained from the catheter bag and sent to lab. A culture was also obtained of the purulent material and sent to lab. 11/29/16 18:39 UA showed nitrite positive urine with WBCs and bacteria. A culture was initiated. I discussed his case with urology in [place] and they were comfortable with him treated with antibiotics and leaving the catheter in place unless he worsens. He can follow-up with urology as scheduled as long as he is not worsening. Departure - Departure Time of Disposition: 19:01 Disposition: Home, Self-Care 01 Condition: Good Clinical Impression: UTI, Urinary tract infectious disease - Discharge Information Instructions: Urinary Tract Infection, Adult, [id number] Referrals: Jimenez Walter MD [Primary Care Provider] - Forms: ED Department Discharge Care Plan Goals: Take antibiotic twice daily until gone. Keep the catheter area clean and return if worsening despite treatment. - My Orders Last 24 Hours: My Active Orders 11/29/16 18:12 CULTURE BODY FLUID + SMEAR [RM] Routine 11/29/16 18:15 CULTURE URINE [RM] Stat - Assessment/Plan Last 24 Hours: My Active Orders 11/29/16 18:12 CULTURE BODY FLUID + SMEAR [RM] Routine 11/29/16 18:15 CULTURE URINE [RM] Stat
== END 2016-11-29 19:01 | disposition home or self-care (01) ==
LOC: JP.ED 16:11
DX: N39.0 Urinary tract infection, site not specified (principal); E78.00 Pure hypercholesterolemia, unspecified; I10 Essential (primary) hypertension; E11.9 Type 2 diabetes mellitus without complications; E66.9 Obesity, unspecified; Z91.041 Radiographic dye allergy status; Z88.8 Allergy status to other drugs, medicaments and biological substances; Z91.048 Other nonmedicinal substance allergy status; Z79.899 Other long term (current) drug therapy; Z79.82 Long term (current) use of aspirin
CPT/HCPCS: 81001; 87070; 87077; 87086; 87088; 87186; 87205; 99284

== ENCOUNTER 2016-12-04 10:04 | Emergency (ER) | payer MEDICARE, BC ==
[2016-12-04 10:41] VITALS: BP 102/47
--- NOTE | 2016-12-04 11:29 | EDM.PDOC ---
ED HPI GENERAL MEDICAL PROBLEM - General Chief Complaint: General Stated Complaint: ?TVI Time Seen by Provider: 12/04/16 11:05 Source of Information: Reports: Patient, Family, Old Records, RN Notes Reviewed History Limitations: Reports: No Limitations - History of Present Illness INITIAL COMMENTS - FREE TEXT/NARRATIVE: 71-year-old gentleman presents emergency department day complaint of left leg weakness he recently underwent lumbar surgery about one month ago at which time he states he did have some left leg pain at that time but it was tolerable, he states his back pain has improved however he's developed weakness in his left leg to the point where it will fail this happens after about 25 or 30 feet of walking. After surgery he has been using a walker for stabilization. He was recently diagnosed on November 29 with a catheter associated urinary tract infection, the indwelling catheter is new it was placed postoperatively for urinary retention. Denies any nausea, vomiting, fevers, shortness of breath, chest pain, or GI symptomatology. Left Lower Leg Pain Score (Numeric/FACES): 8 - Related Data Allergies Allergy/AdvReac Type Severity Reaction Status Date / Time Iodinated Contrast- Oral and Allergy Hives Verified 12/04/16 10:26 IV Dye [Iodinated Contrast Media - IV Dye] shrimp Allergy Nausea and Verified 12/04/16 10:26 Vomiting iodine AdvReac Nausea Verified 12/04/16 10:26 tape Allergy Rash Uncoded 08/04/15 06:56 Home Meds: Home Meds Allopurinol [Zyloprim] 300 mg PO DAILY 03/05/14 [History] Amiodarone HCl 200 mg PO DAILY 03/05/14 [History] Carvedilol 12.5 mg PO BID 03/05/14 [History] Lisinopril 5 mg PO DAILY 03/05/14 [History] Simvastatin [Zocor] 10 mg PO BEDTIME 03/05/14 [History] Triamcinolone Acetonide [Triamcinolone Acetonide 0.1% Crm] 1 dose TOP TID [History] Warfarin Sodium 5 mg PO DAILY 03/05/14 [History] metFORMIN [Glucophage] 1,000 mg PO BID 03/05/14 [History] Acetaminophen [Tylenol Extra Strength] 1,000 mg PO Q4HR PRN 10/03/16 [History] Aspirin 1 tab PO DAILY 11/04/16 [History] Ferrous Sulfate [Feosol] 1 tab PO DAILY 11/04/16 [History] Finasteride 1 tab PO DAILY 11/04/16 [History] Pregabalin [Lyrica] 1 tab PO DAILY 11/04/16 [History] Tamsulosin HCl 2 tab PO BEDTIME 11/04/16 [History] Cyanocobalamin (Vitamin B-12) [Cyanocobalamin Injection] 1,000 mcg IM WEEKLY 09/18 [History] Furosemide [Lasix] 40 mg PO BIDDIURETIC #60 tablet 11/09/16 [Rx] Magnesium Oxide 400 mg PO BID #60 tablet 11/09/16 [Rx] Ciprofloxacin HCl [Cipro] 500 mg PO BID 12/04/16 [History] Past Medical History HEENT History: Reports: Cataract, Hard of Hearing, Impaired Vision Cardiovascular History: Reports: Automatic Implantable Cardioverter Defibrillators, Blood Clots/VTE/DVT, Bypass, CAD, Heart Failure, High Cholesterol, Hypertension, Pacemaker, SOB on Exertion Gastrointestinal History: Reports: Other (See Below) Other Gastrointestinal History: 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 L leg pain Neurological History: Reports: Concussion Endocrine/Metabolic History: Reports: Diabetes, Type II, Obesity/BMI 30+ Hematologic History: Reports: Anticoagulation Therapy Oncologic (Cancer) History: Reports: Prostate - Infectious Disease History Infectious Disease History: Reports: Chicken Pox - Past Surgical History HEENT Surgical History: Reports: Cataract Surgery Male Surgical History: Reports: Prostate Biopsy Neurological Surgical History: Reports: None Musculoskeletal Surgical History: Reports: Other (See Below) Other Musculoskeletal Surgeries/Procedures:: back surgery Oncologic Surgical History: Reports: None Dermatological Surgical History: Reports: None Social & Family History - Family History Family Medical History: Noncontributory - Tobacco Use Smoking Status *Q: Never Smoker Second Hand Smoke Exposure: No - Caffeine Use Caffeine Use: Reports: Coffee - Alcohol Use Days Per Week of Alcohol Use: 0 - Recreational Drug Use Recreational Drug Use: No ED ROS GENERAL - Review of Systems Review Of Systems: See Below Constitutional: Reports: Weakness (Left leg) HEENT: Reports: No Symptoms Respiratory: Reports: No Symptoms Cardiovascular: Reports: No Symptoms GI/Abdominal: Reports: No Symptoms : Reports: No Symptoms Musculoskeletal: Reports: Leg Pain Skin: Reports: No Symptoms Neurological: Reports: No Symptoms ED EXAM, GENERAL - Physical Exam Exam: See Below Exam Limited By: No Limitations General Appearance: Alert, WD/WN, No Apparent Distress Respiratory/Chest: No Respiratory Distress, Lungs Clear, Normal Breath Sounds, No Accessory Muscle Use Cardiovascular: Regular Rate, Rhythm, No Murmur GI/Abdominal: Soft, Non-Tender Extremities: Normal Inspection, Pedal Edema, Leg Pain, Other (Slight weakness is appreciated left leg compared to the right) Neurological: Alert, Oriented, CN II-XII Intact Course - Vital Signs Last Recorded V/S: Last Vital Signs Temp 99.1 F 12/04/16 10:18 Pulse 64 12/04/16 10:37 Resp 16 12/04/16 10:37 BP 102/47 L 12/04/16 10:37 Pulse Ox 96 12/04/16 10:37 - Orders/Labs/Meds Orders: Active Orders 24 hr Category Date Time Status Lumbar Spine wo Cont [CT] Stat Exams 12/04/16 12:47 Taken Labs: Laboratory Tests 12/04/16 12/04/16 Range/Units 11:35 11:35 WBC 8.6 (4.5-11.0) K/uL RBC 3.39 L (4.30-5.90) M/uL Hgb 9.3 L (12.0-15.0) g/dL Hct 30.3 L (40.0-54.0) % MCV 89 (80-98) fL MCH 27 (27-31) pg MCHC 31 L (32-36) % Plt Count 264 (150-400) K/uL Neut % (Auto) 77 H (36-66) % Lymph % (Auto) 13 L (24-44) % [place] % (Auto) 7 H (2-6) % Eos % (Auto) 2 (2-4) % Baso % (Auto) 1 (0-1) % Sodium 138 L (140-148) mmol/L Potassium 4.8 (3.6-5.2) mmol/L Chloride 104 (100-108) mmol/L Carbon Dioxide 23 (21-32) mmol/L Anion Gap 15.8 H (5.0-14.0) mmol/L BUN 24 H (7-18) mg/dL Creatinine 1.9 H (0.8-1.3) mg/dL Est Cr Clr Drug Dosing 34.72 mL/min Estimated GFR (MDRD) 35 L (>60) Glucose 108 H (74-106) mg/dL Calcium 8.5 (8.5-10.1) mg/dL Total Bilirubin 0.4 (0.2-1.0) mg/dL AST 21 (15-37) U/L ALT 16 (12-78) U/L Alkaline Phosphatase 146 H (46-116) U/L Total Protein 6.2 L (6.4-8.2) g/dL Albumin 2.2 L (3.4-5.0) g/dL Globulin 4.0 H (2.3-3.5) g/dL Albumin/Globulin Ratio 0.6 L (1.2-2.2) Departure - Departure Time of Disposition: 14:06 Disposition: Home, Self-Care 01 Condition: Fair Clinical Impression: Left leg weakness - Discharge Information Referrals: Jimenez Walter MD [Primary Care Provider] - Forms: ED Department Discharge Additional Instructions: Please keep your follow-up appointment with orthopedics on of this week , call return to the emergency department worsening of symptoms - My Orders Last 24 Hours: My Active Orders 12/04/16 12:47 Lumbar Spine wo Cont [CT] Stat - Assessment/Plan Last 24 Hours: My Active Orders 12/04/16 12:47 Lumbar Spine wo Cont [CT] Stat Plan: Assessment Acuity = acute Site and laterality = left leg weakness complicated in a patient with recent lumbar surgery postop one month Etiology = probable relationship to scar tissue from recent surgery Manifestations = left leg pain Location of injury = Home Lab values = hemoglobin 9.3 normochromic anemia, creatinine elevated at 1.9 consistent chronic renal failure stage G IIIB albumin low at 2.2 consistent with hypoalbuminemia, ultrasound scan of left lower extremity is negative for any DVT, CT scan of the lumbar spine shows scar tissue around nerves exiting on the left side Plan I did review lab work CT scan and ultrasound results with him plan is to have him follow-up with orthopedics on of this week Patient was in agreement with the plan all questions were answered, they were instructed to return to the emergency department or call for worsening symptoms. This note was dictated using [employer] voice recognition software please call with any questions.
--- NOTE | 2016-12-04 13:26 | US ---
VL Duplex Lwr Ext Veins Ltd Lt HISTORY: Pain, recent surgery. FINDINGS: The deep veins of the left lower extremity demonstrate normal augmentation and compressibil ity. No evidence for deep venous thrombosis. IMPRESSION: Normal lower extremity venous Doppler study.
--- NOTE | 2016-12-04 14:05 | CT ---
Lumbar Spine wo Cont HISTORY: Prior lumbar fusion. Dose: Total DLP 772. COMPARISON: Prior plain films 11/08/2016. Prior CT scan lumbar spine 07/07/2016. FINDINGS: There are 5 lumbar type vertebral bodies. Interval fusion at L3-S1 levels. There is mild gr regina 1 spondylolisthesis L5 on S1 which was present preoperatively. Minimal anterior subluxation of L4 and L5 similar on preoperative films. Intervertebral body disc fusion prosthesis at L3-L4, L4-L5 and L5-S1 levels. There appears to be resection of the facets on the left at L3-L4 and L4-L5 and L5-S1 l evels. Posterior to the posterior decompression laminectomy changes is what appears to be a small fluid hortencia ection likely representing postoperative seroma measuring 3.1 cm best seen on the axial sequences. Wi thin the foramen on the left at L3-L4, L4-L5 there appears to be soft tissue density likely relating postoperative scarring. The exiting nerve roots at these levels are not well seen as the perineural f at planes are disrupted. There is extensive artifact. I do not see obvious stenosis. Bone graft prese nt about the postoperative site greater on the right at the fusion levels. There is no interval fracture or interval increased subluxation throughout the lumbar spine. Impression: 1. Interval fusion L3-S1 levels. The slight anterior subluxation of L4 on L5 and L5 on S1 is not sign ificantly changed from preoperative films. 2. Along the margins of the foramen of L3-L4 and L4-L5 on the left there is been interval facetectomy change. There is loss of the perineural fat planes in these regions likely representing postoperativ e scarring. Findings called to the emergency room at 1:55 PM hours
== END 2016-12-04 14:19 | disposition home or self-care (01) ==
LOC: JP.ED 10:04
DX: M62.81 Muscle weakness (generalized) (principal); I11.0 Hypertensive heart disease with heart failure; I50.9 Heart failure, unspecified; E66.9 Obesity, unspecified; E11.9 Type 2 diabetes mellitus without complications; E78.00 Pure hypercholesterolemia, unspecified; I25.10 Atherosclerotic heart disease of native coronary artery without angina pectoris; Z91.041 Radiographic dye allergy status; Z91.013 Allergy to seafood; Z79.01 Long term (current) use of anticoagulants; Z88.6 Allergy status to analgesic agent; Z79.84 Long term (current) use of oral hypoglycemic drugs; Z79.899 Other long term (current) drug therapy; Z95.0 Presence of cardiac pacemaker; Z87.440 Personal history of urinary (tract) infections; Z68.1 Body mass index [BMI] 19.9 or less, adult
CPT/HCPCS: 36415; 72131; 72131-26; 80053; 85025; 93971-26-LT; 93971-LT; 99284; 99285-25

== ENCOUNTER 2017-01-23 08:50 | Inpatient (IN) | payer MEDICARE, BC ==
[2017-01-23] MEDS ORDERED: Sodium Chloride 0.9% 1,000 ML IV SCH (10:00)
--- NOTE | 2017-01-23 10:09 | CR ---
Chest 1V Frontal HISTORY: Shortness of breath. COMPARISON: 11/04/2016. FINDINGS: Median sternotomy. Left-sided pacemaker. Old pacemaker leads on the right. No focal infiltr ates. No acute congestive change or effusions. Cardiac size is normal. Impression: Stable AP chest.
[2017-01-23] MEDS ORDERED: cefTRIAXone 1 GM in Sodium Chloride 0.9% 50 ML IV ONE ×2 (10:23→10:45)
--- NOTE | 2017-01-23 11:38 | EDM.PDOC ---
ED HPI GENERAL MEDICAL PROBLEM - General Chief Complaint: Genitourinary Problem Stated Complaint: MEDICAL VIA [facility] Time Seen by Provider: 01/23/17 11:26 Source of Information: Reports: Patient History Limitations: Reports: No Limitations - History of Present Illness INITIAL COMMENTS - FREE TEXT/NARRATIVE: pt arrived with marked weakness. He is having abdomanal pain He feels like is cath is not draining right. He has had leakage around the cath. Onset: Gradual, Other (pt has not felt well until midday yeaterday. ) Duration: Hour(s):, Getting Worse Location: Reports: Abdomen, Other ( generalized weakness. ) Associated Symptoms: Reports: No Other Symptoms Lower Abdominal Pain Score (Numeric/FACES): 4 - Related Data Allergies Allergy/AdvReac Type Severity Reaction Status Date / Time Iodinated Contrast- Oral and Allergy Hives Verified 01/23/17 09:31 IV Dye [Iodinated Contrast Media - IV Dye] iodine AdvReac Nausea Verified 01/23/17 09:31 shrimp AdvReac Nausea and Verified 01/23/17 10:35 Vomiting tape Allergy Rash Uncoded 08/04/15 06:56 Home Meds: Home Meds Allopurinol [Zyloprim] 300 mg PO DAILY 03/05/14 [History] Amiodarone HCl 200 mg PO DAILY 03/05/14 [History] Carvedilol 12.5 mg PO BID 03/05/14 [History] Lisinopril 5 mg PO DAILY 03/05/14 [History] Simvastatin [Zocor] 10 mg PO BEDTIME 03/05/14 [History] Warfarin Sodium 5 mg PO DAILY 03/05/14 [History] metFORMIN [Glucophage] 1,000 mg PO BID 03/05/14 [History] Acetaminophen [Tylenol Extra Strength] 1,000 mg PO Q4HR PRN 10/03/16 [History] Aspirin 1 tab PO DAILY 11/04/16 [History] Ferrous Sulfate [Feosol] 1 tab PO TID 11/04/16 [History] Finasteride 1 tab PO DAILY 11/04/16 [History] Tamsulosin HCl 1 tab PO BEDTIME 11/04/16 [History] Cyanocobalamin (Vitamin B-12) [Cyanocobalamin Injection] 1,000 mcg IM WEEKLY 09/18 [History] Furosemide [Lasix] 40 mg PO BIDDIURETIC #60 tablet 11/09/16 [Rx] Magnesium Oxide 400 mg PO ASDIRECTED 01/23/17 [History] Past Medical History HEENT History: Reports: Cataract, Hard of Hearing, Impaired Vision Cardiovascular History: Reports: Automatic Implantable Cardioverter Defibrillators, Blood Clots/VTE/DVT, Bypass, CAD, Heart Failure, High Cholesterol, Hypertension, Pacemaker, SOB on Exertion Gastrointestinal History: Reports: Other (See Below) Other Gastrointestinal History: 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 L leg pain. left knee pain Neurological History: Reports: Concussion Endocrine/Metabolic History: Reports: Diabetes, Type II, Obesity/BMI 30+ Hematologic History: Reports: Anticoagulation Therapy Oncologic (Cancer) History: Reports: Colon, Prostate - Infectious Disease History Infectious Disease History: Reports: Chicken Pox - Past Surgical History HEENT Surgical History: Reports: Cataract Surgery Cardiovascular Surgical History: Reports: Coronary Artery Bypass, Pacer GI Surgical History: Reports: Colon Neurological Surgical History: Reports: Other (See Below) Other Neurological Surgeries/Procedures: pins/screws/spacer mid to low spine, october 2016. Social & Family History - Family History Family Medical History: Noncontributory - Tobacco Use Smoking Status *Q: Never Smoker Second Hand Smoke Exposure: No - Caffeine Use Caffeine Use: Reports: Coffee - Alcohol Use Days Per Week of Alcohol Use: 0 - Recreational Drug Use Recreational Drug Use: No ED ROS GENERAL - Review of Systems Review Of Systems: See Below Constitutional: Reports: No Symptoms HEENT: Reports: No Symptoms Respiratory: Reports: No Symptoms Cardiovascular: Reports: No Symptoms Endocrine: Reports: No Symptoms GI/Abdominal: Reports: No Symptoms : Reports: Other ( bladder is distended and tender. His cath has some leakage. ) Musculoskeletal: Reports: No Symptoms Skin: Reports: No Symptoms Neurological: Reports: No Symptoms ED EXAM, GI/ABD - Physical Exam Exam: See Below Text/Narrative:: pt arrived with pain in the abdoman. generalized aching. He is having a very difficult time transfering. Exam Limited By: No Limitations General Appearance: Alert, Mild Distress Eyes: Bilateral: Normal Appearance, EOMI Ears: Normal TMs Nose: Normal Inspection Throat/Mouth: Normal Inspection Head: Atraumatic Neck: Normal Inspection Respiratory/Chest: No Respiratory Distress Cardiovascular: Regular Rate, Rhythm GI/Abdominal Exam: Other ( bladder is distended and tender. Bladder scan shows over 600 in the bladder. ) (Male) Exam: Other ( Goldberg cath is not funtioning. ) Rectal (Males) Exam: Deferred Back Exam: Normal Inspection Extremities: Normal Inspection Neurological: Alert, Oriented, Normal Cognition, Other (pt is feeling very weak. He is having difficulty using his rt leg nd the left leg he is not able to lift. ) Psychiatric: Normal Affect Course - Vital Signs Last Recorded V/S: Last Vital Signs Temp 36.6 C 01/23/17 09:28 Pulse 76 01/23/17 09:28 Resp 22 H 01/23/17 09:28 BP 137/67 01/23/17 09:28 Pulse Ox 93 L 01/23/17 09:28 - Orders/Labs/Meds Orders: Active Orders 24 hr Category Date Time Status Goldberg Catheter Insertion [Insert Urinary Catheter] [OM. Care 01/23/17 09:30 Ordered PC] Q24H Urinary Catheter Assessment [RC] ASDIRECTED Care 01/23/17 09:18 Active CULTURE URINE [RM] Stat Lab 01/23/17 10:33 Received Sodium Chloride 0.9% [Normal Saline] 1,000 ml Med 01/23/17 10:00 Active IV ASDIRECTED Medication Orders Sodium Chloride (Normal Saline) 1,000 mls @ 200 mls/hr IV ASDIRECTED CLIFF Last Admin: 01/23/17 10:31 Dose: 200 mls/hr Labs: Laboratory Tests 01/23/17 01/23/17 01/23/17 Range/Units 09:10 09:10 09:10 WBC 7.3 (4.5-11.0) K/uL RBC 3.57 L (4.30-5.90) M/uL Hgb 10.1 L (12.0-15.0) g/dL Hct 32.5 L (40.0-54.0) % MCV 91 (80-98) fL MCH 28 (27-31) pg MCHC 31 L (32-36) % Plt Count 223 (150-400) K/uL Neut % (Auto) 72 H (36-66) % Lymph % (Auto) 17 L (24-44) % [place] % (Auto) 7 H (2-6) % Eos % (Auto) 3 (2-4) % Baso % (Auto) 1 (0-1) % PT 21.4 H (9.5-12.0) sec INR 1.95 H D (0.80-1.20) Sodium 140 (140-148) mmol/L Potassium 4.2 (3.6-5.2) mmol/L Chloride 104 (100-108) mmol/L Carbon Dioxide 25 (21-32) mmol/L Anion Gap 10.7 (5.0-14.0) mmol/L BUN 26 H (7-18) mg/dL Creatinine 1.6 H (0.8-1.3) mg/dL Est Cr Clr Drug Dosing 49.88 mL/min Estimated GFR (MDRD) 43 L (>60) Glucose 94 (74-106) mg/dL Lactic Acid (0.4-2.0) mmol/L Calcium 9.1 (8.5-10.1) mg/dL Total Bilirubin 0.5 (0.2-1.0) mg/dL AST 25 (15-37) U/L ALT 21 (12-78) U/L Alkaline Phosphatase 140 H (46-116) U/L C-Reactive Protein 0.71 H (0.0-0.3) mg/dL NT-Pro-B Natriuret Pep (5-125) pg/mL Total Protein 6.2 L (6.4-8.2) g/dL Albumin 2.6 L (3.4-5.0) g/dL Globulin 3.6 H (2.3-3.5) g/dL Albumin/Globulin Ratio 0.7 L (1.2-2.2) Urine Color Urine Appearance Urine pH (4.5-8.0) Ur Specific [place] (1.008-1.030) Urine Protein (NEGATIVE) mg/dL Urine Glucose (UA) (NEGATIVE) mg/dL Urine Ketones (NEGATIVE) mg/dL Urine Occult Blood (NEGATIVE) Urine Nitrite (NEGAITVE) Urine Bilirubin (NEGATIVE) Urine Urobilinogen (NORMAL) mg/dL Ur Leukocyte Esterase (NEGATIVE) Urine RBC (0-5) Urine WBC (0-5) Ur Epithelial Cells Amorphous Sediment Urine Bacteria Urine Mucus Urine Other 01/23/17 01/23/17 01/23/17 Range/Units 09:10 09:50 10:06 WBC (4.5-11.0) K/uL RBC (4.30-5.90) M/uL Hgb (12.0-15.0) g/dL Hct (40.0-54.0) % MCV (80-98) fL MCH (27-31) pg MCHC (32-36) % Plt Count (150-400) K/uL Neut % (Auto) (36-66) % Lymph % (Auto) (24-44) % [place] % (Auto) (2-6) % Eos % (Auto) (2-4) % Baso % (Auto) (0-1) % PT (9.5-12.0) sec INR (0.80-1.20) Sodium (140-148) mmol/L Potassium (3.6-5.2) mmol/L Chloride (100-108) mmol/L Carbon Dioxide (21-32) mmol/L Anion Gap (5.0-14.0) mmol/L BUN (7-18) mg/dL Creatinine (0.8-1.3) mg/dL Est Cr Clr Drug Dosing mL/min Estimated GFR (MDRD) (>60) Glucose (74-106) mg/dL Lactic Acid 1.6 (0.4-2.0) mmol/L Calcium (8.5-10.1) mg/dL Total Bilirubin (0.2-1.0) mg/dL AST (15-37) U/L ALT (12-78) U/L Alkaline Phosphatase (46-116) U/L C-Reactive Protein (0.0-0.3) mg/dL NT-Pro-B Natriuret Pep 988 H (5-125) pg/mL Total Protein (6.4-8.2) g/dL Albumin (3.4-5.0) g/dL Globulin (2.3-3.5) g/dL Albumin/Globulin Ratio (1.2-2.2) Urine Color Yellow Urine Appearance Cloudy Urine pH 6.0 (4.5-8.0) Ur Specific [place] 1.010 (1.008-1.030) Urine Protein Negative (NEGATIVE) mg/dL Urine Glucose (UA) Normal (NEGATIVE) mg/dL Urine Ketones Negative (NEGATIVE) mg/dL Urine Occult Blood Negative (NEGATIVE) Urine Nitrite Positive H (NEGAITVE) Urine Bilirubin Negative (NEGATIVE) Urine Urobilinogen Normal (NORMAL) mg/dL Ur Leukocyte Esterase Large (NEGATIVE) Urine RBC 0-5 (0-5) Urine WBC 20-30 H (0-5) Ur Epithelial Cells Not seen Amorphous Sediment Not seen Urine Bacteria Many Urine Mucus Few Urine Other Meds: Medications Generic Name Dose Route Start Last Admin Trade Name Freq PRN Reason Stop Dose Admin Sodium Chloride 1,000 mls @ 200 mls/hr 01/23/17 10:00 01/23/17 10:31 Normal Saline IV 200 mls/hr ASDIRECTED CLIFF Administration Discontinued Medications Generic Name Dose Route Start Last Admin Trade Name Freq PRN Reason Stop Dose Admin Ceftriaxone Sodium 1 gm/ 50 mls @ 100 mls/hr 01/23/17 10:45 01/23/17 10:50 Sodium Chloride IV 01/23/17 11:14 100 mls/hr ONETIME ONE Administration - Re-Assessments/Exams Free Text/Narrative Re-Assessment/Exam: 01/23/17 11:48 Pt has generalized weakness. He has a UTI, His goldberg was changed and about 700 cc of urine was obtained. He is much more comfortable. He was given rocehen 1 gm iv. He has fluids at 200 cc per hour. Departure - Departure Time of Disposition: 11:50 Disposition: Admitted As Inpatient 65 Condition: Fair Clinical Impression: Generalized weakness, UTI (urinary tract infection), Goldberg catheter problem - Discharge Information Referrals: Jimenez Walter MD [Primary Care Provider] - Care Plan Goals: admit to Dr correa. - My Orders Last 24 Hours: My Active Orders 01/23/17 09:18 Urinary Catheter Assessment [RC] ASDIRECTED 01/23/17 09:30 Goldberg Catheter Insertion [Insert Urinary Catheter] [OM.PC] Q24H 01/23/17 10:00 Sodium Chloride 0.9% [Normal Saline] 1,000 ml IV ASDIRECTED 01/23/17 10:33 CULTURE URINE [RM] Stat - Assessment/Plan Last 24 Hours: My Active Orders 01/23/17 09:18 Urinary Catheter Assessment [RC] ASDIRECTED 01/23/17 09:30 Goldberg Catheter Insertion [Insert Urinary Catheter] [OM.PC] Q24H 01/23/17 10:00 Sodium Chloride 0.9% [Normal Saline] 1,000 ml IV ASDIRECTED 01/23/17 10:33 CULTURE URINE [RM] Stat
--- NOTE | 2017-01-23 12:29 | PCM.HP ---
H&P History of Present Illness - General Date of Service: 01/23/17 Admit Problem/Dx: Admission Diagnosis/Problem Admission Diagnosis/Problem Acute cystitis Source of Information: Patient, Family, Provider History Limitations: Reports: No Limitations - History of Present Illness Initial Comments - Free Text/Narative: Herbie presents to the emergency room today with 2 days of generalized weakness now complicated by lower abdominal pain and no urine passed through his catheter. He reports that he had been feeling well up until 2 days ago when he developed mild weakness which has progressed to the point that he was unable to get out of the wheelchair. His morning he noted a pressure-like pain in his lower abdomen. This was relatively mild and did not radiate. He didn't take anything to make it feel better. Moving around seem to make the pain worse. He noticed that he was not passing urine into his catheter bag and had some leaking of urine around the catheter. He has not had any fevers or chills. Appetite has been okay until yesterday when it decreased. Energy has been decreased for the past 2 days. No complaints of shortness of breath beyond baseline. In the emergency room he was noted to have urinary retention despite having a catheter in place. A new catheter was placed with return of more than 600 mL of urine. Urine sample was suggestive of infection with positive nitrates and many bacteria. He is too weak for outpatient management at this time and will be admitted for gentle hydration and IV antibiotics. Lower Abdominal Pain Score (Numeric/FACES): 4 - Related Data Allergies/Adverse Reactions: Allergies Allergy/AdvReac Type Severity Reaction Status Date / Time Iodinated Contrast- Oral and Allergy Hives Verified 01/23/17 09:31 IV Dye [Iodinated Contrast Media - IV Dye] iodine AdvReac Nausea Verified 01/23/17 09:31 shrimp AdvReac Nausea and Verified 01/23/17 10:35 Vomiting tape Allergy Rash Uncoded 08/04/15 06:56 Home Medications: Home Meds Allopurinol [Zyloprim] 300 mg PO DAILY 03/05/14 [History] Amiodarone HCl 200 mg PO DAILY 03/05/14 [History] Carvedilol 12.5 mg PO BID 03/05/14 [History] Lisinopril 5 mg PO DAILY 03/05/14 [History] Simvastatin [Zocor] 10 mg PO BEDTIME 03/05/14 [History] Warfarin Sodium 5 mg PO DAILY 03/05/14 [History] metFORMIN [Glucophage] 1,000 mg PO BID 03/05/14 [History] Acetaminophen [Tylenol Extra Strength] 1,000 mg PO Q4HR PRN 10/03/16 [History] Aspirin 1 tab PO DAILY 11/04/16 [History] Ferrous Sulfate [Feosol] 1 tab PO TID 11/04/16 [History] Finasteride 1 tab PO DAILY 11/04/16 [History] Tamsulosin HCl 1 tab PO BEDTIME 11/04/16 [History] Cyanocobalamin (Vitamin B-12) [Cyanocobalamin Injection] 1,000 mcg IM WEEKLY 09/18 [History] Furosemide [Lasix] 40 mg PO BIDDIURETIC #60 tablet 11/09/16 [Rx] Magnesium Oxide 400 mg PO ASDIRECTED 01/23/17 [History] Past Medical History HEENT History: Reports: Cataract, Hard of Hearing, Impaired Vision Cardiovascular History: Reports: Automatic Implantable Cardioverter Defibrillators, Blood Clots/VTE/DVT, Bypass, CAD, Heart Failure, High Cholesterol, Hypertension, Pacemaker, SOB on Exertion Gastrointestinal History: Reports: Other (See Below) Other Gastrointestinal History: 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 L leg pain. left knee pain Neurological History: Reports: Concussion Endocrine/Metabolic History: Reports: Diabetes, Type II, Obesity/BMI 30+ Hematologic History: Reports: Anticoagulation Therapy Oncologic (Cancer) History: Reports: Colon, Prostate - Infectious Disease History Infectious Disease History: Reports: Chicken Pox - Past Surgical History HEENT Surgical History: Reports: Cataract Surgery Cardiovascular Surgical History: Reports: Coronary Artery Bypass, Pacer GI Surgical History: Reports: Colon Neurological Surgical History: Reports: Other (See Below) Other Neurological Surgeries/Procedures: pins/screws/spacer mid to low spine, october 2016. Social & Family History - Family History Family Medical History: Noncontributory - Tobacco Use Smoking Status *Q: Never Smoker Second Hand Smoke Exposure: No - Caffeine Use Caffeine Use: Reports: Coffee - Alcohol Use Days Per Week of Alcohol Use: 0 - Recreational Drug Use Recreational Drug Use: No H&P Review of Systems - Review of Systems: Review Of Systems: See Below Free Text/Narrative: A complete 12 point review of systems was obtained. Pertinent positives and negatives are noted in the history of present illness. All other systems were reviewed and were negative except as noted. Exam - Exam Exam: See Below - Vital Signs Vital Signs: Last Vital Signs Temp 36.6 C 01/23/17 09:28 Pulse 76 01/23/17 09:28 Resp 22 H 01/23/17 09:28 BP 137/67 01/23/17 09:28 Pulse Ox 93 L 01/23/17 09:28 Weight: 111.13 kg - Exam Quality Assessment: No: Supplemental Oxygen General: Alert, Oriented, Cooperative. No: Mild Distress HEENT: Conjunctiva Clear. No: Mucosa Moist & Register (Dry), Scleral Icterus Neck: Supple, Trachea Midline. No: JVD Lungs: Clear to Auscultation, Normal Respiratory Effort Cardiovascular: Regular Rate, Regular Rhythm. No: Systolic Murmur GI/Abdominal Exam: Normal Bowel Sounds, Soft, Non-Tender, No Distention, No Mass Extremities: Pedal Edema (Pitting edema of both lower legs to near the knee). No: Joint Swelling, Increased Warmth Peripheral Pulses: 1+: Dorsalis Pedis (L), Dorsalis Pedis (R) Skin: Warm, Dry. No: Rash Neuro Extensive - Mental Status: Alert, Oriented x3, Nl Response to Commands Neuro Extensive - Motor, Sensory, Reflexes: Abnormal Gait, Abnormal Motor (Mild generalized weakness). No: Dysarthria, Tremor Psychiatric: Alert, Normal Affect - Patient Data Lab Results Last 24 hrs: Laboratory Results - last 24 hr 01/23/17 01/23/17 01/23/17 Range/Units 09:10 09:10 09:10 WBC 7.3 (4.5-11.0) K/uL RBC 3.57 L (4.30-5.90) M/uL Hgb 10.1 L (12.0-15.0) g/dL Hct 32.5 L (40.0-54.0) % MCV 91 (80-98) fL MCH 28 (27-31) pg MCHC 31 L (32-36) % Plt Count 223 (150-400) K/uL Neut % (Auto) 72 H (36-66) % Lymph % (Auto) 17 L (24-44) % [place] % (Auto) 7 H (2-6) % Eos % (Auto) 3 (2-4) % Baso % (Auto) 1 (0-1) % PT 21.4 H (9.5-12.0) sec INR 1.95 H D (0.80-1.20) Sodium 140 (140-148) mmol/L Potassium 4.2 (3.6-5.2) mmol/L Chloride 104 (100-108) mmol/L Carbon Dioxide 25 (21-32) mmol/L Anion Gap 10.7 (5.0-14.0) mmol/L BUN 26 H (7-18) mg/dL Creatinine 1.6 H (0.8-1.3) mg/dL Est Cr Clr Drug Dosing 49.88 mL/min Estimated GFR (MDRD) 43 L (>60) Glucose 94 (74-106) mg/dL Lactic Acid (0.4-2.0) mmol/L Calcium 9.1 (8.5-10.1) mg/dL Total Bilirubin 0.5 (0.2-1.0) mg/dL AST 25 (15-37) U/L ALT 21 (12-78) U/L Alkaline Phosphatase 140 H (46-116) U/L C-Reactive Protein 0.71 H (0.0-0.3) mg/dL NT-Pro-B Natriuret Pep (5-125) pg/mL Total Protein 6.2 L (6.4-8.2) g/dL Albumin 2.6 L (3.4-5.0) g/dL Globulin 3.6 H (2.3-3.5) g/dL Albumin/Globulin Ratio 0.7 L (1.2-2.2) Urine Color Urine Appearance Urine pH (4.5-8.0) Ur Specific [place] (1.008-1.030) Urine Protein (NEGATIVE) mg/dL Urine Glucose (UA) (NEGATIVE) mg/dL Urine Ketones (NEGATIVE) mg/dL Urine Occult Blood (NEGATIVE) Urine Nitrite (NEGAITVE) Urine Bilirubin (NEGATIVE) Urine Urobilinogen (NORMAL) mg/dL Ur Leukocyte Esterase (NEGATIVE) Urine RBC (0-5) Urine WBC (0-5) Ur Epithelial Cells Amorphous Sediment Urine Bacteria Urine Mucus Urine Other 01/23/17 01/23/17 01/23/17 Range/Units 09:10 09:50 10:06 WBC (4.5-11.0) K/uL RBC (4.30-5.90) M/uL Hgb (12.0-15.0) g/dL Hct (40.0-54.0) % MCV (80-98) fL MCH (27-31) pg MCHC (32-36) % Plt Count (150-400) K/uL Neut % (Auto) (36-66) % Lymph % (Auto) (24-44) % [place] % (Auto) (2-6) % Eos % (Auto) (2-4) % Baso % (Auto) (0-1) % PT (9.5-12.0) sec INR (0.80-1.20) Sodium (140-148) mmol/L Potassium (3.6-5.2) mmol/L Chloride (100-108) mmol/L Carbon Dioxide (21-32) mmol/L Anion Gap (5.0-14.0) mmol/L BUN (7-18) mg/dL Creatinine (0.8-1.3) mg/dL Est Cr Clr Drug Dosing mL/min Estimated GFR (MDRD) (>60) Glucose (74-106) mg/dL Lactic Acid 1.6 (0.4-2.0) mmol/L Calcium (8.5-10.1) mg/dL Total Bilirubin (0.2-1.0) mg/dL AST (15-37) U/L ALT (12-78) U/L Alkaline Phosphatase (46-116) U/L C-Reactive Protein (0.0-0.3) mg/dL NT-Pro-B Natriuret Pep 988 H (5-125) pg/mL Total Protein (6.4-8.2) g/dL Albumin (3.4-5.0) g/dL Globulin (2.3-3.5) g/dL Albumin/Globulin Ratio (1.2-2.2) Urine Color Yellow Urine Appearance Cloudy Urine pH 6.0 (4.5-8.0) Ur Specific [place] 1.010 (1.008-1.030) Urine Protein Negative (NEGATIVE) mg/dL Urine Glucose (UA) Normal (NEGATIVE) mg/dL Urine Ketones Negative (NEGATIVE) mg/dL Urine Occult Blood Negative (NEGATIVE) Urine Nitrite Positive H (NEGAITVE) Urine Bilirubin Negative (NEGATIVE) Urine Urobilinogen Normal (NORMAL) mg/dL Ur Leukocyte Esterase Large (NEGATIVE) Urine RBC 0-5 (0-5) Urine WBC 20-30 H (0-5) Ur Epithelial Cells Not seen Amorphous Sediment Not seen Urine Bacteria Many Urine Mucus Few Urine Other Result Diagrams: 01/23/17 09:10 01/23/17 09:10 Imaging Impressions Last 24 hrs: Chest x-ray - images personally reviewed - lungs appear clear with no mass, infiltrate or effusion. There is a left-sided pacemaker in place with 2 pacemaker wires noted. *Q Meaningful Use (ADM) - VTE *Q VTE Criteria *Q: - VTE Risk Assess *Q Each Risk Factor Represents 1 Point: Swollen Legs, Current, Congestive heart failure (CHF) Total Score 1 Point Risk Factors: 2 Each Risk Factor Represents 2 Points: Age 60 - 74 Years Total Score 2 Point Risk Factors: 2 Each Risk Factor Represents 3 Points: History of DVT/PE Total Score 3 Point Risk Factors: 3 Each Risk Factor Represents 5 Points: None Total Score 5 Point Risk Factors: 0 Venous Thromboembolism Risk Factor Score *Q: 7 - Stroke *Q Stroke Criteria *Q: - AMI *Q AMI Criteria *Q: - Problem List (1) Generalized weakness SNOMED Code(s): 82182005 ICD Code: R53.1 - WEAKNESS Status: Acute Current Visit: Yes (2) UTI (urinary tract infection) SNOMED Code(s): 28545984 ICD Code: N39.0 - URINARY TRACT INFECTION, SITE NOT SPECIFIED Status: Acute Current Visit: Yes Qualifiers: Urinary tract infection type: acute cystitis (3) Urinary retention due to benign prostatic hyperplasia SNOMED Code(s): 877784680 ICD Code: N40.1 - BENIGN PROSTATIC HYPERPLASIA WITH LOWER URINARY TRACT SYMP ; R33.8 - OTHER RETENTION OF URINE Status: Acute Current Visit: No (4) CKD (chronic kidney disease) stage 3, GFR 30-59 ml/min SNOMED Code(s): 269142862 ICD Code: N18.3 - CHRONIC KIDNEY DISEASE, STAGE 3 (MODERATE) Status: Chronic Current Visit: No (5) Coronary artery disease SNOMED Code(s): 32834711 ICD Code: I25.10 - ATHSCL HEART DISEASE OF [place] CORONARY ARTERY W/O ANG PCTRS Status: Chronic Current Visit: No Qualifiers: Coronary Disease-Associated Artery/Lesion type: [place] artery [place] vs. transplanted heart: [place] heart Associated angina: without angina Qualified Code(s): I25.10 - Atherosclerotic heart disease of [place] coronary artery without angina pectoris (6) Diabetes mellitus type 2 in obese SNOMED Code(s): 26168387 ICD Code: E11.69 - TYPE 2 DIABETES MELLITUS WITH OTHER SPECIFIED COMPLICATION ; E66.9 - OBESITY, UNSPECIFIED Status: Chronic Current Visit: No (7) History of DVT (deep vein thrombosis) SNOMED Code(s): 777336625 ICD Code: Z86.718 - PERSONAL HISTORY OF OTHER VENOUS THROMBOSIS AND EMBOLISM Status: Chronic Current Visit: No Problem List Initiated/Reviewed/Updated: Yes Orders Last 24hrs: Active Orders 24 hr Category Date Time Status Patient Status Manage Transfer [TRANSFER] Routine ADT 01/23/17 12:21 Ordered Goldberg Catheter Insertion [Insert Urinary Catheter] [OM. Care 01/23/17 09:30 Ordered PC] Q24H Urinary Catheter Assessment [RC] ASDIRECTED Care 01/23/17 09:18 Active CULTURE URINE [RM] Stat Lab 01/23/17 10:33 Received Sodium Chloride 0.9% [Normal Saline] 1,000 ml Med 01/23/17 10:00 Active IV ASDIRECTED Resuscitation Status Routine Resus Stat 01/23/17 12:24 Ordered Medication Orders Sodium Chloride (Normal Saline) 1,000 mls @ 200 mls/hr IV ASDIRECTED CLIFF Last Admin: 01/23/17 10:31 Dose: 200 mls/hr Assessment/Plan Comment:: ASSESSMENT AND PLAN - Acute cystitis - 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 No evidence for sepsis at this time but he is too weak for outpatient management. Most recent urine culture grew out Morgan[place]. -Continue ceftriaxone -Gentle fluids -Follow-up urine culture -Physical therapy History of DVT - chronically anticoagulated. INR very close to therapeutic. -Continue warfarin Diabetes mellitus type 2 - Previously controlled with oral medications. -Continue home medications -Low-dose sliding scale insulin Coronary artery disease - no active symptoms. -cont home meds CKD III - creatinine near baseline. -gentle fluids Maintenance issues - - DVT prophylaxis - warfarin - GI prophylaxis - not indicated - Nutrition - diabetic diet - Goldberg catheter - chronic indwelling catheter CODE STATUS - full code Admission justification - This patient will be admitted for inpatient services and is medically appropriate meeting medical necessity for inpatient admission as outlined in my documentation. I reasonably expect the patient will require inpatient services that span a period time over 2 midnights. I reasonably expect this patient to be discharged or transferred within 96 hours after admission to the [facility]. Disposition - anticipate discharge to home versus possibly the [facility] after the hospital stay Primary care physician - Dr. Jose Angel Cancino M.D.
[2017-01-23] MEDS ORDERED: Polyethylene Glycol 3350 Powder 17 GM Packet PO PRN (13:50)
[2017-01-23] MEDS ORDERED: Ondansetron 4 MG/2 ML SDV IV PRN (13:50)
[2017-01-23] MEDS ORDERED: Ondansetron 4 MG Tab.DIS PO PRN (13:50)
[2017-01-23] MEDS: Warfarin 5 MG Tab PO SCH (16:00)
[2017-01-23] MEDS: Insulin Aspart 100 Units/ML 3 ML Pen SUBCUT SCH ×2 (16:29→20:55)
[2017-01-23] MEDS: metFORMIN 500 MG Tab PO SCH (17:00)
[2017-01-23] MEDS: Ferrous Sulfate 325 MG Tab PO SCH (17:00)
[2017-01-23] MEDS: Sodium Chloride 0.9% 1,000 ML IV SCH (19:54)
[2017-01-23] MEDS: Tamsulosin 0.4 MG Cap.ER PO SCH (20:44)
[2017-01-23] MEDS: Simvastatin 20 MG Tab PO SCH (20:45)
[2017-01-23] MEDS ORDERED: Non-Formulary Medication 1 Each (Simvastatin [Zocor] 10 MG) PO SCH (21:00)
[2017-01-23] MEDS ORDERED: Carvedilol 12.5 MG Tab PO SCH (21:00)
[2017-01-24] MEDS: Acetaminophen 325 MG Tab PO PRN (02:53)
[2017-01-24] MEDS: Sodium Chloride 0.9% 1,000 ML IV SCH ×2 (03:46→11:20)
[2017-01-24] MEDS: Finasteride 5 MG Tab PO SCH (08:29)
[2017-01-24] MEDS: Ferrous Sulfate 325 MG Tab PO SCH ×3 (08:29→16:40)
[2017-01-24] MEDS: Furosemide 40 MG Tab PO SCH ×2 (08:29→13:19)
[2017-01-24] MEDS: Allopurinol 300 MG Tab PO SCH (08:29)
[2017-01-24] MEDS: Aspirin 81 MG Tab.Chew PO SCH (08:29)
[2017-01-24] MEDS: metFORMIN 500 MG Tab PO SCH ×2 (08:29→16:40)
[2017-01-24] MEDS: Amiodarone 200 MG Tab PO SCH (08:30)
[2017-01-24] MEDS: Lisinopril 5 MG Tab PO SCH (08:30)
[2017-01-24] MEDS: Carvedilol 12.5 MG Tab PO SCH ×2 (08:31→16:40)
[2017-01-24] MEDS: Insulin Aspart 100 Units/ML 3 ML Pen SUBCUT SCH ×2 (08:37→11:22)
[2017-01-24] MEDS ORDERED: Dimethicone 20%/Zinc Oxide 25% 56 GM Spray Bottle TOP PRN (08:54)
[2017-01-24] MEDS ORDERED: Enoxaparin 40 MG/0.4 ML Syringe SUBCUT SCH (09:00)
[2017-01-24] MEDS: cefTRIAXone 2 GM in Sodium Chloride 0.9% 50 ML IV SCH (12:04)
--- NOTE | 2017-01-24 12:22 | PCM.PN ---
- General Info Date of Service: 01/24/17 Functional Status: Reports: Pain Controlled, Tolerating Diet - Review of Systems General: Reports: Weakness. Denies: Fever Gastrointestinal: Reports: Nausea Systems Review Comment:: no acute events overnight. Feels a little better today though he did have some nausea and one episode of vomiting this morning. Still very weak and requires a significant amount of assistance to even to get out of bed. He did not have any fevers overnight. No complaints of abdominal pain this morning. Vital signs have been stable. Blood sugars have been excellent. Urine culture is growing a gram-negative lalo with identification pending. - Patient Data Vitals - Most Recent: Last Vital Signs Temp 36.8 C 01/24/17 11:20 Pulse 63 01/24/17 11:20 Resp 16 01/24/17 11:20 BP 154/58 H 01/24/17 11:20 Pulse Ox 98 01/24/17 11:20 Weight - Most Recent: 105.596 kg I&O - Last 24 Hours: Intake & Output 01/23/17 01/24/17 01/24/17 22:59 06:59 14:59 Intake Total 740 1291 Output Total 750 2740 Balance -2740 1291 Lab Results Last 24 Hours: Laboratory Results - last 24 hr 01/24/17 01/24/17 01/24/17 Range/Units 05:50 05:50 05:50 WBC 7.1 (4.5-11.0) K/uL RBC 3.32 L (4.30-5.90) M/uL Hgb 9.5 L (12.0-15.0) g/dL Hct 30.4 L (40.0-54.0) % MCV 92 (80-98) fL MCH 29 (27-31) pg MCHC 31 L (32-36) % Plt Count 191 (150-400) K/uL PT 22.6 H (9.5-12.0) sec INR 2.05 H (0.80-1.20) Sodium 140 (140-148) mmol/L Potassium 4.2 (3.6-5.2) mmol/L Chloride 106 (100-108) mmol/L Carbon Dioxide 24 (21-32) mmol/L Anion Gap 10.1 (5.0-14.0) mmol/L BUN 23 H (7-18) mg/dL Creatinine 1.3 (0.8-1.3) mg/dL Est Cr Clr Drug Dosing 61.39 mL/min Estimated GFR (MDRD) 54 L (>60) Glucose 86 (74-106) mg/dL Calcium 8.5 (8.5-10.1) mg/dL Med Orders - Current: Current Medications Acetaminophen (Tylenol) 650 mg PO Q4H PRN PRN Reason: Pain (Mild 1-3)/fever Last Admin: 01/24/17 02:53 Dose: 650 mg Allopurinol (Zyloprim) 300 mg PO DAILY [facility] Last Admin: 01/24/17 08:29 Dose: 300 mg Amiodarone HCl (Cordarone) 200 mg PO DAILY [facility] Last Admin: 01/24/17 08:30 Dose: 200 mg Aspirin (Aspirin) 81 mg PO DAILY [facility] Last Admin: 01/24/17 08:29 Dose: 81 mg Carvedilol (Coreg) 12.5 mg PO BIDMEALS [facility] Last Admin: 01/24/17 08:31 Dose: 12.5 mg Dimethicone/Zinc Oxide (Rash Relief-Zinc Oxide [place]) 0 gm TOP ASDIRECTED PRN PRN Reason: Rash Ferrous Sulfate (Ferrous Sulfate) 325 mg PO TIDMEALS [facility] Last Admin: 01/24/17 08:29 Dose: 325 mg Finasteride (Proscar) 5 mg PO DAILY [facility] Last Admin: 01/24/17 08:29 Dose: 5 mg Furosemide (Lasix) 40 mg PO BIDDIURETIC [facility] Last Admin: 01/24/17 08:29 Dose: 40 mg Ceftriaxone Sodium 2 gm/ (Sodium Chloride) 50 mls @ 100 mls/hr IV Q24H [facility] Last Admin: 01/24/17 12:04 Dose: 100 mls/hr Sodium Chloride (Normal Saline) 1,000 mls @ 50 mls/hr IV ASDIRECTED [facility] Insulin Aspart (Novolog) 0 unit SUBCUT QIDACANDBED [facility] PRN Reason: Protocol Last Admin: 01/24/17 11:22 Dose: Not Given Lisinopril (Prinivil) 5 mg PO DAILY [facility] Last Admin: 01/24/17 08:30 Dose: 5 mg Metformin HCl (Glucophage) 1,000 mg PO BIDMEALS [facility] Last Admin: 01/24/17 08:29 Dose: 1,000 mg Ondansetron HCl (Zofran Odt) 4 mg PO Q6H PRN PRN Reason: Nausea able to take PO Ondansetron HCl (Zofran) 4 mg IV Q6H PRN PRN Reason: Nausea/Vomiting Polyethylene Glycol (Miralax) 17 gm PO DAILY PRN PRN Reason: Constipation Senna/Docusate Sodium (Senna Plus) 1 tab PO BID PRN PRN Reason: Constipation Simvastatin (Zocor) 10 mg PO BEDTIME [facility] Last Admin: 01/23/17 20:45 Dose: 10 mg Tamsulosin HCl (Flomax) 0.4 mg PO BEDTIME [facility] Last Admin: 01/23/17 20:44 Dose: 0.4 mg Warfarin Sodium (Coumadin) 5 mg PO DAILY@1300 [facility] Last Admin: 01/23/17 16:00 Dose: Not Given Discontinued Medications Carvedilol (Coreg) 12.5 mg PO BID [facility] Last Admin: 01/23/17 20:45 Dose: 12.5 mg Enoxaparin Sodium (Lovenox) 40 mg SUBCUT DAILY [facility] Sodium Chloride (Normal Saline) 1,000 mls @ 200 mls/hr IV ASDIRECTED [facility] Last Admin: 01/23/17 10:31 Dose: 200 mls/hr Ceftriaxone Sodium 1 gm/ (Sodium Chloride) 50 mls @ 100 mls/hr IV ONETIME ONE Stop: 01/23/17 11:14 Last Admin: 01/23/17 10:50 Dose: 100 mls/hr Sodium Chloride (Normal Saline) 1,000 mls @ 125 mls/hr IV ASDIRECTED [facility] Last Admin: 01/24/17 11:20 Dose: 125 mls/hr - Exam Quality Assessment: No: Supplemental Oxygen General: Alert, Oriented, Cooperative, No Acute Distress Neck: Supple Lungs: Clear to Auscultation, Normal Respiratory Effort Cardiovascular: Regular Rate, Regular Rhythm GI/Abdominal Exam: Normal Bowel Sounds, Soft, No Distention Extremities: Pedal Edema (bilateral pitting edema to mid reinoso). No: Increased Warmth Skin: Warm, Dry Psy/Mental Status: Alert, Normal Affect - Problem List & Annotations (1) Generalized weakness SNOMED Code(s): 39370027 Code(s): R53.1 - WEAKNESS Status: Acute Current Visit: Yes (2) UTI (urinary tract infection) SNOMED Code(s): 05842215 Code(s): N39.0 - URINARY TRACT INFECTION, SITE NOT SPECIFIED Status: Acute Current Visit: Yes Qualifiers: Urinary tract infection type: acute cystitis (3) Urinary retention due to benign prostatic hyperplasia SNOMED Code(s): 582120853 Code(s): N40.1 - BENIGN PROSTATIC HYPERPLASIA WITH LOWER URINARY TRACT SYMP; R33.8 - OTHER RETENTION OF URINE Status: Resolved Current Visit: No (4) CKD (chronic kidney disease) stage 3, GFR 30-59 ml/min SNOMED Code(s): 788241429 Code(s): N18.3 - CHRONIC KIDNEY DISEASE, STAGE 3 (MODERATE) Status: Chronic Current Visit: No (5) Coronary artery disease SNOMED Code(s): 27289283 Code(s): I25.10 - ATHSCL HEART DISEASE OF [place] CORONARY ARTERY W/O ANG PCTRS Status: Chronic Current Visit: No Qualifiers: Coronary Disease-Associated Artery/Lesion type: [place] artery [place] vs. transplanted heart: [place] heart Associated angina: without angina Qualified Code(s): I25.10 - Atherosclerotic heart disease of [place] coronary artery without angina pectoris (6) Diabetes mellitus type 2 in obese SNOMED Code(s): 25466785 Code(s): E11.69 - TYPE 2 DIABETES MELLITUS WITH OTHER SPECIFIED COMPLICATION ; E66.9 - OBESITY, UNSPECIFIED Status: Chronic Current Visit: No (7) History of DVT (deep vein thrombosis) SNOMED Code(s): 846316833 Code(s): Z86.718 - PERSONAL HISTORY OF OTHER VENOUS THROMBOSIS AND EMBOLISM Status: Chronic Current Visit: No - Problem List Review Problem List Initiated/Reviewed/Updated: Yes - My Orders Last 24 Hours: My Active Orders 01/23/17 12:24 Resuscitation Status Routine 01/23/17 13:50 Patient Status [ADT] Routine Communication Order [RC] PRN Communication Order [RC] PRN Diabetes Education [RC] Click to Edit Intake and Output [RC] QSHIFT May Shower [RC] ASDIRECTED Notify Provider Vital Signs [RC] ASDIRECTED Notify Provider [RC] PRN Oxygen Therapy [RC] PRN Up With Assistance [RC] ASDIRECTED VTE/DVT Education [RC] Per Unit Routine Vital Signs [RC] Q4H PT Evaluation and Treatment [CONS] Routine Acetaminophen [Tylenol] 650 mg PO Q4H PRN Docusate Sodium/Sennosides [Senna Plus] 1 tab PO BID PRN Ondansetron [Zofran ODT] 4 mg PO Q6H PRN Ondansetron [Zofran] 4 mg IV Q6H PRN Polyethylene Glycol 3350 [MiraLAX] 17 gm PO DAILY PRN 01/23/17 17:00 Insulin Aspart [NovoLOG] See Protocol SUBCUT QIDACANDBED 01/23/17 21:00 Simvastatin [Zocor] 10 mg PO BEDTIME 01/23/17 Dinner Consistent Carbohydrate Diet [DIET] 01/24/17 08:54 Dimethicone/Zinc Oxide [Rash Relief-Zinc Oxide [place]] 0 gm TOP ASDIRECTED PRN 01/24/17 09:00 Carvedilol [Coreg] 12.5 mg PO BIDMEALS 01/24/17 12:00 cefTRIAXone [Rocephin] 2 gm Sodium Chloride 0.9% [Normal Saline] 50 ml IV Q24H 01/24/17 12:19 Up to Chair [RC] QID 01/24/17 12:30 Sodium Chloride 0.9% [Normal Saline] 1,000 ml IV ASDIRECTED 01/24/17 16:30 GLUCOSE POC LAB TO COLLECT [POC] QIDACANDBED 01/24/17 21:00 GLUCOSE POC LAB TO COLLECT [POC] QIDACANDBED 01/25/17 05:00 BASIC METABOLIC PANEL,BMP [CHEM] Timed HGB [HEMOGLOBIN] [HEME] Timed INR,PT,PROTHROMBIN TIME [COAG] Timed 01/25/17 07:30 GLUCOSE POC LAB TO COLLECT [POC] QIDACANDBED 01/25/17 11:30 GLUCOSE POC LAB TO COLLECT [POC] QIDACANDBED 01/25/17 16:30 GLUCOSE POC LAB TO COLLECT [POC] QIDACANDBED 01/25/17 21:00 GLUCOSE POC LAB TO COLLECT [POC] QIDACANDBED 01/26/17 07:30 GLUCOSE POC LAB TO COLLECT [POC] QIDACANDBED 01/26/17 11:30 GLUCOSE POC LAB TO COLLECT [POC] QIDACANDBED 01/26/17 16:30 GLUCOSE POC LAB TO COLLECT [POC] QIDACANDBED 01/26/17 21:00 GLUCOSE POC LAB TO COLLECT [POC] QIDACANDBED 01/27/17 07:30 GLUCOSE POC LAB TO COLLECT [POC] QIDACANDBED 01/27/17 11:30 GLUCOSE POC LAB TO COLLECT [POC] QIDACANDBED 01/27/17 16:30 GLUCOSE POC LAB TO COLLECT [POC] QIDACANDBED 01/27/17 21:00 GLUCOSE POC LAB TO COLLECT [POC] QIDACANDBED 01/28/17 07:30 GLUCOSE POC LAB TO COLLECT [POC] QIDACANDBED 01/28/17 11:30 GLUCOSE POC LAB TO COLLECT [POC] QIDACANDBED 01/28/17 16:30 GLUCOSE POC LAB TO COLLECT [POC] QIDACANDBED 01/28/17 21:00 GLUCOSE POC LAB TO COLLECT [POC] QIDACANDBED - Plan Plan:: ASSESSMENT AND PLAN - Acute cystitis - 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 clinically looks better today. Culture growing a gram- negative lalo. -Continue ceftriaxone -Gentle fluids -Follow-up urine culture -Physical therapy History of DVT - chronically anticoagulated. INR therapeutic. -Continue warfarin Diabetes mellitus type 2 - well-controlled with current therapy. -Continue home medications Coronary artery disease - no active symptoms. -cont home meds CKD III - creatinine improved since admission. -continue gentle fluids Maintenance issues - - DVT prophylaxis - warfarin - GI prophylaxis - not indicated - Nutrition - diabetic diet - [place] catheter - chronic indwelling catheter (will need urology follow-up) Disposition - anticipate discharge to home versus possibly the [facility] after the hospital stay Primary care physician - Dr. Jose Angel Cancino M.D.
[2017-01-24] MEDS ORDERED: Sodium Chloride 0.9% 1,000 ML IV SCH (12:30)
[2017-01-24] MEDS: Warfarin 5 MG Tab PO SCH (13:19)
[2017-01-24] MEDS: Tamsulosin 0.4 MG Cap.ER PO SCH (21:13)
[2017-01-24] MEDS: Simvastatin 20 MG Tab PO SCH (21:13)
[2017-01-25] MEDS: metFORMIN 500 MG Tab PO SCH ×2 (07:37→17:53)
[2017-01-25] MEDS: Ferrous Sulfate 325 MG Tab PO SCH ×3 (07:37→17:52)
[2017-01-25] MEDS: Carvedilol 12.5 MG Tab PO SCH ×2 (07:38→18:03)
[2017-01-25] MEDS: Furosemide 40 MG Tab PO SCH ×2 (07:38→13:57)
[2017-01-25] MEDS: Aspirin 81 MG Tab.Chew PO SCH (08:43)
[2017-01-25] MEDS: Lisinopril 5 MG Tab PO SCH (08:44)
[2017-01-25] MEDS: Finasteride 5 MG Tab PO SCH (08:44)
[2017-01-25] MEDS: Allopurinol 300 MG Tab PO SCH (08:44)
[2017-01-25] MEDS: Amiodarone 200 MG Tab PO SCH (08:44)
--- NOTE | 2017-01-25 09:45 | PCM.PN ---
- General Info Date of Service: 01/25/17 Subjective Update: Mr. Winchester has been stable since yesterday, but remains very weak and having difficulty with ambulation. Vital signs have been stable and he has remained afebrile. Appetite is good and he's been having regular bowel movements. - Review of Systems General: Reports: Weakness. Denies: Fever, Chills Pulmonary: Reports: No Symptoms Cardiovascular: Reports: No Symptoms Gastrointestinal: Reports: No Symptoms Genitourinary: Reports: No Symptoms - Patient Data Vitals - Most Recent: Last Vital Signs Temp 97.9 F 01/25/17 07:10 Pulse 64 01/25/17 07:38 Resp 18 01/25/17 07:10 BP 152/61 H 01/25/17 08:44 Pulse Ox 96 01/25/17 07:10 Weight - Most Recent: 232 lb 12.789 oz I&O - Last 24 Hours: Intake & Output 01/24/17 01/25/17 01/25/17 22:59 06:59 14:59 Intake Total 608 571 Output Total 2375 275 Balance -1767 296 Lab Results Last 24 Hours: Laboratory Results - last 24 hr 01/25/17 01/25/17 01/25/17 Range/Units 04:20 04:20 04:20 Hgb 9.8 L (12.0-15.0) g/dL PT 20.9 H (9.5-12.0) sec INR 1.90 H (0.80-1.20) Sodium 141 (140-148) mmol/L Potassium 3.8 (3.6-5.2) mmol/L Chloride 106 (100-108) mmol/L Carbon Dioxide 26 (21-32) mmol/L Anion Gap 8.9 (5.0-14.0) mmol/L BUN 20 H (7-18) mg/dL Creatinine 1.3 (0.8-1.3) mg/dL Est Cr Clr Drug Dosing 61.72 mL/min Estimated GFR (MDRD) 54 L (>60) Glucose 82 (74-106) mg/dL Calcium 8.6 (8.5-10.1) mg/dL Med Orders - Current: Current Medications Acetaminophen (Tylenol) 650 mg PO Q4H PRN PRN Reason: Pain (Mild 1-3)/fever Last Admin: 01/24/17 02:53 Dose: 650 mg Allopurinol (Zyloprim) 300 mg PO DAILY [facility] Last Admin: 01/25/17 08:44 Dose: 300 mg Amiodarone HCl (Cordarone) 200 mg PO DAILY [facility] Last Admin: 01/25/17 08:44 Dose: 200 mg Aspirin (Aspirin) 81 mg PO DAILY [facility] Last Admin: 01/25/17 08:43 Dose: 81 mg Carvedilol (Coreg) 12.5 mg PO BIDMEALS [facility] Last Admin: 01/25/17 07:38 Dose: 12.5 mg Dimethicone/Zinc Oxide (Rash Relief-Zinc Oxide [place]) 0 gm TOP ASDIRECTED PRN PRN Reason: Rash Last Admin: 01/24/17 13:20 Dose: 1 spray Ferrous Sulfate (Ferrous Sulfate) 325 mg PO TIDMEALS [facility] Last Admin: 01/25/17 07:37 Dose: 325 mg Finasteride (Proscar) 5 mg PO DAILY [facility] Last Admin: 01/25/17 08:44 Dose: 5 mg Furosemide (Lasix) 40 mg PO BIDDIURETIC [facility] Last Admin: 01/25/17 07:38 Dose: 40 mg Ceftriaxone Sodium 2 gm/ (Sodium Chloride) 50 mls @ 100 mls/hr IV Q24H [facility] Last Admin: 01/24/17 12:04 Dose: 100 mls/hr Lisinopril (Prinivil) 5 mg PO DAILY [facility] Last Admin: 01/25/17 08:44 Dose: 5 mg Metformin HCl (Glucophage) 1,000 mg PO BIDMEALS [facility] Last Admin: 01/25/17 07:37 Dose: 1,000 mg Ondansetron HCl (Zofran Odt) 4 mg PO Q6H PRN PRN Reason: Nausea able to take PO Ondansetron HCl (Zofran) 4 mg IV Q6H PRN PRN Reason: Nausea/Vomiting Polyethylene Glycol (Miralax) 17 gm PO DAILY PRN PRN Reason: Constipation Senna/Docusate Sodium (Senna Plus) 1 tab PO BID PRN PRN Reason: Constipation Simvastatin (Zocor) 10 mg PO BEDTIME [facility] Last Admin: 01/24/17 21:13 Dose: 10 mg Tamsulosin HCl (Flomax) 0.4 mg PO BEDTIME [facility] Last Admin: 01/24/17 21:13 Dose: 0.4 mg Warfarin Sodium (Coumadin) 5 mg PO DAILY@1300 [facility] Last Admin: 01/24/17 13:19 Dose: 5 mg Warfarin Sodium (Coumadin) 7.5 mg PO ONETIME ONE Stop: 01/25/17 09:40 Discontinued Medications Carvedilol (Coreg) 12.5 mg PO BID [facility] Last Admin: 01/23/17 20:45 Dose: 12.5 mg Enoxaparin Sodium (Lovenox) 40 mg SUBCUT DAILY [facility] Sodium Chloride (Normal Saline) 1,000 mls @ 200 mls/hr IV ASDIRECTED [facility] Last Admin: 01/23/17 10:31 Dose: 200 mls/hr Ceftriaxone Sodium 1 gm/ (Sodium Chloride) 50 mls @ 100 mls/hr IV ONETIME ONE Stop: 01/23/17 11:14 Last Admin: 01/23/17 10:50 Dose: 100 mls/hr Sodium Chloride (Normal Saline) 1,000 mls @ 125 mls/hr IV ASDIRECTED [facility] Last Admin: 01/24/17 11:20 Dose: 125 mls/hr Sodium Chloride (Normal Saline) 1,000 mls @ 50 mls/hr IV ASDIRECTED [facility] Last Admin: 01/25/17 04:13 Dose: 50 mls/hr Insulin Aspart (Novolog) 0 unit SUBCUT QIDACANDBED [facility] PRN Reason: Protocol Last Admin: 01/24/17 11:22 Dose: Not Given - Exam Quality Assessment: DVT Prophylaxis General: Alert, Oriented, Cooperative, No Acute Distress Lungs: Clear to Auscultation, Normal Respiratory Effort Cardiovascular: Regular Rate, Regular Rhythm, No Murmurs GI/Abdominal Exam: Normal Bowel Sounds, Soft, Non-Tender, No Organomegaly, No Distention Extremities: Non-Tender, Pedal Edema Skin: Warm, Dry, Intact - Problem List Review Problem List Initiated/Reviewed/Updated: Yes - My Orders Last 24 Hours: My Active Orders 01/25/17 09:39 Warfarin [Coumadin] 7.5 mg PO ONETIME ONE 01/25/17 09:40 Convert IV to Saline Lock [OM.PC] Routine 01/26/17 05:00 BASIC METABOLIC PANEL,BMP [CHEM] Timed 01/26/17 05:11 INR,PT,PROTHROMBIN TIME [COAG] AM - Plan Plan:: ASSESSMENT AND PLAN - Acute cystitis - 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 No significant temperature elevations, remains very weak. Urine culture growing pansensitive Escherichia coli. -Continue ceftriaxone -Saline lock IV -Physical therapy History of DVT - chronically anticoagulated. INR subtherapeutic this morning -Hold usual dose of warfarin, give 7.5 mg today -Recheck INR in a.m. Diabetes mellitus type 2 - well-controlled with current therapy. -Continue home medications Coronary artery disease - no active symptoms. -cont home meds CKD III - creatinine improved since admission. -Saline lock IV -Continue to closely monitor urine output and renal function Maintenance issues - - DVT prophylaxis - warfarin - GI prophylaxis - not indicated - Nutrition - diabetic diet - Freire catheter - chronic indwelling catheter (will need urology follow-up) Disposition - anticipate discharge to home versus possibly the halfway after the hospital stay Primary care physician - Dr. Walter
[2017-01-25] MEDS ORDERED: Warfarin 2.5 MG Tab PO ONE (10:30)
[2017-01-25] MEDS: cefTRIAXone 2 GM in Sodium Chloride 0.9% 50 ML IV SCH (11:59)
[2017-01-25] MEDS: Simvastatin 20 MG Tab PO SCH (21:04)
[2017-01-25] MEDS: Tamsulosin 0.4 MG Cap.ER PO SCH (21:05)
[2017-01-26] MEDS: Ferrous Sulfate 325 MG Tab PO SCH ×3 (08:11→16:42)
[2017-01-26] MEDS: Furosemide 40 MG Tab PO SCH ×2 (08:11→14:32)
[2017-01-26] MEDS: metFORMIN 500 MG Tab PO SCH ×2 (08:11→16:42)
[2017-01-26] MEDS: Carvedilol 12.5 MG Tab PO SCH ×2 (08:11→16:42)
[2017-01-26] MEDS: Aspirin 81 MG Tab.Chew PO SCH (08:12)
[2017-01-26] MEDS: Lisinopril 5 MG Tab PO SCH (08:12)
[2017-01-26] MEDS: Allopurinol 300 MG Tab PO SCH (08:12)
[2017-01-26] MEDS: Amiodarone 200 MG Tab PO SCH (08:12)
[2017-01-26] MEDS: Finasteride 5 MG Tab PO SCH (08:12)
--- NOTE | 2017-01-26 09:36 | PCM.PN ---
- General Info Date of Service: 01/26/17 Functional Status: Reports: Pain Controlled, Tolerating Diet - Review of Systems General: Reports: Weakness Systems Review Comment:: No acute events overnight. No abdominal pain or fevers. Appetite slowly picking up. No nausea. Still weak and requiring significant assistance. - Patient Data Vitals - Most Recent: Last Vital Signs Temp 36.6 C 01/26/17 07:31 Pulse 70 01/26/17 08:11 Resp 16 01/26/17 07:31 BP 126/51 L 01/26/17 08:12 Pulse Ox 97 01/26/17 07:31 Weight - Most Recent: 104.009 kg I&O - Last 24 Hours: Intake & Output 01/25/17 01/26/17 01/26/17 22:59 06:59 14:59 Intake Total 500 250 740 Output Total 125 1700 250 Balance 375 -1450 490 Lab Results Last 24 Hours: Laboratory Results - last 24 hr 01/26/17 01/26/17 Range/Units 04:45 04:45 PT 22.6 H (9.5-12.0) sec INR 2.05 H (0.80-1.20) Sodium 141 (140-148) mmol/L Potassium 3.6 (3.6-5.2) mmol/L Chloride 105 (100-108) mmol/L Carbon Dioxide 25 (21-32) mmol/L Anion Gap 10.6 (5.0-14.0) mmol/L BUN 23 H (7-18) mg/dL Creatinine 1.5 H (0.8-1.3) mg/dL Est Cr Clr Drug Dosing 53.49 mL/min Estimated GFR (MDRD) 46 L (>60) Glucose 93 (74-106) mg/dL Calcium 8.8 (8.5-10.1) mg/dL Med Orders - Current: Current Medications Acetaminophen (Tylenol) 650 mg PO Q4H PRN PRN Reason: Pain (Mild 1-3)/fever Last Admin: 01/24/17 02:53 Dose: 650 mg Allopurinol (Zyloprim) 300 mg PO DAILY [facility] Last Admin: 01/26/17 08:12 Dose: 300 mg Amiodarone HCl (Cordarone) 200 mg PO DAILY [facility] Last Admin: 01/26/17 08:12 Dose: 200 mg Aspirin (Aspirin) 81 mg PO DAILY [facility] Last Admin: 01/26/17 08:12 Dose: 81 mg Carvedilol (Coreg) 12.5 mg PO BIDMEALS [facility] Last Admin: 01/26/17 08:11 Dose: 12.5 mg Dimethicone/Zinc Oxide (Rash Relief-Zinc Oxide [place]) 0 gm TOP ASDIRECTED PRN PRN Reason: Rash Last Admin: 01/24/17 13:20 Dose: 1 spray Ferrous Sulfate (Ferrous Sulfate) 325 mg PO TIDMEALS [facility] Last Admin: 01/26/17 08:11 Dose: 325 mg Finasteride (Proscar) 5 mg PO DAILY [facility] Last Admin: 01/26/17 08:12 Dose: 5 mg Furosemide (Lasix) 40 mg PO BIDDIURETIC [facility] Last Admin: 01/26/17 08:11 Dose: 40 mg Lisinopril (Prinivil) 5 mg PO DAILY [facility] Last Admin: 01/26/17 08:12 Dose: 5 mg Metformin HCl (Glucophage) 1,000 mg PO BIDMEALS [facility] Last Admin: 01/26/17 08:11 Dose: 1,000 mg Ondansetron HCl (Zofran Odt) 4 mg PO Q6H PRN PRN Reason: Nausea able to take PO Ondansetron HCl (Zofran) 4 mg IV Q6H PRN PRN Reason: Nausea/Vomiting Polyethylene Glycol (Miralax) 17 gm PO DAILY PRN PRN Reason: Constipation Senna/Docusate Sodium (Senna Plus) 1 tab PO BID PRN PRN Reason: Constipation Simvastatin (Zocor) 10 mg PO BEDTIME [facility] Last Admin: 01/25/17 21:04 Dose: 10 mg Tamsulosin HCl (Flomax) 0.4 mg PO BEDTIME [facility] Last Admin: 01/25/17 21:05 Dose: 0.4 mg Warfarin Sodium (Coumadin) 5 mg PO DAILY@1300 [facility] Last Admin: 01/24/17 13:19 Dose: 5 mg Discontinued Medications Carvedilol (Coreg) 12.5 mg PO BID [facility] Last Admin: 01/23/17 20:45 Dose: 12.5 mg Enoxaparin Sodium (Lovenox) 40 mg SUBCUT DAILY [facility] Sodium Chloride (Normal Saline) 1,000 mls @ 200 mls/hr IV ASDIRECTED [facility] Last Admin: 01/23/17 10:31 Dose: 200 mls/hr Ceftriaxone Sodium 1 gm/ (Sodium Chloride) 50 mls @ 100 mls/hr IV ONETIME ONE Stop: 01/23/17 11:14 Last Admin: 01/23/17 10:50 Dose: 100 mls/hr Ceftriaxone Sodium 2 gm/ (Sodium Chloride) 50 mls @ 100 mls/hr IV Q24H [facility] Last Admin: 01/25/17 11:59 Dose: 100 mls/hr Sodium Chloride (Normal Saline) 1,000 mls @ 125 mls/hr IV ASDIRECTED [facility] Last Admin: 01/24/17 11:20 Dose: 125 mls/hr Sodium Chloride (Normal Saline) 1,000 mls @ 50 mls/hr IV ASDIRECTED [facility] Last Admin: 01/25/17 04:13 Dose: 50 mls/hr Insulin Aspart (Novolog) 0 unit SUBCUT QIDACANDBED [facility] PRN Reason: Protocol Last Admin: 01/24/17 11:22 Dose: Not Given Warfarin Sodium (Coumadin) 7.5 mg PO ONETIME ONE Stop: 01/25/17 10:31 Last Admin: 01/25/17 10:17 Dose: 7.5 mg - Exam Quality Assessment: No: Supplemental Oxygen General: Alert, Oriented, Cooperative, No Acute Distress Neck: Supple Lungs: Normal Respiratory Effort GI/Abdominal Exam: No Distention Extremities: Pedal Edema Psy/Mental Status: Alert, Normal Affect - Problem List & Annotations (1) Generalized weakness SNOMED Code(s): 36806933 Code(s): R53.1 - WEAKNESS Status: Acute Current Visit: Yes (2) UTI (urinary tract infection) SNOMED Code(s): 00908850 Code(s): N39.0 - URINARY TRACT INFECTION, SITE NOT SPECIFIED Status: Acute Current Visit: Yes Qualifiers: Urinary tract infection type: acute cystitis (3) Urinary retention due to benign prostatic hyperplasia SNOMED Code(s): 251292398 Code(s): N40.1 - BENIGN PROSTATIC HYPERPLASIA WITH LOWER URINARY TRACT SYMP; R33.8 - OTHER RETENTION OF URINE Status: Resolved Current Visit: No (4) CKD (chronic kidney disease) stage 3, GFR 30-59 ml/min SNOMED Code(s): 925303752 Code(s): N18.3 - CHRONIC KIDNEY DISEASE, STAGE 3 (MODERATE) Status: Chronic Current Visit: No (5) Coronary artery disease SNOMED Code(s): 14195971 Code(s): I25.10 - ATHSCL HEART DISEASE OF [place] CORONARY ARTERY W/O ANG PCTRS Status: Chronic Current Visit: No Qualifiers: Coronary Disease-Associated Artery/Lesion type: tribe artery [place] vs. transplanted heart: tribe heart Associated angina: without angina Qualified Code(s): I25.10 - Atherosclerotic heart disease of [place] coronary artery without angina pectoris (6) Diabetes mellitus type 2 in obese SNOMED Code(s): 30817143 Code(s): E11.69 - TYPE 2 DIABETES MELLITUS WITH OTHER SPECIFIED COMPLICATION ; E66.9 - OBESITY, UNSPECIFIED Status: Chronic Current Visit: No (7) History of DVT (deep vein thrombosis) SNOMED Code(s): 553100630 Code(s): Z86.718 - PERSONAL HISTORY OF OTHER VENOUS THROMBOSIS AND EMBOLISM Status: Chronic Current Visit: No - Problem List Review Problem List Initiated/Reviewed/Updated: Yes - My Orders Last 24 Hours: My Active Orders 01/26/17 09:45 Cefdinir [Omnicef] 300 mg PO BID - Plan Plan:: ASSESSMENT AND PLAN - Acute cystitis - 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 Culture with pansensitive Escherichia coli and will transition to oral medications. -Change antibiotics to cephalexin -Saline lock IV Generalized weakness - acute on chronic with acute infection causing severe weakness at this time. Still not anywhere near safe for outpatient management. May need group home placement if he does not improve over the weekend. -Physical therapy -Consider group home placement if not improved by Sunday History of DVT - INR therapeutic. -Continue usual warfarin dosing -Recheck INR in a.m. Diabetes mellitus type 2 - well-controlled with current therapy. -Continue home medications Coronary artery disease - no active symptoms. -cont home meds CKD III - creatinine up slightly since yesterday. -Saline lock IV -Continue to closely monitor urine output and renal function Maintenance issues - - DVT prophylaxis - warfarin - GI prophylaxis - not indicated - Nutrition - diabetic diet - Freire catheter - chronic indwelling catheter (will need urology follow-up) Disposition - anticipate discharge to home versus possibly the group home after the hospital stay Primary care physician - Dr. Walter
[2017-01-26] MEDS: Cefdinir 300 MG Cap PO SCH ×2 (10:05→21:25)
[2017-01-26] MEDS: Warfarin 5 MG Tab PO SCH (13:02)
[2017-01-26] MEDS: Acetaminophen 325 MG Tab PO PRN ×2 (14:31→21:25)
[2017-01-26] MEDS: Simvastatin 20 MG Tab PO SCH (21:25)
[2017-01-26] MEDS: Tamsulosin 0.4 MG Cap.ER PO SCH (21:25)
[2017-01-27] MEDS: metFORMIN 500 MG Tab PO SCH ×2 (08:38→16:41)
[2017-01-27] MEDS: Carvedilol 12.5 MG Tab PO SCH ×2 (08:38→16:38)
[2017-01-27] MEDS: Ferrous Sulfate 325 MG Tab PO SCH ×3 (08:38→16:41)
[2017-01-27] MEDS: Furosemide 40 MG Tab PO SCH ×2 (08:39→13:32)
[2017-01-27] MEDS: Amiodarone 200 MG Tab PO SCH (08:40)
[2017-01-27] MEDS: Aspirin 81 MG Tab.Chew PO SCH (08:40)
[2017-01-27] MEDS: Lisinopril 5 MG Tab PO SCH (08:40)
[2017-01-27] MEDS: Cefdinir 300 MG Cap PO SCH ×2 (08:40→20:19)
[2017-01-27] MEDS: Allopurinol 300 MG Tab PO SCH (08:41)
[2017-01-27] MEDS: Finasteride 5 MG Tab PO SCH (08:41)
[2017-01-27] MEDS: Warfarin 5 MG Tab PO SCH (12:16)
--- NOTE | 2017-01-27 13:21 | PCM.PN ---
- General Info Date of Service: 01/27/17 Functional Status: Reports: Pain Controlled, Tolerating Diet - Review of Systems General: Reports: Weakness Systems Review Comment:: no acute events overnight. Vital signs have been stable. Still extremely weak but otherwise stable and doing well. Still requiring significant assistance and is not safe for outpatient management at this time. No fevers. Urine sediment has essentially resolved. - Patient Data Vitals - Most Recent: Last Vital Signs Temp 36.6 C 01/27/17 10:44 Pulse 67 01/27/17 10:44 Resp 16 01/27/17 10:44 BP 108/52 L 01/27/17 10:44 Pulse Ox 98 01/27/17 10:44 Weight - Most Recent: 104.071 kg I&O - Last 24 Hours: Intake & Output 01/26/17 01/27/17 01/27/17 22:59 06:59 14:59 Intake Total 740 860 Output Total 500 1250 375 Balance 240 -1250 485 Med Orders - Current: Current Medications Acetaminophen (Tylenol) 650 mg PO Q4H PRN PRN Reason: Pain (Mild 1-3)/fever Last Admin: 01/26/17 21:25 Dose: 650 mg Allopurinol (Zyloprim) 300 mg PO DAILY [facility] Last Admin: 01/27/17 08:41 Dose: 300 mg Amiodarone HCl (Cordarone) 200 mg PO DAILY [facility] Last Admin: 01/27/17 08:40 Dose: 200 mg Aspirin (Aspirin) 81 mg PO DAILY [facility] Last Admin: 01/27/17 08:40 Dose: 81 mg Carvedilol (Coreg) 12.5 mg PO BIDMEALS [facility] Last Admin: 01/27/17 08:38 Dose: 12.5 mg Cefdinir (Omnicef) 300 mg PO BID [facility] Last Admin: 01/27/17 08:40 Dose: 300 mg Dimethicone/Zinc Oxide (Rash Relief-Zinc Oxide [employer]) 0 gm TOP ASDIRECTED PRN PRN Reason: Rash Last Admin: 01/24/17 13:20 Dose: 1 spray Ferrous Sulfate (Ferrous Sulfate) 325 mg PO TIDMEALS [facility] Last Admin: 01/27/17 12:15 Dose: 325 mg Finasteride (Proscar) 5 mg PO DAILY [facility] Last Admin: 01/27/17 08:41 Dose: 5 mg Furosemide (Lasix) 40 mg PO BIDDIURETIC [facility] Last Admin: 01/27/17 08:39 Dose: 40 mg Lisinopril (Prinivil) 5 mg PO DAILY [facility] Last Admin: 01/27/17 08:40 Dose: 5 mg Metformin HCl (Glucophage) 1,000 mg PO BIDMEALS [facility] Last Admin: 01/27/17 08:38 Dose: 1,000 mg Ondansetron HCl (Zofran Odt) 4 mg PO Q6H PRN PRN Reason: Nausea able to take PO Ondansetron HCl (Zofran) 4 mg IV Q6H PRN PRN Reason: Nausea/Vomiting Polyethylene Glycol (Miralax) 17 gm PO DAILY PRN PRN Reason: Constipation Senna/Docusate Sodium (Senna Plus) 1 tab PO BID PRN PRN Reason: Constipation Simvastatin (Zocor) 10 mg PO BEDTIME [facility] Last Admin: 01/26/17 21:25 Dose: 10 mg Tamsulosin HCl (Flomax) 0.4 mg PO BEDTIME [facility] Last Admin: 01/26/17 21:25 Dose: 0.4 mg Warfarin Sodium (Coumadin) 5 mg PO DAILY@1300 [facility] Last Admin: 01/27/17 12:16 Dose: 5 mg Discontinued Medications Carvedilol (Coreg) 12.5 mg PO BID [facility] Last Admin: 01/23/17 20:45 Dose: 12.5 mg Enoxaparin Sodium (Lovenox) 40 mg SUBCUT DAILY [facility] Sodium Chloride (Normal Saline) 1,000 mls @ 200 mls/hr IV ASDIRECTED [facility] Last Admin: 01/23/17 10:31 Dose: 200 mls/hr Ceftriaxone Sodium 1 gm/ (Sodium Chloride) 50 mls @ 100 mls/hr IV ONETIME ONE Stop: 01/23/17 11:14 Last Admin: 01/23/17 10:50 Dose: 100 mls/hr Ceftriaxone Sodium 2 gm/ (Sodium Chloride) 50 mls @ 100 mls/hr IV Q24H [facility] Last Admin: 01/25/17 11:59 Dose: 100 mls/hr Sodium Chloride (Normal Saline) 1,000 mls @ 125 mls/hr IV ASDIRECTED [facility] Last Admin: 01/24/17 11:20 Dose: 125 mls/hr Sodium Chloride (Normal Saline) 1,000 mls @ 50 mls/hr IV ASDIRECTED [facility] Last Admin: 01/25/17 04:13 Dose: 50 mls/hr Insulin Aspart (Novolog) 0 unit SUBCUT QIDACANDBED [facility] PRN Reason: Protocol Last Admin: 01/24/17 11:22 Dose: Not Given Warfarin Sodium (Coumadin) 7.5 mg PO ONETIME ONE Stop: 01/25/17 10:31 Last Admin: 01/25/17 10:17 Dose: 7.5 mg - Exam Quality Assessment: No: Supplemental Oxygen General: Alert, Oriented, Cooperative, No Acute Distress Neck: Supple Lungs: Normal Respiratory Effort GI/Abdominal Exam: Soft, No Distention Extremities: Pedal Edema Psy/Mental Status: Alert, Normal Affect - Problem List & Annotations (1) Generalized weakness SNOMED Code(s): 66769739 Code(s): R53.1 - WEAKNESS Status: Acute Current Visit: Yes (2) UTI (urinary tract infection) SNOMED Code(s): 42379225 Code(s): N39.0 - URINARY TRACT INFECTION, SITE NOT SPECIFIED Status: Acute Current Visit: Yes Qualifiers: Urinary tract infection type: acute cystitis (3) Urinary retention due to benign prostatic hyperplasia SNOMED Code(s): 084310730 Code(s): N40.1 - BENIGN PROSTATIC HYPERPLASIA WITH LOWER URINARY TRACT SYMP; R33.8 - OTHER RETENTION OF URINE Status: Resolved Current Visit: No (4) CKD (chronic kidney disease) stage 3, GFR 30-59 ml/min SNOMED Code(s): 991373375 Code(s): N18.3 - CHRONIC KIDNEY DISEASE, STAGE 3 (MODERATE) Status: Chronic Current Visit: No (5) Coronary artery disease SNOMED Code(s): 35680032 Code(s): I25.10 - ATHSCL HEART DISEASE OF [place] CORONARY ARTERY W/O ANG PCTRS Status: Chronic Current Visit: No Qualifiers: Coronary Disease-Associated Artery/Lesion type: elem artery [place] vs. transplanted heart: elem heart Associated angina: without angina Qualified Code(s): I25.10 - Atherosclerotic heart disease of [place] coronary artery without angina pectoris (6) Diabetes mellitus type 2 in obese SNOMED Code(s): 51366858 Code(s): E11.69 - TYPE 2 DIABETES MELLITUS WITH OTHER SPECIFIED COMPLICATION ; E66.9 - OBESITY, UNSPECIFIED Status: Chronic Current Visit: No (7) History of DVT (deep vein thrombosis) SNOMED Code(s): 086664313 Code(s): Z86.718 - PERSONAL HISTORY OF OTHER VENOUS THROMBOSIS AND EMBOLISM Status: Chronic Current Visit: No - Problem List Review Problem List Initiated/Reviewed/Updated: Yes - My Orders Last 24 Hours: My Active Orders 01/28/17 05:00 BASIC METABOLIC PANEL,BMP [CHEM] Timed CBC W/O DIFF,HEMOGRAM [HEME] Timed (1) INR,PT,PROTHROMBIN TIME [COAG] Timed - Plan Plan:: ASSESSMENT AND PLAN - Acute cystitis - 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 Culture with pansensitive Escherichia coli and has been transitioned to oral medications. -continue cephalexin -Saline lock IV Generalized weakness - acute on chronic with acute infection causing severe weakness at this time. Still extremely weak and requiring a fair amount of assistance. -Physical therapy -Consider snf placement if not improved by Sunday History of DVT - INR therapeutic. -Continue usual warfarin dosing -Recheck INR in a.m. Diabetes mellitus type 2 - well-controlled with current therapy. -Continue home medications Coronary artery disease - no active symptoms. -cont home meds CKD III - creatinine up slightly 2 days ago. -Saline lock IV -recheck labs in the morning Maintenance issues - - DVT prophylaxis - warfarin - GI prophylaxis - not indicated - Nutrition - diabetic diet - Freire catheter - chronic indwelling catheter (will need urology follow-up) Disposition - anticipate discharge to home versus possibly the snf after the hospital stay Primary care physician - Dr. Walter
[2017-01-27] MEDS: Simvastatin 20 MG Tab PO SCH (20:19)
[2017-01-27] MEDS: Tamsulosin 0.4 MG Cap.ER PO SCH (20:19)
[2017-01-27] MEDS: Acetaminophen 325 MG Tab PO PRN (21:44)
[2017-01-28] MEDS: Acetaminophen 325 MG Tab PO PRN (04:53)
[2017-01-28] MEDS: Ferrous Sulfate 325 MG Tab PO SCH ×2 (08:12→12:01)
[2017-01-28] MEDS: metFORMIN 500 MG Tab PO SCH (08:12)
[2017-01-28] MEDS: Carvedilol 12.5 MG Tab PO SCH (08:12)
[2017-01-28] MEDS: Cefdinir 300 MG Cap PO SCH (08:13)
[2017-01-28] MEDS: Allopurinol 300 MG Tab PO SCH (08:13)
[2017-01-28] MEDS: Finasteride 5 MG Tab PO SCH (08:13)
[2017-01-28] MEDS: Lisinopril 5 MG Tab PO SCH (08:13)
[2017-01-28] MEDS: Furosemide 40 MG Tab PO SCH (08:13)
[2017-01-28] MEDS: Amiodarone 200 MG Tab PO SCH (08:13)
[2017-01-28] MEDS: Aspirin 81 MG Tab.Chew PO SCH (09:41)
--- NOTE | 2017-01-28 10:40 | PCM.PN ---
- General Info Date of Service: 01/28/17 - Review of Systems General: Reports: Weakness (right arm and hand). Denies: Fever Neurological: Reports: Headache Systems Review Comment:: No acute events overnight. No fevers. No vomiting. He does report a mild left- sided headache and some right arm and hand weakness 3-D first noticed these this morning and they seem to be decreasing as the day goes by but he is concerned that he may have had a stroke. Vital signs have been stable. He remains very weak and requires significant assistance just to get out of bed. - Patient Data Vitals - Most Recent: Last Vital Signs Temp 36.8 C 01/28/17 07:27 Pulse 63 01/28/17 08:12 Resp 20 01/28/17 07:27 BP 137/71 01/28/17 08:13 Pulse Ox 97 01/28/17 07:27 Weight - Most Recent: 103.674 kg I&O - Last 24 Hours: Intake & Output 01/27/17 01/28/17 01/28/17 22:59 06:59 14:59 Intake Total 598 500 Output Total 150 1500 Balance 448 -1000 Lab Results Last 24 Hours: Laboratory Results - last 24 hr 01/28/17 01/28/17 01/28/17 Range/Units 05:08 05:08 05:08 WBC 5.5 (4.5-11.0) K/uL RBC 3.49 L (4.30-5.90) M/uL Hgb 10.1 L (12.0-15.0) g/dL Hct 30.9 L (40.0-54.0) % MCV 89 (80-98) fL MCH 29 (27-31) pg MCHC 33 (32-36) % Plt Count 105 L (150-400) K/uL PT 21.3 H (9.5-12.0) sec INR 1.94 H (0.80-1.20) Sodium 141 (140-148) mmol/L Potassium 3.4 L (3.6-5.2) mmol/L Chloride 104 (100-108) mmol/L Carbon Dioxide 24 (21-32) mmol/L Anion Gap 16.4 H (5.0-14.0) mmol/L BUN 23 H (7-18) mg/dL Creatinine 1.4 H (0.8-1.3) mg/dL Est Cr Clr Drug Dosing 57.00 mL/min Estimated GFR (MDRD) 50 L (>60) Glucose 91 (74-106) mg/dL Calcium 8.9 (8.5-10.1) mg/dL Med Orders - Current: Current Medications Acetaminophen (Tylenol) 650 mg PO Q4H PRN PRN Reason: Pain (Mild 1-3)/fever Last Admin: 01/28/17 04:53 Dose: 650 mg Allopurinol (Zyloprim) 300 mg PO DAILY [facility] Last Admin: 01/28/17 08:13 Dose: 300 mg Amiodarone HCl (Cordarone) 200 mg PO DAILY [facility] Last Admin: 01/28/17 08:13 Dose: 200 mg Aspirin (Aspirin) 81 mg PO DAILY [facility] Last Admin: 01/28/17 09:41 Dose: 81 mg Carvedilol (Coreg) 12.5 mg PO BIDMEALS [facility] Last Admin: 01/28/17 08:12 Dose: 12.5 mg Cefdinir (Omnicef) 300 mg PO BID [facility] Last Admin: 01/28/17 08:13 Dose: 300 mg Dimethicone/Zinc Oxide (Rash Relief-Zinc Oxide [place]) 0 gm TOP ASDIRECTED PRN PRN Reason: Rash Last Admin: 01/24/17 13:20 Dose: 1 spray Ferrous Sulfate (Ferrous Sulfate) 325 mg PO TIDMEALS [facility] Last Admin: 01/28/17 08:12 Dose: 325 mg Finasteride (Proscar) 5 mg PO DAILY [facility] Last Admin: 01/28/17 08:13 Dose: 5 mg Furosemide (Lasix) 40 mg PO BIDDIURETIC [facility] Last Admin: 01/28/17 08:13 Dose: 40 mg Lisinopril (Prinivil) 5 mg PO DAILY [facility] Last Admin: 01/28/17 08:13 Dose: 5 mg Metformin HCl (Glucophage) 1,000 mg PO BIDMEALS [facility] Last Admin: 01/28/17 08:12 Dose: 1,000 mg Ondansetron HCl (Zofran Odt) 4 mg PO Q6H PRN PRN Reason: Nausea able to take PO Ondansetron HCl (Zofran) 4 mg IV Q6H PRN PRN Reason: Nausea/Vomiting Polyethylene Glycol (Miralax) 17 gm PO DAILY PRN PRN Reason: Constipation Senna/Docusate Sodium (Senna Plus) 1 tab PO BID PRN PRN Reason: Constipation Simvastatin (Zocor) 10 mg PO BEDTIME [facility] Last Admin: 01/27/17 20:19 Dose: 10 mg Tamsulosin HCl (Flomax) 0.4 mg PO BEDTIME [facility] Last Admin: 01/27/17 20:19 Dose: 0.4 mg Warfarin Sodium (Coumadin) 5 mg PO DAILY@1300 [facility] Last Admin: 01/27/17 12:16 Dose: 5 mg Discontinued Medications Carvedilol (Coreg) 12.5 mg PO BID [facility] Last Admin: 01/23/17 20:45 Dose: 12.5 mg Enoxaparin Sodium (Lovenox) 40 mg SUBCUT DAILY [facility] Sodium Chloride (Normal Saline) 1,000 mls @ 200 mls/hr IV ASDIRECTED [facility] Last Admin: 01/23/17 10:31 Dose: 200 mls/hr Ceftriaxone Sodium 1 gm/ (Sodium Chloride) 50 mls @ 100 mls/hr IV ONETIME ONE Stop: 01/23/17 11:14 Last Admin: 01/23/17 10:50 Dose: 100 mls/hr Ceftriaxone Sodium 2 gm/ (Sodium Chloride) 50 mls @ 100 mls/hr IV Q24H [facility] Last Admin: 01/25/17 11:59 Dose: 100 mls/hr Sodium Chloride (Normal Saline) 1,000 mls @ 125 mls/hr IV ASDIRECTED [facility] Last Admin: 01/24/17 11:20 Dose: 125 mls/hr Sodium Chloride (Normal Saline) 1,000 mls @ 50 mls/hr IV ASDIRECTED [facility] Last Admin: 01/25/17 04:13 Dose: 50 mls/hr Insulin Aspart (Novolog) 0 unit SUBCUT QIDACANDBED [facility] PRN Reason: Protocol Last Admin: 01/24/17 11:22 Dose: Not Given Warfarin Sodium (Coumadin) 7.5 mg PO ONETIME ONE Stop: 01/25/17 10:31 Last Admin: 01/25/17 10:17 Dose: 7.5 mg - Exam Quality Assessment: No: Supplemental Oxygen General: Alert, Oriented, Cooperative, No Acute Distress Neck: Supple Lungs: Normal Respiratory Effort GI/Abdominal Exam: Soft, No Distention Extremities: Pedal Edema (bilateral pitting ankle edema) Skin: Warm, Dry Neurological: No: Strength Equal Bilateral (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 Plantar and dorsiflexion as well as leg extension equal but only 4+/5) - Problem List & Annotations (1) Generalized weakness SNOMED Code(s): 27821143 Code(s): R53.1 - WEAKNESS Status: Acute Current Visit: Yes (2) UTI (urinary tract infection) SNOMED Code(s): 88449148 Code(s): N39.0 - URINARY TRACT INFECTION, SITE NOT SPECIFIED Status: Acute Current Visit: Yes Qualifiers: Urinary tract infection type: acute cystitis (3) Urinary retention due to benign prostatic hyperplasia SNOMED Code(s): 062938431 Code(s): N40.1 - BENIGN PROSTATIC HYPERPLASIA WITH LOWER URINARY TRACT SYMP; R33.8 - OTHER RETENTION OF URINE Status: Resolved Current Visit: No (4) CKD (chronic kidney disease) stage 3, GFR 30-59 ml/min SNOMED Code(s): 409174890 Code(s): N18.3 - CHRONIC KIDNEY DISEASE, STAGE 3 (MODERATE) Status: Chronic Current Visit: No (5) Coronary artery disease SNOMED Code(s): 78188329 Code(s): I25.10 - ATHSCL HEART DISEASE OF [place] CORONARY ARTERY W/O ANG PCTRS Status: Chronic Current Visit: No Qualifiers: Coronary Disease-Associated Artery/Lesion type: [place] artery [place] vs. transplanted heart: [place] heart Associated angina: without angina Qualified Code(s): I25.10 - Atherosclerotic heart disease of [place] coronary artery without angina pectoris (6) Diabetes mellitus type 2 in obese SNOMED Code(s): 34802345 Code(s): E11.69 - TYPE 2 DIABETES MELLITUS WITH OTHER SPECIFIED COMPLICATION ; E66.9 - OBESITY, UNSPECIFIED Status: Chronic Current Visit: No (7) History of DVT (deep vein thrombosis) SNOMED Code(s): 082121665 Code(s): Z86.718 - PERSONAL HISTORY OF OTHER VENOUS THROMBOSIS AND EMBOLISM Status: Chronic Current Visit: No - Problem List Review Problem List Initiated/Reviewed/Updated: Yes - My Orders Last 24 Hours: My Active Orders 01/28/17 10:37 Head wo Cont [CT] Routine 01/28/17 10:38 Potassium Chloride [Klor-Con M20] 40 meq PO ONETIME ONE 01/29/17 05:00 BASIC METABOLIC PANEL,BMP [CHEM] Timed CBC W/O DIFF,HEMOGRAM [HEME] Timed (1) INR,PT,PROTHROMBIN TIME [COAG] Timed - Plan Plan:: ASSESSMENT AND PLAN - Acute cystitis - 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 Culture with pansensitive Escherichia coli and has been transitioned to oral medications. -continue cephalexin -Saline lock IV Generalized weakness - acute on chronic with acute infection causing severe weakness at this time. Still extremely weak and requires an EZ Stand to get out of bed. I think he would benefit from subacute rehabilitation but he is not excited about this plan. -Physical therapy -Consider fpc placement if not improved by tomorrow History of DVT - INR therapeutic. -Continue usual warfarin dosing -Recheck INR in a.m. Diabetes mellitus type 2 - well-controlled with current therapy. -Continue home medications Coronary artery disease - no active symptoms. -cont home meds CKD III - creatinine stable and near baseline. -Saline lock IV -recheck labs in the morning Maintenance issues - - DVT prophylaxis - warfarin - GI prophylaxis - not indicated - Nutrition - diabetic diet - Freire catheter - chronic indwelling catheter (will need urology follow-up) Disposition - anticipate discharge to [facility]pc and he should be ready for discharge tomorrow. Robby Cancino M.D.
[2017-01-28] MEDS ORDERED: Potassium Chloride 20 MEQ Tab.ER PO ONE (11:30)
[2017-01-28 11:34] VITALS: BP 105/54
[2017-01-28] MEDS: Warfarin 5 MG Tab PO SCH (12:01)
--- NOTE | 2017-01-28 13:45 | PCM.DCSUM1 ---
Discharge Summary - Discharge Data Discharge Date: 01/28/17 Discharge Disposition: DC/Tfer to Acute Hospital 02 Condition: Fair - Discharge Diagnosis/Problem(s) (1) Subdural hematoma SNOMED Code(s): 75629868 ICD Code: I62.00 - NONTRAUMATIC SUBDURAL HEMORRHAGE, UNSPECIFIED Status: Acute Current Visit: Yes (2) Generalized weakness SNOMED Code(s): 13251962 ICD Code: R53.1 - WEAKNESS Status: Acute Current Visit: Yes (3) UTI (urinary tract infection) SNOMED Code(s): 38000616 ICD Code: N39.0 - URINARY TRACT INFECTION, SITE NOT SPECIFIED Status: Acute Current Visit: Yes Qualifiers: Urinary tract infection type: acute cystitis (4) Urinary retention due to benign prostatic hyperplasia SNOMED Code(s): 768936996 ICD Code: N40.1 - BENIGN PROSTATIC HYPERPLASIA WITH LOWER URINARY TRACT SYMP ; R33.8 - OTHER RETENTION OF URINE Status: Resolved Current Visit: No (5) CKD (chronic kidney disease) stage 3, GFR 30-59 ml/min SNOMED Code(s): 321318213 ICD Code: N18.3 - CHRONIC KIDNEY DISEASE, STAGE 3 (MODERATE) Status: Chronic Current Visit: No (6) Coronary artery disease SNOMED Code(s): 22945828 ICD Code: I25.10 - ATHSCL HEART DISEASE OF [place] CORONARY ARTERY W/O ANG PCTRS Status: Chronic Current Visit: No Qualifiers: Coronary Disease-Associated Artery/Lesion type: [place] artery [place] vs. transplanted heart: [place] heart Associated angina: without angina Qualified Code(s): I25.10 - Atherosclerotic heart disease of [place] coronary artery without angina pectoris (7) Diabetes mellitus type 2 in obese SNOMED Code(s): 06783589 ICD Code: E11.69 - TYPE 2 DIABETES MELLITUS WITH OTHER SPECIFIED COMPLICATION ; E66.9 - OBESITY, UNSPECIFIED Status: Chronic Current Visit: No (8) History of DVT (deep vein thrombosis) SNOMED Code(s): 011715112 ICD Code: Z86.718 - PERSONAL HISTORY OF OTHER VENOUS THROMBOSIS AND EMBOLISM Status: Chronic Current Visit: No - Patient Summary/Data Consults: Consultations 01/23/17 13:50 PT Evaluation and Treatment [CONS] Routine Please Evaluate and Treat. PT Reason for Consult: Strengthening This query below is only for informational purposes and is not editable. Hospital Course: Herbie presented to the emergency room with generalized weakness as well as lower abdominal pain and difficulty passing urine through the catheter into the bag. Workup in the emergency room revealed significant sediment inside the bladder that had clogged the catheter and this did improve with changing the Freire catheter. There was evidence for urinary tract infection and with his significant weakness he was admitted for IV antibiotics and physical therapy. Over the next few days he did make some improvement with his strength but remained very weak and required significant assistance even getting out of bed. His urine sediment did decrease with IV fluid hydration and he did not have any fevers during hospital stay. His urine culture did eventually grow out a pansensitive Escherichia coli and antibiotics were transitioned from ceftriaxone to cephalexin. The plan is for a total of 10 days of therapy which would end on February 01. Over the weekend prior to discharge she has been stable but we have not made significant progress with his strength. on the morning of discharge he reported a left-sided headache and some right arm and hand weakness. 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 A CT scan did unfortunately show a very large left-sided subdural hematoma with some acute blood as well as mostly old blood. I contacted Dr. Hale with neurosurgery at [facility]. He agreed that he should be transferred for neurosurgical evaluation and probably intervention. The patient did receive 10 mg of IV vitamin K prior to transfer. His INR on the morning of discharge was 1.9. He is stable for transfer at this time and will be transferred by S ambulance. He is very weak and unable to get out of bed without assistance and the EZ Stand device. - Patient Instructions Diet: NPO Activity: Bedrest Other/Special Instructions: 1. You were in the hospital for management of weakness caused by a urinary tract infection. During the hospital stay you reported a headache and right arm weakness which prompted a head CT. The CT scan revealed a large left-sided subdural hematoma. I recommend transfer to [facility] for neurosurgery evaluation. Dr. Hale of the neurosurgery team has graciously accepted your care in transfer. You will be transferred by ambulance for further evaluation. - Discharge Plan Home Medications: Home Meds Allopurinol [Zyloprim] 300 mg PO DAILY 03/05/14 [History] Amiodarone HCl 200 mg PO DAILY 03/05/14 [History] Carvedilol 12.5 mg PO BID 03/05/14 [History] Lisinopril 5 mg PO DAILY 03/05/14 [History] Simvastatin [Zocor] 10 mg PO BEDTIME 03/05/14 [History] Warfarin Sodium 5 mg PO DAILY 03/05/14 [History] metFORMIN [Glucophage] 1,000 mg PO BID 03/05/14 [History] Acetaminophen [Tylenol Extra Strength] 1,000 mg PO Q4HR PRN 10/03/16 [History] Aspirin 1 tab PO DAILY 11/04/16 [History] Ferrous Sulfate [Feosol] 1 tab PO TID 11/04/16 [History] Finasteride 1 tab PO DAILY 11/04/16 [History] Tamsulosin HCl 1 tab PO BEDTIME 11/04/16 [History] Cyanocobalamin (Vitamin B-12) [Cyanocobalamin Injection] 1,000 mcg IM WEEKLY 09/18 [History] Furosemide [Lasix] 40 mg PO BIDDIURETIC #60 tablet 11/09/16 [Rx] Magnesium Oxide 400 mg PO ASDIRECTED 01/23/17 [History] Patient Handouts: Subdural Hematoma Referrals: Jimenez Walter MD [Primary Care Provider] - (follow-up as needed after the hospital stay) - Discharge Summary/Plan Comment DC Time >30 min.: Yes (50 - transfer to acute Hospital) - Patient Data Vitals - Most Recent: Last Vital Signs Temp 36.8 C 01/28/17 11:32 Pulse 66 01/28/17 11:32 Resp 18 01/28/17 11:32 BP 105/54 L 01/28/17 11:32 Pulse Ox 98 01/28/17 11:32 Weight - Most Recent: 103.674 kg I&O - Last 24 hours: Intake & Output 01/27/17 01/28/17 01/28/17 22:59 06:59 14:59 Intake Total 604 968 8141 Output Total 150 1500 750 Balance 448 -1000 350 Lab Results - Last 24 hrs: Laboratory Results - last 24 hr 01/28/17 01/28/17 01/28/17 Range/Units 05:08 05:08 05:08 WBC 5.5 (4.5-11.0) K/uL RBC 3.49 L (4.30-5.90) M/uL Hgb 10.1 L (12.0-15.0) g/dL Hct 30.9 L (40.0-54.0) % MCV 89 (80-98) fL MCH 29 (27-31) pg MCHC 33 (32-36) % Plt Count 105 L (150-400) K/uL PT 21.3 H (9.5-12.0) sec INR 1.94 H (0.80-1.20) Sodium 141 (140-148) mmol/L Potassium 3.4 L (3.6-5.2) mmol/L Chloride 104 (100-108) mmol/L Carbon Dioxide 24 (21-32) mmol/L Anion Gap 16.4 H (5.0-14.0) mmol/L BUN 23 H (7-18) mg/dL Creatinine 1.4 H (0.8-1.3) mg/dL Est Cr Clr Drug Dosing 57.00 mL/min Estimated GFR (MDRD) 50 L (>60) Glucose 91 (74-106) mg/dL Calcium 8.9 (8.5-10.1) mg/dL Med Orders - Current: Current Medications Acetaminophen (Tylenol) 650 mg PO Q4H PRN PRN Reason: Pain (Mild 1-3)/fever Last Admin: 01/28/17 04:53 Dose: 650 mg Allopurinol (Zyloprim) 300 mg PO DAILY [facility] Last Admin: 01/28/17 08:13 Dose: 300 mg Amiodarone HCl (Cordarone) 200 mg PO DAILY [facility] Last Admin: 01/28/17 08:13 Dose: 200 mg Aspirin (Aspirin) 81 mg PO DAILY [facility] Last Admin: 01/28/17 09:41 Dose: 81 mg Carvedilol (Coreg) 12.5 mg PO BIDMEALS [facility] Last Admin: 01/28/17 08:12 Dose: 12.5 mg Cefdinir (Omnicef) 300 mg PO BID [facility] Last Admin: 01/28/17 08:13 Dose: 300 mg Dimethicone/Zinc Oxide (Rash Relief-Zinc Oxide [place]) 0 gm TOP ASDIRECTED PRN PRN Reason: Rash Last Admin: 01/24/17 13:20 Dose: 1 spray Ferrous Sulfate (Ferrous Sulfate) 325 mg PO TIDMEALS [facility] Last Admin: 01/28/17 12:01 Dose: 325 mg Finasteride (Proscar) 5 mg PO DAILY [facility] Last Admin: 01/28/17 08:13 Dose: 5 mg Furosemide (Lasix) 40 mg PO BIDDIURETIC [facility] Last Admin: 01/28/17 08:13 Dose: 40 mg Phytonadione 10 mg/ Sodium (Chloride) 51 mls @ 100 mls/hr IV NOW ONE Stop: 01/28/17 14:30 Lisinopril (Prinivil) 5 mg PO DAILY [facility] Last Admin: 01/28/17 08:13 Dose: 5 mg Metformin HCl (Glucophage) 1,000 mg PO BIDMEALS [facility] Last Admin: 01/28/17 08:12 Dose: 1,000 mg Ondansetron HCl (Zofran Odt) 4 mg PO Q6H PRN PRN Reason: Nausea able to take PO Ondansetron HCl (Zofran) 4 mg IV Q6H PRN PRN Reason: Nausea/Vomiting Polyethylene Glycol (Miralax) 17 gm PO DAILY PRN PRN Reason: Constipation Senna/Docusate Sodium (Senna Plus) 1 tab PO BID PRN PRN Reason: Constipation Simvastatin (Zocor) 10 mg PO BEDTIME [facility] Last Admin: 01/27/17 20:19 Dose: 10 mg Tamsulosin HCl (Flomax) 0.4 mg PO BEDTIME [facility] Last Admin: 01/27/17 20:19 Dose: 0.4 mg Discontinued Medications Carvedilol (Coreg) 12.5 mg PO BID [facility] Last Admin: 01/23/17 20:45 Dose: 12.5 mg Enoxaparin Sodium (Lovenox) 40 mg SUBCUT DAILY [facility] Sodium Chloride (Normal Saline) 1,000 mls @ 200 mls/hr IV ASDIRECTED [facility] Last Admin: 01/23/17 10:31 Dose: 200 mls/hr Ceftriaxone Sodium 1 gm/ (Sodium Chloride) 50 mls @ 100 mls/hr IV ONETIME ONE Stop: 01/23/17 11:14 Last Admin: 01/23/17 10:50 Dose: 100 mls/hr Ceftriaxone Sodium 2 gm/ (Sodium Chloride) 50 mls @ 100 mls/hr IV Q24H [facility] Last Admin: 01/25/17 11:59 Dose: 100 mls/hr Sodium Chloride (Normal Saline) 1,000 mls @ 125 mls/hr IV ASDIRECTED [facility] Last Admin: 01/24/17 11:20 Dose: 125 mls/hr Sodium Chloride (Normal Saline) 1,000 mls @ 50 mls/hr IV ASDIRECTED [facility] Last Admin: 01/25/17 04:13 Dose: 50 mls/hr Insulin Aspart (Novolog) 0 unit SUBCUT QIDACANDBED [facility] PRN Reason: Protocol Last Admin: 01/24/17 11:22 Dose: Not Given Potassium Chloride (Klor-Con M20) 40 meq PO ONETIME ONE Stop: 01/28/17 11:31 Last Admin: 01/28/17 12:01 Dose: 40 meq Warfarin Sodium (Coumadin) 5 mg PO DAILY@1300 [place] Last Admin: 01/28/17 12:01 Dose: 5 mg Warfarin Sodium (Coumadin) 7.5 mg PO ONETIME ONE Stop: 01/25/17 10:31 Last Admin: 01/25/17 10:17 Dose: 7.5 mg - Exam Quality Assessment: Denies: Supplemental Oxygen General: Reports: Alert, Oriented, Cooperative, No Acute Distress Neck: Reports: Supple Lungs: Reports: Normal Respiratory Effort GI/Abdominal Exam: Soft, No Distention Extremities: Pedal Edema (mod bilateral ankle edema) Neurological: Denies: Strength Equal Bilateral (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
[2017-01-28] MEDS ORDERED: Phytonadione 10 MG in Sodium Chloride 0.9% 50 ML IV ONE (14:00)
== END 2017-01-28 14:45 | DRG 698 ==
LOC: JP.ED 08:56 → JP.MS 12:21
PROVIDERS: ADMIT Internal Medicine; ATTEND Internal Medicine
DX: T83.511A Infection and inflammatory reaction due to indwelling urethral catheter, initial encounter (principal); I62.00 Nontraumatic subdural hemorrhage, unspecified; N30.00 Acute cystitis without hematuria; E11.9 Type 2 diabetes mellitus without complications; I13.0 Hypertensive heart and chronic kidney disease with heart failure and stage 1 through stage 4 chronic kidney disease, or unspecified chronic kidney disease; N40.1 Benign prostatic hyperplasia with lower urinary tract symptoms; R53.1 Weakness; R10.9 Unspecified abdominal pain; R33.8 Other retention of urine; I50.9 Heart failure, unspecified; B96.20 Unspecified Escherichia coli [E. coli] as the cause of diseases classified elsewhere; Z86.718 Personal history of other venous thrombosis and embolism; Z79.01 Long term (current) use of anticoagulants; Z79.84 Long term (current) use of oral hypoglycemic drugs; N18.3 Chronic kidney disease, stage 3 (moderate); Z79.82 Long term (current) use of aspirin; I25.10 Atherosclerotic heart disease of native coronary artery without angina pectoris; M10.9 Gout, unspecified; M54.9 Dorsalgia, unspecified; G89.29 Other chronic pain; Z95.0 Presence of cardiac pacemaker; H91.90 Unspecified hearing loss, unspecified ear; H54.7 Unspecified visual loss; Z87.440 Personal history of urinary (tract) infections; M19.90 Unspecified osteoarthritis, unspecified site; Z95.1 Presence of aortocoronary bypass graft; Z85.038 Personal history of other malignant neoplasm of large intestine; Z85.46 Personal history of malignant neoplasm of prostate; E11.22 Type 2 diabetes mellitus with diabetic chronic kidney disease; Z91.013 Allergy to seafood; Z91.041 Radiographic dye allergy status; Z91.048 Other nonmedicinal substance allergy status
CPT/HCPCS: 36415; 51702; 71010 ×2; 80053; 81001; 83605; 83880; 85025; 85610; 86140; 87086; 87088; 87186; 96361; 96365; 99285; J0696; J7040; J7050; 70450; 80048; 82962; 85018; 85027; 97110-GP; 97162-GP; 97530-GP; 99284; A9270-GY; J3430

== ENCOUNTER 2017-02-07 20:53 | Emergency (ER) | payer MEDICARE, BC ==
[2017-02-07] MEDS ORDERED: Sodium Chloride 0.9% 1,000 ML IV SCH (21:45)
[2017-02-07 22:05] VITALS: BP 98/36
--- NOTE | 2017-02-07 22:07 | EDM.PDOC ---
ED HPI GENERAL MEDICAL PROBLEM - General Chief Complaint: Headache Stated Complaint: MED[facility] Time Seen by Provider: 02/07/17 20:55 Source of Information: Reports: EMS, Family, Jail Records History Limitations: Reports: No Limitations - History of Present Illness INITIAL COMMENTS - FREE TEXT/NARRATIVE: Pt has been at the [facility] for 2 days. He was hospitalized at [facility] where he had subdural hematomas released. He developed a very severe headache today. he has become progressively more confused as the evening progressed. He has not vomited. Onset: Today Duration: Hour(s):, Getting Worse Location: Reports: Head Associated Symptoms: Reports: Confusion, Headaches Headache Pain Score (Numeric/FACES): 8 - Related Data Allergies Allergy/AdvReac Type Severity Reaction Status Date / Time Iodinated Contrast- Oral and Allergy Hives Verified 01/23/17 09:31 IV Dye [Iodinated Contrast Media - IV Dye] iodine AdvReac Nausea Verified 01/23/17 09:31 shrimp AdvReac Nausea and Verified 01/23/17 10:35 Vomiting tape Allergy Rash Uncoded 08/04/15 06:56 Home Meds: Home Meds Allopurinol [Zyloprim] 300 mg PO DAILY 03/05/14 [History] Amiodarone HCl 200 mg PO DAILY 03/05/14 [History] Carvedilol 12.5 mg PO BID 03/05/14 [History] Lisinopril 5 mg PO DAILY 03/05/14 [History] Simvastatin [Zocor] 10 mg PO BEDTIME 03/05/14 [History] Warfarin Sodium 5 mg PO DAILY 03/05/14 [History] metFORMIN [Glucophage] 1,000 mg PO BID 03/05/14 [History] Acetaminophen [Tylenol Extra Strength] 1,000 mg PO Q4HR PRN 10/03/16 [History] Aspirin 1 tab PO DAILY 11/04/16 [History] Ferrous Sulfate [Feosol] 1 tab PO TID 11/04/16 [History] Finasteride 1 tab PO DAILY 11/04/16 [History] Tamsulosin HCl 1 tab PO BEDTIME 11/04/16 [History] Cyanocobalamin (Vitamin B-12) [Cyanocobalamin Injection] 1,000 mcg IM WEEKLY 09/18 [History] Furosemide [Lasix] 40 mg PO BIDDIURETIC #60 tablet 11/09/16 [Rx] Magnesium Oxide 400 mg PO ASDIRECTED 01/23/17 [History] Past Medical History HEENT History: Reports: Cataract, Hard of Hearing, Impaired Vision Cardiovascular History: Reports: Automatic Implantable Cardioverter Defibrillators, Blood Clots/VTE/DVT, Bypass, CAD, Heart Failure, High Cholesterol, Hypertension, Pacemaker, SOB on Exertion Gastrointestinal History: Reports: Other (See Below) Other Gastrointestinal History: 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 L leg pain. left knee pain Neurological History: Reports: Concussion, Other (See Below) Other Neuro History: Blood clots on both sides of head. Endocrine/Metabolic History: Reports: Diabetes, Type II, Obesity/BMI 30+ Hematologic History: Reports: Anticoagulation Therapy Oncologic (Cancer) History: Reports: Colon, Prostate - Infectious Disease History Infectious Disease History: Reports: Chicken Pox - Past Surgical History HEENT Surgical History: Reports: Cataract Surgery Cardiovascular Surgical History: Reports: Coronary Artery Bypass, Pacer GI Surgical History: Reports: Colon Neurological Surgical History: Reports: Other (See Below) Other Neurological Surgeries/Procedures: pins/screws/spacer mid to low spine, october 2016. In February 2017 had brain surgery to removed the clots. Drains and sutures removed on sunday, February 05, 2017 Social & Family History - Family History Family Medical History: Noncontributory - Tobacco Use Smoking Status *Q: Never Smoker Second Hand Smoke Exposure: No - Caffeine Use Caffeine Use: Reports: Coffee - Alcohol Use Days Per Week of Alcohol Use: 0 - Recreational Drug Use Recreational Drug Use: Yes ED ROS GENERAL - Review of Systems Review Of Systems: See Below Constitutional: Reports: No Symptoms HEENT: Reports: No Symptoms Respiratory: Reports: No Symptoms Cardiovascular: Reports: No Symptoms Endocrine: Reports: No Symptoms GI/Abdominal: Reports: No Symptoms : Reports: No Symptoms Musculoskeletal: Reports: No Symptoms Skin: Reports: No Symptoms Neurological: Reports: Confusion, Headache, Other (Pt appears much different then he did yesterday and earlier today. ) - Physical Exam Exam: See Below Text/Narrative:: pt is complaining of a severe headache. He is very confused and is not able to give a good history of how he is feeling. Exam Limited By: No Limitations General Appearance: Alert, Moderate Distress, Other (were equal and reactive. The pt was very confused and unable to give a good history. ) Ears: Normal TMs Nose: Normal Inspection Throat/Mouth: Normal Inspection Head Exam: Other ( Pt has had bilateral bone flabs for subdural hematomas. ) Neck: Normal Inspection Respiratory/Chest: No Respiratory Distress Cardiovascular: Regular Rate, Rhythm GI/Abdominal: Soft, Non-Tender (Male) Exam: Deferred Rectal (Males) Exam: Deferred Neuro Exam (Abbreviated): Alert, Confused, Other ( none of his answers were appropiate) Back Exam: Normal Inspection Extremities: Normal Inspection Psychiatric: Normal Affect Course - Vital Signs Last Recorded V/S: Last Vital Signs Temp 36.6 C 02/07/17 22:04 Pulse 75 02/07/17 22:04 Resp 16 02/07/17 22:04 BP 98/36 L 02/07/17 22:04 Pulse Ox 98 02/07/17 22:04 - Orders/Labs/Meds Labs: Laboratory Tests 02/07/17 02/07/17 02/07/17 Range/Units 21:00 21:00 21:33 WBC 8.8 (4.5-11.0) K/uL RBC 3.15 L (4.30-5.90) M/uL Hgb 9.1 L (12.0-15.0) g/dL Hct 28.9 L (40.0-54.0) % MCV 92 (80-98) fL MCH 29 (27-31) pg MCHC 32 (32-36) % Plt Count 286 (150-400) K/uL Neut % (Auto) 71 H (36-66) % Lymph % (Auto) 17 L (24-44) % [place] % (Auto) 10 H (2-6) % Eos % (Auto) 2 (2-4) % Baso % (Auto) 1 (0-1) % PT (9.5-12.0) sec INR (0.80-1.20) APTT (27.0-36.0) sec Sodium 137 L (140-148) mmol/L Potassium 4.4 (3.6-5.2) mmol/L Chloride 102 (100-108) mmol/L Carbon Dioxide 20 L (21-32) mmol/L Anion Gap 19.4 H (5.0-14.0) mmol/L BUN 30 H (7-18) mg/dL Creatinine 2.1 H (0.8-1.3) mg/dL Est Cr Clr Drug Dosing 38.00 mL/min Estimated GFR (MDRD) 31 L (>60) Glucose 100 (74-106) mg/dL Calcium 9.1 (8.5-10.1) mg/dL Total Bilirubin 0.3 (0.2-1.0) mg/dL AST 16 (15-37) U/L ALT 16 (12-78) U/L Alkaline Phosphatase 172 H (46-116) U/L Total Protein 6.5 (6.4-8.2) g/dL Albumin 2.4 L (3.4-5.0) g/dL Globulin 4.1 H (2.3-3.5) g/dL Albumin/Globulin Ratio 0.6 L (1.2-2.2) Urine Color Yellow Urine Appearance Cloudy Urine pH 5.0 (4.5-8.0) Ur Specific [place] 1.020 (1.008-1.030) Urine Protein 30 H (NEGATIVE) mg/dL Urine Glucose (UA) Normal (NEGATIVE) mg/dL Urine Ketones Negative (NEGATIVE) mg/dL Urine Occult Blood Large (NEGATIVE) Urine Nitrite Negative (NEGAITVE) Urine Bilirubin Negative (NEGATIVE) Urine Urobilinogen Normal (NORMAL) mg/dL Ur Leukocyte Esterase Large (NEGATIVE) Urine RBC Semi-packed H (0-5) Urine WBC Packed H (0-5) Ur Epithelial Cells Few Amorphous Sediment Few Urine Bacteria Moderate Urine Mucus Moderate Urine Other See note 02/07/17 02/07/17 Range/Units 22:08 22:15 WBC (4.5-11.0) K/uL RBC (4.30-5.90) M/uL Hgb (12.0-15.0) g/dL Hct (40.0-54.0) % MCV (80-98) fL MCH (27-31) pg MCHC (32-36) % Plt Count (150-400) K/uL Neut % (Auto) (36-66) % Lymph % (Auto) (24-44) % [place] % (Auto) (2-6) % Eos % (Auto) (2-4) % Baso % (Auto) (0-1) % PT 11.7 (9.5-12.0) sec INR 1.09 (0.80-1.20) APTT 27.4 (27.0-36.0) sec Sodium (140-148) mmol/L Potassium (3.6-5.2) mmol/L Chloride (100-108) mmol/L Carbon Dioxide (21-32) mmol/L Anion Gap (5.0-14.0) mmol/L BUN (7-18) mg/dL Creatinine (0.8-1.3) mg/dL Est Cr Clr Drug Dosing mL/min Estimated GFR (MDRD) (>60) Glucose (74-106) mg/dL Calcium (8.5-10.1) mg/dL Total Bilirubin (0.2-1.0) mg/dL AST (15-37) U/L ALT (12-78) U/L Alkaline Phosphatase (46-116) U/L Total Protein (6.4-8.2) g/dL Albumin (3.4-5.0) g/dL Globulin (2.3-3.5) g/dL Albumin/Globulin Ratio (1.2-2.2) Urine Color Urine Appearance Urine pH (4.5-8.0) Ur Specific [place] (1.008-1.030) Urine Protein (NEGATIVE) mg/dL Urine Glucose (UA) (NEGATIVE) mg/dL Urine Ketones (NEGATIVE) mg/dL Urine Occult Blood (NEGATIVE) Urine Nitrite (NEGAITVE) Urine Bilirubin (NEGATIVE) Urine Urobilinogen (NORMAL) mg/dL Ur Leukocyte Esterase (NEGATIVE) Urine RBC (0-5) Urine WBC (0-5) Ur Epithelial Cells Amorphous Sediment Urine Bacteria Urine Mucus Urine Other Meds: Medications Discontinued Medications Generic Name Dose Route Start Last Admin Trade Name Freq PRN Reason Stop Dose Admin Hydromorphone HCl 0.5 mg 02/07/17 22:16 02/07/17 22:27 Dilaudid IVPUSH 02/07/17 22:17 0.5 mg ONETIME ONE Administration Sodium Chloride 1,000 mls @ 250 mls/hr 02/07/17 21:45 02/07/17 22:20 Normal Saline IV 250 mls/hr ASDIRECTED CLIFF Administration - Re-Assessments/Exams Free Text/Narrative Re-Assessment/Exam: 02/07/17 22:16 aditi is up from last lab at [facility].The hg is 9.1. His wbc is not high. His cat scan showed some possible blood in the hematoma sites. This did look fresh. 02/10/17 07:38 This was discussed with neurosurgery and the big concern was the possible fresh blood and the marked confusion which changed rapidly over the past few hours. Departure - Departure Time of Disposition: 22:18 Disposition: DC/Tfer to Acute Hospital 02 Condition: Fair Clinical Impression: Subdural hematoma, acute, Acute expansion of chronic intracranial subdural hematoma, Confusion - Discharge Information Referrals: PCP,None [Primary Care Provider] - Forms: ED Department Discharge Care Plan Goals: transfer to [facility].
[2017-02-07] MEDS ORDERED: HYDROmorphone 0.5 MG/0.5 ML Syringe IVPUSH ONE (22:16)
== END 2017-02-07 22:55 ==
LOC: JP.ED 20:53
DX: I62.01 Nontraumatic acute subdural hemorrhage (principal); I62.03 Nontraumatic chronic subdural hemorrhage; I10 Essential (primary) hypertension; I11.0 Hypertensive heart disease with heart failure; I50.9 Heart failure, unspecified; I25.10 Atherosclerotic heart disease of native coronary artery without angina pectoris; E78.00 Pure hypercholesterolemia, unspecified; E11.9 Type 2 diabetes mellitus without complications; Z79.01 Long term (current) use of anticoagulants; Z79.82 Long term (current) use of aspirin; Z79.899 Other long term (current) drug therapy; Z91.041 Radiographic dye allergy status; Z88.8 Allergy status to other drugs, medicaments and biological substances; Z91.013 Allergy to seafood; Z91.048 Other nonmedicinal substance allergy status
CPT/HCPCS: 36415; 70450; 80053; 81001; 85025; 85610; 85730; 96361; 96374; 99285; J1170; J7040

== ENCOUNTER 2018-11-11 06:52 | Inpatient (IN) | payer MEDICARE, BC ==
[2018-11-11] MEDS ORDERED: Scopolamine 1.5 MG Transdermal Patch TOP ONE (07:15)
[2018-11-11] MEDS ORDERED: Gabapentin 300 MG Cap PO ONE (07:15)
[2018-11-11] MEDS: Nozin Nasal Sanitizer NASBOTH SCH ×3 (07:40→21:05)
[2018-11-11] MEDS ORDERED: Lactated Ringers 1,000 ML IV SCH (08:20)
[2018-11-11] MEDS ORDERED: ceFAZolin 2 GM in Premix Bag 1 BAG IV ONE (08:30)
[2018-11-11] MEDS ORDERED: Propofol 200 MG/20 ML SDV ONE ×2 (08:37→11:31)
[2018-11-11] MEDS ORDERED: Neostigmine Methylsulfate 1 MG/ML 5 ML Syringe ONE (08:37)
[2018-11-11] MEDS ORDERED: Dexamethasone 4 MG/ML SDV ONE (08:37)
[2018-11-11] MEDS ORDERED: Ondansetron 4 MG/2 ML SDV ONE (08:37)
[2018-11-11] MEDS ORDERED: Glycopyrrolate 0.2 MG/ML 5 ML MDV ONE (08:37)
[2018-11-11] MEDS ORDERED: fentaNYL 250 MCG/5 ML SDV ONE ×2 (08:37→13:57)
[2018-11-11] MEDS ORDERED: Rocuronium 50 MG/5 ML Vial ONE (08:37)
[2018-11-11] MEDS: Tranexamic Acid 1,000 MG in Sodium Chloride 0.9% 50 ML IV ONE ×4 (08:45→18:50)
[2018-11-11] MEDS ORDERED: Tranexamic Acid 1,000 MG in Sodium Chloride 0.9% 50 ML IV PRN (10:30)
[2018-11-11] MEDS ORDERED: ceFAZolin 1 GM in Premix Bag 1 BAG IV ONE (13:30)
[2018-11-11] MEDS ORDERED: hydrOXYzine HCl 100 MG/2 ML SDV IM ONE (15:45)
--- NOTE | 2018-11-11 16:19 | CR ---
Knee 1V or 2V Lt: 11/11/2018 3:38 PM INDICATION: Follow-up knee arthroplasty COMPARISON: 07/02/2018 FINDINGS/IMPRESSION: Interval changes of left total knee arthroplasty without apparent hardware complication or periprosthetic fracture. Air and fluid are present in the joint space and overlying soft tissues, which are expected findings for the patient's immediate postoperative status. Diffuse vascular calcifications are present.
[2018-11-11] MEDS ORDERED: Morphine 2 MG/ML Syringe IVPUSH PRN (16:46)
[2018-11-11] MEDS ORDERED: Docusate Sodium 100 MG Cap PO PRN (16:46)
[2018-11-11] MEDS ORDERED: Acetaminophen/HYDROcodone 325-5 MG Tab PO PRN (16:46)
[2018-11-11] MEDS ORDERED: Magnesium Hydroxide 400 MG/5 ML Susp 30 ML Cup PO PRN (16:46)
[2018-11-11] MEDS: Sodium Chloride 0.9% 1,000 ML IV SCH (19:00)
[2018-11-11] MEDS: metFORMIN 500 MG Tab PO SCH (19:01)
[2018-11-11] MEDS: VERIFY SCOP PATCH TOP SCH (19:02)
[2018-11-11] MEDS ORDERED: Carvedilol 12.5 MG Tab PO SCH (21:00)
[2018-11-11] MEDS ORDERED: Non-Formulary Medication 1 Each (Levetiracetam [Levetiracetam] 750 MG) PO SCH (21:00)
[2018-11-11] MEDS ORDERED: Non-Formulary Medication 1 Each (Simvastatin [Zocor] 10 MG) PO SCH (21:00)
[2018-11-11] MEDS: Acetaminophen/oxyCODONE 325-5 MG Tab PO PRN (21:06)
[2018-11-11] MEDS: Simvastatin 20 MG Tab PO SCH (21:07)
[2018-11-11] MEDS: Carvedilol 6.25 MG Tab PO SCH (21:07)
[2018-11-11] MEDS: levETIRAcetam 250 MG Tab PO SCH (21:07)
[2018-11-11] MEDS: Ferrous Sulfate 325 MG Tab PO SCH (21:07)
[2018-11-11] MEDS: ceFAZolin 1 GM in Premix Bag 1 BAG IV SCH (21:08)
[2018-11-12] MEDS: Sodium Chloride 0.9% 1,000 ML IV SCH ×2 (04:37→13:20)
[2018-11-12] MEDS: ceFAZolin 1 GM in Premix Bag 1 BAG IV SCH ×2 (05:02→13:19)
[2018-11-12] MEDS: Acetaminophen/oxyCODONE 325-5 MG Tab PO PRN ×2 (07:14→17:16)
[2018-11-12] MEDS: Levothyroxine 25 MCG, Levothyroxine 50 MCG PO SCH ×2 (07:14)
[2018-11-12] MEDS ORDERED: Non-Formulary Medication 1 Each (Levothyroxine [Levothyroxine] 75 MCG) PO SCH (07:30)
[2018-11-12] MEDS ORDERED: Furosemide 40 MG Tab PO SCH (08:00)
[2018-11-12] MEDS: Lisinopril 5 MG Tab PO SCH (08:59)
[2018-11-12] MEDS: metFORMIN 500 MG Tab PO SCH ×2 (09:03→17:16)
[2018-11-12] MEDS: Ferrous Sulfate 325 MG Tab PO SCH ×3 (09:03→21:17)
[2018-11-12] MEDS: Amiodarone 200 MG Tab PO SCH (09:03)
[2018-11-12] MEDS: levETIRAcetam 250 MG Tab PO SCH ×2 (09:03→21:18)
[2018-11-12] MEDS: Carvedilol 6.25 MG Tab PO SCH ×2 (09:03→21:16)
[2018-11-12] MEDS: Nozin Nasal Sanitizer NASBOTH SCH ×2 (09:06→21:16)
[2018-11-12] MEDS: Allopurinol 300 MG Tab PO SCH (09:07)
[2018-11-12] MEDS: Furosemide 20 MG Tab PO SCH ×2 (09:07→13:59)
[2018-11-12] MEDS: VERIFY SCOP PATCH TOP SCH (09:08)
[2018-11-12] MEDS: Finasteride 5 MG Tab PO SCH (09:09)
--- NOTE | 2018-11-12 10:03 | PCM.SURGPN ---
- General Info Date of Service: 11/12/18 POD#: 1 Functional Status: Reports: Pain Controlled, Tolerating Diet, Urinating - Review of Systems General: Reports: No Symptoms HEENT: Reports: No Symptoms Pulmonary: Reports: No Symptoms Cardiovascular: Reports: No Symptoms Gastrointestinal: Reports: No Symptoms Genitourinary: Reports: Incontinence Musculoskeletal: Reports: Leg Pain Skin: Reports: No Symptoms Neurological: Reports: No Symptoms Psychiatric: Reports: No Symptoms - Patient Data Vitals - Most Recent: Last Vital Signs Temp 36.1 C 11/12/18 07:28 Pulse 60 11/12/18 09:03 Resp 16 11/12/18 07:28 BP 115/48 L 11/12/18 09:03 Pulse Ox 95 11/12/18 07:28 Weight - Most Recent: 119.975 kg I&O - Last 24 Hours: Intake & Output 11/11/18 11/12/18 11/12/18 22:59 06:59 14:59 Intake Total 645 1103 480 Output Total 125 Balance 520 1103 480 Lab Results Last 24 Hrs: Laboratory Results - last 24 hr 11/12/18 11/12/18 Range/Units 04:55 04:55 WBC 9.4 (4.5-11.0) K/uL RBC 3.22 L (4.30-5.90) M/uL Hgb 9.7 L (12.0-15.0) g/dL Hct 32.2 L (40.0-54.0) % MCV 100 H (80-98) fL MCH 30 (27-31) pg MCHC 30 L (32-36) % Plt Count 157 (150-400) K/uL Sodium 140 (140-148) mmol/L Potassium 4.8 (3.6-5.2) mmol/L Chloride 108 (100-108) mmol/L Carbon Dioxide 20 L (21-32) mmol/L Anion Gap 16.8 H (5.0-14.0) mmol/L BUN 27 H (7-18) mg/dL Creatinine 2.0 H (0.8-1.3) mg/dL Est Cr Clr Drug Dosing 38.73 mL/min Estimated GFR (MDRD) 33 L (>60) Glucose 136 H (74-106) mg/dL Calcium 8.5 (8.5-10.1) mg/dL Med Orders - Current: Current Medications Acetaminophen (Tylenol) 650 mg PO Q4H PRN PRN Reason: Pain/Fever Hydrocodone Bitart/Acetaminophen ([place] 325-5 Mg) 1 tab PO Q3H PRN PRN Reason: Pain (mild 1-3) Allopurinol (Zyloprim) 300 mg PO DAILY [facility] Last Admin: 11/12/18 09:07 Dose: 300 mg Amiodarone HCl (Cordarone) 200 mg PO DAILY [facility] Last Admin: 11/12/18 09:03 Dose: 200 mg Aspirin (Ecotrin) 325 mg PO BID [facility] Bandage/Support Products ( Nasal Boat Designer) 1 applic NASBOTH BID [facility] Last Admin: 11/12/18 09:06 Dose: 1 applic Carvedilol (Coreg) 6.25 mg PO BID [facility] Last Admin: 11/12/18 09:03 Dose: 6.25 mg Docusate Sodium (Colace) 100 mg PO BID PRN PRN Reason: Constipation Ferrous Sulfate (Ferrous Sulfate) 325 mg PO TID [facility] Last Admin: 11/12/18 09:03 Dose: 325 mg Finasteride (Proscar) 5 mg PO DAILY [facility] Last Admin: 11/12/18 09:09 Dose: 5 mg Furosemide (Lasix) 20 mg PO BIDDIURETIC [facility] Last Admin: 11/12/18 09:07 Dose: 20 mg Cefazolin Sodium/Dextrose 1 gm (/ Premix) 50 mls @ 100 mls/hr IV Q8H [facility] Stop: 11/12/18 13:29 Last Admin: 11/12/18 05:02 Dose: 100 mls/hr Sodium Chloride (Normal Saline) 1,000 mls @ 125 mls/hr IV ASDIRECTED [facility] Last Admin: 11/12/18 04:37 Dose: 125 mls/hr Levetiracetam (Keppra) 750 mg PO BID [facility] Last Admin: 11/12/18 09:03 Dose: 750 mg Levothyroxine Sodium 25 mcg/ (Levothyroxine Sodium 50 mcg) 75 mcg PO ACBREAKFAST [facility] Last Admin: 11/12/18 07:14 Dose: 75 mcg Lisinopril (Prinivil) 5 mg PO DAILY [facility] Last Admin: 11/12/18 08:59 Dose: 5 mg Magnesium Hydroxide (Milk Of Magnesia) 30 ml PO BID PRN PRN Reason: Constipation Metformin HCl (Glucophage) 1,000 mg PO BIDMEALS [facility] Last Admin: 11/12/18 09:03 Dose: 1,000 mg Morphine Sulfate (Morphine) 2 mg IVPUSH Q1H PRN PRN Reason: Breakthrough Pain Verify Scop Patch 0 each TOP DAILY [facility] Last Admin: 11/12/18 09:08 Dose: Not Given Oxycodone/Acetaminophen (Percocet 325-5 Mg) 2 tab PO Q4H PRN PRN Reason: Pain Last Admin: 11/12/18 07:14 Dose: 2 tab Simvastatin (Zocor) 10 mg PO BEDTIME [facility] Last Admin: 11/11/18 21:07 Dose: 10 mg Tamsulosin HCl (Flomax) 0.4 mg PO BEDTIME [facility] Discontinued Medications Dexamethasone (Dexamethasone) Confirm Administered Dose 4 mg .ROUTE .STK-MED ONE Stop: 11/11/18 08:38 Fentanyl (Sublimaze) Confirm Administered Dose 250 mcg .ROUTE .STK-MED ONE Stop: 11/11/18 08:38 Fentanyl (Sublimaze) Confirm Administered Dose 250 mcg .ROUTE .STK-MED ONE Stop: 11/11/18 13:58 Gabapentin (Neurontin) 300 mg PO ONETIME ONE Stop: 11/11/18 07:16 Last Admin: 11/11/18 07:38 Dose: 300 mg Glycopyrrolate (Robinul) Confirm Administered Dose 1 mg .ROUTE .STK-MED ONE Stop: 11/11/18 08:38 Hydroxyzine HCl (Vistaril) 100 mg IM ONETIME ONE Stop: 11/11/18 15:46 Last Admin: 11/11/18 15:50 Dose: 100 mg Cefazolin Sodium/Dextrose 2 gm (/ Premix) 50 mls @ 100 mls/hr IV ONETIME ONE Stop: 11/11/18 08:59 Last Admin: 11/11/18 08:45 Dose: 100 mls/hr Tranexamic Acid 1,000 mg/ (Sodium Chloride) 60 mls @ 240 mls/hr IV ONETIME ONE Stop: 11/11/18 08:44 Last Admin: 11/11/18 12:30 Dose: Not Given Lactated Ringer's (Ringers, Lactated) 1,000 mls @ 75 mls/hr IV ASDIRECTED [facility] Last Admin: 11/11/18 08:33 Dose: 75 mls/hr Tranexamic Acid 1,000 mg/ (Sodium Chloride) 60 mls @ 240 mls/hr IV ONETIME ONE Stop: 11/11/18 13:14 Last Admin: 11/11/18 18:50 Dose: Not Given Cefazolin Sodium/Dextrose 1 gm (/ Premix) 50 mls @ 100 mls/hr IV ONETIME ONE Stop: 11/11/18 13:59 Last Admin: 11/11/18 13:28 Dose: 100 mls/hr Neostigmine Methylsulfate (Neostigmine) Confirm Administered Dose 5 mg .ROUTE .STK-MED ONE Stop: 11/11/18 08:38 Ondansetron HCl (Zofran) Confirm Administered Dose 4 mg .ROUTE .STK-MED ONE Stop: 11/11/18 08:38 Propofol (Diprivan 20 Ml) Confirm Administered Dose 200 mg .ROUTE .STK-MED ONE Stop: 11/11/18 08:38 Propofol (Diprivan 20 Ml) Confirm Administered Dose 200 mg .ROUTE .STK-MED ONE Stop: 11/11/18 11:32 Rocuronium [place] (Zemuron) Confirm Administered Dose 50 mg .ROUTE .STK-MED ONE Stop: 11/11/18 08:38 Scopolamine (Transderm-Scop) 1.5 mg TOP ONETIME ONE Stop: 11/11/18 07:16 Last Admin: 11/11/18 07:38 Dose: 1.5 mg - Exam Wound/Incisions: Other (bloddy draiange on dressing) General: Alert, Oriented HEENT: Pupils Equal Neck: Supple Lungs: Clear to Auscultation, Normal Respiratory Effort Cardiovascular: Regular Rate, Regular Rhythm GI/Abdominal Exam: Normal Bowel Sounds, Soft, Non-Tender, No Organomegaly, No Distention, No Abnormal Bruit, No Mass, Pelvis Stable Extremities: Other (almost 90 degrees of flexion in chair) Skin: Warm, Dry Neurological: No New Focal Deficit Psy/Mental Status: Alert, Normal Affect, Normal Mood - Problem List & Annotations (1) Anemia, chronic disease SNOMED Code(s): 969357812 Code(s): D63.8 - ANEMIA IN OTHER CHRONIC DISEASES CLASSIFIED ELSEWHERE Status: Acute Current Visit: Yes (2) Postoperative anemia due to acute blood loss SNOMED Code(s): 30544923710328058 Code(s): D62 - ACUTE POSTHEMORRHAGIC ANEMIA Status: Acute Current Visit: Yes (3) Status post total left knee replacement SNOMED Code(s): 1599334153093, 9932973497355 Code(s): Z96.652 - PRESENCE OF LEFT ARTIFICIAL KNEE JOINT Status: Acute Current Visit: Yes (4) CKD (chronic kidney disease) stage 3, GFR 30-59 ml/min SNOMED Code(s): 530202859 Code(s): N18.3 - CHRONIC KIDNEY DISEASE, STAGE 3 (MODERATE) Status: Chronic Current Visit: No (5) Coronary artery disease SNOMED Code(s): 23270226 Code(s): I25.10 - ATHSCL HEART DISEASE OF [place] CORONARY ARTERY W/O ANG PCTRS Status: Chronic Current Visit: No Qualifiers: Associated angina: without angina (6) Diabetes mellitus type 2 in obese SNOMED Code(s): 39150709 Code(s): E11.69 - TYPE 2 DIABETES MELLITUS WITH OTHER SPECIFIED COMPLICATION ; E66.9 - OBESITY, UNSPECIFIED Status: Chronic Current Visit: No - Problem List Review Problem List Initiated/Reviewed/Updated: Yes - My Orders Last 24 Hours: Active Orders 24 hr Category Date Time Status Patient Status [ADT] Routine ADT 11/11/18 16:47 Active Ambulate [RC] QID Care 11/11/18 16:47 Active Antiembolic Devices [RC] .Routine Care 11/11/18 16:46 Active Head of Bed Elevation [RC] ASDIRECTED Care 11/11/18 16:47 Active Intake and Output [RC] QSHIFT Care 11/11/18 16:47 Active May Shower [RC] ASDIRECTED Care 11/11/18 16:47 Active Neurovascular Check [RC] Q4H Care 11/11/18 16:47 Active Notify Provider Consults [RC] ASDIRECTED Care 11/12/18 09:57 Ordered Notify Provider Vital Signs [RC] ASDIRECTED Care 11/11/18 16:46 Active Oxygen Therapy [RC] PRN Care 11/11/18 16:47 Active RT Incentive Spirometry [RC] Q1HWA Care 11/11/18 16:47 Active Up to Chair [RC] QID Care 11/11/18 16:47 Active Up to Chair [RC] QID Care 11/11/18 16:47 Active VTE/DVT Education [RC] Click to Edit Care 11/11/18 16:48 Active Vital Signs [RC] Q4H Care 11/11/18 16:47 Active Wound Care [RC] Q12H Care 11/11/18 16:47 Active Consult to Case Management/Side Laster [CONS] Cons 11/11/18 16:47 Active Routine Consult to Physician [CONS] Routine Cons 11/12/18 09:55 Ordered OT Evaluation and Treatment [CONS] Routine Cons 11/11/18 16:46 Active PT Evaluation and Treatment [CONS] Routine Cons 11/11/18 16:47 Active Regular Diet [DIET] Diet 11/11/18 Dinner Active Acetaminophen [Tylenol] Med 11/11/18 16:46 Active 650 mg PO Q4H PRN Acetaminophen/HYDROcodone [[place] 325-5 MG] Med 11/11/18 16:46 Active 1 tab PO Q3H PRN Acetaminophen/oxyCODONE [Percocet 325-5 MG] Med 11/11/18 16:46 Active 2 tab PO Q4H PRN Allopurinol [Zyloprim] Med 11/12/18 09:00 Active 300 mg PO DAILY Amiodarone [Cordarone] Med 11/12/18 09:00 Active 200 mg PO DAILY Aspirin [Ecotrin] Med 11/12/18 21:00 Ordered 325 mg PO BID Carvedilol [Coreg] Med 11/11/18 21:00 Active 6.25 mg PO BID Docusate Sodium [Colace] Med 11/11/18 16:46 Active 100 mg PO BID PRN Ferrous Sulfate Med 11/11/18 21:00 Active 325 mg PO TID Finasteride [Proscar] Med 11/12/18 09:00 Active 5 mg PO DAILY Furosemide [Lasix] Med 11/12/18 08:00 Active 20 mg PO BIDDIURETIC Levothyroxine [Synthroid] Med 11/12/18 07:30 Active 75 mcg PO ACBREAKFAST Lisinopril [Prinivil] Med 11/12/18 09:00 Active 5 mg PO DAILY Magnesium Hydroxide [Milk of Magnesia] Med 11/11/18 16:46 Active 30 ml PO BID PRN Morphine Med 11/11/18 16:46 Active 2 mg IVPUSH Q1H PRN Non-Formulary Medication [NF Drug] Med 11/11/18 15:00 Active 0 each TOP DAILY Simvastatin [Zocor] Med 11/11/18 21:00 Active 10 mg PO BEDTIME Sodium Chloride 0.9% [Normal Saline] 1,000 ml Med 11/11/18 17:00 Active IV ASDIRECTED Tamsulosin [Flomax] Med 11/12/18 21:00 Active 0.4 mg PO BEDTIME ceFAZolin [Ancef] 1 gm Med 11/11/18 21:00 Active Premix Bag 1 bag IV Q8H levETIRAcetam [Keppra] Med 11/11/18 21:00 Active 750 mg PO BID metFORMIN [Glucophage] Med 11/11/18 18:00 Active 1,000 mg PO BIDMEALS Antiembolic Hose [OM.PC] Routine Oth 11/11/18 16:47 Ordered DVT/VTE Prophylaxis Reflex [OM.PC] Routine Oth 11/11/18 16:47 Ordered Ice Therapy [OM.PC] Per Unit Routine Oth 11/11/18 16:47 Ordered Medication Continuation Instructions [OM.PC] Per Unit Oth 11/11/18 16:47 Ordered Routine Oral Care [OM.PC] Routine Oth 11/11/18 16:47 Ordered Sequential Compression Device [OM.PC] Routine Oth 11/11/18 16:47 Ordered Resuscitation Status Routine Resus Stat 11/11/18 16:46 Ordered Medication Orders Acetaminophen (Tylenol) 650 mg PO Q4H PRN PRN Reason: Pain/Fever Hydrocodone Bitart/Acetaminophen ([place] 325-5 Mg) 1 tab PO Q3H PRN PRN Reason: Pain (mild 1-3) Allopurinol (Zyloprim) 300 mg PO DAILY [facility] Last Admin: 11/12/18 09:07 Dose: 300 mg Amiodarone HCl (Cordarone) 200 mg PO DAILY [facility] Last Admin: 11/12/18 09:03 Dose: 200 mg Aspirin (Ecotrin) 325 mg PO BID [facility] Bandage/Support Products ( Nasal Boat Designer) 1 applic NASBOTH BID [facility] Last Admin: 11/12/18 09:06 Dose: 1 applic Admin: 11/11/18 21:05 Dose: 1 applic Admin: 11/11/18 18:49 Dose: Not Given Admin: 11/11/18 07:40 Dose: 1 applic Carvedilol (Coreg) 6.25 mg PO BID [facility] Last Admin: 11/12/18 09:03 Dose: 6.25 mg Admin: 11/11/18 21:07 Dose: 6.25 mg Docusate Sodium (Colace) 100 mg PO BID PRN PRN Reason: Constipation Ferrous Sulfate (Ferrous Sulfate) 325 mg PO TID [facility] Last Admin: 11/12/18 09:03 Dose: 325 mg Admin: 11/11/18 21:07 Dose: 325 mg Finasteride (Proscar) 5 mg PO DAILY [facility] Last Admin: 11/12/18 09:09 Dose: 5 mg Furosemide (Lasix) 20 mg PO BIDDIURETIC [facility] Last Admin: 11/12/18 09:07 Dose: 20 mg Cefazolin Sodium/Dextrose 1 gm (/ Premix) 50 mls @ 100 mls/hr IV Q8H [facility] Stop: 11/12/18 13:29 Last Admin: 11/12/18 05:02 Dose: 100 mls/hr Infusion: 11/11/18 21:38 Dose: 100 mls/hr Admin: 11/11/18 21:08 Dose: 100 mls/hr Sodium Chloride (Normal Saline) 1,000 mls @ 125 mls/hr IV ASDIRECTED [facility] Last Admin: 11/12/18 04:37 Dose: 125 mls/hr Infusion: 11/12/18 03:00 Dose: 125 mls/hr Admin: 11/11/18 19:00 Dose: 125 mls/hr Levetiracetam (Keppra) 750 mg PO BID [facility] Last Admin: 11/12/18 09:03 Dose: 750 mg Admin: 11/11/18 21:07 Dose: 750 mg Levothyroxine Sodium 25 mcg/ (Levothyroxine Sodium 50 mcg) 75 mcg PO ACBREAKFAST [facility] Last Admin: 11/12/18 07:14 Dose: 75 mcg Lisinopril (Prinivil) 5 mg PO DAILY [facility] Last Admin: 11/12/18 08:59 Dose: 5 mg Magnesium Hydroxide (Milk Of Magnesia) 30 ml PO BID PRN PRN Reason: Constipation Metformin HCl (Glucophage) 1,000 mg PO BIDMEALS [facility] Last Admin: 11/12/18 09:03 Dose: 1,000 mg Admin: 11/11/18 19:01 Dose: 1,000 mg Morphine Sulfate (Morphine) 2 mg IVPUSH Q1H PRN PRN Reason: Breakthrough Pain Verify Scop Patch 0 each TOP DAILY [facility] Last Admin: 11/12/18 09:08 Dose: Admin: 11/11/18 19:02 Dose: Oxycodone/Acetaminophen (Percocet 325-5 Mg) 2 tab PO Q4H PRN PRN Reason: Pain Last Admin: 11/12/18 07:14 Dose: 2 tab Admin: 11/11/18 21:06 Dose: 2 tab Simvastatin (Zocor) 10 mg PO BEDTIME [facility] Last Admin: 11/11/18 21:07 Dose: 10 mg Tamsulosin HCl (Flomax) 0.4 mg PO BEDTIME [facility] - Assessment Assessment (Free Text/Narrative):: Did well over night, up in chair this am, moderate bleed thru on dressing, some urinary incontinence- failed attempt at [place] in [place] yesterday, slight drop in H/ H - Plan Plan (Free Text/Narrative):: Dressing change left knee, saline lock IV, up with PT/OT, start ASA bid for DVT prophylaxis, pt and considering SNF on discharge
--- NOTE | 2018-11-12 11:30 | PCM.PN ---
- General Info Date of Service: 11/12/18 Subjective Update: There were no acute events following surgery. Pt was able to ambulate a few steps this morning. Knee pain was moderate. No complaints of shortness of breath. Vital signs have been stable. No fevers. Hemoglobin down about 1 gram from yesterday. Functional Status: Reports: Pain Controlled, Tolerating Diet - Review of Systems General: Denies: Fever - Patient Data Vitals - Most Recent: Last Vital Signs Temp 36.1 C 11/12/18 11:16 Pulse 75 11/12/18 11:16 Resp 20 11/12/18 11:16 BP 103/34 L 11/12/18 11:16 Pulse Ox 98 11/12/18 11:16 Weight - Most Recent: 119.975 kg I&O - Last 24 Hours: Intake & Output 11/11/18 11/12/18 11/12/18 22:59 06:59 14:59 Intake Total 645 1103 480 Output Total 125 Balance 520 1103 480 Lab Results Last 24 Hours: Laboratory Results - last 24 hr 11/12/18 11/12/18 Range/Units 04:55 04:55 WBC 9.4 (4.5-11.0) K/uL RBC 3.22 L (4.30-5.90) M/uL Hgb 9.7 L (12.0-15.0) g/dL Hct 32.2 L (40.0-54.0) % MCV 100 H (80-98) fL MCH 30 (27-31) pg MCHC 30 L (32-36) % Plt Count 157 (150-400) K/uL Sodium 140 (140-148) mmol/L Potassium 4.8 (3.6-5.2) mmol/L Chloride 108 (100-108) mmol/L Carbon Dioxide 20 L (21-32) mmol/L Anion Gap 16.8 H (5.0-14.0) mmol/L BUN 27 H (7-18) mg/dL Creatinine 2.0 H (0.8-1.3) mg/dL Est Cr Clr Drug Dosing 38.73 mL/min Estimated GFR (MDRD) 33 L (>60) Glucose 136 H (74-106) mg/dL Calcium 8.5 (8.5-10.1) mg/dL Med Orders - Current: Current Medications Acetaminophen (Tylenol) 650 mg PO Q4H PRN PRN Reason: Pain/Fever Hydrocodone Bitart/Acetaminophen ([place] 325-5 Mg) 1 tab PO Q3H PRN PRN Reason: Pain (mild 1-3) Allopurinol (Zyloprim) 300 mg PO DAILY [facility] Last Admin: 11/12/18 09:07 Dose: 300 mg Amiodarone HCl (Cordarone) 200 mg PO DAILY [facility] Last Admin: 11/12/18 09:03 Dose: 200 mg Aspirin (Ecotrin) 325 mg PO BID [facility] Bandage/Support Products ( Nasal Director Decision Support) 1 applic NASBOTH BID [facility] Last Admin: 11/12/18 09:06 Dose: 1 applic Carvedilol (Coreg) 6.25 mg PO BID [facility] Last Admin: 11/12/18 09:03 Dose: 6.25 mg Docusate Sodium (Colace) 100 mg PO BID PRN PRN Reason: Constipation Ferrous Sulfate (Ferrous Sulfate) 325 mg PO TID [facility] Last Admin: 11/12/18 09:03 Dose: 325 mg Finasteride (Proscar) 5 mg PO DAILY [facility] Last Admin: 11/12/18 09:09 Dose: 5 mg Furosemide (Lasix) 20 mg PO BIDDIURETIC [facility] Last Admin: 11/12/18 09:07 Dose: 20 mg Cefazolin Sodium/Dextrose 1 gm (/ Premix) 50 mls @ 100 mls/hr IV Q8H [facility] Stop: 11/12/18 13:29 Last Admin: 11/12/18 05:02 Dose: 100 mls/hr Sodium Chloride (Normal Saline) 1,000 mls @ 125 mls/hr IV ASDIRECTED [facility] Last Admin: 11/12/18 04:37 Dose: 125 mls/hr Levetiracetam (Keppra) 750 mg PO BID [facility] Last Admin: 11/12/18 09:03 Dose: 750 mg Levothyroxine Sodium 25 mcg/ (Levothyroxine Sodium 50 mcg) 75 mcg PO ACBREAKFAST [facility] Last Admin: 11/12/18 07:14 Dose: 75 mcg Lisinopril (Prinivil) 5 mg PO DAILY [facility] Last Admin: 11/12/18 08:59 Dose: 5 mg Magnesium Hydroxide (Milk Of Magnesia) 30 ml PO BID PRN PRN Reason: Constipation Metformin HCl (Glucophage) 1,000 mg PO BIDMEALS [facility] Last Admin: 11/12/18 09:03 Dose: 1,000 mg Morphine Sulfate (Morphine) 2 mg IVPUSH Q1H PRN PRN Reason: Breakthrough Pain Verify Scop Patch 0 each TOP DAILY [facility] Last Admin: 11/12/18 09:08 Dose: Not Given Oxycodone/Acetaminophen (Percocet 325-5 Mg) 2 tab PO Q4H PRN PRN Reason: Pain Last Admin: 11/12/18 07:14 Dose: 2 tab Simvastatin (Zocor) 10 mg PO BEDTIME [facility] Last Admin: 11/11/18 21:07 Dose: 10 mg Tamsulosin HCl (Flomax) 0.8 mg PO BEDTIME [facility] Discontinued Medications Dexamethasone (Dexamethasone) Confirm Administered Dose 4 mg .ROUTE .STK-MED ONE Stop: 11/11/18 08:38 Fentanyl (Sublimaze) Confirm Administered Dose 250 mcg .ROUTE .STK-MED ONE Stop: 11/11/18 08:38 Fentanyl (Sublimaze) Confirm Administered Dose 250 mcg .ROUTE .STK-MED ONE Stop: 11/11/18 13:58 Gabapentin (Neurontin) 300 mg PO ONETIME ONE Stop: 11/11/18 07:16 Last Admin: 11/11/18 07:38 Dose: 300 mg Glycopyrrolate (Robinul) Confirm Administered Dose 1 mg .ROUTE .STK-MED ONE Stop: 11/11/18 08:38 Hydroxyzine HCl (Vistaril) 100 mg IM ONETIME ONE Stop: 11/11/18 15:46 Last Admin: 11/11/18 15:50 Dose: 100 mg Cefazolin Sodium/Dextrose 2 gm (/ Premix) 50 mls @ 100 mls/hr IV ONETIME ONE Stop: 11/11/18 08:59 Last Admin: 11/11/18 08:45 Dose: 100 mls/hr Tranexamic Acid 1,000 mg/ (Sodium Chloride) 60 mls @ 240 mls/hr IV ONETIME ONE Stop: 11/11/18 08:44 Last Admin: 11/11/18 12:30 Dose: Not Given Lactated Ringer's (Ringers, Lactated) 1,000 mls @ 75 mls/hr IV ASDIRECTED [facility] Last Admin: 11/11/18 08:33 Dose: 75 mls/hr Tranexamic Acid 1,000 mg/ (Sodium Chloride) 60 mls @ 240 mls/hr IV ONETIME ONE Stop: 11/11/18 13:14 Last Admin: 11/11/18 18:50 Dose: Not Given Cefazolin Sodium/Dextrose 1 gm (/ Premix) 50 mls @ 100 mls/hr IV ONETIME ONE Stop: 11/11/18 13:59 Last Admin: 11/11/18 13:28 Dose: 100 mls/hr Neostigmine Methylsulfate (Neostigmine) Confirm Administered Dose 5 mg .ROUTE .STK-MED ONE Stop: 11/11/18 08:38 Ondansetron HCl (Zofran) Confirm Administered Dose 4 mg .ROUTE .STK-MED ONE Stop: 11/11/18 08:38 Propofol (Diprivan 20 Ml) Confirm Administered Dose 200 mg .ROUTE .STK-MED ONE Stop: 11/11/18 08:38 Propofol (Diprivan 20 Ml) Confirm Administered Dose 200 mg .ROUTE .STK-MED ONE Stop: 11/11/18 11:32 Rocuronium [place] (Zemuron) Confirm Administered Dose 50 mg .ROUTE .STK-MED ONE Stop: 11/11/18 08:38 Scopolamine (Transderm-Scop) 1.5 mg TOP ONETIME ONE Stop: 11/11/18 07:16 Last Admin: 11/11/18 07:38 Dose: 1.5 mg Tamsulosin HCl (Flomax) 0.4 mg PO BEDTIME [facility] - Exam Quality Assessment: No: Supplemental Oxygen General: Alert, Oriented, Cooperative, No Acute Distress Lungs: Normal Respiratory Effort GI/Abdominal Exam: Soft, No Distention Skin: Warm, Dry Psy/Mental Status: Alert, Normal Affect - Problem List Review Problem List Initiated/Reviewed/Updated: Yes - Plan Plan:: ASSESSMENT AND PLAN - Left knee osteoarthritis - status post total knee arthroplasty. Pain controlled and doing well. -Postoperative care per surgical team -Physical therapy Chronic normocytic anemia - mild anemia which has been worked up in the clinic previously. Slight drop following surgery. Likely related to his chronic renal disease. Coronary artery disease - asymptomatic at this time. -Continue medical management Stage III chronic kidney disease - currently at IIIB which is about his baseline. Type 2 diabetes mellitus - well controlled with oral medications. Despite his low GFR he has been tolerating metformin. -Continue metformin Maintenance issues - - DVT prophylaxis - aspirin 325 mg twice daily - Nutrition - diabetic diet Disposition - I would anticipate discharge home with home care after the hospital stay. Robby Cancino M.D.
[2018-11-12] MEDS ORDERED: Tamsulosin 0.4 MG Cap.ER PO SCH (21:00)
[2018-11-12] MEDS: Acetaminophen 325 MG Tab PO PRN (21:15)
[2018-11-12] MEDS: Aspirin 325 MG Tab.EC PO SCH (21:17)
[2018-11-12] MEDS: Tamsulosin 0.4 MG Cap.ER PO SCH (21:18)
[2018-11-12] MEDS: Simvastatin 20 MG Tab PO SCH (21:19)
[2018-11-13] MEDS: Acetaminophen 325 MG Tab PO PRN (03:57)
[2018-11-13] MEDS: Levothyroxine 25 MCG, Levothyroxine 50 MCG PO SCH ×2 (07:40)
[2018-11-13] MEDS: metFORMIN 500 MG Tab PO SCH ×2 (08:56→16:56)
[2018-11-13] MEDS: Nozin Nasal Sanitizer NASBOTH SCH ×2 (08:56→20:22)
[2018-11-13] MEDS: Furosemide 20 MG Tab PO SCH ×2 (08:56→14:40)
[2018-11-13] MEDS: Amiodarone 200 MG Tab PO SCH (08:59)
[2018-11-13] MEDS: Ferrous Sulfate 325 MG Tab PO SCH ×3 (09:02→20:26)
[2018-11-13] MEDS: levETIRAcetam 250 MG Tab PO SCH ×2 (09:03→20:25)
[2018-11-13] MEDS: Aspirin 325 MG Tab.EC PO SCH ×2 (09:04→20:26)
[2018-11-13] MEDS: Carvedilol 6.25 MG Tab PO SCH ×3 (09:04→20:27)
[2018-11-13] MEDS: Lisinopril 5 MG Tab PO SCH (09:05)
[2018-11-13] MEDS: Allopurinol 300 MG Tab PO SCH (09:05)
[2018-11-13] MEDS: Finasteride 5 MG Tab PO SCH (09:07)
[2018-11-13] MEDS: Acetaminophen/oxyCODONE 325-5 MG Tab PO PRN ×2 (09:08→20:25)
[2018-11-13] MEDS: VERIFY SCOP PATCH TOP SCH (09:12)
--- NOTE | 2018-11-13 10:50 | PCM.PN ---
- General Info Date of Service: 11/13/18 Subjective Update: No acute events overnight. Ambulating more effectively today but still only short distances. Pain is moderately severe with ambulation but minimal at rest. Blood pressure on the low side stable with systolic pressures in the 90s so 2 of his blood pressure medications will be held. No complaints of abdominal pain or nausea. Functional Status: Reports: Pain Controlled, Tolerating Diet, Ambulating - Review of Systems General: Denies: Fever - Patient Data Vitals - Most Recent: Last Vital Signs Temp 37.2 C 11/13/18 10:36 Pulse 68 11/13/18 10:36 Resp 18 11/13/18 10:36 BP 106/29 L 11/13/18 10:36 Pulse Ox 93 L 11/13/18 10:36 Weight - Most Recent: 119.975 kg I&O - Last 24 Hours: Intake & Output 11/12/18 11/13/18 11/13/18 22:59 06:59 14:59 Intake Total 360 600 250 Balance 360 600 250 Med Orders - Current: Current Medications Acetaminophen (Tylenol) 650 mg PO Q4H PRN PRN Reason: Pain/Fever Last Admin: 11/13/18 03:57 Dose: 650 mg Hydrocodone Bitart/Acetaminophen ([place] 325-5 Mg) 1 tab PO Q3H PRN PRN Reason: Pain (mild 1-3) Allopurinol (Zyloprim) 300 mg PO DAILY [facility] Last Admin: 11/13/18 09:05 Dose: 300 mg Amiodarone HCl (Cordarone) 200 mg PO DAILY [facility] Last Admin: 11/13/18 08:59 Dose: 200 mg Aspirin (Ecotrin) 325 mg PO BID [facility] Last Admin: 11/13/18 09:04 Dose: 325 mg Bandage/Support Products ( Nasal [place]) 1 applic NASBOTH BID [facility] Last Admin: 11/13/18 08:56 Dose: 1 applic Carvedilol (Coreg) 6.25 mg PO BID [facility] Last Admin: 11/13/18 10:09 Dose: 6.25 mg Docusate Sodium (Colace) 100 mg PO BID PRN PRN Reason: Constipation Ferrous Sulfate (Ferrous Sulfate) 325 mg PO TID [facility] Last Admin: 11/13/18 09:02 Dose: 325 mg Finasteride (Proscar) 5 mg PO DAILY [facility] Last Admin: 11/13/18 09:07 Dose: 5 mg Furosemide (Lasix) 20 mg PO BIDDIURETIC [facility] Last Admin: 11/13/18 08:56 Dose: Not Given Levetiracetam (Keppra) 750 mg PO BID [facility] Last Admin: 11/13/18 09:03 Dose: 750 mg Levothyroxine Sodium 25 mcg/ (Levothyroxine Sodium 50 mcg) 75 mcg PO ACBREAKFAST [facility] Last Admin: 11/13/18 07:40 Dose: 75 mcg Lisinopril (Prinivil) 5 mg PO DAILY [facility] Last Admin: 11/13/18 09:05 Dose: Not Given Magnesium Hydroxide (Milk Of Magnesia) 30 ml PO BID PRN PRN Reason: Constipation Metformin HCl (Glucophage) 1,000 mg PO BIDMEALS [facility] Last Admin: 11/13/18 08:56 Dose: 1,000 mg Morphine Sulfate (Morphine) 2 mg IVPUSH Q1H PRN PRN Reason: Breakthrough Pain Verify Scop Patch 0 each TOP DAILY [facility] Last Admin: 11/13/18 09:12 Dose: Not Given Oxycodone/Acetaminophen (Percocet 325-5 Mg) 2 tab PO Q4H PRN PRN Reason: Pain Last Admin: 11/13/18 09:08 Dose: 2 tab Simvastatin (Zocor) 10 mg PO BEDTIME [facility] Last Admin: 11/12/18 21:19 Dose: 10 mg Tamsulosin HCl (Flomax) 0.8 mg PO BEDTIME [facility] Last Admin: 11/12/18 21:18 Dose: 0.8 mg Discontinued Medications Dexamethasone (Dexamethasone) Confirm Administered Dose 4 mg .ROUTE .STK-MED ONE Stop: 11/11/18 08:38 Fentanyl (Sublimaze) Confirm Administered Dose 250 mcg .ROUTE .STK-MED ONE Stop: 11/11/18 08:38 Fentanyl (Sublimaze) Confirm Administered Dose 250 mcg .ROUTE .STK-MED ONE Stop: 11/11/18 13:58 Gabapentin (Neurontin) 300 mg PO ONETIME ONE Stop: 11/11/18 07:16 Last Admin: 11/11/18 07:38 Dose: 300 mg Glycopyrrolate (Robinul) Confirm Administered Dose 1 mg .ROUTE .STK-MED ONE Stop: 11/11/18 08:38 Hydroxyzine HCl (Vistaril) 100 mg IM ONETIME ONE Stop: 11/11/18 15:46 Last Admin: 11/11/18 15:50 Dose: 100 mg Cefazolin Sodium/Dextrose 2 gm (/ Premix) 50 mls @ 100 mls/hr IV ONETIME ONE Stop: 11/11/18 08:59 Last Admin: 11/11/18 08:45 Dose: 100 mls/hr Tranexamic Acid 1,000 mg/ (Sodium Chloride) 60 mls @ 240 mls/hr IV ONETIME ONE Stop: 11/11/18 08:44 Last Admin: 11/11/18 12:30 Dose: Not Given Lactated Ringer's (Ringers, Lactated) 1,000 mls @ 75 mls/hr IV ASDIRECTED [facility] Last Admin: 11/11/18 08:33 Dose: 75 mls/hr Tranexamic Acid 1,000 mg/ (Sodium Chloride) 60 mls @ 240 mls/hr IV ONETIME ONE Stop: 11/11/18 13:14 Last Admin: 11/11/18 18:50 Dose: Not Given Cefazolin Sodium/Dextrose 1 gm (/ Premix) 50 mls @ 100 mls/hr IV ONETIME ONE Stop: 11/11/18 13:59 Last Admin: 11/11/18 13:28 Dose: 100 mls/hr Cefazolin Sodium/Dextrose 1 gm (/ Premix) 50 mls @ 100 mls/hr IV Q8H [facility] Stop: 11/12/18 13:29 Last Admin: 11/12/18 13:19 Dose: 100 mls/hr Sodium Chloride (Normal Saline) 1,000 mls @ 125 mls/hr IV ASDIRECTED [facility] Last Admin: 11/12/18 13:20 Dose: 125 mls/hr Neostigmine Methylsulfate (Neostigmine) Confirm Administered Dose 5 mg .ROUTE .STK-MED ONE Stop: 11/11/18 08:38 Ondansetron HCl (Zofran) Confirm Administered Dose 4 mg .ROUTE .STK-MED ONE Stop: 11/11/18 08:38 Propofol (Diprivan 20 Ml) Confirm Administered Dose 200 mg .ROUTE .STK-MED ONE Stop: 11/11/18 08:38 Propofol (Diprivan 20 Ml) Confirm Administered Dose 200 mg .ROUTE .STK-MED ONE Stop: 11/11/18 11:32 Rocuronium [place] (Zemuron) Confirm Administered Dose 50 mg .ROUTE .STK-MED ONE Stop: 11/11/18 08:38 Scopolamine (Transderm-Scop) 1.5 mg TOP ONETIME ONE Stop: 11/11/18 07:16 Last Admin: 11/11/18 07:38 Dose: 1.5 mg Tamsulosin HCl (Flomax) 0.4 mg PO BEDTIME [facility] - Exam Quality Assessment: No: Supplemental Oxygen General: Alert, Oriented, Cooperative, No Acute Distress Lungs: Normal Respiratory Effort GI/Abdominal Exam: Soft, No Distention Skin: Warm, Dry Psy/Mental Status: Alert, Normal Affect - Problem List Review Problem List Initiated/Reviewed/Updated: Yes - My Orders Last 24 Hours: My Active Orders 11/14/18 05:00 BASIC METABOLIC PANEL,BMP [CHEM] Timed CBC W/O DIFF,HEMOGRAM [HEME] Timed (1) - Plan Plan:: ASSESSMENT AND PLAN - Left knee osteoarthritis - status post total knee arthroplasty. Pain controlled at rest but moderately severe with activity. -Postoperative care per surgical team -Physical therapy Chronic normocytic anemia - mild anemia which has been worked up in the clinic previously. Slight drop following surgery. Likely related to his chronic renal disease. -Repeat in the morning Coronary artery disease - asymptomatic at this time. -Continue medical management Stage III chronic kidney disease - currently at IIIB which is about his baseline. -Labs in the morning Type 2 diabetes mellitus - well controlled with oral medications. Despite his low GFR he has been tolerating metformin. -Continue metformin Maintenance issues - - DVT prophylaxis - aspirin 325 mg twice daily - Nutrition - diabetic diet Disposition - I would anticipate discharge home with home care after the hospital stay. Robby Cancino M.D.
[2018-11-13] MEDS: Simvastatin 20 MG Tab PO SCH (20:25)
[2018-11-13] MEDS: Tamsulosin 0.4 MG Cap.ER PO SCH (20:28)
[2018-11-14] MEDS: Acetaminophen/oxyCODONE 325-5 MG Tab PO PRN (07:52)
[2018-11-14] MEDS: Levothyroxine 25 MCG, Levothyroxine 50 MCG PO SCH ×2 (07:52)
[2018-11-14] MEDS: Nozin Nasal Sanitizer NASBOTH SCH ×2 (08:18→21:11)
[2018-11-14] MEDS: metFORMIN 500 MG Tab PO SCH ×2 (08:18→17:42)
[2018-11-14] MEDS: Furosemide 20 MG Tab PO SCH ×2 (08:18→15:32)
[2018-11-14] MEDS: Ferrous Sulfate 325 MG Tab PO SCH ×3 (08:20→21:18)
[2018-11-14] MEDS: Aspirin 325 MG Tab.EC PO SCH ×2 (08:20→21:12)
[2018-11-14] MEDS: Carvedilol 6.25 MG Tab PO SCH ×2 (08:22→21:13)
[2018-11-14] MEDS: levETIRAcetam 250 MG Tab PO SCH ×2 (08:22→21:12)
[2018-11-14] MEDS: Amiodarone 200 MG Tab PO SCH (08:23)
[2018-11-14] MEDS: Finasteride 5 MG Tab PO SCH (08:23)
[2018-11-14] MEDS: Lisinopril 5 MG Tab PO SCH (08:23)
[2018-11-14] MEDS: VERIFY SCOP PATCH TOP SCH (08:24)
[2018-11-14] MEDS: Allopurinol 300 MG Tab PO SCH (08:24)
--- NOTE | 2018-11-14 10:49 | PCM.PN ---
- General Info Date of Service: 11/14/18 Subjective Update: no acute events overnight. Pain control has improved compared to yesterday. Still having moderately severe pain with ambulation. Vital signs have been stable other than borderline low BP's. Two antihypertensive meds will be held again today. Hgb dropped a little from yesterday but not low enough for transfusion. Blood sugar <130 this morning. Creatinine stable. Functional Status: Reports: Pain Controlled, Tolerating Diet, Ambulating - Review of Systems General: Denies: Fever - Patient Data Vitals - Most Recent: Last Vital Signs Temp 36.8 C 11/14/18 07:00 Pulse 69 11/14/18 08:22 Resp 16 11/14/18 07:00 BP 107/39 L 11/14/18 08:23 Pulse Ox 97 11/14/18 07:18 Weight - Most Recent: 119.975 kg I&O - Last 24 Hours: Intake & Output 11/13/18 11/14/18 11/14/18 22:59 06:59 14:59 Intake Total 240 Output Total 25 Balance 215 Lab Results Last 24 Hours: Laboratory Results - last 24 hr 11/14/18 11/14/18 Range/Units 05:00 05:00 WBC 7.1 (4.5-11.0) K/uL RBC 2.74 L (4.30-5.90) M/uL Hgb 8.3 L (12.0-15.0) g/dL Hct 27.7 L (40.0-54.0) % MCV 101 H (80-98) fL MCH 30 (27-31) pg MCHC 30 L (32-36) % Plt Count 132 L (150-400) K/uL Sodium 139 L (140-148) mmol/L Potassium 4.5 (3.6-5.2) mmol/L Chloride 107 (100-108) mmol/L Carbon Dioxide 22 (21-32) mmol/L Anion Gap 14.5 H (5.0-14.0) mmol/L BUN 40 H (7-18) mg/dL Creatinine 2.2 H (0.8-1.3) mg/dL Est Cr Clr Drug Dosing 35.40 mL/min Estimated GFR (MDRD) 29 L (>60) Glucose 111 H (74-106) mg/dL Calcium 8.3 L (8.5-10.1) mg/dL Med Orders - Current: Current Medications Acetaminophen (Tylenol) 650 mg PO Q4H PRN PRN Reason: Pain/Fever Last Admin: 11/13/18 03:57 Dose: 650 mg Hydrocodone Bitart/Acetaminophen ([place] 325-5 Mg) 1 tab PO Q3H PRN PRN Reason: Pain (mild 1-3) Allopurinol (Zyloprim) 300 mg PO DAILY [facility] Last Admin: 11/14/18 08:24 Dose: 300 mg Amiodarone HCl (Cordarone) 200 mg PO DAILY [facility] Last Admin: 11/14/18 08:23 Dose: Not Given Aspirin (Ecotrin) 325 mg PO BID [facility] Last Admin: 11/14/18 08:20 Dose: 325 mg Bandage/Support Products ( Nasal [place]) 1 applic NASBOTH BID [facility] Last Admin: 11/14/18 08:18 Dose: 1 applic Carvedilol (Coreg) 6.25 mg PO BID [facility] Last Admin: 11/14/18 08:22 Dose: 6.25 mg Docusate Sodium (Colace) 100 mg PO BID PRN PRN Reason: Constipation Ferrous Sulfate (Ferrous Sulfate) 325 mg PO TID [facility] Last Admin: 11/14/18 08:20 Dose: 325 mg Finasteride (Proscar) 5 mg PO DAILY [facility] Last Admin: 11/14/18 08:23 Dose: 5 mg Furosemide (Lasix) 20 mg PO BIDDIURETIC [facility] Last Admin: 11/14/18 08:18 Dose: 20 mg Levetiracetam (Keppra) 750 mg PO BID [facility] Last Admin: 11/14/18 08:22 Dose: 750 mg Levothyroxine Sodium 25 mcg/ (Levothyroxine Sodium 50 mcg) 75 mcg PO ACBREAKFAST [facility] Last Admin: 11/14/18 07:52 Dose: 75 mcg Lisinopril (Prinivil) 5 mg PO DAILY [facility] Last Admin: 11/14/18 08:23 Dose: Not Given Magnesium Hydroxide (Milk Of Magnesia) 30 ml PO BID PRN PRN Reason: Constipation Metformin HCl (Glucophage) 1,000 mg PO BIDMEALS [facility] Last Admin: 11/14/18 08:18 Dose: 1,000 mg Morphine Sulfate (Morphine) 2 mg IVPUSH Q1H PRN PRN Reason: Breakthrough Pain Verify Scop Patch 0 each TOP DAILY [facility] Last Admin: 11/14/18 08:24 Dose: Not Given Oxycodone/Acetaminophen (Percocet 325-5 Mg) 2 tab PO Q4H PRN PRN Reason: Pain Last Admin: 11/14/18 07:52 Dose: 2 tab Simvastatin (Zocor) 10 mg PO BEDTIME [facility] Last Admin: 11/13/18 20:25 Dose: 10 mg Tamsulosin HCl (Flomax) 0.8 mg PO BEDTIME [facility] Last Admin: 11/13/18 20:28 Dose: 0.8 mg Discontinued Medications Dexamethasone (Dexamethasone) Confirm Administered Dose 4 mg .ROUTE .STK-MED ONE Stop: 11/11/18 08:38 Fentanyl (Sublimaze) Confirm Administered Dose 250 mcg .ROUTE .STK-MED ONE Stop: 11/11/18 08:38 Fentanyl (Sublimaze) Confirm Administered Dose 250 mcg .ROUTE .STK-MED ONE Stop: 11/11/18 13:58 Gabapentin (Neurontin) 300 mg PO ONETIME ONE Stop: 11/11/18 07:16 Last Admin: 11/11/18 07:38 Dose: 300 mg Glycopyrrolate (Robinul) Confirm Administered Dose 1 mg .ROUTE .STK-MED ONE Stop: 11/11/18 08:38 Hydroxyzine HCl (Vistaril) 100 mg IM ONETIME ONE Stop: 11/11/18 15:46 Last Admin: 11/11/18 15:50 Dose: 100 mg Cefazolin Sodium/Dextrose 2 gm (/ Premix) 50 mls @ 100 mls/hr IV ONETIME ONE Stop: 11/11/18 08:59 Last Admin: 11/11/18 08:45 Dose: 100 mls/hr Tranexamic Acid 1,000 mg/ (Sodium Chloride) 60 mls @ 240 mls/hr IV ONETIME ONE Stop: 11/11/18 08:44 Last Admin: 11/11/18 12:30 Dose: Not Given Lactated Ringer's (Ringers, Lactated) 1,000 mls @ 75 mls/hr IV ASDIRECTED [facility] Last Admin: 11/11/18 08:33 Dose: 75 mls/hr Tranexamic Acid 1,000 mg/ (Sodium Chloride) 60 mls @ 240 mls/hr IV ONETIME ONE Stop: 11/11/18 13:14 Last Admin: 11/11/18 18:50 Dose: Not Given Cefazolin Sodium/Dextrose 1 gm (/ Premix) 50 mls @ 100 mls/hr IV ONETIME ONE Stop: 11/11/18 13:59 Last Admin: 11/11/18 13:28 Dose: 100 mls/hr Cefazolin Sodium/Dextrose 1 gm (/ Premix) 50 mls @ 100 mls/hr IV Q8H [facility] Stop: 11/12/18 13:29 Last Admin: 11/12/18 13:19 Dose: 100 mls/hr Sodium Chloride (Normal Saline) 1,000 mls @ 125 mls/hr IV ASDIRECTED [facility] Last Admin: 11/12/18 13:20 Dose: 125 mls/hr Neostigmine Methylsulfate (Neostigmine) Confirm Administered Dose 5 mg .ROUTE .STK-MED ONE Stop: 11/11/18 08:38 Ondansetron HCl (Zofran) Confirm Administered Dose 4 mg .ROUTE .STK-MED ONE Stop: 11/11/18 08:38 Propofol (Diprivan 20 Ml) Confirm Administered Dose 200 mg .ROUTE .STK-MED ONE Stop: 11/11/18 08:38 Propofol (Diprivan 20 Ml) Confirm Administered Dose 200 mg .ROUTE .STK-MED ONE Stop: 11/11/18 11:32 Rocuronium [place] (Zemuron) Confirm Administered Dose 50 mg .ROUTE .STK-MED ONE Stop: 11/11/18 08:38 Scopolamine (Transderm-Scop) 1.5 mg TOP ONETIME ONE Stop: 11/11/18 07:16 Last Admin: 11/11/18 07:38 Dose: 1.5 mg Tamsulosin HCl (Flomax) 0.4 mg PO BEDTIME [facility] - Exam Quality Assessment: No: Supplemental Oxygen General: Alert, Oriented, Cooperative, No Acute Distress Lungs: Normal Respiratory Effort GI/Abdominal Exam: Soft, No Distention Extremities: No Pedal Edema. No: Increased Warmth Skin: Warm, Dry Wound/Incisions: Healing Well Psy/Mental Status: Alert, Normal Affect - Problem List Review Problem List Initiated/Reviewed/Updated: Yes - Plan Plan:: ASSESSMENT AND PLAN - Left knee osteoarthritis - status post total knee arthroplasty. Pain controlled at rest but moderate with activity. -Postoperative care per surgical team -Physical therapy Chronic normocytic anemia - mild anemia which has been worked up in the clinic previously. Moderate drop following surgery. Likely related to his chronic renal disease. -Repeat in the morning Coronary artery disease - asymptomatic at this time. -Continue medical management Stage III chronic kidney disease - currently at IIIB which is about his baseline. -Labs in the morning Type 2 diabetes mellitus - well controlled with oral medications. Despite his low GFR he has been tolerating metformin. -Continue metformin Maintenance issues - - DVT prophylaxis - aspirin 325 mg twice daily - Nutrition - diabetic diet Disposition - I would anticipate discharge home with home care after the hospital stay. Robby Cancino M.D.
[2018-11-14] MEDS: Simvastatin 20 MG Tab PO SCH (21:18)
[2018-11-14] MEDS: Tamsulosin 0.4 MG Cap.ER PO SCH (21:18)
[2018-11-14] MEDS: Acetaminophen 325 MG Tab PO PRN (21:23)
[2018-11-15 07:32] VITALS: BP 144/42; PULSE 73
[2018-11-15] MEDS: Levothyroxine 25 MCG, Levothyroxine 50 MCG PO SCH ×2 (07:50)
[2018-11-15] MEDS: metFORMIN 500 MG Tab PO SCH (07:51)
[2018-11-15] MEDS: Furosemide 20 MG Tab PO SCH ×2 (07:51→07:59)
[2018-11-15] MEDS: Acetaminophen 325 MG Tab PO PRN (07:55)
[2018-11-15] MEDS: Nozin Nasal Sanitizer NASBOTH SCH (08:00)
[2018-11-15] MEDS: Carvedilol 6.25 MG Tab PO SCH (08:01)
[2018-11-15] MEDS: Aspirin 325 MG Tab.EC PO SCH (08:02)
[2018-11-15] MEDS: Ferrous Sulfate 325 MG Tab PO SCH (08:02)
[2018-11-15] MEDS: levETIRAcetam 250 MG Tab PO SCH (08:03)
[2018-11-15] MEDS: VERIFY SCOP PATCH TOP SCH (08:03)
[2018-11-15] MEDS: Finasteride 5 MG Tab PO SCH (08:04)
[2018-11-15] MEDS: Allopurinol 300 MG Tab PO SCH (08:08)
[2018-11-15] MEDS: Amiodarone 200 MG Tab PO SCH (08:17)
--- NOTE | 2018-11-27 15:15 | OR ---
DATE OF PROCEDURE: 11/11/2018 SURGEON: Vladimir Navarrete MD PREOPERATIVE DIAGNOSIS: End-stage osteoarthritis, left knee. POSTOPERATIVE DIAGNOSIS: End-stage osteoarthritis, left knee. PROCEDURE: Left total knee arthroplasty using a Singh Persona size 10 femur, 38 mm patella, a size H tibial tray, and a 12 mm polyethylene insert. ANESTHESIA: Spinal with sedation. INDICATIONS: Mr. Winchester is a 73-year-old gentleman with a history of progressive pain in both knees over the past couple of years. Currently, the left is more symptomatic than his right. He has failed conservative treatment. X-rays reveal end-stage osteoarthritis with joint space collapse. He now presents for left total knee arthroplasty. Risks, benefits, potential complications of the procedure were discussed. PROCEDURE IN DETAIL: After adequate anesthesia was obtained, the patient was placed supine with a tourniquet about the left upper thigh. Left leg was prepped and draped in a sterile fashion. Leg was exsanguinated and tourniquet inflated to 300 mmHg. A longitudinal incision was made over the anterior aspect of the knee and carried down through the subcutaneous tissues. Medial parapatellar arthrotomy was performed. Moderate effusion was present. The posterior aspect of the patella was resected with an oscillating saw. A drill was used to enter the intramedullary canal of the femur. An intramedullary alignment guide was placed and a distal femoral cut was made. The extramedullary tibial jig was then aligned and secured. The proximal tibia was resected with an oscillating saw. The remaining medial and lateral menisci were excised. Attention was returned to the femur, which was sized. The appropriate size cutting guide was then secured to the distal femur and remaining cuts were made. Trial femoral component was placed and centered. Intercondylar notch cut was made for a posterior cruciate sacrificing component. Tibia was then sized and a trial 10 mm insert was placed. This showed some laxity and a 12 mm was utilized. This allowed full extension and showed good stability on varus and valgus stress. Position of the tibial tray was set with a small pin. The trial articular surface and the femur were removed and the tibial preparation was completed using the large reamer and punch. The patella was drilled for a 38 mm patella. The knee was then thoroughly irrigated with pulse lavage. Bone surfaces were dried and components were cemented in place. Excess cement was removed. The knee was held in full extension with a trial 12 mm insert. Once the cement had cured, the knee was taken through range of motion. Patella tracked well. The 12 mm insert provided full extension and good balance in flexion and extension. The trial was removed and the final polyethylene was snapped into position. The knee was irrigated once again with pulse lavage. It was then irrigated with a dilute Betadine solution, which was left for approximately 2 minutes and then irrigated once again with pulse lavage. Arthrotomy was then closed with a #2 Ethibond. The skin was closed with 2-0 Vicryl and a running 3-0 Monocryl. Steri-Strips were applied. Light compressive dressing was then placed. Tourniquet was released. The patient tolerated the procedure well. There was no complications. He was taken from the operating room in stable condition. Vladimir Navarrete MD /[id number]
== END 2018-11-15 14:04 | disposition home or self-care (01) | DRG 470 ==
LOC: JP.SDS 06:52 → JP.MS 13:30 → JP.SDS 16:46 → OBSVTOIN 11-12 11:30
PROVIDERS: ADMIT Specialist; ATTEND Specialist
PROC: 0SRD0J9 Replacement of Left Knee Joint with Synthetic Substitute, Cemented, Open Approach (ICD-10-PCS; principal; 2018-11-12)
DX: M17.12 Unilateral primary osteoarthritis, left knee (principal); I50.32 Chronic diastolic (congestive) heart failure; I13.0 Hypertensive heart and chronic kidney disease with heart failure and stage 1 through stage 4 chronic kidney disease, or unspecified chronic kidney disease; D62 Acute posthemorrhagic anemia; D64.9 Anemia, unspecified; I25.10 Atherosclerotic heart disease of native coronary artery without angina pectoris; Z79.82 Long term (current) use of aspirin; E11.22 Type 2 diabetes mellitus with diabetic chronic kidney disease; Z79.899 Other long term (current) drug therapy; Z86.718 Personal history of other venous thrombosis and embolism; N18.3 Chronic kidney disease, stage 3 (moderate); G47.33 Obstructive sleep apnea (adult) (pediatric); M10.9 Gout, unspecified; D63.1 Anemia in chronic kidney disease; E11.69 Type 2 diabetes mellitus with other specified complication; E66.9 Obesity, unspecified; R32 Unspecified urinary incontinence; Z68.32 Body mass index [BMI] 32.0-32.9, adult; Z79.84 Long term (current) use of oral hypoglycemic drugs
CPT/HCPCS: 36415 ×2; 73560 ×2; 80048 ×2; 85027 ×2; 86850; 86900; 86901; 94762; 97161; 97165; 97530; A9270 ×22; C1713; C1776 ×4; J0690 ×4; J1100; J2405; J2704; J2710; J3010 ×2; J3410; J3490; J7030 ×2; J7050; J7120; 85018; 97110-GP; 97535-GP

== ENCOUNTER 2019-03-10 06:28 | Inpatient (IN) | payer MEDICARE, BC ==
[2019-03-10] MEDS ORDERED: Lactated Ringers 1,000 ML IV SCH (07:00)
[2019-03-10] MEDS: Nozin Nasal Sanitizer NASBOTH SCH ×3 (07:19→21:35)
[2019-03-10] MEDS ORDERED: Dexamethasone 4 MG/ML SDV ONE (07:31)
[2019-03-10] MEDS ORDERED: Rocuronium 50 MG/5 ML Vial ONE (07:31)
[2019-03-10] MEDS ORDERED: Ondansetron 4 MG/2 ML SDV ONE (07:31)
[2019-03-10] MEDS ORDERED: Glycopyrrolate 0.2 MG/ML 5 ML MDV ONE (07:31)
[2019-03-10] MEDS ORDERED: fentaNYL 250 MCG/5 ML SDV ONE ×2 (07:31→08:54)
[2019-03-10] MEDS ORDERED: Propofol 200 MG/20 ML SDV ONE (07:31)
[2019-03-10] MEDS ORDERED: Neostigmine Methylsulfate 1 MG/ML 5 ML Syringe ONE (07:31)
[2019-03-10] MEDS: ceFAZolin 2 GM in Sodium Chloride 0.9% 50 ML IV ONE ×2 (08:17→10:49)
[2019-03-10] MEDS ORDERED: ePHEDrine 50 MG/ML SDV ONE (09:24)
[2019-03-10] MEDS ORDERED: Magnesium Hydroxide 400 MG/5 ML Susp 30 ML Cup PO PRN (09:56)
[2019-03-10] MEDS ORDERED: Acetaminophen 325 MG Tab PO PRN (09:56)
[2019-03-10] MEDS ORDERED: ceFAZolin 1 GM in Sodium Chloride 0.9% 50 ML IV SCH (10:00)
[2019-03-10] MEDS ORDERED: Sodium Chloride 0.9% 1,000 ML IV SCH (10:00)
[2019-03-10] MEDS ORDERED: Nystatin Crm 30 GM Tube TOP PRN (10:03)
[2019-03-10] MEDS: Acetaminophen/oxyCODONE 325-5 MG Tab PO PRN ×2 (10:54→20:34)
[2019-03-10] MEDS: Morphine 2 MG/ML Syringe IVPUSH PRN (10:55)
[2019-03-10] MEDS: Sodium Chloride 0.9% 1,000 ML IV SCH ×2 (11:41→19:36)
--- NOTE | 2019-03-10 12:20 | CR ---
Pelvis 1V or 2V CLINICAL HISTORY: Postop FINDINGS: Single view of the low pelvis includes the right hip and a portion of the left the hip and proximal femur. The greater trochanter is not imaged the orders the lateral femoral shaft. The total left hip arthroplasty appears well seated. IMPRESSION: Patient is status post left hip arthroplasty. Study is limited in that the lateral aspect of the proximal left femur including the greater trochanter are not imaged
[2019-03-10] MEDS ORDERED: Ferrous Sulfate 325 MG Tab PO SCH (14:00)
[2019-03-10] MEDS: Acetaminophen/HYDROcodone 325-5 MG Tab PO PRN ×2 (15:50→19:33)
[2019-03-10] MEDS: ceFAZolin 1 GM in Premix Bag 1 BAG IV SCH (15:53)
[2019-03-10] MEDS: Carvedilol 6.25 MG Tab PO SCH (16:54)
[2019-03-10] MEDS: metFORMIN 500 MG Tab PO SCH (16:54)
[2019-03-10] MEDS: Finasteride 5 MG Tab PO SCH (16:55)
[2019-03-10] MEDS ORDERED: Finasteride 5 MG Tab PO SCH (17:00)
[2019-03-10] MEDS ORDERED: metFORMIN 500 MG Tab PO SCH (17:00)
[2019-03-10] MEDS: Docusate Sodium 100 MG Cap PO SCH (20:27)
[2019-03-10] MEDS: LEVETIRACETAM 750 MG PO SCH (20:27)
[2019-03-10] MEDS: Simvastatin 20 MG Tab PO SCH (20:28)
[2019-03-10] MEDS: Ferrous Sulfate 325 MG Tab PO SCH (20:28)
[2019-03-10] MEDS: Tamsulosin 0.4 MG Cap.ER PO SCH (20:29)
[2019-03-10] MEDS ORDERED: Docusate Sodium 100 MG Cap PO SCH (21:00)
[2019-03-10] MEDS ORDERED: Non-Formulary Medication 1 Each (Levetiracetam [Levetiracetam] 750 MG) PO SCH (21:00)
[2019-03-10] MEDS ORDERED: Tamsulosin 0.4 MG Cap.ER PO SCH (21:00)
[2019-03-10] MEDS ORDERED: Non-Formulary Medication 1 Each (Simvastatin [Zocor] 10 MG) PO SCH (21:00)
[2019-03-10] MEDS ORDERED: Carvedilol 12.5 MG Tab PO SCH (21:00)
[2019-03-11] MEDS: ceFAZolin 1 GM in Premix Bag 1 BAG IV SCH ×2 (00:19→07:39)
[2019-03-11] MEDS: Acetaminophen/oxyCODONE 325-5 MG Tab PO PRN ×3 (00:24→21:08)
[2019-03-11] MEDS: Sodium Chloride 0.9% 1,000 ML IV SCH (03:47)
[2019-03-11] MEDS ORDERED: Non-Formulary Medication 1 Each (Levothyroxine [Levothyroxine] 75 MCG) PO SCH (07:30)
[2019-03-11] MEDS: Levothyroxine 25 MCG Tab PO SCH (07:38)
[2019-03-11] MEDS: metFORMIN 500 MG Tab PO SCH ×2 (07:39→16:39)
[2019-03-11] MEDS: Carvedilol 6.25 MG Tab PO SCH ×2 (07:39→18:37)
[2019-03-11] MEDS: Ferrous Sulfate 325 MG Tab PO SCH ×3 (08:41→21:04)
[2019-03-11] MEDS: LEVETIRACETAM 750 MG PO SCH (08:41)
[2019-03-11] MEDS: Allopurinol 300 MG Tab PO SCH (08:42)
[2019-03-11] MEDS: Nozin Nasal Sanitizer NASBOTH SCH ×2 (08:42→21:04)
[2019-03-11] MEDS: Enoxaparin 30 MG/0.3 ML Syringe SUBCUT SCH (08:42)
[2019-03-11] MEDS: Docusate Sodium 100 MG Cap PO SCH ×2 (08:42→21:04)
[2019-03-11] MEDS: Lisinopril 5 MG Tab PO SCH (08:43)
[2019-03-11] MEDS: Amiodarone 200 MG Tab PO SCH (08:43)
[2019-03-11] MEDS: Furosemide 20 MG Tab PO SCH (08:43)
[2019-03-11] MEDS: levETIRAcetam 250 MG Tab PO SCH ×2 (08:44→21:05)
[2019-03-11] MEDS ORDERED: Enoxaparin 30 MG/0.3 ML Syringe SUBCUT SCH (09:00)
[2019-03-11] MEDS ORDERED: Amiodarone 200 MG Tab PO SCH (09:00)
[2019-03-11] MEDS ORDERED: Furosemide 40 MG Tab PO SCH (09:00)
[2019-03-11] MEDS ORDERED: Lisinopril 5 MG Tab PO SCH (09:00)
[2019-03-11] MEDS ORDERED: Allopurinol 300 MG Tab PO SCH (09:00)
[2019-03-11] MEDS: Morphine 2 MG/ML Syringe IVPUSH PRN (16:19)
[2019-03-11] MEDS: Finasteride 5 MG Tab PO SCH (16:39)
[2019-03-11] MEDS: Tamsulosin 0.4 MG Cap.ER PO SCH (21:05)
[2019-03-11] MEDS: Simvastatin 20 MG Tab PO SCH (21:05)
[2019-03-12] MEDS: Acetaminophen/oxyCODONE 325-5 MG Tab PO PRN ×4 (00:50→18:07)
[2019-03-12] MEDS: Levothyroxine 25 MCG Tab PO SCH (08:03)
[2019-03-12] MEDS: Carvedilol 6.25 MG Tab PO SCH ×2 (08:05→16:19)
[2019-03-12] MEDS: Ferrous Sulfate 325 MG Tab PO SCH ×3 (08:06→21:25)
[2019-03-12] MEDS: Docusate Sodium 100 MG Cap PO SCH ×2 (08:06→21:26)
[2019-03-12] MEDS: levETIRAcetam 250 MG Tab PO SCH ×2 (08:06→21:26)
[2019-03-12] MEDS: Furosemide 20 MG Tab PO SCH (08:06)
[2019-03-12] MEDS: metFORMIN 500 MG Tab PO SCH ×2 (08:06→16:18)
[2019-03-12] MEDS: Amiodarone 200 MG Tab PO SCH (08:06)
[2019-03-12] MEDS: Lisinopril 5 MG Tab PO SCH (08:07)
[2019-03-12] MEDS: Enoxaparin 30 MG/0.3 ML Syringe SUBCUT SCH (08:07)
[2019-03-12] MEDS: Allopurinol 300 MG Tab PO SCH (08:07)
[2019-03-12] MEDS: Nozin Nasal Sanitizer NASBOTH SCH ×2 (08:08→21:24)
[2019-03-12] MEDS: Finasteride 5 MG Tab PO SCH (16:19)
[2019-03-12] MEDS ORDERED: Ondansetron 4 MG Tab.DIS PO PRN (18:27)
[2019-03-12] MEDS: Tamsulosin 0.4 MG Cap.ER PO SCH (21:25)
[2019-03-12] MEDS: Simvastatin 20 MG Tab PO SCH (21:29)
[2019-03-13] MEDS: Levothyroxine 25 MCG Tab PO SCH (07:48)
[2019-03-13] MEDS: Carvedilol 6.25 MG Tab PO SCH (07:48)
[2019-03-13] MEDS: metFORMIN 500 MG Tab PO SCH (07:48)
[2019-03-13] MEDS: Acetaminophen/HYDROcodone 325-5 MG Tab PO PRN (07:54)
[2019-03-13] MEDS: levETIRAcetam 250 MG Tab PO SCH (09:09)
[2019-03-13] MEDS: Docusate Sodium 100 MG Cap PO SCH (09:09)
[2019-03-13] MEDS: Lisinopril 5 MG Tab PO SCH (09:09)
[2019-03-13] MEDS: Amiodarone 200 MG Tab PO SCH (09:10)
[2019-03-13] MEDS: Furosemide 20 MG Tab PO SCH (09:10)
[2019-03-13] MEDS: Allopurinol 300 MG Tab PO SCH (09:10)
[2019-03-13] MEDS: Ferrous Sulfate 325 MG Tab PO SCH (09:10)
[2019-03-13] MEDS: Enoxaparin 30 MG/0.3 ML Syringe SUBCUT SCH (09:10)
[2019-03-13] MEDS: Nozin Nasal Sanitizer NASBOTH SCH (09:10)
[2019-03-13 10:42] VITALS: BP 111/45; PULSE 69
[2019-03-13] MEDS: Acetaminophen/oxyCODONE 325-5 MG Tab PO PRN (11:39)
--- NOTE | 2019-03-19 18:05 | OR ---
DATE OF PROCEDURE: 03/10/2019 SURGEON: Vladimir Navarrete MD PREOPERATIVE DIAGNOSIS: Osteoarthritis, left hip. POSTOPERATIVE DIAGNOSIS: Osteoarthritis, left hip. PROCEDURE: Left total hip arthroplasty utilizing Singh Continuum cup, M/L Taper stem and cobalt-chrome femoral head. ANESTHESIA: General. INDICATIONS: Herbie is a 73-year-old gentleman with a history of progressive pain in his left hip over the past few months. He recently underwent a left total knee arthroplasty and did fairly well with that and is now limited by pain in the left hip and groin. X- rays reveal end-stage osteoarthritis with complete joint space collapse. He now presents for left total hip arthroplasty. Risks, benefits, and potential complications of the procedure were discussed. DESCRIPTION OF PROCEDURE: After adequate anesthesia was obtained, the patient was placed in lateral decubitus position and secured with the hip positioner. The left hip and leg were prepped and draped in a sterile fashion. A longitudinal incision was made over the lateral aspect of the hip and carried down through the subcutaneous tissues. Hemostasis was obtained with electrocautery. IT band and tensor fascia were split in line with the fibers and a [place] retractor was placed. Short external rotators were taken off the posterior trochanter with electrocautery along with the capsule in a single layer and divided in a T- fashion. The hip was then dislocated. This showed extensive degenerative change. Femoral neck was resected with an oscillating saw. Hand awl was placed down the femoral canal and a box osteotome was used to remove the lateral femoral neck cortex. The canal was then sequentially broached to a 12.5 size. M/L Taper stem was then tapped into position with good fit and fill. Attention was turned to the acetabulum. Retractors were placed about the acetabulum and the labrum was excised. He did have a large redundant labrum, which showed degenerative change. Soft tissues were cleared from the fovea. Acetabulum was then sequentially reamed to 58 mm. It was irrigated and a Continuum trabecular metal cup was press-fit into position. Additional fixation was obtained with an acetabular screw. Standard liner was then tapped into position. Trial reduction was then made. A +3.5 mm length was chosen. This provided stability in flexion, adduction, and internal rotation and full extension. The trial was removed. The final femoral head was tapped onto the taper, and hip was reduced once again. This was taken through range of motion and found to be stable. Hip was irrigated with the pulse lavage. This was followed by irrigation with dilute Betadine solution, which was left in place for 2.5 minutes. This was followed by pulse lavage irrigation once again. Capsule and external rotators were repaired with #2 Ethibond. Tensor fascia was then closed in a running locking fashion with #2 Ethibond. Skin was closed with 2-0 Vicryl and a 3-0 Monocryl subcuticular stitch. Steri-Strips were applied. Sterile dressing was then placed. The patient tolerated the procedure very well. There were no complications. He was taken from the operating room in stable condition. Vladimir Navarrete MD /[id number] MTDD
== END 2019-03-13 12:00 | disposition home or self-care (01) | DRG 470 ==
LOC: JP.SDS 06:28 → JP.SDSSCHI 06:28 → EDSTATUS 07:30 → JP.ICU 09:56 → JP.MS 03-11 14:40
PROVIDERS: ADMIT Specialist; ATTEND Specialist
PROC: 0SRB0JA Replacement of Left Hip Joint with Synthetic Substitute, Uncemented, Open Approach (ICD-10-PCS; principal; 2019-03-10)
DX: M16.12 Unilateral primary osteoarthritis, left hip (principal); I11.0 Hypertensive heart disease with heart failure; I50.9 Heart failure, unspecified; E78.00 Pure hypercholesterolemia, unspecified; E11.9 Type 2 diabetes mellitus without complications; E66.9 Obesity, unspecified; M10.9 Gout, unspecified; Z96.652 Presence of left artificial knee joint; Z95.0 Presence of cardiac pacemaker; Z86.718 Personal history of other venous thrombosis and embolism; Z98.49 Cataract extraction status, unspecified eye; Z85.46 Personal history of malignant neoplasm of prostate; Z85.038 Personal history of other malignant neoplasm of large intestine; Z68.33 Body mass index [BMI] 33.0-33.9, adult
CPT/HCPCS: 36415; 72170; 72170-26; 85027; 97110-GP; 97116-GP; 97140-GP; 97161-GP; 97165-GO; 97530-GP; 97535-GP; A9270-GY; C1713; C1776; J0690; J1100; J1650; J2270; J2405; J2704; J2710; J3010; J3490; J7030; J7050; J7120

== ENCOUNTER 2019-04-07 10:43 | Inpatient (IN) | payer MEDICARE, BC ==
--- NOTE | 2019-04-07 11:53 | EDM.PDOC ---
ED HPI GENERAL MEDICAL PROBLEM - General Chief Complaint: Respiratory Problem Stated Complaint: SHORT OF BREATH Time Seen by Provider: 04/07/19 11:30 Source of Information: Reports: Patient, Family History Limitations: Reports: No Limitations - History of Present Illness INITIAL COMMENTS - FREE TEXT/NARRATIVE: 73-year-old male who was down participating in physical therapy when he became lightheaded, mild shortness of breath and woozy. No chest pain or palpitations. They sent him up to the emergency room for evaluation. On arrival he was mildly hypotensive but his O2 sats were normal and pacemaker was working well. He was feeling better. Blood pressure 94/35 on arrival. He did look slightly pale. For the last several weeks he's had a lot of "burping" in the morning. Onset: Unknown/Unsure (Intermittent for the past several weeks) Associated Symptoms: Reports: Nausea/Vomiting (Decreased appetite, burping in the morning), Shortness of Breath (Did have some shortness of breath with activity this morning). Denies: Confusion, Chest Pain, Cough, Diaphoresis Headache Pain Score (Numeric/FACES): 4 - Related Data Allergies Allergy/AdvReac Type Severity Reaction Status Date / Time Iodinated Contrast Media Allergy Hives Verified 03/10/19 07:06 [Iodinated Contrast Media - IV Dye] iodine AdvReac Nausea Verified 03/10/19 07:06 shrimp AdvReac Nausea and Verified 03/10/19 07:06 Vomiting tape Allergy Rash Uncoded 03/10/19 07:06 Home Meds: Home Meds Amiodarone HCl 200 mg PO QAM 03/05/14 [History] Lisinopril 5 mg PO QAM 03/05/14 [History] Simvastatin [Zocor] 10 mg PO BEDTIME 03/05/14 [History] allopurinoL [Zyloprim] 300 mg PO QAM 03/05/14 [History] carvediloL [Carvedilol] 6.25 mg PO BID 03/05/14 [History] Ferrous Sulfate [Feosol] 325 mg PO TID 11/04/16 [History] Finasteride 5 mg PO QPM 11/04/16 [History] Tamsulosin HCl 0.8 mg PO BEDTIME 11/04/16 [History] Cyanocobalamin (Vitamin B-12) [Cyanocobalamin Injection] 1,000 mcg IM WEEKLY 09/18 [History] Furosemide [Lasix] 20 mg PO QAM 07/02/18 [History] levETIRAcetam [Levetiracetam] 750 mg PO BID 07/02/18 [History] Levothyroxine 75 mcg PO ACBREAKFAST 11/07/18 [History] Triamcinolone Acetonide [Kenalog 0.1% Crm] 1 cm TOP TID PRN 11/07/18 [History] Cholecalciferol (Vitamin D3) [Vitamin D] 1,000 unit PO QAM 11/11/18 [History] Nystatin [Nystatin Crm] 100,000 unit TOP BID PRN 11/11/18 [History] metFORMIN [Glucophage] 500 mg PO BIDMEALS 02/13/19 [History] Enoxaparin Sodium [Lovenox] 30 mg SQ DAILY 28 Days #28 syringe 03/13/19 [Rx] oxyCODONE HCl/Acetaminophen [Percocet 5-325 mg Tablet] 1 each PO Q4HR PRN #40 tablet 03/24/19 [Rx] Past Medical History HEENT History: Reports: Cataract, Hard of Hearing, Impaired Vision Other HEENT History: wears glasses Cardiovascular History: Reports: Blood Clots/VTE/DVT, Bypass, CAD, Heart Failure , High Cholesterol, Hypertension, Pacemaker, SOB on Exertion, Other (See Below) Other Cardiovascular History: AICD (automatic implantable cardioverter- defibrillator) Respiratory History: Reports: Intubation, Previous, Sleep Apnea Gastrointestinal History: Reports: GERD, Hemorrhoids, Other (See Below) Other Gastrointestinal History: 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 subdural hematomas Psychiatric History: Reports: None Endocrine/Metabolic History: Reports: Diabetes, Type II, Hyperthyroidism, Obesity/BMI 30+ Hematologic History: Reports: B12 Deficiency, Iron Deficiency Immunologic History: Reports: None Oncologic (Cancer) History: Reports: Colon, Prostate Dermatologic History: Reports: None - Infectious Disease History Infectious Disease History: Reports: Measles, Mumps - Past Surgical History HEENT Surgical History: Reports: Cataract Surgery Cardiovascular Surgical History: Reports: Coronary Artery Bypass, Pacer Respiratory Surgical History: Reports: None GI Surgical History: Reports: Colon, Colonoscopy Endocrine Surgical History: Reports: None Musculoskeletal Surgical History: Reports: Hip Replacement, Joint Replacement Other Musculoskeletal Surgeries/Procedures:: s/p L total knee 11/11/2018. s/p LT total hip 03/10/2019 Oncologic Surgical History: Reports: None Dermatological Surgical History: Reports: None Social & Family History - Family History Family Medical History: Noncontributory HEENT: Reports: Cataract, Impaired Vision Other HEENT Family History: wears glasses Cardiac: Reports: CAD, [place] Endocrine/Metabolic: Reports: Diabetes, type II Oncologic: Reports: Breast - Tobacco Use Smoking Status *Q: Never Smoker - Caffeine Use Caffeine Use: Reports: Coffee Other Caffeine Use: Occ. - Recreational Drug Use Recreational Drug Use: No ED ROS GENERAL - Review of Systems Review Of Systems: See Below Constitutional: Reports: Malaise, Decreased Appetite. Denies: Fever, Chills HEENT: Reports: No Symptoms Respiratory: Reports: Shortness of Breath (With activity) Cardiovascular: Reports: Other (Chronic lower extremity edema, worse on the left leg and the right). Denies: Chest Pain GI/Abdominal: Reports: Other (Mild upper abdominal pressure, frequent burping but no significant pain) : Denies: Frequency, Urgency Skin: Reports: Pallor. Denies: Diaphoresis Neurological: Reports: Weakness, Other (Near-syncope with activity) ED EXAM, GENERAL - Physical Exam Exam: See Below Exam Limited By: No Limitations General Appearance: Alert, No Apparent Distress Eye Exam: Bilateral Eye: EOMI Throat/Mouth: Normal Inspection Head: Atraumatic Neck: Supple Respiratory/Chest: No Respiratory Distress, Lungs Clear Cardiovascular: Regular Rate, Rhythm, Bradycardia GI/Abdominal: Soft, Non-Tender Extremities: Other (Pitting edema in both lower extremities) Neurological: Alert ( from above the knees through the feet), Oriented, No Motor /Sensory Deficits Psychiatric: Normal Affect, Normal Mood Skin Exam: Warm, Dry Course - Vital Signs Last Recorded V/S: Last Vital Signs Temp 98.2 F 04/07/19 15:45 Pulse 73 04/07/19 15:45 Resp 16 04/07/19 15:45 BP 129/43 L 04/07/19 15:45 Pulse Ox 96 04/07/19 15:45 - Orders/Labs/Meds Orders: Medication Orders Acetaminophen (Tylenol) 650 mg PO Q4H PRN PRN Reason: Pain (Mild 1-3)/fever Amiodarone HCl (Cordarone) 200 mg PO QAM [facility] Carvedilol (Coreg) 6.25 mg PO BID [facility] Dextrose (Glutose 15) 15 gm PO ONETIME PRN PRN Reason: Hypoglycemia Dextrose/Water (Dextrose 50% In Water) 50 ml IV ONETIME PRN PRN Reason: Hypoglycemia Enoxaparin Sodium (Lovenox) 30 mg SUBCUT DAILY [facility] Ferrous Sulfate (Ferrous Sulfate) 325 mg PO TID [facility] Finasteride (Proscar) 5 mg PO QPM [facility] Sodium Chloride (Normal Saline) 1,000 mls @ 125 mls/hr IV ASDIRECTED [facility] Insulin Human Lispro (Humalog) 0 unit SUBCUT QIDACANDBED [facility]; Protocol Metformin HCl (Glucophage) 500 mg PO BIDMEALS [facility] Non-Formulary Medication (Levetiracetam [Levetiracetam]) 750 mg PO BID [facility] Non-Formulary Medication (Levothyroxine [Levothyroxine]) 75 mcg PO ACBREAKFAST [facility] Non-Formulary Medication (Simvastatin [Zocor]) 10 mg PO BEDTIME [facility] Ondansetron HCl (Zofran) 4 mg IV Q4H PRN PRN Reason: Nausea/Vomiting Oxycodone/Acetaminophen (Percocet 325-5 Mg) tab PO Q4HR PRN PRN Reason: Pain Polyethylene Glycol (Miralax) 17 gm PO DAILY PRN PRN Reason: Constipation Sodium Chloride (Saline Flush) 10 ml FLUSH ASDIRECTED PRN PRN Reason: Keep Vein Open Tamsulosin HCl (Flomax) 0.8 mg PO BEDTIME [facility] Labs: Laboratory Tests 04/07/19 04/07/19 Range/Units 11:51 11:51 WBC 8.0 (4.5-11.0) K/uL RBC 2.79 L (4.30-5.90) M/uL Hgb 8.1 L (12.0-15.0) g/dL Hct 27.8 L (40.0-54.0) % MCV 100 H (80-98) fL MCH 29 (27-31) pg MCHC 29 L (32-36) % Plt Count 201 (150-400) K/uL Neut % (Auto) 78 H (36-66) % Lymph % (Auto) 11 L (24-44) % [place] % (Auto) 9 H (2-6) % Eos % (Auto) 2 (2-4) % Baso % (Auto) 1 (0-1) % Sodium 138 L (140-148) mmol/L Potassium 6.6 H* (3.6-5.2) mmol/L Chloride 106 (100-108) mmol/L Carbon Dioxide 18 L (21-32) mmol/L Anion Gap 20.6 H (5.0-14.0) mmol/L BUN 51 H D (7-18) mg/dL Creatinine 3.4 H D (0.8-1.3) mg/dL Est Cr Clr Drug Dosing 22.78 mL/min Estimated GFR (MDRD) 18 L (>60) Glucose 117 H (74-106) mg/dL Calcium 8.7 (8.5-10.1) mg/dL Meds: Medications Generic Name Dose Route Start Last Admin Trade Name Freq PRN Reason Stop Dose Admin Acetaminophen 650 mg 04/07/19 16:26 Tylenol PO Q4H PRN Pain (Mild 1-3)/fever Amiodarone HCl 200 mg 04/08/19 09:00 Cordarone PO QAM [facility] Carvedilol 6.25 mg 04/07/19 21:00 Coreg PO BID [facility] Dextrose 15 gm 04/07/19 16:26 Glutose 15 PO ONETIME PRN Hypoglycemia Dextrose/Water 50 ml 04/07/19 16:26 Dextrose 50% In Water IV ONETIME PRN Hypoglycemia Enoxaparin Sodium 30 mg 04/08/19 09:00 Lovenox SUBCUT DAILY [facility] Ferrous Sulfate 325 mg 04/07/19 16:26 Ferrous Sulfate PO TID [facility] Finasteride 5 mg 04/07/19 17:00 Proscar PO QPM [facility] Sodium Chloride 1,000 mls @ 125 mls/hr 04/07/19 16:26 Normal Saline IV ASDIRECTED [facility] Insulin Human Lispro 0 unit 04/07/19 17:00 Humalog SUBCUT QIDACANDBED [facility] Protocol Metformin HCl 500 mg 02/03/20 17:00 Glucophage PO BIDMEALS [facility] Non-Formulary Medication 750 mg 04/07/19 21:00 Levetiracetam [Levetiracetam] PO BID [facility] Non-Formulary Medication 75 mcg 04/08/19 07:30 Levothyroxine [Levothyroxine] PO ACBREAKFAST [facility] Non-Formulary Medication 10 mg 04/07/19 21:00 Simvastatin [Zocor] PO BEDTIME [facility] Ondansetron HCl 4 mg 04/07/19 16:26 Zofran IV Q4H PRN Nausea/Vomiting Oxycodone/Acetaminophen tab 04/07/19 16:26 Percocet 325-5 Mg PO Q4HR PRN Pain Polyethylene Glycol 17 gm 04/07/19 16:26 Miralax PO DAILY PRN Constipation Sodium Chloride 10 ml 04/07/19 16:26 Saline Flush FLUSH ASDIRECTED PRN Keep Vein Open Tamsulosin HCl 0.8 mg 04/07/19 21:00 Flomax PO BEDTIME CLIFF Discontinued Medications Generic Name Dose Route Start Last Admin Trade Name Freq PRN Reason Stop Dose Admin Sodium Polystyrene Sulfonate 30 gm 04/07/19 12:49 04/07/19 13:03 Kayexalate PO 04/07/19 12:50 30 gm ONETIME ONE Administration - Re-Assessments/Exams Free Text/Narrative Re-Assessment/Exam: 04/07/19 12:52 Blood pressures persistently low, CBC and BMP were obtained Hemoglobin only 8.1, potassium 6.6 and kidney function and only 16 GFR and creatinine 3.4. He has had episodes of acute renal failure in the past but is personally unaware of any kidney problems. I think he needs IV hydration carefully and discussed this with the hospitalist service. Dr. Singleton will see the patient to consider admission. Departure - Departure Time of Disposition: 15:32 Disposition: Admitted As Inpatient 65 Clinical Impression: Vasovagal near syncope, Hyperkalemia Hypotension Qualifiers: Hypotension type: hypotension due to hypovolemia Qualified Code(s): I95.89 - Other hypotension; E86.1 - Hypovolemia Chronic renal failure Qualifiers: Chronic kidney disease stage: unspecified stage Qualified Code(s): N18.9 - Chronic kidney disease, unspecified Anemia Qualifiers: Anemia type: other cause - Discharge Information Sepsis Event Note - Evaluation Sepsis Screening Result: No Definite Risk - Focused Exam Vital Signs: Vital Signs Temp Pulse Resp BP Pulse Ox 04/07/19 13:15 50 L 13 151/31 H 95 04/07/19 12:45 50 L 14 154/39 H 96 04/07/19 12:15 50 L 14 96/33 L 94 L 04/07/19 11:44 50 L 14 92/32 L 94 L 04/07/19 11:33 50 L 13 94/37 L 95 04/07/19 11:12 97.2 F 50 L 20 104/35 L 97 04/07/19 11:10 104/35 L 04/07/19 11:08 97.2 F 50 L 20 90/21 L 97 Date Exam was Performed: 04/07/19 Time Exam was Performed: 16:31
[2019-04-07] MEDS ORDERED: Sodium Polystyrene Sulfonate 15 GM/60 ML Susp 60 ML Bot PO ONE (12:49)
--- NOTE | 2019-04-07 13:44 | PCM.HP.2 ---
H&P History of Present Illness - General Date of Service: 04/07/19 Admit Problem/Dx: Admission Diagnosis/Problem Admission Diagnosis/Problem Hyperkalemia Source of Information: Patient, Family, Old Records, Provider, RN Notes Reviewed History Limitations: Reports: No Limitations - History of Present Illness Initial Comments - Free Text/Narative: Mr. Winchester is a 73-year-old gentleman who was admitted through the emergency department with weakness and lightheadedness secondary to hypotension with underlying acute kidney injury and hyperkalemia. Over the past few months he is undergone lower back surgery, hip replacement surgery, and knee replacement. This course is also been complicated by spontaneous subdural hematomas. He was at physical therapy this morning when he became weak and lightheaded, blood pressure was noted to be low and he was referred to the emergency department for further evaluation. He typically has chronic kidney disease stage III, creatinine was elevated from baseline at 3.4. Potassium level was found to be elevated at 6.6. Blood pressure was initially found to be low but that improved after he did receive some IV fluids in the emergency department. He denies any symptoms of chest pain or pressure or increased shortness of breath. He has chronic peripheral edema both lower extremities. - Related Data Allergies/Adverse Reactions: Allergies Allergy/AdvReac Type Severity Reaction Status Date / Time Iodinated Contrast Media Allergy Hives Verified 03/10/19 07:06 [Iodinated Contrast Media - IV Dye] iodine AdvReac Nausea Verified 03/10/19 07:06 shrimp AdvReac Nausea and Verified 03/10/19 07:06 Vomiting tape Allergy Rash Uncoded 03/10/19 07:06 Home Medications: Home Meds Amiodarone HCl 200 mg PO QAM 03/05/14 [History] Lisinopril 5 mg PO QAM 03/05/14 [History] Simvastatin [Zocor] 10 mg PO BEDTIME 03/05/14 [History] allopurinoL [Zyloprim] 300 mg PO QAM 03/05/14 [History] carvediloL [Carvedilol] 6.25 mg PO BID 03/05/14 [History] Ferrous Sulfate [Feosol] 325 mg PO TID 11/04/16 [History] Finasteride 5 mg PO QPM 11/04/16 [History] Tamsulosin HCl 0.8 mg PO BEDTIME 11/04/16 [History] Cyanocobalamin (Vitamin B-12) [Cyanocobalamin Injection] 1,000 mcg IM WEEKLY 09/18 [History] Furosemide [Lasix] 20 mg PO QAM 07/02/18 [History] levETIRAcetam [Levetiracetam] 750 mg PO BID 07/02/18 [History] Levothyroxine 75 mcg PO ACBREAKFAST 11/07/18 [History] Triamcinolone Acetonide [Kenalog 0.1% Crm] 1 cm TOP TID PRN 11/07/18 [History] Cholecalciferol (Vitamin D3) [Vitamin D] 1,000 unit PO QAM 11/11/18 [History] Nystatin [Nystatin Crm] 100,000 unit TOP BID PRN 11/11/18 [History] metFORMIN [Glucophage] 500 mg PO BIDMEALS 02/13/19 [History] Enoxaparin Sodium [Lovenox] 30 mg SQ DAILY 28 Days #28 syringe 03/13/19 [Rx] oxyCODONE HCl/Acetaminophen [Percocet 5-325 mg Tablet] 1 each PO Q4HR PRN #40 tablet 03/24/19 [Rx] Past Medical History HEENT History: Reports: Cataract, Hard of Hearing, Impaired Vision Other HEENT History: wears glasses Cardiovascular History: Reports: Blood Clots/VTE/DVT, Bypass, CAD, Heart Failure , High Cholesterol, Hypertension, Pacemaker, SOB on Exertion, Other (See Below) Other Cardiovascular History: AICD (automatic implantable cardioverter- defibrillator) Respiratory History: Reports: Intubation, Previous, Sleep Apnea Gastrointestinal History: Reports: GERD, Hemorrhoids, Other (See Below) Other Gastrointestinal History: 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 subdural hematomas Psychiatric History: Reports: None Endocrine/Metabolic History: Reports: Diabetes, Type II, Hyperthyroidism, Obesity/BMI 30+ Hematologic History: Reports: B12 Deficiency, Iron Deficiency Immunologic History: Reports: None Oncologic (Cancer) History: Reports: Colon, Prostate Dermatologic History: Reports: None - Infectious Disease History Infectious Disease History: Reports: Measles, Mumps - Past Surgical History HEENT Surgical History: Reports: Cataract Surgery Cardiovascular Surgical History: Reports: Coronary Artery Bypass, Pacer Respiratory Surgical History: Reports: None GI Surgical History: Reports: Colon, Colonoscopy Endocrine Surgical History: Reports: None Musculoskeletal Surgical History: Reports: Hip Replacement, Joint Replacement Other Musculoskeletal Surgeries/Procedures:: s/p L total knee 11/11/2018. s/p LT total hip 03/10/2019 Oncologic Surgical History: Reports: None Dermatological Surgical History: Reports: None Social & Family History - Family History Family Medical History: Noncontributory HEENT: Reports: Cataract, Impaired Vision Other HEENT Family History: wears glasses Cardiac: Reports: CAD, [place] Endocrine/Metabolic: Reports: Diabetes, type II Oncologic: Reports: Breast - Tobacco Use Smoking Status *Q: Never Smoker - Caffeine Use Caffeine Use: Reports: Coffee Other Caffeine Use: Occ. - Recreational Drug Use Recreational Drug Use: No H&P Review of Systems - Review of Systems: Review Of Systems: See Below General: Reports: No Symptoms HEENT: Reports: No Symptoms Pulmonary: Reports: No Symptoms Cardiovascular: Reports: Edema, Lightheadedness. Denies: Chest Pain, Palpitations, Dyspnea on Exertion, Orthopnea, PND, Syncope Gastrointestinal: Reports: No Symptoms Genitourinary: Reports: No Symptoms Musculoskeletal: Reports: Joint Pain Skin: Reports: No Symptoms Psychiatric: Reports: No Symptoms Neurological: Reports: No Symptoms Hematologic/Lymphatic: Reports: No Symptoms Immunologic: Reports: No Symptoms Exam - Exam Exam: See Below - Vital Signs Vital Signs: Last Vital Signs Temp 97.2 F 04/07/19 11:12 Pulse 50 L 04/07/19 11:12 Resp 20 04/07/19 11:12 BP 104/35 L 04/07/19 11:12 Pulse Ox 97 04/07/19 11:12 Weight: 252 lb - Exam Quality Assessment: DVT Prophylaxis General: Alert, Oriented, Cooperative, Mild Distress HEENT: Conjunctiva Clear, Hearing Intact, Normal Nasal Septum, Posterior Pharynx Clear, Pupils Equal. No: Mucosa Moist & [place] Neck: Supple, Trachea Midline, +2 Carotid Pulse wo Bruit Lungs: Clear to Auscultation, Normal Respiratory Effort, Decreased Breath Sounds Cardiovascular: Regular Rhythm, Normal S1, Normal S2, Bradycardia. No: Systolic Murmur, Diastolic Murmur GI/Abdominal Exam: Soft, Non-Tender, No Organomegaly, No Distention Back Exam: Normal Inspection, Full Range of Motion Extremities: Non-Tender, Pedal Edema Skin: Warm, Dry, Intact Neurological: Cranial Nerves Intact, Strength Equal Bilateral, Normal Speech, Normal Tone, Sensation Intact. No: Focal Deficit Neuro Extensive - Mental Status: Alert, Oriented x3, Normal Mood/Affect, Normal Cognition, Memory Intact - Patient Data Lab Results Last 24 hrs: Laboratory Results - last 24 hr 04/07/19 04/07/19 Range/Units 11:51 11:51 WBC 8.0 (4.5-11.0) K/uL RBC 2.79 L (4.30-5.90) M/uL Hgb 8.1 L (12.0-15.0) g/dL Hct 27.8 L (40.0-54.0) % MCV 100 H (80-98) fL MCH 29 (27-31) pg MCHC 29 L (32-36) % Plt Count 201 (150-400) K/uL Neut % (Auto) 78 H (36-66) % Lymph % (Auto) 11 L (24-44) % [place] % (Auto) 9 H (2-6) % Eos % (Auto) 2 (2-4) % Baso % (Auto) 1 (0-1) % Sodium 138 L (140-148) mmol/L Potassium 6.6 H* (3.6-5.2) mmol/L Chloride 106 (100-108) mmol/L Carbon Dioxide 18 L (21-32) mmol/L Anion Gap 20.6 H (5.0-14.0) mmol/L BUN 51 H D (7-18) mg/dL Creatinine 3.4 H D (0.8-1.3) mg/dL Est Cr Clr Drug Dosing 22.78 mL/min Estimated GFR (MDRD) 18 L (>60) Glucose 117 H (74-106) mg/dL Calcium 8.7 (8.5-10.1) mg/dL Result Diagrams: 04/07/19 11:51 04/07/19 11:51 Sepsis Event Note - Evaluation Sepsis Screening Result: No Definite Risk - Focused Exam Vital Signs: Vital Signs Temp Pulse Resp BP Pulse Ox 04/07/19 11:12 97.2 F 50 L 20 104/35 L 97 04/07/19 11:10 104/35 L 04/07/19 11:08 97.2 F 50 L 20 90/21 L 97 Date Exam was Performed: 04/07/19 Time Exam was Performed: 13:50 *Q Meaningful Use (ADM) - VTE Risk Assess *Q Each Risk Factor Represents 1 Point: Obesity ( BMI > 25 kg/m2), Congestive heart failure (CHF) Total Score 1 Point Risk Factors: 2 Each Risk Factor Represents 2 Points: Age 60 - 74 Years Total Score 2 Point Risk Factors: 2 Each Risk Factor Represents 3 Points: Positive factor V Leiden Total Score 3 Point Risk Factors: 3 Each Risk Factor Represents 5 Points: None Total Score 5 Point Risk Factors: 0 Venous Thromboembolism Risk Factor Score *Q: 7 Problem List Initiated/Reviewed/Updated: Yes Orders Last 24hrs: Active Orders 24 hr Category Date Time Status Patient Status Manage Transfer [TRANSFER] Routine ADT 04/07/19 13:28 Ordered Resuscitation Status Routine Resus Stat 04/07/19 13:32 Ordered Assessment/Plan Comment:: ASSESSMENT AND PLAN ACUTE KIDNEY INJURY-baseline he has chronic kidney disease stage III. Suspect current increase in creatinine is secondary to hypotension and intravascular volume depletion. -IV fluids for hydration -Closely monitor urine output and renal function HYPERKALEMIA-Likely secondary to acute kidney injury -Hold PERICO inhibitor therapy -Kayexalate 30 g p.o. now -Recheck potassium later today and in a.m. -IV fluids as above WEAKNESS AND LIGHTHEADEDNESS-while at physical therapy this morning, he often reports feeling weak midmorning after he is taken his medications. Likely that he is experiencing hypotension after taking morning meds. -Lisinopril and furosemide, reassess in a.m. -Consider decrease doses of medication and potentially moving 1 or more medications to the evening. CONGESTIVE HEART FAILURE-other than peripheral edema, well compensated -Patient adjustments as noted above MAINTENANCE ISSUES -DVT prophylaxis; currently on Lovenox 30 mg subcu daily following joint replacement surgery -GI prophylaxis; not indicated -Goldberg catheter; not indicated -Nutrition; 2 g sodium diet -Nicotine dependence; not required CODE STATUS-FULL CODE ADMISSION STATUS-patient will be admitted to inpatient status, expect at least a 2 night hospital stay for evaluation and management of problems as outlined above. At the time of this admission I do not reasonably expected evaluation and management of this problem will require more than a 96 hour hospital stay. DISPOSITION-anticipate discharge to home after the hospital stay. PRIMARY CARE PROVIDER-Dr. Walter - Mortality Measure Prognosis:: Good
[2019-04-07] MEDS ORDERED: Ondansetron 4 MG/2 ML SDV IV PRN (16:26)
[2019-04-07] MEDS ORDERED: Sodium Chloride 0.9% 10 ML Syringe FLUSH PRN (16:26)
[2019-04-07] MEDS ORDERED: Polyethylene Glycol 3350 Powder 17 GM Packet PO PRN (16:26)
[2019-04-07] MEDS ORDERED: Glucose Gel 15 GM in 37.5 GM Tube PO PRN (16:26)
[2019-04-07] MEDS ORDERED: 50% Dextrose in Water 50 ML Syringe IV PRN (16:26)
[2019-04-07] MEDS ORDERED: Acetaminophen/oxyCODONE 325-5 MG Tab PO PRN (16:26)
[2019-04-07] MEDS: Sodium Chloride 0.9% 1,000 ML IV SCH (17:18)
[2019-04-07] MEDS: Insulin Lispro 100 Unit/ML 3 ML KwikPen SUBCUT SCH ×2 (17:18→20:56)
[2019-04-07] MEDS: Finasteride 5 MG Tab PO SCH (17:27)
[2019-04-07] MEDS: metFORMIN 500 MG Tab PO SCH (17:27)
[2019-04-07] MEDS: Ferrous Sulfate 325 MG Tab PO SCH ×2 (17:31→21:02)
[2019-04-07] MEDS: levETIRAcetam 250 MG Tab PO SCH (20:52)
[2019-04-07] MEDS: Carvedilol 6.25 MG Tab PO SCH (20:53)
[2019-04-07] MEDS: Simvastatin 20 MG Tab PO SCH (20:53)
[2019-04-07] MEDS: Tamsulosin 0.4 MG Cap.ER PO SCH (20:55)
[2019-04-07] MEDS ORDERED: Sulfamethoxazole/Trimethoprim 800-160 MG Tab PO SCH (21:00)
[2019-04-07] MEDS: Sulfamethoxazole/Trimethoprim 800-160 MG Tab PO SCH (21:04)
[2019-04-07] MEDS: Acetaminophen 325 MG Tab PO PRN (23:34)
[2019-04-08] MEDS: Sodium Chloride 0.9% 1,000 ML IV SCH (01:26)
[2019-04-08] MEDS: Levothyroxine 25 MCG Tab PO SCH (05:51)
[2019-04-08] MEDS: Carvedilol 6.25 MG Tab PO SCH (08:28)
[2019-04-08] MEDS: levETIRAcetam 250 MG Tab PO SCH ×2 (08:28→20:44)
[2019-04-08] MEDS: metFORMIN 500 MG Tab PO SCH ×2 (08:28→16:18)
[2019-04-08] MEDS: Amiodarone 200 MG Tab PO SCH (08:28)
[2019-04-08] MEDS: Sulfamethoxazole/Trimethoprim 800-160 MG Tab PO SCH ×2 (08:29→20:42)
[2019-04-08] MEDS: Enoxaparin 30 MG/0.3 ML Syringe SUBCUT SCH (08:29)
[2019-04-08] MEDS: Ferrous Sulfate 325 MG Tab PO SCH ×3 (09:03→20:43)
[2019-04-08] MEDS: Insulin Lispro 100 Unit/ML 3 ML KwikPen SUBCUT SCH ×4 (09:23→21:24)
--- NOTE | 2019-04-08 15:36 | PCM.PN ---
- General Info Date of Service: 04/08/19 Subjective Update: Mr. Winchester has been stable since admission. Renal function has improved modestly and potassium level is now within normal range. He denies significant shortness of breath or any symptoms of chest pain. Functional Status: Reports: Tolerating Diet, Ambulating, Urinating - Review of Systems General: Reports: Weakness. Denies: Fever, Chills Pulmonary: Reports: No Symptoms Cardiovascular: Reports: No Symptoms Gastrointestinal: Reports: No Symptoms - Patient Data Vitals - Most Recent: Last Vital Signs Temp 99.8 F 04/08/19 11:00 Pulse 56 L 04/08/19 11:00 Resp 17 04/08/19 11:00 BP 93/38 L 04/08/19 11:00 Pulse Ox 96 04/08/19 11:00 Weight - Most Recent: 266 lb I&O - Last 24 Hours: Intake & Output 04/08/19 04/08/19 04/08/19 06:59 14:59 22:59 Intake Total 2014 360 Balance 2014 360 Lab Results Last 24 Hours: Laboratory Results - last 24 hr 04/07/19 04/08/19 04/08/19 Range/Units 19:06 05:57 05:57 WBC 8.2 (4.5-11.0) K/uL RBC 2.62 L (4.30-5.90) M/uL Hgb 8.0 L (12.0-15.0) g/dL Hct 26.1 L (40.0-54.0) % MCV 100 H (80-98) fL MCH 31 (27-31) pg MCHC 31 L (32-36) % Plt Count 202 (150-400) K/uL Neut % (Auto) 76 H (36-66) % Lymph % (Auto) 13 L (24-44) % [place] % (Auto) 10 H (2-6) % Eos % (Auto) 0 L (2-4) % Baso % (Auto) 0 (0-1) % Sodium 141 (140-148) mmol/L Potassium 5.5 H 5.1 (3.6-5.2) mmol/L Chloride 109 H (100-108) mmol/L Carbon Dioxide 17 L (21-32) mmol/L Anion Gap 20.1 H (5.0-14.0) mmol/L BUN 47 H (7-18) mg/dL Creatinine 3.2 H (0.8-1.3) mg/dL Est Cr Clr Drug Dosing 24.21 mL/min Estimated GFR (MDRD) 19 L (>60) Glucose 136 H (74-106) mg/dL Calcium 8.3 L (8.5-10.1) mg/dL Magnesium 2.1 (1.8-2.4) mg/dL Iron (65-175) ug/dL TIBC (250-450) ug/dl % Saturation (20-55) % 04/08/19 04/08/19 Range/Units 14:32 14:32 WBC (4.5-11.0) K/uL RBC (4.30-5.90) M/uL Hgb (12.0-15.0) g/dL Hct (40.0-54.0) % MCV (80-98) fL MCH (27-31) pg MCHC (32-36) % Plt Count (150-400) K/uL Neut % (Auto) (36-66) % Lymph % (Auto) (24-44) % [place] % (Auto) (2-6) % Eos % (Auto) (2-4) % Baso % (Auto) (0-1) % Sodium (140-148) mmol/L Potassium 4.9 (3.6-5.2) mmol/L Chloride (100-108) mmol/L Carbon Dioxide (21-32) mmol/L Anion Gap (5.0-14.0) mmol/L BUN (7-18) mg/dL Creatinine (0.8-1.3) mg/dL Est Cr Clr Drug Dosing mL/min Estimated GFR (MDRD) (>60) Glucose (74-106) mg/dL Calcium (8.5-10.1) mg/dL Magnesium (1.8-2.4) mg/dL Iron 16 L (65-175) ug/dL TIBC 233 L (250-450) ug/dl % Saturation 7 L (20-55) % Med Orders - Current: Current Medications Acetaminophen (Tylenol) 650 mg PO Q4H PRN PRN Reason: Pain (Mild 1-3)/fever Last Admin: 04/07/19 23:34 Dose: 650 mg Amiodarone HCl (Cordarone) 200 mg PO QAM [facility] Last Admin: 04/08/19 08:28 Dose: 200 mg Carvedilol (Coreg) 3.125 mg PO BID [facility] Dextrose (Glutose 15) 15 gm PO ONETIME PRN PRN Reason: Hypoglycemia Dextrose/Water (Dextrose 50% In Water) 50 ml IV ONETIME PRN PRN Reason: Hypoglycemia Enoxaparin Sodium (Lovenox) 30 mg SUBCUT DAILY [facility] Last Admin: 04/08/19 08:29 Dose: 30 mg Ferrous Sulfate (Ferrous Sulfate) 325 mg PO TID [facility] Last Admin: 04/08/19 15:18 Dose: 325 mg Finasteride (Proscar) 5 mg PO QPM [facility] Last Admin: 04/07/19 17:27 Dose: 5 mg Furosemide (Lasix) 20 mg PO QAM [facility] Sodium Chloride (Normal Saline) 1,000 mls @ 125 mls/hr IV ASDIRECTED [facility] Last Admin: 04/08/19 01:26 Dose: 125 mls/hr Ferric Sodium Gluconate Complex 250 mg/ Sodium Chloride 120 mls @ 60 mls/hr IV ONETIME ONE Stop: 04/08/19 17:59 Ferric Sodium Gluconate Complex 250 mg/ Sodium Chloride 120 mls @ 50 mls/hr IV ONETIME ONE Stop: 04/09/19 12:23 Insulin Human Lispro (Humalog) 0 unit SUBCUT QIDACANDBED [facility]; Protocol Last Admin: 04/08/19 13:43 Dose: Not Given Levetiracetam (Keppra) 750 mg PO BID [facility] Last Admin: 04/08/19 08:28 Dose: 750 mg Levothyroxine Sodium (Levothyroxine) 75 mcg PO Q24H [facility] Last Admin: 04/08/19 05:51 Dose: 75 mcg Lisinopril (Prinivil) 2.5 mg PO BEDTIME [facility] Metformin HCl (Glucophage) 500 mg PO BIDMEALS [facility] Last Admin: 04/08/19 08:28 Dose: 500 mg Ondansetron HCl (Zofran) 4 mg IV Q4H PRN PRN Reason: Nausea/Vomiting Oxycodone/Acetaminophen (Percocet 325-5 Mg) 1 tab PO Q4H PRN PRN Reason: Pain Last Admin: 04/07/19 18:29 Dose: 1 tab Polyethylene Glycol (Miralax) 17 gm PO DAILY PRN PRN Reason: Constipation Simvastatin (Zocor) 10 mg PO BEDTIME [facility] Last Admin: 04/07/19 20:53 Dose: 10 mg Sodium Chloride (Saline Flush) 10 ml FLUSH ASDIRECTED PRN PRN Reason: Keep Vein Open Tamsulosin HCl (Flomax) 0.8 mg PO BEDTIME [facility] Last Admin: 04/07/19 20:55 Dose: 0.8 mg Trimethoprim/Sulfamethoxazole (Septra Ds) 0.5 tab PO BID [facility] Last Admin: 04/08/19 08:29 Dose: 0.5 tab Discontinued Medications Carvedilol (Coreg) 6.25 mg PO BID [facility] Last Admin: 04/08/19 08:28 Dose: 6.25 mg Sodium Polystyrene Sulfonate (Kayexalate) 30 gm PO ONETIME ONE Stop: 04/07/19 12:50 Last Admin: 04/07/19 13:03 Dose: 30 gm Trimethoprim/Sulfamethoxazole (Septra Ds) 1 tab PO BID [facility] - Exam General: Alert, Oriented, Cooperative, Mild Distress Lungs: Clear to Auscultation, Normal Respiratory Effort Cardiovascular: Regular Rate, Regular Rhythm, No Murmurs GI/Abdominal Exam: Soft, Non-Tender, No Organomegaly, No Distention Extremities: Non-Tender, Pedal Edema Sepsis Event Note - Evaluation Sepsis Screening Result: No Definite Risk - Focused Exam Vital Signs: Vital Signs Temp Pulse Pulse Resp BP BP Pulse Ox 04/08/19 11:00 99.8 F 56 L 17 93/38 L 96 04/08/19 08:28 52 L 151/77 H 04/08/19 07:36 99.7 F 20 141/57 H 94 L Date Exam was Performed: 04/08/19 Time Exam was Performed: 15:31 - Problem List Review Problem List Initiated/Reviewed/Updated: Yes - My Orders Last 24 Hours: My Active Orders 04/07/19 16:26 Patient Status [ADT] Routine Ambulate [RC] QID Blood Glucose Check, Bedside [RC] QIDACANDBED Communication Order [RC] STAT Diabetes Education [RC] Click to Edit Height and Weight [RC] DAILY Intake and Output [RC] QSHIFT Notify Provider Vital Signs [RC] ASDIRECTED Notify Provider [RC] PRN Oxygen Therapy [RC] PRN Peripheral IV Care [RC] . DIRECTED Up With Assistance [RC] ASDIRECTED Up to Chair [RC] QID VTE/DVT Education [RC] Per Unit Routine Vital Signs [RC] Q4H PT Evaluation and Treatment [CONS] Routine Acetaminophen [Tylenol] 650 mg PO Q4H PRN Acetaminophen/oxyCODONE [Percocet 325-5 MG] 1 tab PO Q4H PRN Dextrose 50% in Water 50 ml IV ONETIME PRN Dextrose [Glutose 15] 15 gm PO ONETIME PRN Ferrous Sulfate 325 mg PO TID Ondansetron [Zofran] 4 mg IV Q4H PRN Sodium Chloride 0.9% [Normal Saline] 1,000 ml IV ASDIRECTED Sodium Chloride 0.9% [Saline Flush] 10 ml FLUSH ASDIRECTED PRN polyethylene glycoL 3350 [MiraLAX] 17 gm PO DAILY PRN Peripheral IV Insertion Adult [OM.PC] Routine VTE Pharmacological Contraindications [AST] Per Unit Routine 04/07/19 17:00 Finasteride [Proscar] 5 mg PO QPM Insulin Lispro [HumaLOG] See Protocol SUBCUT QIDACANDBED metFORMIN [Glucophage] 500 mg PO BIDMEALS 04/07/19 21:00 Simvastatin [Zocor] 10 mg PO BEDTIME Sulfamethoxazole/Trimethoprim [Septra DS] 0.5 tab PO BID Tamsulosin [Flomax] 0.8 mg PO BEDTIME levETIRAcetam [Keppra] 750 mg PO BID 04/07/19 22:48 Sequential Compression Device [OM.PC] Routine 04/08/19 06:00 Levothyroxine 75 mcg PO Q24H 04/08/19 09:00 Amiodarone [Cordarone] 200 mg PO QAM Enoxaparin [Lovenox] 30 mg SUBCUT DAILY 04/08/19 11:56 Communication Order [RC] ROUTINE Convert IV to Saline Lock [OM.PC] Routine 04/08/19 14:15 Discontinue Telemetry Monitoring [Cardiac Monitoring Discontinue] [RC] Click to Edit 04/08/19 15:26 Sodium Ferric Gluconate Cmplex [Ferrlecit IV] 250 mg Sodium Chloride 0.9% [ Normal Saline] 100 ml IV ONETIME 04/08/19 16:30 GLUCOSE POC LAB TO COLLECT [POC] QIDACANDBED 04/08/19 21:00 GLUCOSE POC LAB TO COLLECT [POC] QIDACANDBED carvediloL [Coreg] 3.125 mg PO BID lisinopriL [Prinivil] 2.5 mg PO BEDTIME 04/09/19 05:00 BASIC METABOLIC PANEL,BMP [CHEM] Timed CBC WITH AUTO DIFF [HEME] Timed 04/09/19 07:30 GLUCOSE POC LAB TO COLLECT [POC] QIDACANDBED 04/09/19 09:00 Furosemide [Lasix] 20 mg PO QAM 04/09/19 10:00 Sodium Ferric Gluconate Cmplex [Ferrlecit IV] 250 mg Sodium Chloride 0.9% [ Normal Saline] 100 ml IV ONETIME 04/09/19 11:30 GLUCOSE POC LAB TO COLLECT [POC] QIDACANDBED 04/09/19 16:30 GLUCOSE POC LAB TO COLLECT [POC] QIDACANDBED 04/09/19 21:00 GLUCOSE POC LAB TO COLLECT [POC] QIDACANDBED 04/10/19 07:30 GLUCOSE POC LAB TO COLLECT [POC] QIDACANDBED 04/10/19 11:30 GLUCOSE POC LAB TO COLLECT [POC] QIDACANDBED 04/10/19 16:30 GLUCOSE POC LAB TO COLLECT [POC] QIDACANDBED 04/10/19 21:00 GLUCOSE POC LAB TO COLLECT [POC] QIDACANDBED 04/11/19 07:30 GLUCOSE POC LAB TO COLLECT [POC] QIDACANDBED 04/11/19 11:30 GLUCOSE POC LAB TO COLLECT [POC] QIDACANDBED 04/11/19 16:30 GLUCOSE POC LAB TO COLLECT [POC] QIDACANDBED 04/11/19 21:00 GLUCOSE POC LAB TO COLLECT [POC] QIDACANDBED 04/12/19 07:30 GLUCOSE POC LAB TO COLLECT [POC] QIDACANDBED 04/12/19 11:30 GLUCOSE POC LAB TO COLLECT [POC] QIDACANDBED - Plan Plan:: ASSESSMENT AND PLAN ACUTE KIDNEY INJURY-baseline he has chronic kidney disease stage III. Suspect current increase in creatinine is secondary to hypotension and intravascular volume depletion. Renal function modestly improved since admission -Saline lock IV -Closely monitor urine output and renal function HYPERKALEMIA-Likely secondary to acute kidney injury. Serum level now within normal range -Hold PERICO inhibitor therapy -Recheck potassium in a.m. WEAKNESS AND LIGHTHEADEDNESS-while at physical therapy this morning, he often reports feeling weak midmorning after he has taken his medications. Likely that he is experiencing hypotension after taking morning meds. -Decrease carvedilol to 3.125 mg twice daily -Decrease lisinopril to 2.5 mg at bedtime -Resume furosemide 20 mg p.o. daily CONGESTIVE HEART FAILURE-other than peripheral edema, well compensated -Medication adjustments as noted above CHRONIC ANEMIA-underlying iron deficiency, no significant improvement noted on oral replacement -Ferrlecit 250 mg IV today and tomorrow MAINTENANCE ISSUES -DVT prophylaxis; currently on Lovenox 30 mg subcu daily following joint replacement surgery -GI prophylaxis; not indicated -Freire catheter; not indicated -Nutrition; 2 g sodium diet -Nicotine dependence; not required CODE STATUS-FULL CODE ADMISSION STATUS-patient will be admitted to inpatient status, expect at least a 2 night hospital stay for evaluation and management of problems as outlined above. At the time of this admission I do not reasonably expected evaluation and management of this problem will require more than a 96 hour hospital stay. DISPOSITION-anticipate discharge to home after the hospital stay. PRIMARY CARE PROVIDER-Dr. Walter
[2019-04-08] MEDS ORDERED: Sodium Ferric Gluconate Cmplex 250 MG in Sodium Chloride 0.9% 100 ML IV ONE (16:00)
[2019-04-08] MEDS: Finasteride 5 MG Tab PO SCH (16:19)
[2019-04-08] MEDS: Carvedilol 3.125 MG Tab PO SCH (20:43)
[2019-04-08] MEDS: Simvastatin 20 MG Tab PO SCH (20:43)
[2019-04-08] MEDS: Tamsulosin 0.4 MG Cap.ER PO SCH (20:44)
[2019-04-08] MEDS ORDERED: Lisinopril 2.5 MG Tab PO SCH (21:00)
[2019-04-08] MEDS: Acetaminophen 325 MG Tab PO PRN (21:23)
[2019-04-09] MEDS: Acetaminophen 325 MG Tab PO PRN (01:24)
[2019-04-09] MEDS: Levothyroxine 25 MCG Tab PO SCH (05:44)
[2019-04-09] MEDS: Insulin Lispro 100 Unit/ML 3 ML KwikPen SUBCUT SCH ×2 (07:47→11:42)
[2019-04-09] MEDS: metFORMIN 500 MG Tab PO SCH (08:09)
[2019-04-09] MEDS: Amiodarone 200 MG Tab PO SCH (08:10)
[2019-04-09] MEDS: Carvedilol 3.125 MG Tab PO SCH (08:12)
[2019-04-09] MEDS: Ferrous Sulfate 325 MG Tab PO SCH (08:13)
[2019-04-09] MEDS: levETIRAcetam 250 MG Tab PO SCH (08:15)
[2019-04-09] MEDS: Enoxaparin 30 MG/0.3 ML Syringe SUBCUT SCH (08:17)
[2019-04-09] MEDS: Sulfamethoxazole/Trimethoprim 800-160 MG Tab PO SCH (08:18)
[2019-04-09] MEDS ORDERED: Furosemide 20 MG Tab PO SCH (09:00)
[2019-04-09] MEDS ORDERED: Sodium Ferric Gluconate Cmplex 250 MG in Sodium Chloride 0.9% 100 ML IV ONE (10:00)
[2019-04-09 10:50] VITALS: BP 127/55; PULSE 73
--- NOTE | 2019-04-09 12:17 | PCM.DCSUM1 ---
Discharge Summary - Hospital Course Brief History: Mr. Winchester is a 73-year-old gentleman who was admitted through the emergency department with weakness and lightheadedness secondary to medication effect, acute kidney injury, and hyperkalemia. - Discharge Data Discharge Date: 04/09/19 Discharge Disposition: Home, Self-Care 01 Condition: Fair - Referral to Home Health Primary Care Physician: Jimenez Walter MD - Discharge Diagnosis/Problem(s) (1) Hypotension SNOMED Code(s): 92226663 ICD Code: I95.9 - HYPOTENSION, UNSPECIFIED Status: Acute Current Visit: Yes Qualifiers: Hypotension type: hypotension due to hypovolemia Qualified Code(s): I95.89 - Other hypotension; E86.1 - Hypovolemia (2) Anemia SNOMED Code(s): 680960446 ICD Code: D64.9 - ANEMIA, UNSPECIFIED Status: Acute Current Visit: Yes Qualifiers: Anemia type: other cause (3) CKD (chronic kidney disease) stage 3, GFR 30-59 ml/min SNOMED Code(s): 861831161 ICD Code: N18.3 - CHRONIC KIDNEY DISEASE, STAGE 3 (MODERATE) Status: Chronic Current Visit: No (4) Diabetes mellitus type 2 in obese SNOMED Code(s): 59341805 ICD Code: E11.69 - TYPE 2 DIABETES MELLITUS WITH OTHER SPECIFIED COMPLICATION ; E66.9 - OBESITY, UNSPECIFIED Status: Chronic Current Visit: No (5) Congestive heart failure SNOMED Code(s): 44118081 ICD Code: I50.9 - HEART FAILURE, UNSPECIFIED Status: Chronic Current Visit: No (6) NATALY (acute kidney injury) SNOMED Code(s): 10179251, 71958323 ICD Code: N17.9 - ACUTE KIDNEY FAILURE, UNSPECIFIED Status: Acute Current Visit: Yes (7) Hyperkalemia SNOMED Code(s): 60565523 ICD Code: E87.5 - HYPERKALEMIA Status: Acute Current Visit: Yes - Patient Summary/Data Consults: Consultations 04/07/19 16:26 PT Evaluation and Treatment [CONS] Routine Please Evaluate and Treat. PT Reason for Consult: WEakness This query below is only for informational purposes and is not editable. Hospital Course: Mr. Winchester is a 73-year-old gentleman who was admitted through the emergency department with weakness and lightheadedness secondary to hypotension with underlying acute kidney injury and hyperkalemia. Over the past few months he has undergone lower back surgery, hip replacement surgery, and knee replacement. This course is also been complicated by spontaneous subdural hematomas. He was at physical therapy this morning when he became weak and lightheaded, blood pressure was noted to be low and he was referred to the emergency department for further evaluation. He typically has chronic kidney disease stage III, creatinine was elevated from baseline at 3.4. Potassium level was found to be elevated at 6.6. Blood pressure was initially found to be low but that improved after he did receive some IV fluids in the emergency department. He denies any symptoms of chest pain or pressure or increased shortness of breath. He has chronic peripheral edema both lower extremities. On admission he was given IV fluids for hydration and lisinopril as well as furosemide were held. He was felt better by the next morning, hypotension was thought secondary to medication effect. He was restarted on his usual dose of furosemide. Dose of carvedilol was decreased to 3.125 mg twice daily and his dose of lisinopril was decreased to 2.5 mg and will be given in the evening. With these changes in medication he felt well with no lightheadedness prior to discharge. He was given a dose of Kayexalate in the emergency department and by the time of discharge his potassium level was within normal range and his renal function was close to baseline creatinine of 2.7. He has had a recent history of ongoing anemia, iron level was obtained and found to be significantly low. He did receive 2 doses of IV iron while in the hospital. He will be discharged home with medication changes as noted above. Activity will be as tolerated and he will be on a diabetic low-sodium diet. Follow-up appointment will be scheduled with his primary care provider within 1 week, BMP and CBC should be obtained at the time of follow-up appointment. - Patient Instructions Diet: Low Sodium, Diabetic Diet Activity: As Tolerated Other/Special Instructions: Please schedule follow-up appointment with primary care provider within 1 week, BMP and CBC should be obtained at the time of follow-up appointment. - Discharge Plan *PRESCRIPTION DRUG MONITORING PROGRAM REVIEWED*: Not Applicable *COPY OF PRESCRIPTION DRUG MONITORING REPORT IN PATIENT [place]: Not Applicable Prescriptions/Med Rec: Lisinopril [Zestril] 2.5 mg PO DAILY #30 tablet Home Medications: Home Meds Amiodarone HCl 200 mg PO QAM 03/05/14 [History] Simvastatin [Zocor] 10 mg PO BEDTIME 03/05/14 [History] allopurinoL [Zyloprim] 300 mg PO QAM 03/05/14 [History] Ferrous Sulfate [Feosol] 325 mg PO TID 11/04/16 [History] Finasteride 5 mg PO QPM 11/04/16 [History] Tamsulosin HCl 0.8 mg PO BEDTIME 11/04/16 [History] Cyanocobalamin (Vitamin B-12) [Cyanocobalamin Injection] 1,000 mcg IM WEEKLY 09/18 [History] Furosemide [Lasix] 20 mg PO QAM 07/02/18 [History] levETIRAcetam [Levetiracetam] 750 mg PO BID 07/02/18 [History] Levothyroxine 75 mcg PO ACBREAKFAST 11/07/18 [History] Triamcinolone Acetonide [Kenalog 0.1% Crm] 1 cm TOP TID PRN 11/07/18 [History] Cholecalciferol (Vitamin D3) [Vitamin D] 1,000 unit PO QAM 11/11/18 [History] Nystatin [Nystatin Crm] 100,000 unit TOP BID PRN 11/11/18 [History] metFORMIN [Glucophage] 500 mg PO BIDMEALS 02/13/19 [History] Enoxaparin Sodium [Lovenox] 30 mg SQ DAILY 28 Days #28 syringe 03/13/19 [Rx] oxyCODONE HCl/Acetaminophen [Percocet 5-325 mg Tablet] 1 each PO Q4HR PRN #40 tablet 03/24/19 [Rx] Sulfamethoxazole/Trimethoprim [Septra DS] 1 tab PO BID 04/07/19 [History] Lisinopril [Zestril] 2.5 mg PO DAILY #30 tablet 04/09/19 [Rx] carvediloL [Coreg] 3.125 mg PO BID tablet 04/09/19 [Rx] Referrals: Jimenez Walter MD [Primary Care Provider] - - Discharge Summary/Plan Comment DC Time >30 min.: No - Patient Data Vitals - Most Recent: Last Vital Signs Temp 99.9 F 04/09/19 10:45 Pulse 73 04/09/19 10:45 Resp 18 04/09/19 07:19 BP 127/55 L 04/09/19 10:45 Pulse Ox 97 04/09/19 10:45 Weight - Most Recent: 266 lb 0.015 oz I&O - Last 24 hours: Intake & Output 04/08/19 04/09/19 04/09/19 22:59 06:59 14:59 Intake Total 1120 1000 420 Balance 1120 1000 420 Lab Results - Last 24 hrs: Laboratory Results - last 24 hr 04/08/19 04/08/19 04/09/19 Range/Units 14:32 14:32 04:00 WBC 7.3 (4.5-11.0) K/uL RBC 2.60 L (4.30-5.90) M/uL Hgb 7.9 L (12.0-15.0) g/dL Hct 25.9 L (40.0-54.0) % MCV 100 H (80-98) fL MCH 30 (27-31) pg MCHC 31 L (32-36) % Plt Count 170 (150-400) K/uL Neut % (Auto) 74 H (36-66) % Lymph % (Auto) 12 L (24-44) % [place] % (Auto) 12 H (2-6) % Eos % (Auto) 1 L (2-4) % Baso % (Auto) 1 (0-1) % Sodium (140-148) mmol/L Potassium 4.9 (3.6-5.2) mmol/L Chloride (100-108) mmol/L Carbon Dioxide (21-32) mmol/L Anion Gap (5.0-14.0) mmol/L BUN (7-18) mg/dL Creatinine (0.8-1.3) mg/dL Est Cr Clr Drug Dosing mL/min Estimated GFR (MDRD) (>60) Glucose (74-106) mg/dL Calcium (8.5-10.1) mg/dL Iron 16 L (65-175) ug/dL TIBC 233 L (250-450) ug/dl % Saturation 7 L (20-55) % 04/09/19 Range/Units 04:00 WBC (4.5-11.0) K/uL RBC (4.30-5.90) M/uL Hgb (12.0-15.0) g/dL Hct (40.0-54.0) % MCV (80-98) fL MCH (27-31) pg MCHC (32-36) % Plt Count (150-400) K/uL Neut % (Auto) (36-66) % Lymph % (Auto) (24-44) % [place] % (Auto) (2-6) % Eos % (Auto) (2-4) % Baso % (Auto) (0-1) % Sodium 139 L (140-148) mmol/L Potassium 4.6 (3.6-5.2) mmol/L Chloride 108 (100-108) mmol/L Carbon Dioxide 18 L (21-32) mmol/L Anion Gap 17.6 H (5.0-14.0) mmol/L BUN 39 H (7-18) mg/dL Creatinine 2.7 H (0.8-1.3) mg/dL Est Cr Clr Drug Dosing 28.69 mL/min Estimated GFR (MDRD) 23 L (>60) Glucose 105 (74-106) mg/dL Calcium 8.3 L (8.5-10.1) mg/dL Iron (65-175) ug/dL TIBC (250-450) ug/dl % Saturation (20-55) % Med Orders - Current: Current Medications Acetaminophen (Tylenol) 650 mg PO Q4H PRN PRN Reason: Pain (Mild 1-3)/fever Last Admin: 04/09/19 01:24 Dose: 650 mg Amiodarone HCl (Cordarone) 200 mg PO QAM [facility] Last Admin: 04/09/19 08:10 Dose: 200 mg Carvedilol (Coreg) 3.125 mg PO BID [facility] Last Admin: 04/09/19 08:12 Dose: 3.125 mg Dextrose (Glutose 15) 15 gm PO ONETIME PRN PRN Reason: Hypoglycemia Dextrose/Water (Dextrose 50% In Water) 50 ml IV ONETIME PRN PRN Reason: Hypoglycemia Enoxaparin Sodium (Lovenox) 30 mg SUBCUT DAILY [facility] Last Admin: 04/09/19 08:17 Dose: 30 mg Ferrous Sulfate (Ferrous Sulfate) 325 mg PO TID [facility] Last Admin: 04/09/19 08:13 Dose: 325 mg Finasteride (Proscar) 5 mg PO QPM [facility] Last Admin: 04/08/19 16:19 Dose: 5 mg Furosemide (Lasix) 20 mg PO QAM [facility] Last Admin: 04/09/19 08:17 Dose: 20 mg Insulin Human Lispro (Humalog) 0 unit SUBCUT QIDACANDBED [facility]; Protocol Last Admin: 04/09/19 11:42 Dose: Not Given Levetiracetam (Keppra) 750 mg PO BID [facility] Last Admin: 04/09/19 08:15 Dose: 750 mg Levothyroxine Sodium (Levothyroxine) 75 mcg PO Q24H [facility] Last Admin: 04/09/19 05:44 Dose: 75 mcg Lisinopril (Prinivil) 2.5 mg PO BEDTIME [facility] Last Admin: 04/08/19 20:44 Dose: 2.5 mg Metformin HCl (Glucophage) 500 mg PO BIDMEALS [facility] Last Admin: 04/09/19 08:09 Dose: 500 mg Ondansetron HCl (Zofran) 4 mg IV Q4H PRN PRN Reason: Nausea/Vomiting Oxycodone/Acetaminophen (Percocet 325-5 Mg) 1 tab PO Q4H PRN PRN Reason: Pain Last Admin: 04/07/19 18:29 Dose: 1 tab Polyethylene Glycol (Miralax) 17 gm PO DAILY PRN PRN Reason: Constipation Simvastatin (Zocor) 10 mg PO BEDTIME [facility] Last Admin: 04/08/19 20:43 Dose: 10 mg Sodium Chloride (Saline Flush) 10 ml FLUSH ASDIRECTED PRN PRN Reason: Keep Vein Open Tamsulosin HCl (Flomax) 0.8 mg PO BEDTIME [facility] Last Admin: 04/08/19 20:44 Dose: 0.8 mg Trimethoprim/Sulfamethoxazole (Septra Ds) 0.5 tab PO BID [facility] Last Admin: 04/09/19 08:18 Dose: 0.5 tab Discontinued Medications Carvedilol (Coreg) 6.25 mg PO BID [facility] Last Admin: 04/08/19 08:28 Dose: 6.25 mg Sodium Chloride (Normal Saline) 1,000 mls @ 125 mls/hr IV ASDIRECTED [facility] Last Admin: 04/08/19 01:26 Dose: 125 mls/hr Ferric Sodium Gluconate Complex 250 mg/ Sodium Chloride 120 mls @ 60 mls/hr IV ONETIME ONE Stop: 04/08/19 17:59 Last Admin: 04/08/19 16:18 Dose: 60 mls/hr Ferric Sodium Gluconate Complex 250 mg/ Sodium Chloride 120 mls @ 60 mls/hr IV ONETIME ONE Stop: 04/09/19 11:59 Last Admin: 04/09/19 10:26 Dose: 60 mls/hr Sodium Polystyrene Sulfonate (Kayexalate) 30 gm PO ONETIME ONE Stop: 04/07/19 12:50 Last Admin: 04/07/19 13:03 Dose: 30 gm Trimethoprim/Sulfamethoxazole (Septra Ds) 1 tab PO BID [facility] - Exam General: Reports: Alert, Oriented, Cooperative, No Acute Distress Lungs: Reports: Clear to Auscultation, Normal Respiratory Effort Cardiovascular: Reports: Regular Rate, Regular Rhythm, No Murmurs GI/Abdominal Exam: Soft, Non-Tender, No Organomegaly, No Distention Extremities: Non-Tender, Pedal Edema *Q Meaningful Use (DIS) - VTE *Q VTE Pharmacological Contraindications *Q: High INR Value
== END 2019-04-09 13:49 | disposition home or self-care (01) | DRG 312 ==
LOC: JP.ED 10:43 → JP.MS 13:28 → JP.SDSSCHI 13:28 → UNDOADMIN 13:28 → JP.MS 15:45
PROVIDERS: ADMIT Hospitalist; ATTEND Hospitalist
DX: R55 Syncope and collapse (principal); I95.2 Hypotension due to drugs; N17.9 Acute kidney failure, unspecified; D64.9 Anemia, unspecified; I13.0 Hypertensive heart and chronic kidney disease with heart failure and stage 1 through stage 4 chronic kidney disease, or unspecified chronic kidney disease; T46.4X5A Adverse effect of angiotensin-converting-enzyme inhibitors, initial encounter; T50.1X5A Adverse effect of loop [high-ceiling] diuretics, initial encounter; E87.5 Hyperkalemia; N18.9 Chronic kidney disease, unspecified; E86.1 Hypovolemia; N18.3 Chronic kidney disease, stage 3 (moderate); E66.9 Obesity, unspecified; I50.9 Heart failure, unspecified; Z96.642 Presence of left artificial hip joint; Z96.652 Presence of left artificial knee joint; D50.9 Iron deficiency anemia, unspecified; Z93.6 Other artificial openings of urinary tract status; E53.8 Deficiency of other specified B group vitamins; E11.22 Type 2 diabetes mellitus with diabetic chronic kidney disease; G89.29 Other chronic pain; M19.90 Unspecified osteoarthritis, unspecified site; M54.9 Dorsalgia, unspecified; E05.90 Thyrotoxicosis, unspecified without thyrotoxic crisis or storm; M10.9 Gout, unspecified; Z96.0 Presence of urogenital implants; E61.1 Iron deficiency; Z85.46 Personal history of malignant neoplasm of prostate; N40.0 Benign prostatic hyperplasia without lower urinary tract symptoms; K21.9 Gastro-esophageal reflux disease without esophagitis; G47.30 Sleep apnea, unspecified; I25.10 Atherosclerotic heart disease of native coronary artery without angina pectoris; E78.00 Pure hypercholesterolemia, unspecified; Z91.013 Allergy to seafood; Z88.8 Allergy status to other drugs, medicaments and biological substances; Z91.048 Other nonmedicinal substance allergy status; H91.90 Unspecified hearing loss, unspecified ear; H54.7 Unspecified visual loss; Z79.899 Other long term (current) drug therapy; Z79.890 Hormone replacement therapy; Z79.84 Long term (current) use of oral hypoglycemic drugs; Z91.041 Radiographic dye allergy status; Z98.890 Other specified postprocedural states; Z98.49 Cataract extraction status, unspecified eye; Z95.1 Presence of aortocoronary bypass graft; Z87.440 Personal history of urinary (tract) infections; Z95.810 Presence of automatic (implantable) cardiac defibrillator; Z86.718 Personal history of other venous thrombosis and embolism; Z79.01 Long term (current) use of anticoagulants; Z68.33 Body mass index [BMI] 33.0-33.9, adult
CPT/HCPCS: 36415; 80048; 85025; 99284; A9270; 82962; 83550; 83735; 84132; 97161-GP; 99285; J1650; J2916; J7030; J7050

== ENCOUNTER 2021-05-03 12:59 | Emergency (ER) | payer MEDICARE, BC ==
[2021-05-03 13:22] VITALS: BP 192/78; PULSE 84
[2021-05-03] MEDS ORDERED: CEFTRIAXONE 1 GM IM ONE ×2 (15:32)
[2021-05-03] MEDS ORDERED: LIDOCAINE 1% IM ONE ×2 (15:32)
== END 2021-05-03 17:38 ==
LOC: JP.ED 12:59
DX: R33.9 Retention of urine, unspecified (principal); I25.10 Atherosclerotic heart disease of native coronary artery without angina pectoris; E78.00 Pure hypercholesterolemia, unspecified; I11.0 Hypertensive heart disease with heart failure; I50.9 Heart failure, unspecified; E11.9 Type 2 diabetes mellitus without complications; E03.9 Hypothyroidism, unspecified; E66.9 Obesity, unspecified; Z68.1 Body mass index [BMI] 19.9 or less, adult; Z91.048 Other nonmedicinal substance allergy status; Z91.041 Radiographic dye allergy status
CPT/HCPCS: 51702; 81001; 87086; 87088; 87186; 96372; 99283; 99284; J0696

== ENCOUNTER 2021-09-06 21:56 | Emergency (ER) | payer MEDICARE, BC ==
[2021-09-06] MEDS ORDERED: Sodium Chloride 0.9% 10 ML Syringe FLUSH PRN (21:59)
[2021-09-06 22:25] LABS: TROPONIN I HIGH SENSITIVITY 233.7 pg/mL (<=60.3)
[2021-09-07] MEDS ORDERED: Enoxaparin 120 MG/0.8 ML Syringe SUBCUT ONE (00:14)
[2021-09-07] MEDS ORDERED: Dexamethasone 4 MG/ML SDV IVPUSH SCH ×2 (00:15→21:00)
[2021-09-07] MEDS ORDERED: Acetaminophen 500 MG Tab PO ONE ×2 (00:43→11:53)
[2021-09-07] MEDS ORDERED: Carvedilol 3.125 MG Tab PO ONE (06:36)
[2021-09-07] MEDS ORDERED: Furosemide 20 MG Tab PO ONE (06:37)
[2021-09-07] MEDS ORDERED: Amiodarone 200 MG Tab PO ONE (06:37)
[2021-09-07] MEDS ORDERED: Levothyroxine 25 MCG Tab PO ONE (06:38)
[2021-09-07 06:42] LABS: TROPONIN I HIGH SENSITIVITY 1691.4 pg/mL (<=60.3)
[2021-09-07] MEDS ORDERED: Lisinopril 2.5 MG Tab PO SCH (06:45)
[2021-09-07 12:25] VITALS: BP 128/46; PULSE 66
== END 2021-09-07 13:20 | disposition home or self-care (01) ==
LOC: JP.ED 21:56
DX: U07.1 COVID-19 (principal); I21.4 Non-ST elevation (NSTEMI) myocardial infarction; D64.9 Anemia, unspecified; I13.0 Hypertensive heart and chronic kidney disease with heart failure and stage 1 through stage 4 chronic kidney disease, or unspecified chronic kidney disease; E11.22 Type 2 diabetes mellitus with diabetic chronic kidney disease; N18.30 Chronic kidney disease, stage 3 unspecified; I50.9 Heart failure, unspecified; D63.1 Anemia in chronic kidney disease; I25.10 Atherosclerotic heart disease of native coronary artery without angina pectoris; M19.90 Unspecified osteoarthritis, unspecified site; K21.9 Gastro-esophageal reflux disease without esophagitis; E78.00 Pure hypercholesterolemia, unspecified; Z79.899 Other long term (current) drug therapy; Z91.013 Allergy to seafood; Z91.041 Radiographic dye allergy status
CPT/HCPCS: 36415; 71045; 80048; 82803; 83880; 84145; 84484; 85025; 85379; 85610; 85730; 86140; 93005; 96372; 99285; A9270; J1100; J1650; J3490; U0002

== ENCOUNTER 2021-09-13 20:29 | Inpatient (IN) | payer MEDICARE, BC ==
[2021-09-13] MEDS ORDERED: Sodium Chloride 0.9% 10 ML Syringe FLUSH PRN (20:41)
[2021-09-13 21:26] LABS: ESTIMATED GFR 23 mL/min (>60); TROPONIN I HIGH SENSITIVITY 49.3 pg/mL (<=60.3)
[2021-09-13] MEDS ORDERED: Sodium Chloride 0.9% 500 ML IV ONE (22:22)
[2021-09-13] MEDS ORDERED: cefTRIAXone 1 GM in Sodium Chloride 0.9% 50 ML IV ONE (23:09)
[2021-09-13] MEDS ORDERED: Zolpidem 5 MG Tab PO PRN (23:29)
[2021-09-13] MEDS ORDERED: Morphine 2 MG/ML SYRINGE IVPUSH PRN (23:29)
[2021-09-13] MEDS ORDERED: Polyethylene Glycol 3350 Powder 17 GM Packet PO PRN (23:29)
[2021-09-13] MEDS ORDERED: Magnesium Hydroxide 400 MG/5 ML Susp 30 ML Cup PO PRN (23:29)
[2021-09-13] MEDS ORDERED: Docusate Sodium 100 MG Cap PO PRN (23:29)
[2021-09-13] MEDS ORDERED: Acetaminophen/HYDROcodone 325-5 MG Tab PO PRN (23:29)
[2021-09-13] MEDS ORDERED: Acetaminophen 325 MG Tab PO PRN (23:29)
[2021-09-13] MEDS ORDERED: Ondansetron 4 MG/2 ML SDV IV PRN (23:29)
[2021-09-13] MEDS ORDERED: Sodium Chloride 0.9% 1,500 ML IV SCH (23:30)
[2021-09-13] MEDS ORDERED: Enoxaparin 40 MG/0.4 ML Syringe SUBCUT SCH (23:45)
[2021-09-14] MEDS: Nicotine 14 MG/24 Hr Patch TRDERM SCH ×2 (01:28→09:22)
[2021-09-14] MEDS ORDERED: Acetaminophen/HYDROcodone 325-5 MG Tab PO PRN ×2 (02:20→18:42)
[2021-09-14] MEDS: Acetaminophen 325 MG Tab PO SCH ×5 (06:16→21:31)
[2021-09-14 11:40] LABS: HEMOGLOBIN A1C 9.8 % (4.5-6.2)
[2021-09-14] MEDS ORDERED: Nystatin Crm 15 GM Tube TOP PRN (11:40)
[2021-09-14] MEDS ORDERED: Triamcinolone Acetonide 0.1% Crm 80 GM Tube TOP PRN (11:40)
[2021-09-14] MEDS ORDERED: Ferrous Sulfate 325 MG Tab PO SCH (12:15)
[2021-09-14] MEDS ORDERED: Furosemide 20 MG Tab PO SCH (12:15)
[2021-09-14] MEDS: glipiZIDE 5 MG Tab PO SCH ×2 (12:27→17:00)
[2021-09-14] MEDS: levETIRAcetam 250 MG Tab PO SCH ×2 (12:27→21:31)
[2021-09-14] MEDS ORDERED: cefTRIAXone 1 GM in Sodium Chloride 0.9% 50 ML IV SCH (17:00)
[2021-09-14 20:04] VITALS: PULSE 50
[2021-09-14] MEDS ORDERED: Enoxaparin 30 MG/0.3 ML Syringe SUBCUT SCH (21:00)
[2021-09-14] MEDS ORDERED: Pravastatin 20 MG Tab PO SCH (21:00)
[2021-09-14] MEDS ORDERED: Enoxaparin 40 MG/0.4 ML Syringe SUBCUT SCH (21:00)
[2021-09-14 21:54] VITALS: BP 110/23
[2021-09-15] MEDS ORDERED: Non-Formulary Medication 1 Each (Levothyroxine [Levothyroxine] 75 MCG Tablet) PO SCH (07:30)
[2021-09-15] MEDS ORDERED: Levothyroxine 25 MCG Tab PO SCH (07:30)
[2021-09-15] MEDS ORDERED: Allopurinol 100 MG Tab PO SCH ×2 (09:00)
[2021-09-15] MEDS ORDERED: Amiodarone 200 MG Tab PO SCH (09:00)
[2021-10-14] MEDS ORDERED: Cyanocobalamin (Vitamin B12) 1,000 MCG/ML SDV IM SCH (09:00)
== END 2021-09-14 22:15 | DRG 871 ==
LOC: JP.ED 20:29 → JP.ICU 23:44
PROVIDERS: ADMIT Internal Medicine; ATTEND Internal Medicine
DX: A41.9 Sepsis, unspecified organism (principal); U07.1 COVID-19; N17.9 Acute kidney failure, unspecified; R33.9 Retention of urine, unspecified; D64.9 Anemia, unspecified; R53.1 Weakness; E11.9 Type 2 diabetes mellitus without complications; N18.4 Chronic kidney disease, stage 4 (severe); E87.1 Hypo-osmolality and hyponatremia; E11.52 Type 2 diabetes mellitus with diabetic peripheral angiopathy with gangrene; I96 Gangrene, not elsewhere classified; I50.22 Chronic systolic (congestive) heart failure; I13.0 Hypertensive heart and chronic kidney disease with heart failure and stage 1 through stage 4 chronic kidney disease, or unspecified chronic kidney disease; R79.89 Other specified abnormal findings of blood chemistry; E78.00 Pure hypercholesterolemia, unspecified; Z95.810 Presence of automatic (implantable) cardiac defibrillator; E87.5 Hyperkalemia; I95.9 Hypotension, unspecified; I25.10 Atherosclerotic heart disease of native coronary artery without angina pectoris; H54.7 Unspecified visual loss; H91.90 Unspecified hearing loss, unspecified ear; E53.8 Deficiency of other specified B group vitamins; E05.90 Thyrotoxicosis, unspecified without thyrotoxic crisis or storm; E11.69 Type 2 diabetes mellitus with other specified complication; Z85.038 Personal history of other malignant neoplasm of large intestine; Z85.46 Personal history of malignant neoplasm of prostate; N40.1 Benign prostatic hyperplasia with lower urinary tract symptoms; R33.8 Other retention of urine; K21.9 Gastro-esophageal reflux disease without esophagitis; G47.30 Sleep apnea, unspecified; M19.90 Unspecified osteoarthritis, unspecified site; M10.9 Gout, unspecified; E11.22 Type 2 diabetes mellitus with diabetic chronic kidney disease; E66.9 Obesity, unspecified; C61 Malignant neoplasm of prostate; Z96.642 Presence of left artificial hip joint; Z96.652 Presence of left artificial knee joint; Z45.010 Encounter for checking and testing of cardiac pacemaker pulse generator [battery]; Z88.8 Allergy status to other drugs, medicaments and biological substances; Z91.013 Allergy to seafood; Z91.041 Radiographic dye allergy status; Z95.1 Presence of aortocoronary bypass graft; Z79.890 Hormone replacement therapy; Z79.899 Other long term (current) drug therapy; Z86.718 Personal history of other venous thrombosis and embolism; Z79.01 Long term (current) use of anticoagulants; Z68.33 Body mass index [BMI] 33.0-33.9, adult; Z93.6 Other artificial openings of urinary tract status; Z79.84 Long term (current) use of oral hypoglycemic drugs
CPT/HCPCS: 36415; 36600; 71045 ×2; 80053; 81001; 83036; 83605; 83880; 84145; 84484; 85025; 85379; 86140; 87040; 87086; 93005; J0696; J7040; 80048; 82803; 82947; 83735; 87088; 87186; 93970; 93970-26; 96361; 96365; 99285-25; A9270-GY; J1650; J3370; J3490; J7030; J7050; U0002